=== PATIENT | male | born 1945 | race Caucasian/White ===

== ENCOUNTER → 2018-10-13 12:09 | Outpatient (CLI) | payer MEDICARE, SELFPAY ==
[2018-10-13 12:53] LABS: Basophils % 0.4 % (0.1-2.0); Eosinophils % 0.4 % (0.1-12.0); Hematocrit 41.5 % (42.0-52.0); Hemoglobin 13.5 g/dL (14.1-18.0); Lymphocytes # 1.5 K/mm3 (0.7-4.5); Lymphocytes % 23.2 % (10-50); Mean Corpuscular HGB Conc 32.6 g/dL (31.8-35.4); Mean Corpuscular Hemoglobin 29.3 pg (27.0-31.2); Mean Corpuscular Volume 89.7 fl (80-94); Mean Platelet Volume 8.2 fl (7.4-10.4); Monocytes # 0.7 K/mm3 (0.1-1.0); Monocytes % 11.1 % (1.7-9.3); Neutrophils # 4.3 K/mm3 (1.8-7.8); Neutrophils % 64.7 % (37.0-80.0); Platelet Count 192 K/mm3 (142-424); Red Blood Count 4.62 M/mm3 (4.60-6.20); Red Cell Distribution Width 16.6 % (11.5-17.5); White Blood Count 6.6 K/mm3 (4.8-10.8)
[2018-10-13 14:31] LABS: Anion Gap 13.1 mEq/L (5-15); Blood Urea Nitrogen 16 mg/dL (7-18); Calcium 8.6 mg/dL (8.5-10.1); Carbon Dioxide 30 mmol/L (21.0-32.0); Chloride 100 mmol/L (98-107); Creatinine,Serum 1.16 mg/dL (0.70-1.30); Estimated Glomerular Filt Rate 62 ml/min (>60); Free T4 (Free Thyroxine) 0.91 ng/dl (0.76-1.46); GFR (African American) 74 ML/MIN (>60); Glucose 102 mg/dL (74-106); Potassium 4.1 mmoL/L (3.5-5.1); Sodium 139 mmol/L (136-145)
== END ==
PROVIDERS: Visit Provider Nurse Practitioner Family
DX: I25.10 Atherosclerotic heart disease of native coronary artery without angina pectoris (principal); I73.9 Peripheral vascular disease, unspecified; R53.83 Other fatigue; Z95.0 Presence of cardiac pacemaker; I11.9 Hypertensive heart disease without heart failure; I25.9 Chronic ischemic heart disease, unspecified; K55.1 Chronic vascular disorders of intestine; R00.1 Bradycardia, unspecified; Z95.1 Presence of aortocoronary bypass graft; E78.49 Other hyperlipidemia
CPT/HCPCS: 36415; 80048; 84439; 84443; 85025

== ENCOUNTER 2020-08-31 17:10 | Observation (INO) | payer MEDICARE, SELFPAY ==
[2020-08-31] VITALS (49 sets, daily range): BP systolic 70–140; BP diastolic 35–75; PULSE 60–90; RESP 12–18; TEMP 36.3–36.9; O2SAT 90–100; BMI 25.0; BMI 25.1
--- NOTE | 2020-08-31 07:32 | IR_ITS ---
APPROVED REPORT Patient Location: Outpatient Sign Out Clerk: ROMEL Lopez RT (R) PROCEDURES Catheter placement in the left external iliac artery Left external iliac artery antegrade angiogram with unilateral runoff to the left foot Catheter placement in the right external iliac artery Right external iliac artery antegrade angiogram with unilateral runoff to the right foot Catheter placement in the distal abdominal aorta Distal abdominal aortic angiography with bilateral iliofemoral angiography Stent deployment to the left common iliac artery INDICATION Peripheral artery disease, [place] class III claudication, Known bilateral SFA disease, Left common iliac artery stenosis Informed consent was obtained prior to the procedure. COMPLICATIONS NONE Estimated Blood Loss: LESS THAN 10 ML TECHNIQUE 1% lidocaine used to anesthetize the right anterior aspect of the right wrist. The right radial artery was accessed via the central technique and an arterial cocktail using 5000U heparin, 2.5 mg verapamil, 1mg lidocaine and 800mcg nitroglycerin into the right radial sheath intra-arterially. A PV multi curve catheter was then placed into the left external iliac artery via the right radial sheath and iliofemoral angiography was performed with unilateral runoff to the foot. The catheter was then pulled back and placed into the right external iliac artery where unilateral angiography was performed. The catheter was pulled back to the distal abdominal aorta for distal abdominal aortography with bilateral iliofemoral angiography was performed. Following this therapeutic heparin was administered giving a therapeutic ACT and the 6 Belgian sheath was exchanged for a short 7 Belgian sheath. 2 cm of the 7 Belgian sheath was placed in the right radial artery. The PV multicurve was placed back into the descending aorta and a 10 mm x 27 mm balloon mounted stent was advanced over the wire into the left common iliac artery. The wire was pulled back and antegrade angiography was performed in order to verify stent placement. The stent was deployed at 10 yuliana reducing the severe stenosis to 0%. Excellent angiographic results were obtained. At the end of the procedure the apparatus was removed the sheath was removed good hemostasis was achieved using TR banding patient was transferred to the postop holding area in stable condition. ANGIOGRAPHIC RESULTS The distal abdominal aorta is moderately atheromatous with 30% stenoses. The right common iliac artery has a stent in the ostial and proximal segment which is widely patent with minimal in-stent restenosis with excellent proximal distal transitioning. The right external iliac artery is patent with mild atheromatous plaque as is the right common femoral artery. The right internal iliac artery has a calcified ostial greater than 70% stenosis. The right profunda femoris artery is patent. The right superficial femoral artery has ostial proximal 20% stenoses. Distally the vessel becomes calcified at Farhad's canal and has high-grade stenosis. Competitive flow is identified from collaterals stemming off the profundus. There is antegrade flow down the [place] SFA into the popliteal artery however there are dense calcifications with severe stenoses. Distally the right anterior tibialis artery is occluded in its distal segment. There appears to be two-vessel runoff from the severely diseased peroneal artery and a severely diseased posterior tibialis artery The left common iliac artery has a proximal concentric 80% stenosis followed by poststenotic dilatation. The left internal iliac artery has an ostial 90% stenosis while the left external iliac artery is patent.
[2020-08-31 08:52] LABS: Basophils % 0.6 % (0.1-2.0); Eosinophils % 0.5 % (0.1-12.0); Hemoglobin 14.5 g/dL (14.1-18.0); Lymphocytes # 1.7 K/mm3 (0.7-4.5); Lymphocytes % 29.5 % (10-50); Mean Corpuscular HGB Conc 32.3 g/dL (31.8-35.4); Mean Corpuscular Hemoglobin 28.1 pg (27.0-31.2); Monocytes # 0.6 K/mm3 (0.1-1.0); Monocytes % 10.3 % (1.7-9.3); Neutrophils # 3.3 K/mm3 (1.8-7.8); Neutrophils % 59.1 % (37.0-80.0); Platelet Count 158 K/mm3 (142-424); Red Blood Count 5.17 M/mm3 (4.60-6.20); Red Cell Distribution Width 18.3 % (11.5-17.5); White Blood Count 5.7 K/mm3 (4.8-10.8)
[2020-08-31 08:54] LABS: Chloride 97 mmol/L (98-107); Sodium 139 mmol/L (136-145)
[2020-08-31 08:55] LABS: Potassium 3.3 mmoL/L (3.5-5.1)
[2020-08-31 08:57] LABS: Blood Urea Nitrogen 26 mg/dl (9-20); Creatinine Clearance Estimated 46 mL/min (50-200); Estimated Glomerular Filt Rate 49 ml/min (>60); GFR (African American) 60 ML/MIN (>60)
[2020-08-31 08:58] LABS: Anion Gap 9.3 mEq/L (5-15); Calcium 9.3 mg/dl (8.4-10.2); Carbon Dioxide 36 mmol/L (22.0-30.0); Glucose 114 mg/dl (74-100)
[2020-08-31 09:12] LABS: Coronavirus 19 IgG Antibody Negative (Negative); Coronavirus 19 IgM Antibody Negative (Negative)
--- NOTE | 2020-08-31 12:45 | CT_ITS ---
PROCEDURE: CT ABDOMEN PELVIS WO CON CLINICAL INDICATION: acute abdominal pain post cath, recent left femoral puncture with stent placement in the left common iliac artery COMPARISON: XA CL BOLUS NORA AORTAGRAM BI from 08/31/2020 TECHNIQUE: Axial images obtained with sagittal and coronal reformats. All CT scans at the facility use one or more dose reduction, viz: automated exposure control, ma/kV adjustment per patient size (including targeted exams where dose is matched to indication, i.e. head), or iterative reconstruction technique. FINDINGS: There are mild atelectatic changes in the lung bases. There are coronary artery calcifications. Artifact is present from stents and pacer wires. The liver, spleen, adrenal glands, and pancreas have an unremarkable appearance. The kidneys have an unremarkable appearance. Contrast is present within the renal collecting system from recent heart catheterization. Diffuse atherosclerotic calcification involves the aorta its branches and iliac vessels. Patient has a left common iliac artery stent with no hemorrhage evident around the stent. There is colonic diverticulosis but no evidence of diverticulitis. There is in diffuse enlargement of the lower aspect of the left rectus abdominus muscle with diffuse increased density of the lower pelvis anteriorly deep to the rectus abdominus consistent with acute hemorrhage. No retroperitoneal hemorrhage is evident. Increased density is present in the left inguinal region along the femoral artery. The left psoas muscle is slightly enlarged as well inferiorly and could be related to some underlying hemorrhage. The urinary bladder is compressed toward the right from the hemorrhage. There are degenerative changes in the lumbar spine. IMPRESSION: Diffuse increased density beginning in the left inguinal region and extending into the rectus abdominus as well as the lower peritoneum anteriorly consistent with acute hemorrhage/hematoma Dictated by: Brian Akers MD 08/31/2020 13:14 Brian Akers MD in [facility] 08/31/2020 13:14
--- NOTE | 2020-08-31 12:45 | SUR.PHASEII ---
While assessing pt, small hematoma noticed to left groin, pressure applied, pt became unresponsive and not following verbal commands. Pt awakened with painful stimuli, Jerardo BRITO at bedside, verbal order for 1mg of narcan received. Verbal order for CT abd/pelvic received.
[2020-08-31 13:09] LABS: POC Glucose,Bedside 116 (70-110)
[2020-08-31 13:38] LABS: Hematocrit 33.9 % (42.0-52.0)
--- NOTE | 2020-08-31 13:45 | SUR.PHASEII ---
Dopamine titrated to 10
[2020-08-31 13:50] LABS: Hemoglobin 10.7 g/dL (14.1-18.0)
--- NOTE | 2020-08-31 14:21 | SUR.PHASEII ---
Verbal order marta, Jerardo Travis PA for dopamine at 5, pt manual pressure 99/59
--- NOTE | 2020-08-31 14:25 | SUR.PHASEII ---
Gorge agreed to admit pt, notified house and CM.
--- NOTE | 2020-08-31 14:45 | SUR.PHASEII ---
Dopamine titrated to 10
--- NOTE | 2020-08-31 15:04 | SUR.PHASEII ---
Called lab for update on blood, stated another 45 minutes before its ready, dopamine titrated to 15
[2020-08-31 15:34] LABS: CATHL Activated Clotting Time 371 SEC (74-125)
--- NOTE | 2020-08-31 15:47 | HMH.PNCARD ---
<Jerardo Romero U - Last Filed: 08/31/20 15:47> Subjective Date: 08/31/20 Time: 15:47 Principal diagnosis: PAD Interval history: 75 yo WM with polyvascular disease (CAD/CABG, mild MAMI, PAD and moderate mesenteric artery stenosis) and pacemaker was in [employer] after LE runoff with left iliac artery stenting when he developed worsening abdominal pain. Non-contrast CT of abdomen revealed stranding of the rectus abdominus muscle felt to be blood from the left iliac insertion site. Pressure held at left femoral area. Pt developed hypotension despite IVF. He was started on dopamine to keep SBP > 90 mm Hg. Hgb fell from 14 down to 10 so he was typed and crossed for 2 units with orders to transfuse when ready. Pt to be admitted for observation and blood transfusion. Further treatment as indicated. Exam Vital signs and Labs for Last 24 Hours: Temp Pulse Resp BP Pulse Ox 97.5 F L 60 14 82/59 L 100 08/31/20 08:36 08/31/20 13:15 08/31/20 13:15 08/31/20 15:05 08/31/20 13:15 Laboratory Results - last 24 hr 08/31/20 08:30: WBC 5.7, RBC 5.17, Hgb 14.5, Hct 45.0, MCV 87.0, MCH 28.1, MCHC 32.3, RDW 18.3 H, Plt Count 158, MPV 10.0, Neut % (Auto) 59.1, Lymph % (Auto) 29.5, [place] % (Auto) 10.3 H, Eos % (Auto) 0.5, Baso % (Auto) 0.6, Neut # (Auto) 3.3, Lymph # (Auto) 1.7, [place] # (Auto) 0.6, Eos # (Auto) 0.0, Baso # (Auto) 0.0 08/31/20 08:30: Sodium 139, Potassium 3.3 L, Chloride 97 L, Carbon Dioxide 36 H, Anion Gap 9.3, BUN 26 H, Creatinine 1.40 H, Estimated Creat Clear 46, Estimated GFR 49 L, Est GFR ( Amer) 60, Glucose 114 H, Calcium 9.3 08/31/20 08:30: SARS-CoV-2 IgG Ab (Rapid) Negative, SARS-CoV-2 IgM Ab (Rapid) Negative 08/31/20 11:21: Activated Clotting Time 371 H* 08/31/20 13:02: POC Glucose 116 H 08/31/20 13:25: Hgb 10.7 L D, Hct 33.9 L 08/31/20 14:00: Blood Type O Negative, Antibody Screen Negative, Crossmatch (AHG) See Detail 08/31/20 14:30: Blood Type Confirm O Negative I & O for Last 24 hours: Intake & Output 08/29/20 08/30/20 08/31/20 09/01/20 11:59 11:59 11:59 11:59 Weight 160 lb - Constitutional no acute distress - *Routine HEENT Exam Head: Present: normocephalic Eye: Present: EOMI, PERRL ENT: Present: mucous membranes moist - *Routine Neck Exam Present: supple. Absent: lymphadenopathy - *Routine Respiratory Exam Present: CTA bilaterally - *Routine Cardiovascular Exam Present: RRR - *Routine Abdominal Exam Present: soft, normoactive bowel sounds. Absent: tenderness - *Routine Extremities Exam Absent: cyanosis, clubbing, edema - *Routine Skin Exam Present: warm. Absent: rash - *Routine Neurological Exam Present: alert, oriented X3 Progress Note: A&P (1) PAD (peripheral artery disease) Status: Chronic (2) Claudication, intermittent Status: Acute (3) CAD (coronary artery disease) Status: Chronic (4) Cardiac pacemaker in situ Status: Chronic (5) Carotid artery stenosis Status: Chronic (6) HLD (hyperlipidemia) Status: Chronic (7) History of coronary artery bypass graft Status: Chronic (8) Ischemic heart disease Status: Chronic (9) Mesenteric artery stenosis Status: Chronic Assessment and Plan for All Diagnoses:: 1. Transfuse blood X 2 units. Repeat H/H afterward. 2. Dopamine gtt to keep SBP> 90 mm hg. 3. Continue ASA and plavix for Iliac artery stent and polyvascular disease. 4. Continue statin therapy. 5. Resume beta bharti once off dopamine and vitals stable. 6. Discussed with Dr. Pennington. Please call Dr. Rehman for any questions or concerns. <Nilay Pennington - Last Filed: 09/02/20 08:00> Exam Vital signs and Labs for Last 24 Hours: Temp Pulse Resp BP Pulse Ox 98.3 F 72 14 108/51 L 92 L 09/02/20 07:51 09/02/20 06:00 09/02/20 06:00 09/02/20 06:00 09/02/20 06:00 Laboratory Results - last 24 hr 09/01/20 08:35: WBC 7.9 D, RBC 4.06 L, Hgb 11.5 L D, Hct 34.6 L, MCV 85.3, MCH 28.4, MCHC 33.3, RDW 17
[2020-08-31 17:50] LABS: Microscopic, Urine URINE MICROSCOPIC (MICROSCOPIC)
[2020-08-31 17:52] LABS: Appearance,Urine CLEAR (Clear); Bilirubin,Urine Negative (Negative); Blood, Urine 1+ (Negative); Color,Urine YELLOW (Yellow); Glucose,Urine (UA) Negative (Negative); Ketones,Urine Negative (Negative); Leukocyte Esterase,Urine Negative (Negative); Nitrate,Urine Negative (Negative); Protein,Urine 2+ (Negative)
[2020-08-31 18:03] LABS: Amorphous Sediment,Urine Trace /lpf; Squamous Epithelial Cell,Urine Occasional #/hpf (0-5); WBC,Urine Occasional #/hpf (0-3)
[2020-08-31 23:42] LABS: Hematocrit 39.9 % (42.0-52.0)
[2020-08-31 23:43] LABS: Hemoglobin 12.9 g/dL (14.1-18.0)
[2020-09-01] VITALS (16 sets, daily range): BP systolic 92–117; BP diastolic 41–52; PULSE 50–76; RESP 15–18; TEMP 36.8–37.3; O2SAT 91–98; BMI 24.2
--- NOTE | 2020-09-01 00:02 | PC.NURSE ---
Hold last [address] Rehman.
--- NOTE | 2020-09-01 00:15 | PC.NURSE ---
He is A&OX4. F/c removed per pt's request. He stated that he felt like the f/c was creating pressure and he continued to feel the need to void. His urine is dark yellow, clear. He also refused MD order for ativan and phenergan. He also refused oxygen but is currently 93% on RA. He has vomited once this shift. Reported pain all over 10/10 but refused new order for morphine. He has been resting in bed. Paced on telemetry with occasional PVCs. He received 2 units of PRBCs. Last 2 units are on hold per Dr. Rehman. Right radial site and left groin site with DSGs intact. Drainage marked on both sites with no new drainage this shift. Capillary refill <3. Positive radial and pedal pulses.
[2020-09-01 09:05] LABS: Basophils % 0.2 % (0.1-2.0); Eosinophils % 0.1 % (0.1-12.0); Hematocrit 34.6 % (42.0-52.0); Lymphocytes # 0.9 K/mm3 (0.7-4.5); Lymphocytes % 11.6 % (10-50); Mean Corpuscular HGB Conc 33.3 g/dL (31.8-35.4); Mean Corpuscular Hemoglobin 28.4 pg (27.0-31.2); Mean Corpuscular Volume 85.3 fl (80-94); Mean Platelet Volume 9.4 fl (7.4-10.4); Monocytes # 0.8 K/mm3 (0.1-1.0); Monocytes % 9.7 % (1.7-9.3); Neutrophils # 6.2 K/mm3 (1.8-7.8); Neutrophils % 78.4 % (37.0-80.0); Platelet Count 130 K/mm3 (142-424); Red Blood Count 4.06 M/mm3 (4.60-6.20); Red Cell Distribution Width 17.8 % (11.5-17.5); White Blood Count 7.9 K/mm3 (4.8-10.8)
[2020-09-01 09:12] LABS: Chloride 100 mmol/L (98-107); Potassium 3.5 mmoL/L (3.5-5.1); Sodium 134 mmol/L (136-145)
[2020-09-01 09:15] LABS: Anion Gap 9.5 mEq/L (5-15); Blood Urea Nitrogen 37 mg/dl (9-20); Carbon Dioxide 28 mmol/L (22.0-30.0); Creatinine Clearance Estimated 44 mL/min (50-200); Estimated Glomerular Filt Rate 49 ml/min (>60); GFR (African American) 60 ML/MIN (>60)
[2020-09-01 09:16] LABS: Glucose 134 mg/dl (74-100)
--- NOTE | 2020-09-01 09:17 | PC.NURSE ---
Received call from Dr. Rehman. He ordered to wean Dopamine gtt to keep SBP>90 in hopes of him discharging home today. Dopamine gtt currently @ 6mcg/kg/min. Decreased gtt to 3mcg/kg/min.
[2020-09-01 09:18] LABS: Calcium 7.3 mg/dl (8.4-10.2)
[2020-09-01 09:20] LABS: Hemoglobin 11.5 g/dL (14.1-18.0)
--- NOTE | 2020-09-01 09:48 | HMH.HP ---
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 Non-contrast CT of abdomen revealed stranding of the rectus abdominus muscle felt to be blood from the left iliac insertion site. Pressure held at left femoral area. Pt developed hypotension despite IVF. He was started on dopamine to keep SBP > 90 mm Hg. Hgb fell from 14 down to 10 so he was typed and crossed for 2 units with orders to transfuse when ready. Pt to be admitted for observation and blood transfusion. Further treatment as indicated. [facility] History I have reviewed the patient's past medical history: Yes Medical History: Reports:: Cancer, Carotid Stenosis, Congestive Heart Failure, Coronary Artery Disease, Hyperlipidemia, Hypertension, Internal Pacemaker, Peripheral Vascular Disease, Renal Disease Denies:: Diabetes Mellitus Type 1, Diabetes Mellitus Type 2, MRSA, Seizures *Have you ever received a pneumonia vaccine?: No *Have you received a flu vaccine this season?: No Other Medical History: Denies: Blood Transfusion Reaction Other Surgeries: Yes: Angioplasty, CABG, Cardiac Catheterization, Coronary Stent, Pacemaker Amputation: No Fractures: No - *Social History Last grade of school completed: 11th or 12th Smoking Status: Former smoker Tobacco Type: smokeless tobacco Alcohol Intake: never Alcohol Intake Frequency:: holidays/special occasions only Substance Use Type: denies use *Occupational Status:: retired Housing: house Household Members: spouse *Travel in the last 8 weeks: None Family Hx:: Unable to obtain Review of Systems - Review of Systems Review of systems:: pertinent systems reviewed and negative unless documented below - Constitutional Denies fever(s) - ENT Denies sore throat - *Cardiovascular Reports chest pain, Reports shortness of breath - *Respiratory Denies cough - *Gastrointestinal Denies abdominal pain - *Genitourinary Denies blood in urine - *Musculoskeletal Denies joint pain - Integumentary/Breasts Denies rash - *Neurologic Denies localized weakness, Denies seizure-like activity - Psychiatric Denies anxiety Meds Home Medications Medication Instructions Recorded Confirmed Type aspirin 81 mg tablet,delayed 81 mg PO DAILY 02/15/19 08/31/20 History release Clopidogrel Bisulfate [Plavix 75mg 75 mg PO DAILY 08/31/20 08/31/20 History Tab] Potassium Chloride [K-Tab ER 10 10 meq PO DAILY 08/31/20 08/31/20 History mEq] Rosuvastatin Calcium 40 mg PO DAILY 08/31/20 08/31/20 History bisoproloL fumarate [Bisoprolol 5 mg PO BID 08/31/20 08/31/20 History Fumarate] hydroCHLOROthiazide [HCTZ 25mg 12.5 mg PO DAILY 08/31/20 08/31/20 History tab] Allergies Allergy/AdvReac Type Severity Reaction Status Date / Time ramipril [From Altace] Allergy Mild Verified 08/29/20 08:42 Exam Vital signs and Labs for Last 24 Hours: Temp Pulse Resp BP Pulse Ox 98.2 F 60 17 99/45 L 93 L 09/01/20 08:00 09/01/20 06:00 09/01/20 00:35 09/01/20 06:00 09/01/20 06:00 Laboratory Results - last 24 hr 08/31/20 11:21: Activated Clotting Time 371 H* 08/31/20 13:02: POC Glucose 116 H 08/31/20 13:25: Hgb 10.7 L D, Hct 33.9 L 08/31/20 14:00: Blood Type O Negative, Antibody Screen Negative, Crossmatch (AHG) See Detail 08/31/20 14:30: Blood Type Confirm O Negative 08/31/20 15:35: Urine Color Yellow, Urine Appearance Clear, Urine pH 7.0, Ur Specific [place] 1.010, Urine Protein 2+, Urine Glucose (UA) Negative, Urine Ketones Negative, Urine Blood 1+, Urine Nitrate Negative, Urine Bilirubin Negative, Urine Urobilinogen 1.0, Ur Leukocyte Esterase Negative, Urine RBC 5-10, Urine WBC Occasional, Ur Squamous Epith
--- NOTE | 2020-09-01 10:13 | PC.NURSE ---
Dopamine gtt turned off. BP 101/47.
--- NOTE | 2020-09-01 11:22 | HMH.PHAVTE ---
[facility] Pharmacy VTE Monitoring - Patient Demographics Admission date: 08/31/20 Report Date: 09/01/20 Time: 11:22 Allergies/Adverse Reactions: Patient Allergies ramipril [From Altace] Allergy (Mild, Verified 08/29/20 08:42) Height: 1.7 m Weight: 70.08 kg Patient Problems: Current Active Problems Claudication, intermittent (Acute) Cardiac pacemaker in situ (Chronic) Ischemic heart disease (Chronic) Mesenteric artery stenosis (Chronic) Carotid artery stenosis (Chronic) HLD (hyperlipidemia) (Chronic) PAD (peripheral artery disease) (Chronic) History of coronary artery bypass graft (Chronic) CAD (coronary artery disease) (Chronic) - VTE Risk Labs: VTE Related Lab Results Hgb 11.5 g/dL (14.1-18.0) L D 09/01/20 08:35 Hct 34.6 % (42.0-52.0) L 09/01/20 08:35 Plt Count 130 K/mm3 (142-424) L 09/01/20 08:35 BUN 37 mg/dl (9-20) H D 09/01/20 08:35 Creatinine 1.40 mg/dl (0.66-1.25) H 09/01/20 08:35 Estimated Creat Clear 44 mL/min (50-200) 09/01/20 08:35 VTE Score: 3 VTE Risk Level: Low Risk - Prophylaxis VTE Prophylaxis Ordered?: Yes Types of VTE Prophylaxis: TEDS Knee High Location of Applied Device: Bilateral Lower Extremeties
--- NOTE | 2020-09-01 11:44 | HMH.PHAINT ---
MEDICATION RECONCILIATION COMPLETED ON PATIENT USING EXTERNAL FILL HISTORY FROM PHARMACY AND LIST FROM CARDIOLOGY OFFICE. -NATHAN WILDED
--- NOTE | 2020-09-01 14:58 | PC.NURSE ---
rounded with Dr. Rehman. Pt to discharge home tomorrow.
--- NOTE | 2020-09-01 17:27 | PC.NURSE ---
pt has done well this shift. Appetite has improved. Gets OOB to use bathroom. Had 1 BM today. Reports that he has chronic constipation. Sats >93% on RA. Paced @ times on tele. NSR with occasional PVCs. Dopamine gtt has been off since around 10:15 this morning. Has been normotensive with SBP>90. Plan is to discharge home tomorrow.
--- NOTE | 2020-09-01 20:43 | PC.NURSE ---
Pt c/o abdominal discomfort. Describes it as pressure. Pt states that it hurts when he moves. Pt declined morphine and requested tylenol instead. Pt was administered 650 mg tylenol PO. VSS at this time. 117/50, P 66, R 18, 93% RA. Cath sites assessed. Bruising noted. Will continue to monitor.
[2020-09-02] VITALS (10 sets, daily range): BP systolic 89–112; BP diastolic 40–55; PULSE 55–80; RESP 14–17; TEMP 36.8–37.1; O2SAT 91–96
--- NOTE | 2020-09-02 02:38 | PC.NURSE ---
Pt resting in bed. Continues to have abdominal discomfort, but refuses to take any medication for it. When asked to point to area, pt pojnts to lower abdomen, pelvic area. Pt is not having any difficulty with voiding. Uses urinal. Pt states that he is going home today and that he would like to take off the wires, meaning telemetry and BP cuff. Pt was educated on need to monitor VS and HR. He is Paced on telemetry with frequent PVC's. VSS at this time. Call light within reach. Will continue to monitor.
--- NOTE | 2020-09-02 06:30 | PC.NURSE ---
No acute changes. Pt resting in bed. Cath sites unchanged. DSG intact. Bruising noted. Pt has tenderness to lower abdomen/pelvic area. States it is the same as after procedure and no worse. He states that MD told him he would have some discomfort there for a while. VSS. Call light within reach. Will continue to monitor.
--- NOTE | 2020-09-02 09:27 | HMH.DCSUM ---
General - General Admission date:: 08/31/20 Discharge date: 09/02/20 HPI HPI: pt with recent heart cath - pt was admitted - 75 yo WM with polyvascular disease (CAD/CABG, mild MAMI, PAD and moderate mesenteric artery stenosis) and pacemaker was in [employer] laboratory after LE runoff with left iliac artery stenting when he developed worsening abdominal pain. Non-contrast CT of abdomen revealed stranding of the rectus abdominus muscle felt to be blood from the left iliac insertion site. Pressure held at left femoral area. Pt developed hypotension despite IVF. He was started on dopamine to keep SBP > 90 mm Hg. Hgb fell from 14 down to 10 so he was typed and crossed for 2 units with orders to transfuse when ready. Pt to be admitted for observation and blood transfusion. Further treatment as indicated. Hospital Course Hospital Course: pt has did well and had transfusion and was weaned off dopamine and has maintained stable vss and has tolerated diet and activity - will d/c to follow up with pcp and dr ortiz - h/h improved and stable Objective Vital signs: Temp Pulse Resp BP Pulse Ox 98.3 F 72 14 108/51 L 92 L 09/02/20 07:51 09/02/20 06:00 09/02/20 06:00 09/02/20 06:00 09/02/20 06:00 no acute distress - *Routine HEENT Exam Head: Present: normocephalic Eye: Present: EOMI, PERRL ENT: Present: mucous membranes dry - *Routine Neck Exam Present: supple - *Routine Respiratory Exam Present: CTA bilaterally - *Routine Cardiovascular Exam Present: RRR, murmur, S4 - *Routine Abdominal Exam Present: soft - *Routine Extremities Exam Absent: calf tenderness - *Routine Skin Exam Present: intact - *Routine Neurological Exam Present: alert, oriented X3, CN II-XII intact - Routine Psychiatric Exam Present: normal affect DS: Diagnosis - Discharge Diagnosis (1) PAD (peripheral artery disease) Status: Chronic (2) Claudication, intermittent Status: Acute (3) CAD (coronary artery disease) Status: Chronic (4) Cardiac pacemaker in situ Status: Chronic (5) Carotid artery stenosis Status: Chronic (6) HLD (hyperlipidemia) Status: Chronic (7) History of coronary artery bypass graft Status: Chronic (8) Ischemic heart disease Status: Chronic (9) Mesenteric artery stenosis Status: Chronic (10) Acute blood loss anemia Status: Acute (11) Nontraumatic rectus hematoma Status: Acute (12) Renal insufficiency Status: Acute Discharge Plan - Patient Discharge Instructions ACTIVITY: Continue current activity DIET: continue same diet Patient Instructions: Intermittent Claudication (Alternative Therapy), Coronary Artery Disease, Exercise Appears Beneficial for Patients With Intermittent Claudication, DI for Surgical Site Infection, DI for Coronary Artery Disease - Follow up Plan Follow up with: Vahe Ortiz MD [Staff Physician] - 09/10/20 11:30 am Disposition: Home, Self-[facility] Medications: Home Medications Medication Instructions Recorded Confirmed Type aspirin 81 mg tablet,delayed 81 mg PO DAILY 02/15/19 08/31/20 History release Clopidogrel Bisulfate [Plavix 75mg 75 mg PO DAILY 08/31/20 08/31/20 History Tab] Potassium Chloride [K-Tab ER 10 10 meq PO DAILY 08/31/20 08/31/20 History mEq] Rosuvastatin Calcium 40 mg PO DAILY 08/31/20 08/31/20 History bisoproloL fumarate [Bisoprolol 5 mg PO BID 08/31/20 08/31/20 History Fumarate] hydroCHLOROthiazide [HCTZ 25mg 12.5 mg PO DAILY 08/31/20 08/31/20 History tab] Docusate Sodium [Colace] 100 mg PO DAILY #30 cap 09/02/20 Rx polyethylene glycoL 3350 [Miralax 17 gm PO DAILY #30 packet 09/02/20 Rx 17gm Packet] Prescriptions/Medication Reconciliation: New polyethylene glycoL 3350 [Miralax 17gm Packet] 17 gm PO DAILY #30 packet Aspirin [Aspirin 81mg chewable tab] 81 mg PO DAILY tab.chew Atorvastatin Calcium [Lipitor 40mg Tablet*] 80
--- NOTE | 2020-09-02 11:08 | HMH.PHACLD ---
Presley Loomis has received discharge medication counseling on the following medications: ASPIRIN, PLAVIX, CRESTOR WHICH PATIENT IS ALREADY TAKING AT HOME. ARB/ACEI AND BETA DAVID NOT INDICATED SINCE PATIENT HAD PERIPHERAL STENT. NEW PRESCRIPTIONS FOR MIRALAX AND DOCUSATE. PATIENT IS NOT STOPPING ANY MEDICATIONS. PATIENT VERBALIZED UNDERSTANDING AND HAD NO QUESTIONS AT THIS TIME. -TRACEE TUBBS, NATHAND
[2020-12-24 14:16] LABS: CATHL Activated Clotting Time 171 SEC (74-125)
== END 2020-09-02 11:07 | disposition home or self-care (01) | DRG 253 ==
LOC: CATHLAB 17:11 → 2ND 17:12
PROVIDERS: Internal Medicine; Physician Assistant; Admitting Provider Emergency Medicine; PCP Family Medicine; Visit Provider Emergency Medicine
PROC: 047D3DZ Dilation of Left Common Iliac Artery with Intraluminal Device, Percutaneous Approach (ICD-10-PCS; principal; 2020-08-31 09:00)
DX: I70.213 Atherosclerosis of native arteries of extremities with intermittent claudication, bilateral legs; T82.856A Stenosis of peripheral vascular stent, initial encounter; I70.92 Chronic total occlusion of artery of the extremities; E78.5 Hyperlipidemia, unspecified; I11.0 Hypertensive heart disease with heart failure; I25.118 Atherosclerotic heart disease of native coronary artery with other forms of angina pectoris; I65.23 Occlusion and stenosis of bilateral carotid arteries; Z95.0 Presence of cardiac pacemaker; Z95.1 Presence of aortocoronary bypass graft; M79.81 Nontraumatic hematoma of soft tissue; I50.9 Heart failure, unspecified; Z79.02 Long term (current) use of antithrombotics/antiplatelets; I77.1 Stricture of artery
CPT/HCPCS: 36415; 37221; 74176; 80048; 81001; 82962; 85014; 85018; 85025; 85347; 86328; 86850; 94761; 99152; 99153; C1725; C1769; C1876; C1894; G0378; J1644; J2310; J2405; P9016; Q9966

== ENCOUNTER → 2020-09-10 11:29 | Outpatient (CLI) | payer MEDICARE, SELFPAY ==
[2020-09-10 11:46] LABS: Basophils # 0.1 K/mm3 (0-0.2); Basophils % 0.6 % (0.1-2.0); Eosinophils # 0.1 K/mm3 (0.0-0.4); Eosinophils % 0.7 % (0.1-12.0); Hematocrit 40.6 % (42.0-52.0); Hemoglobin 13.3 g/dL (14.1-18.0); Lymphocytes # 1.6 K/mm3 (0.7-4.5); Lymphocytes % 17.1 % (10-50); Mean Corpuscular HGB Conc 32.7 g/dL (31.8-35.4); Mean Corpuscular Hemoglobin 28.5 pg (27.0-31.2); Mean Corpuscular Volume 87.1 fl (80-94); Mean Platelet Volume 8.4 fl (7.4-10.4); Monocytes # 0.7 K/mm3 (0.1-1.0); Monocytes % 7.1 % (1.7-9.3); Neutrophils % 74.4 % (37.0-80.0); Platelet Count 343 K/mm3 (142-424); Red Blood Count 4.67 M/mm3 (4.60-6.20); Red Cell Distribution Width 18.2 % (11.5-17.5); White Blood Count 9.4 K/mm3 (4.8-10.8)
[2020-09-10 11:53] LABS: Chloride 93 mmol/L (98-107)
[2020-09-10 11:54] LABS: Potassium 4.2 mmoL/L (3.5-5.1); Sodium 133 mmol/L (136-145)
[2020-09-10 11:57] LABS: Anion Gap 8.2 mEq/L (5-15); Blood Urea Nitrogen 21 mg/dl (9-20); Calcium 9.4 mg/dl (8.4-10.2); Carbon Dioxide 36 mmol/L (22.0-30.0); Estimated Glomerular Filt Rate 59 ml/min (>60); GFR (African American) 71 ML/MIN (>60); Glucose 110 mg/dl (74-100)
== END ==
PROVIDERS: Visit Provider Internal Medicine
DX: R06.09 Other forms of dyspnea (principal); I25.118 Atherosclerotic heart disease of native coronary artery with other forms of angina pectoris; I11.9 Hypertensive heart disease without heart failure
CPT/HCPCS: 36415; 80048; 85025

== ENCOUNTER → 2020-12-12 13:17 | Outpatient (CLI) | payer MEDICARE, SELFPAY | PROVIDERS: PCP Family Medicine; Visit Provider Physician Assistant | DX: I25.10 Atherosclerotic heart disease of native coronary artery without angina pectoris (principal); I47.1 Supraventricular tachycardia; R06.00 Dyspnea, unspecified; Z95.1 Presence of aortocoronary bypass graft | CPT/HCPCS: 93306 ==

== ENCOUNTER 2020-12-24 19:55 | Emergency (ER) | payer MEDICARE, SELFPAY ==
[2020-12-24 19:56] VITALS: BP 184/73; PULSE 60; RESP 17; TEMP 36.6; O2SAT 99; BMI 25.0
--- NOTE | 2020-12-24 20:16 | XR_ITS ---
PROCEDURE: XR CHEST PORTABLE CLINICAL HISTORY: chest pain COMPARISON: CR [id number] XR chest portable from 06/18/2018 FINDINGS: Prior CABG. Bipolar pacemaker is present from left subclavian approach. No evidence of CHF. The lungs are clear without infiltrates, suspicious nodules, or pleural effusions. No acute bony abnormalities. IMPRESSION: No change with no acute finding Dictated by: Brian Akers MD 12/24/2020 20:42 Brian Akers MD in [place] 12/24/2020 20:42
[2020-12-24 20:24] LABS: Basophils # 0.1 K/mm3 (0-0.2); Basophils % 0.6 % (0.1-2.0); Eosinophils % 0.3 % (0.1-12.0); Hematocrit 45.7 % (42.0-52.0); Hemoglobin 14.7 g/dL (14.1-18.0); Lymphocytes # 2.5 K/mm3 (0.7-4.5); Lymphocytes % 26.6 % (10-50); Mean Corpuscular HGB Conc 32.2 g/dL (31.8-35.4); Mean Corpuscular Hemoglobin 28.9 pg (27.0-31.2); Mean Corpuscular Volume 89.8 fl (80-94); Mean Platelet Volume 8.5 fl (7.4-10.4); Monocytes # 0.9 K/mm3 (0.1-1.0); Monocytes % 9.2 % (1.7-9.3); Neutrophils % 63.4 % (37.0-80.0); Platelet Count 181 K/mm3 (142-424); Red Blood Count 5.09 M/mm3 (4.60-6.20); Red Cell Distribution Width 18.5 % (11.5-17.5); White Blood Count 9.5 K/mm3 (4.8-10.8)
[2020-12-24 20:26] LABS: Chloride 100 mmol/L (98-107); Potassium 3.6 mmoL/L (3.5-5.1); Sodium 139 mmol/L (136-145)
[2020-12-24 20:29] LABS: Alanine Aminotransferase 25 U/L (12-78); Albumin Level 4.3 g/dl (3.5-5.0); Alkaline Phosphatase 72 U/L (38-126); Anion Gap 6.6 mEq/L (5-15); Aspartate Amino Transferase 33 U/L (17-59); Bilirubin,Direct 0.2 mg/dl (0.0-0.4); Bilirubin,Indirect 0.5 mg/dL (0.0-0.9); Bilirubin,Total 0.7 mg/dl (0.2-1.3); Bilirubin,Unconjugated 0.6 mg/dL (0.0-1.1); Blood Urea Nitrogen 22 mg/dl (9-20); Calcium 9.2 mg/dl (8.4-10.2); Carbon Dioxide 36 mmol/L (22.0-30.0); Creatinine Clearance Estimated 46 mL/min (50-200); Estimated Glomerular Filt Rate 49 ml/min (>60); GFR (African American) 60 ML/MIN (>60); Glucose 171 mg/dl (74-100); Total Protein,Serum 7.3 g/dl (6.3-8.2)
[2020-12-24 20:44] LABS: Troponin I < 0.01 ng/ml (0.00-0.034)
--- NOTE | 2020-12-24 20:47 | [facility].EDCP ---
ED Disposition Clinical Impression: Unstable angina pectoris, Cardiac pacemaker in situ, PAD (peripheral artery disease) Disposition: Admitted as Observation Condition on Discharge: Good Referrals: PCP,No [Primary Care Provider] - - Critical Care Critical Care Time: No Attestation: On 12/24/20, the high probability of a clinically significant, sudden or life threatening deterioration of the following system(s) required my full and direct attention, intervention and personal management. The time I documented below is in addition to time spent performing reported procedures but includes the following listed in this critical care notation. Medical Decision Making - Medical Records Medical records reviewed: Yes: I reviewed the patient's medical records. - Elio Inquiry Pt receiving controlled substance: No Vital Signs: 12/24/20 19:56 Temperature 98 F Temperature Source Oral Pulse Rate [Right Brachial] 60 Respiratory Rate 17 Blood Pressure [Right Arm] 184/73 H Blood Pressure Mean [Right Arm] 110 Blood Pressure Source [Right Arm] Automatic Cuff Blood Pressure Position [Right Arm] Sitting 02 Sat by Pulse Oximetry 99 Oxygen Delivery Method Room Air - Lab Data Lab results reviewed: Yes: I reviewed the patient's lab results. Lab Results 12/24/20 20:00: WBC 9.5, RBC 5.09, Hgb 14.7, Hct 45.7, MCV 89.8, MCH 28.9, MCHC 32.2, RDW 18.5 H, Plt Count 181, MPV 8.5, Neut % (Auto) 63.4, Lymph % (Auto) 26.6, [place] % (Auto) 9.2, Eos % (Auto) 0.3, Baso % (Auto) 0.6, Neut # (Auto) 6.0, Lymph # (Auto) 2.5, [place] # (Auto) 0.9, Eos # (Auto) 0.0, Baso # (Auto) 0.1 12/24/20 20:00: Sodium 139, Potassium 3.6, Chloride 100, Carbon Dioxide 36 H, Anion Gap 6.6, BUN 22 H, Creatinine 1.40 H, Estimated Creat Clear 46, Estimated GFR 49 L, Est GFR ( Amer) 60, Glucose 171 H, Calcium 9.2, Total Bilirubin 0.7, Direct Bilirubin 0.2, Conjugated Bilirubin 0.0, Indirect Bilirubin 0.5, Unconjugated Bilirubin 0.6, AST 33, ALT 25, Alkaline Phosphatase 72, Troponin I < 0.01, Total Protein 7.3, Albumin 4.3 Result diagrams: 12/24/20 20:00 12/24/20 20:00 Orders (Tests/Meds): ORDERS Category Date Time Status Covid-19 Nasal PCR ([facility]) Stat Lab 12/24/20 20:05 Received Troponin I Q3H Lab 12/24/20 23:30 Ordered Troponin I Q3H Lab 12/25/20 02:30 Ordered - Radiology Data #1 Image(s): Chest Image Reviewed: Yes I reviewed the patient's radiology image Preliminary Findings: Normal/NAD - ECG Data Tracing #1 Arrhythmias present: other (pacemaker) - Physician Consults Physician Consulted: isidra Reason -: Admission Medical Decision Narrative: has chest pain with hx of ht dis - has pacemaker will require admit and eval Chest Pain HPI - General Chief Complaint: Chest Pain Stated Complaint: chest pain Time Seen by Provider: 12/24/20 20:20 Mode of Arrival: Family Vehicle Source of Information: Patient, Spouse, Medical Record Limitations: No Limitations Description of Symptoms (Recalled from ER Triage Doc. by RN): cp since 1400, sees dr ortiz, had a stent placed last week; history of open-heart surgery - History of Present Illness HPI narrative: pt with episodes of chest pain x2 today and also over the last few days - hx of ht dis and pvd - used ntg with relief but pain returned MD complaint: chest pain indicative of cardiac Onset (ago): hour(s) Duration: intermittent Activity at onset: during rest Pain location: left chest Severity: similar to previous episodes Quality: sharp Relieving factors: nitroglycerin Associated symptoms: nausea Risk Factors for CAD: Hypertension, Family Hx of CAD Treatments prior to or on arrival for Cardiac Chest Pain: aspirin, nitroglycerin - ANKIT Score for Non-Stemi Age of Patient: 70-79 years old Heart Rate: 50-69 bpm Systolic Blood Pressure: 160-199 mmHg Serum Creatinine: 1.20-1.59 mg/dl CHF [place] Class: I-No CHF Other Risk Factors: None Non-Stemi Risk Score: 98 - Related
--- NOTE | 2020-12-24 21:41 | PC.NURSE ---
spoke with dr miner for admit.
[2020-12-25 00:09] LABS: Troponin I < 0.01 ng/ml (0.00-0.034)
--- NOTE | 2020-12-25 00:41 | PC.NURSE ---
Lab notified this rn that pt was COVID +. digital account supervisor notified of need for bed in COVID ICU
[2020-12-25 01:25] VITALS: BP 125/75; PULSE 79; RESP 18; TEMP 36.7; O2SAT 98
--- NOTE | 2020-12-25 01:28 | PC.NURSE ---
pt left against medical advice.
[2020-12-25 05:59] LABS: Coronavirus 19 IgG Antibody Positive (Negative); Coronavirus 19 IgM Antibody Negative (Negative)
== END 2020-12-25 01:29 | disposition admitted as inpatient to this hospital (09) ==
PROVIDERS: Emergency Provider Emergency Medicine
DX: U07.1 COVID-19 (principal); I20.0 Unstable angina; I73.9 Peripheral vascular disease, unspecified; I50.9 Heart failure, unspecified; I25.10 Atherosclerotic heart disease of native coronary artery without angina pectoris; E78.5 Hyperlipidemia, unspecified; I10 Essential (primary) hypertension; Z87.891 Personal history of nicotine dependence; Z95.0 Presence of cardiac pacemaker; Z79.899 Other long term (current) drug therapy
CPT/HCPCS: 71045; 80048; 80076; 84484; 85025; 86328; 99283; U0003

== ENCOUNTER 2020-12-26 07:57 | Outpatient (CLI) | payer MEDICARE, SELFPAY ==
[2020-12-26] VITALS (9 sets, daily range): BP systolic 123–137; BP diastolic 60–70; PULSE 60–61; RESP 16; TEMP 36.4–36.6; O2SAT 94–97
== END 2020-12-26 10:50 | disposition home or self-care (01) ==
LOC: INF 07:58
PROVIDERS: PCP Family Medicine; Visit Provider Internal Medicine
DX: U07.1 COVID-19 (principal)
CPT/HCPCS: 96365

== ENCOUNTER → 2021-02-20 11:43 | Outpatient (CLI) | payer MEDICARE, SELFPAY ==
--- NOTE | 2021-02-20 11:43 | NM_ITS ---
APPROVED REPORT Exam: Nuclear Stress Test Indication: CAD, CABG, HTN, HYPERLIPIDEMIA, FM HX., ANGINA, C.P., SOB, PACEMAKER Patient Location: Outpatient Stress Tech: Neena Graham [place] Tech:Annette Kaur, ARRT, RT (R)(N) Ht: 5 ft 7 in Wt: 160 lbs HR: 60 bpm BP: 137/62 mmHg BSA: 1.84 m2 BMI: 25.0 History: CAD, CABG, HTN, HYPERLIPIDEMIA, FM HX., ANGINA, C.P., SOB, PACEMAKER Procedure: Patient received a 0.4 mg of intravenous Lexiscan, resting heart rate 60 bpm, resting blood pressure 137/62 mmHg, with Lexiscan maximum heart rate achived was 60 bpm which is Less than 85 % of the maximum predicted heart rate and blood pressure was 155/67 mmHg. With Lexiscan, patient denied any complaint of chest pain. Electrocardiogram Resting electrocardiogram shows sinus rhythm nonspecific ST-T changes, with Lexiscan there is less than 1.[address] segment depression noted from the baseline EKG. The EKG portion of the Lexiscan is nondiagnostic. Cardiac Stress and Resting SPECT Images: Cardiac Stress and Resting SPECT images were obtained using technetium 99m Myoview 32.8 mCi stress and 10.33 mCi at rest. Gated SPECT for analysis of segmental wall motion and calculation of the ejection fraction also done, prone images were also obtained. Cardiac stress and resting SPECT images show moderate sized area of fixed defect involving the inferior and posterior basal wall consistent with area of nontransmural myocardial scarring, no significant noah-infarct ischemia seen, computer derived ejection fraction is 46% with moderate inferior wall hypokinesis. Right ventricle is normal size and contractility. Conclusion: 1. The EKG portion of the Lexiscan is nondiagnostic. 2. Scintigraphic evidence of nontransmural myocardial scarring involving the inferior and posterior basal wall without significant noah-infarct ischemia. Computer derived ejection fraction is 46% with segmental wall motion abnormality described above, right ventricle is normal size and contractility. 3. Abnormal Lexiscan Myoview study. Electronically signed by : Sean Mcmanus, 02/21/2021 15:34:06
--- NOTE | 2021-02-20 13:24 | CA_ITS ---
APPROVED REPORT Exam: Pharmacologic Technologist: rene beckham, Ht: 5 ft 7 in Wt: 157 lbs BSA: 1.82 m2 HR: 98685 bpm BP: 62/ mmHg Indications: CAD,CP Medical History Medications: Asa,,,,, HCTZ,,,,, CloPIdogrel,,,,, BisOPROLOL,,,,, Nitro,,,,, ColaCE,,,,, PolyethYLENE,,,,, PotTASSIUM,,,,, RoSUVASatin,,,,, Allergies: ramipril Cardiac Risk Factors: HTN, Hyperlipidemia Stress Test Details Test: LEXISCAN HR Resting HR: 60 bpm Max Heart Rate (APMHR): 143.971948 bpm Max HR Achieved: 88 bpm Target HR (85% APMHR): 121.307653 bpm % of APMHR: 61.54 Recovery HR: 60 bpm BP Resting BP: 137/62 mmHg Max BP: 155/67 mmHg Recovery BP: 132.0/61.0 mmHg ECG Resting ECG: A-fib with ventricular paced rhythm, PVC's vs aberrantl beats Clinical Exercise duration: 04:05 min Highest Stage Achieved: Exercise capacity: 1.0 METs Stress ECG Conclusion No chest pain. Complaints of SOA, malaise, and mild stomach discomfort. PVC's vs aberrantly conducted beats. No significant ST changes. Non-diadnostic Lexiscan stress. Images reported separately. Test Summary REST 06:04 . . 60 . 137/ 62 . . Stage 1 01:00 . . 82 . . . . Stage 2 01:00 . . 75 . . . . Stage 3 01:00 . . 60 . 138/ 53 . . Stage 4 01:00 . . 60 . 155/ 67 . . Stage 4 01:05 . . 60 . 155/ 67 . Stop exercise at 04:05 RECOVERY 01:00 . . 60 . 132/ 61 . . RECOVERY 02:00 . . 60 . 132/ 61 . . RECOVERY 03:00 . . 60 . 132/ 61 . . RECOVERY 03:18 . . 60 . 151/ 65 . . Electronically signed by : Sean Mcmanus, 02/21/2021 14:08:37
== END ==
PROVIDERS: PCP Family Medicine; Visit Provider Nurse Practitioner Family
DX: E78.5 Hyperlipidemia, unspecified (principal); I11.9 Hypertensive heart disease without heart failure; I65.29 Occlusion and stenosis of unspecified carotid artery; I73.9 Peripheral vascular disease, unspecified; K55.1 Chronic vascular disorders of intestine; Z95.0 Presence of cardiac pacemaker; Z95.1 Presence of aortocoronary bypass graft; I20.8 Other forms of angina pectoris
CPT/HCPCS: 78452; 93017; A9502; J2785

== ENCOUNTER → 2021-02-26 12:14 | Outpatient (CLI) | payer MEDICARE, SELFPAY ==
--- NOTE | 2021-02-26 12:30 | XR_ITS ---
PROCEDURE: XR CHEST 2V CLINICAL HISTORY: dyspnea COMPARISON: CR [id number] XR chest portable from 06/18/[address] ABDOMEN PELVIS WO CON from 08/31/2020 CR XR CHEST PORTABLE from 12/24/2020 FINDINGS: Bipolar pacemaker is present from left subclavian approach. There has been a prior CABG. Heart size is normal. No evidence of CHF. No lobar consolidation or collapse is evident. There is a faint opacity in the right midlung laterally overlying the 6th rib anteriorly. Vascular crowding is present in the right lung base. No acute bony abnormalities. IMPRESSION: Postsurgical changes. Faint opacity in the right midlung laterally nonspecific. Stability may be confirmed with follow-up. Vascular crowding in the right lung base medially suggesting some underlying atelectatic change Dictated by: Brian Akers MD 02/26/2021 13:27 Brian Akers MD in [place] 02/26/2021 13:27
[2021-02-26 13:11] LABS: Basophils % 0.6 % (0.1-2.0); Eosinophils % 0.1 % (0.1-12.0); Hematocrit 42.8 % (42.0-52.0); Hemoglobin 13.9 g/dL (14.1-18.0); Lymphocytes # 1.9 K/mm3 (0.7-4.5); Lymphocytes % 25.5 % (10-50); Mean Corpuscular HGB Conc 32.4 g/dL (31.8-35.4); Mean Corpuscular Hemoglobin 28.4 pg (27.0-31.2); Mean Corpuscular Volume 87.5 fl (80-94); Mean Platelet Volume 9.1 fl (7.4-10.4); Monocytes # 0.8 K/mm3 (0.1-1.0); Monocytes % 10.4 % (1.7-9.3); Neutrophils # 4.7 K/mm3 (1.8-7.8); Neutrophils % 63.4 % (37.0-80.0); Platelet Count 171 K/mm3 (142-424); Red Blood Count 4.89 M/mm3 (4.60-6.20); Red Cell Distribution Width 18.8 % (11.5-17.5); White Blood Count 7.5 K/mm3 (4.8-10.8)
[2021-02-26 13:55] LABS: Alanine Aminotransferase 25 U/L (12-78); Albumin Level 4.1 g/dl (3.5-5.0); Alkaline Phosphatase 51 U/L (38-126); Anion Gap 8.9 mEq/L (5-15); Aspartate Amino Transferase 31 U/L (17-59); Bilirubin,Direct 0.3 mg/dl (0.0-0.4); Bilirubin,Indirect 0.7 mg/dL (0.0-0.9); Bilirubin,Unconjugated 0.7 mg/dL (0.0-1.1); Blood Urea Nitrogen 24 mg/dl (9-20); Calcium 8.9 mg/dl (8.4-10.2); Carbon Dioxide 36 mmol/L (22.0-30.0); Chloride 101 mmol/L (98-107); Chol/HDL Ratio 2.8 (1-3.5); Cholesterol 113 mg/dl (140-200); Estimated Glomerular Filt Rate 42 ml/min (>60); GFR (African American) 51 ML/MIN (>60); Glucose 88 mg/dl (74-100); HDL Cholesterol 41 mg/dl (40-60); Potassium 3.9 mmoL/L (3.5-5.1); Sodium 142 mmol/L (136-145); Total Protein,Serum 6.4 g/dl (6.3-8.2); Triglycerides 113 mg/dl (30-150); VLDL Cholesterol 23 mg/dL (0-40)
[2021-02-26 14:06] LABS: Direct LDL Cholesterol 52.47 mg/dL (100-129)
[2021-02-26 14:31] LABS: Free T4 (Free Thyroxine) 1.12 ng/dl (0.78-2.19)
[2021-02-26 14:42] LABS: Thyroid Stimulating Hormone 1.42 uIU/mL (0.465-4.68)
[2021-02-26 14:44] LABS: Vitamin B12 288 pg/mL (239-931)
== END ==
PROVIDERS: PCP Family Medicine; Visit Provider Internal Medicine
DX: E78.2 Mixed hyperlipidemia (principal); I11.9 Hypertensive heart disease without heart failure; I25.118 Atherosclerotic heart disease of native coronary artery with other forms of angina pectoris; I65.23 Occlusion and stenosis of bilateral carotid arteries; K55.1 Chronic vascular disorders of intestine; R06.09 Other forms of dyspnea; R94.39 Abnormal result of other cardiovascular function study; Z95.0 Presence of cardiac pacemaker; Z95.1 Presence of aortocoronary bypass graft; R53.83 Other fatigue
CPT/HCPCS: 36415; 71046; 80048; 80061; 80076; 82607; 84439; 84443; 85025

== ENCOUNTER → 2021-12-25 11:45 | Outpatient (CLI) | payer MEDICARE, SELFPAY ==
[2021-12-25 13:18] LABS: Basophils # 0.1 K/mm3 (0-0.2); Basophils % 1.1 % (0.1-2.0); Eosinophils % 0.3 % (0.1-12.0); Hematocrit 47.3 % (42.0-52.0); Hemoglobin 15.5 g/dL (14.1-18.0); Lymphocytes # 1.5 K/mm3 (0.7-4.5); Lymphocytes % 22.2 % (10-50); Mean Corpuscular HGB Conc 32.7 g/dL (31.8-35.4); Mean Corpuscular Volume 91.8 fl (80-94); Mean Platelet Volume 9.2 fl (7.4-10.4); Monocytes # 0.7 K/mm3 (0.1-1.0); Monocytes % 9.9 % (1.7-9.3); Neutrophils # 4.4 K/mm3 (1.8-7.8); Neutrophils % 66.4 % (37.0-80.0); Platelet Count 180 K/mm3 (142-424); Red Blood Count 5.16 M/mm3 (4.60-6.20); Red Cell Distribution Width 20.1 % (11.5-17.5); White Blood Count 6.6 K/mm3 (4.8-10.8)
[2021-12-25 13:55] LABS: Chloride 97 mmol/L (98-107); Potassium 3.8 mmoL/L (3.5-5.1); Sodium 138 mmol/L (136-145)
[2021-12-25 13:57] LABS: Bilirubin,Unconjugated 0.5 mg/dL (0.0-1.1); Blood Urea Nitrogen 22 mg/dl (9-20); Estimated Glomerular Filt Rate 54 ml/min (>60); GFR (African American) 65 ML/MIN (>60)
[2021-12-25 13:58] LABS: Alanine Aminotransferase 29 U/L (12-78); Albumin Level 4.4 g/dl (3.5-5.0); Alkaline Phosphatase 49 U/L (38-126); Anion Gap 9.8 mEq/L (5-15); Aspartate Amino Transferase 39 U/L (17-59); Bilirubin,Direct 0.3 mg/dl (0.0-0.4); Bilirubin,Indirect 0.6 mg/dL (0.0-0.9); Bilirubin,Total 0.9 mg/dl (0.2-1.3); Calcium 8.6 mg/dl (8.4-10.2); Carbon Dioxide 35 mmol/L (22.0-30.0); Chol/HDL Ratio 2.9 (1-3.5); Cholesterol 128 mg/dl (140-200); Glucose 124 mg/dl (74-100); HDL Cholesterol 44 mg/dl (40-60); Total Protein,Serum 6.8 g/dl (6.3-8.2); Triglycerides 161 mg/dl (30-150); VLDL Cholesterol 32 mg/dL (0-40)
[2021-12-25 14:23] LABS: Direct LDL Cholesterol 62.09 mg/dL (100-129)
[2021-12-25 14:24] LABS: Free T4 (Free Thyroxine) 1.04 ng/dl (0.78-2.19)
[2021-12-25 14:38] LABS: Thyroid Stimulating Hormone 1.89 uIU/mL (0.465-4.68)
== END ==
PROVIDERS: Visit Provider Physician Assistant
DX: E78.2 Mixed hyperlipidemia (principal); I11.9 Hypertensive heart disease without heart failure; I25.118 Atherosclerotic heart disease of native coronary artery with other forms of angina pectoris; K55.1 Chronic vascular disorders of intestine; R06.09 Other forms of dyspnea; Z95.0 Presence of cardiac pacemaker; Z95.1 Presence of aortocoronary bypass graft; R10.30 Lower abdominal pain, unspecified; I65.23 Occlusion and stenosis of bilateral carotid arteries
CPT/HCPCS: 36415; 80048; 80061; 80076; 84439; 84443; 85025

== ENCOUNTER → 2023-02-05 10:43 | Outpatient (CLI) | payer MEDICARE, SELFPAY ==
[2023-02-05 11:06] LABS: Basophils % 0.5 % (0.1-2.0); Eosinophils % 0.5 % (0.1-12.0); Hematocrit 40.1 % (42.0-52.0); Hemoglobin 12.7 g/dL (14.1-18.0); Lymphocytes # 1.9 K/mm3 (0.7-4.5); Lymphocytes % 25.2 % (10-50); Mean Corpuscular HGB Conc 31.7 g/dL (31.8-35.4); Mean Corpuscular Volume 85.3 fl (80-94); Mean Platelet Volume 9.5 fl (7.4-10.4); Monocytes # 0.9 K/mm3 (0.1-1.0); Monocytes % 11.3 % (1.7-9.3); Neutrophils # 4.8 K/mm3 (1.8-7.8); Neutrophils % 62.5 % (37.0-80.0); Platelet Count 193 K/mm3 (142-424); Red Cell Distribution Width 20.3 % (11.5-17.5); White Blood Count 7.7 K/mm3 (4.8-10.8)
[2023-02-05 11:13] LABS: Anion Gap 10.9 mEq/L (5-15); Blood Urea Nitrogen 13 mg/dl (9-20); Calcium 8.5 mg/dl (8.4-10.2); Carbon Dioxide 35 mmol/L (22.0-30.0); Chloride 95 mmol/L (98-107); Estimated Glomerular Filt Rate 58 ml/min (>60); GFR (African American) 71 ML/MIN (>60); Glucose 92 mg/dl (74-100); Sodium 138 mmol/L (136-145)
[2023-02-05 11:14] LABS: Alanine Aminotransferase 26 U/L (12-78); Alkaline Phosphatase 67 U/L (38-126); Aspartate Amino Transferase 44 U/L (17-59); Bilirubin,Indirect 0.9 mg/dL (0.0-0.9); Bilirubin,Total 0.9 mg/dl (0.2-1.3); Bilirubin,Unconjugated 0.9 mg/dL (0.0-1.1); Total Protein,Serum 6.6 g/dl (6.3-8.2)
[2023-02-05 11:23] LABS: Potassium 2.9 mmoL/L (3.5-5.1)
[2023-02-05 11:25] LABS: Troponin I 0.04 ng/ml (0.00-0.034)
[2023-02-05 11:44] LABS: Free T4 (Free Thyroxine) 1.43 ng/dl (0.78-2.19); Thyroid Stimulating Hormone 1.33 uIU/mL (0.465-4.68)
== END ==
PROVIDERS: PCP Family Medicine; Visit Provider Nurse Practitioner Family
DX: I11.9 Hypertensive heart disease without heart failure (principal); I25.118 Atherosclerotic heart disease of native coronary artery with other forms of angina pectoris; I65.23 Occlusion and stenosis of bilateral carotid arteries; I73.9 Peripheral vascular disease, unspecified; K55.1 Chronic vascular disorders of intestine; R06.09 Other forms of dyspnea; R07.89 Other chest pain; Z95.0 Presence of cardiac pacemaker; Z95.1 Presence of aortocoronary bypass graft; E11.9 Type 2 diabetes mellitus without complications; E78.2 Mixed hyperlipidemia; I63.9 Cerebral infarction, unspecified
CPT/HCPCS: 36415; 80048; 80076; 84439; 84443; 84484; 85025

== ENCOUNTER → 2023-06-24 11:21 | Outpatient (CLI) | payer MEDICARE, SELFPAY ==
[2023-06-24 12:00] LABS: Basophils % 0.5 % (0.1-2.0); Eosinophils # 0.1 K/mm3 (0.0-0.4); Eosinophils % 0.6 % (0.1-12.0); Hematocrit 41.6 % (42.0-52.0); Hemoglobin 12.6 g/dL (14.1-18.0); Lymphocytes # 1.5 K/mm3 (0.7-4.5); Lymphocytes % 20.8 % (10-50); Mean Corpuscular HGB Conc 30.3 g/dL (31.8-35.4); Mean Corpuscular Hemoglobin 23.8 pg (27.0-31.2); Mean Corpuscular Volume 78.5 fl (80-94); Mean Platelet Volume 9.8 fl (7.4-10.4); Monocytes # 0.7 K/mm3 (0.1-1.0); Monocytes % 8.9 % (1.7-9.3); Neutrophils # 5.2 K/mm3 (1.8-7.8); Neutrophils % 69.2 % (37.0-80.0); Platelet Count 226 K/mm3 (142-424); Red Cell Distribution Width 20.1 % (11.5-17.5); White Blood Count 7.4 K/mm3 (4.8-10.8)
[2023-06-24 13:47] LABS: Alanine Aminotransferase 26 U/L (12-78); Albumin Level 4.4 g/dl (3.5-5.0); Alkaline Phosphatase 68 U/L (38-126); Anion Gap 13.3 mEq/L (5-15); Aspartate Amino Transferase 35 U/L (17-59); Bilirubin,Direct 0.1 mg/dl (0.0-0.4); Bilirubin,Indirect 0.6 mg/dL (0.0-0.9); Bilirubin,Total 0.7 mg/dl (0.2-1.3); Bilirubin,Unconjugated 0.6 mg/dL (0.0-1.1); Blood Urea Nitrogen 20 mg/dl (9-20); Calcium 9.6 mg/dl (8.4-10.2); Carbon Dioxide 34 mmol/L (22.0-30.0); Chloride 97 mmol/L (98-107); Chol/HDL Ratio 3.3 (1-3.5); Cholesterol 130 mg/dl (140-200); Estimated Glomerular Filt Rate 45 ml/min (>60); GFR (African American) 55 ML/MIN (>60); Glucose 101 mg/dl (74-100); HDL Cholesterol 40 mg/dl (40-60); Magnesium 1.8 mg/dl (1.6-2.3); Potassium 4.3 mmoL/L (3.5-5.1); Sodium 140 mmol/L (136-145); Total Protein,Serum 7.1 g/dl (6.3-8.2); Triglycerides 172 mg/dl (30-150); VLDL Cholesterol 34 mg/dL (0-40)
[2023-06-24 13:58] LABS: Direct LDL Cholesterol 61.36 mg/dL (100-129)
[2023-06-24 14:05] LABS: Free T4 (Free Thyroxine) 1.19 ng/dl (0.78-2.19)
[2023-06-24 14:20] LABS: Thyroid Stimulating Hormone 1.65 uIU/mL (0.465-4.68)
[2023-06-24 14:56] LABS: Vitamin B12 499 pg/mL (239-931)
[2023-06-24 14:58] LABS: Folate 9.74 ng/mL
== END ==
PROVIDERS: PCP Family Medicine; Visit Provider Internal Medicine
DX: R06.09 Other forms of dyspnea; I20.8 Other forms of angina pectoris; I11.9 Hypertensive heart disease without heart failure; E78.5 Hyperlipidemia, unspecified; I73.9 Peripheral vascular disease, unspecified; I65.29 Occlusion and stenosis of unspecified carotid artery; K55.1 Chronic vascular disorders of intestine; Z95.0 Presence of cardiac pacemaker; Z95.1 Presence of aortocoronary bypass graft
CPT/HCPCS: 36415; 80048; 80061; 80076; 82607; 82746; 83735; 84439; 84443; 85025

== ENCOUNTER → 2023-07-23 13:27 | Outpatient (CLI) | payer MEDICARE, SELFPAY ==
[2023-07-23 14:14] LABS: Basophils # 0.1 K/mm3 (0-0.2); Basophils % 0.8 % (0.1-2.0); Eosinophils % 0.4 % (0.1-12.0); Hematocrit 38.2 % (42.0-52.0); Hemoglobin 12.8 g/dL (14.1-18.0); Lymphocytes % 24.9 % (10-50); Mean Corpuscular HGB Conc 33.4 g/dL (31.8-35.4); Mean Corpuscular Hemoglobin 25.8 pg (27.0-31.2); Mean Corpuscular Volume 77.2 fl (80-94); Mean Platelet Volume 9.6 fl (7.4-10.4); Monocytes # 0.9 K/mm3 (0.1-1.0); Platelet Count 214 K/mm3 (142-424); Red Blood Count 4.95 M/mm3 (4.60-6.20); Red Cell Distribution Width 20.4 % (11.5-17.5); White Blood Count 7.9 K/mm3 (4.8-10.8)
[2023-07-23 15:48] LABS: Anion Gap 13.7 mEq/L (5-15); Blood Urea Nitrogen 27 mg/dl (9-20); Calcium 9.5 mg/dl (8.4-10.2); Carbon Dioxide 35 mmol/L (22.0-30.0); Chloride 93 mmol/L (98-107); Estimated Glomerular Filt Rate 49 ml/min (>60); GFR (African American) 59 ML/MIN (>60); Glucose 94 mg/dl (74-100); Potassium 3.7 mmoL/L (3.5-5.1); Sodium 138 mmol/L (136-145)
== END ==
PROVIDERS: PCP Family Medicine; Visit Provider Internal Medicine
DX: E78.5 Hyperlipidemia, unspecified (principal); I11.9 Hypertensive heart disease without heart failure; I25.10 Atherosclerotic heart disease of native coronary artery without angina pectoris; I65.29 Occlusion and stenosis of unspecified carotid artery; I73.9 Peripheral vascular disease, unspecified; K55.1 Chronic vascular disorders of intestine; R06.00 Dyspnea, unspecified; R42 Dizziness and giddiness; Z95.0 Presence of cardiac pacemaker; Z95.1 Presence of aortocoronary bypass graft; Z86.73 Personal history of transient ischemic attack (TIA), and cerebral infarction without residual deficits; Z87.891 Personal history of nicotine dependence
CPT/HCPCS: 36415; 80048; 85025

== ENCOUNTER 2023-08-11 14:25 | Emergency (ER) | payer MEDICARE, SELFPAY ==
--- NOTE | 2023-08-11 14:23 | ECG_ITS ---
APPROVED REPORT Exam: Resting ECG HR:60 bpm ECG Measurements Heart Rate 60 AXES WY 210 P 265 QRSd 97 QRS 79 QT 395 T 73 QTc 395 Conclusion ELECTRONIC ATRIAL PACEMAKER ABNORMAL RHYTHM ECG UNCONFIRMED REPORT Electronically signed by : Jarod Matthew MD 08/13/2023 21:41:45
[2023-08-11 14:26] VITALS: BP 153/69; PULSE 61; RESP 21; TEMP 36.5; O2SAT 97; BMI 22.9
[2023-08-11 14:31] VITALS: BP 136/64; PULSE 61; RESP 13; O2SAT 97
--- NOTE | 2023-08-11 14:33 | XR_ITS ---
FINAL REPORT TECHNIQUE: Chest PA & Lateral CLINICAL HISTORY: chest pain COMPARISON: February 2021 FINDINGS: 2 views of the chest were performed. There has been prior sternotomy. There is a left subclavian pacemaker. The heart size is normal. The mediastinum is within normal limits. There is no acute cardiopulmonary process. There are no pleural effusions. There is no pneumothorax. The bony thorax appears intact. IMPRESSION: No acute cardiopulmonary process. Reviewed, Interpreted and Dictated by Shant Andino III, MD Transcribed by Odell Angeles Authenticated and [facility]
--- NOTE | 2023-08-11 14:34 | HMH.EDGENADL ---
Discharge Plan Disposition Patient Disposition: Home, Self-Care Prescriptions Prescriptions: No Action aspirin [Aspir-81] 81 mg tablet,delayed release (DR/EC) 81 mg PO DAILY polyethylene glycol 3350 17 gram powder in packet 17 g PO DAILY PRN potassium chloride 20 mEq tablet extended release 20 meq PO DAILY Qty: 34 2RF ranolazine 500 mg tablet extended release 12 hr 500 mg PO BID Qty: 60 3RF bisoprolol fumarate 10 mg tablet 10 mg PO BID Qty: 180 3RF tamsulosin 0.4 mg capsule 0.4 mg PO DAILY pantoprazole 40 mg tablet,delayed release (DR/EC) See Rx Instructions .ROUTE .COMPLEX Qty: 90 3RF Dose Instruction: TAKE 1 TABLET DAILY Rx Instructions: TAKE 1 TABLET DAILY nitroglycerin 0.4 mg tablet, sublingual 0.4 mg SUBLINGUAL Q5M PRN (Reason: chest pain) Qty: 30 1RF Rx Instructions: do not exceed 3 doses per episode rosuvastatin 40 mg tablet See Rx Instructions .ROUTE .COMPLEX Qty: 90 3RF Dose Instruction: TAKE 1 TABLET DAILY Rx Instructions: TAKE 1 TABLET DAILY clopidogrel 75 mg tablet See Rx Instructions .ROUTE .COMPLEX Qty: 90 2RF Dose Instruction: TAKE 1 TABLET DAILY Rx Instructions: TAKE 1 TABLET DAILY furosemide [Lasix] 40 mg tablet 40 mg PO Q OTHER DAY PRN (Reason: swelling) Qty: 10 2RF docusate sodium 100 MG capsule 100 mg PO DAILY Qty: 30 0RF Referrals Follow up/Referrals: Provider,Referral, MD [Referring] - See instructions Activity Restrictions/Add. Instructions Additional Instructions/Restrictions: No evidence of an acute cardiopulmonary emergency. Please follow-up with Dr. Rehman as soon as possible call tomorrow to make an appointment return with any worsening symptoms. Clinical Impressions Clinical Impression: Chest pain, Anemia Discharge ED Provider: Lsia Cohen General Adult HPI <Lisa Cohen DO - Last Filed: 08/11/23 15:13> General Chief complaint: Chest Pain Stated complaint: chest pain Time Seen by Provider: 08/11/23 14:30 History of Present Illness HPI narrative: This patient is a 78-year-old male with a history of CAD status post stenting and CABG, hypertension, hyperlipidemia, hypertensive heart disease, PAD, unstable angina, renal insufficiency, and cardiac pacemaker presented to the emergency department for evaluation with concern for substernal chest pain. It started yesterday at 08/10/2023 around 3:00 in the morning. He notes that it is nonradiating. He describes it as a pressure and notes that he also feels short of breath. He states that he took aspirin and nitroglycerin with some improvement. It was initially constant, but is now intermittent. Nothing seems to bring it on or make it worse. It is not associated with respirations. He denies any recent fevers, chills, cough, congestion, abdominal pain, nausea, vomiting, change in bowel movements, or other concerns. Of note, he notes that he does not take his medications every day as prescribed. He states that he feels lightheaded and unwell whenever he takes his medications, but he feels better when he does not. Given this, he has intermittent medication noncompliance. On medical record review, his most recent cardiac catheterization was in January, at which point he had a stent to his RCA. He was most recently evaluated 07/23/2023 for dizziness. At that time, Norvasc and hydrochlorothiazide were stopped. Related Data Home Medications Medication Instructions Recorded Confirmed aspirin 81 mg tablet,delayed 81 mg PO DAILY [facility] 02/15/19 07/23/23 release (Aspir-) polyethylene glycol 3350 17 gram 17 g PO DAILY PRN 02/11/21 07/23/23 oral powder packet tamsulosin 0.4 mg capsule 0.4 mg PO DAILY 07/23/23 07/23/23 Previous Rx's Medication Instructions Recorded docusate sodium 100 mg capsule 100 mg PO DAILY #30 caps 09/02/20 pantoprazole 40 mg tablet,delayed See Rx Instructions .Route 01/26/23 release .C
[2023-08-11 14:48] LABS: Basophils % 0.6 % (0.1-2.0); Eosinophils % 0.5 % (0.1-12.0); Hematocrit 32.5 % (42.0-52.0); Hemoglobin 10.9 g/dL (14.1-18.0); Lymphocytes # 1.3 K/mm3 (0.7-4.5); Lymphocytes % 21.1 % (10-50); Mean Corpuscular HGB Conc 33.6 g/dL (31.8-35.4); Mean Corpuscular Hemoglobin 25.7 pg (27.0-31.2); Mean Corpuscular Volume 76.5 fl (80-94); Mean Platelet Volume 9.7 fl (7.4-10.4); Monocytes # 0.6 K/mm3 (0.1-1.0); Monocytes % 9.5 % (1.7-9.3); Neutrophils # 4.4 K/mm3 (1.8-7.8); Neutrophils % 68.3 % (37.0-80.0); Platelet Count 199 K/mm3 (142-424); Red Blood Count 4.24 M/mm3 (4.60-6.20); Red Cell Distribution Width 20.9 % (11.5-17.5); White Blood Count 6.4 K/mm3 (4.8-10.8)
[2023-08-11 14:55] LABS: Alanine Aminotransferase 27 U/L (12-78); Albumin/Globulin Ratio 1.5 (1.1-1.8); Alkaline Phosphatase 47 U/L (38-126); Anion Gap 10.7 mEq/L (5-15); Aspartate Amino Transferase 43 U/L (17-59); Bilirubin,Total 0.5 mg/dl (0.2-1.3); Blood Urea Nitrogen 17 mg/dl (9-20); Calcium 8.9 mg/dl (8.4-10.2); Carbon Dioxide 31 mmol/L (22.0-30.0); Chloride 101 mmol/L (98-107); Estimated Glomerular Filt Rate 53 ml/min (>60); GFR (African American) 64 ML/MIN (>60); Globulin 2.7 g/dL (1.3-3.2); Glucose 137 mg/dl (74-100); Potassium 3.7 mmoL/L (3.5-5.1); Sodium 139 mmol/L (136-145); Total Protein,Serum 6.7 g/dl (6.3-8.2)
[2023-08-11 15:00] VITALS: BP 153/69; PULSE 60; RESP 15; O2SAT 96
[2023-08-11 15:07] LABS: NT Pro Brain Natriuretic Pep. 764 pg/mL (0-450); Troponin I 0.02 ng/ml (0.00-0.034)
--- NOTE | 2023-08-11 15:10 | PC.NURSE ---
pt return from xray
--- NOTE | 2023-08-11 16:05 | PC.NURSE ---
pt sleeping in bed no needs at bs
[2023-08-11 16:07] LABS: Lipase 69 U/L (23-300)
[2023-08-11 17:30] VITALS: BP 130/65; PULSE 60; RESP 16; O2SAT 97
[2023-08-11 18:01] VITALS: BP 164/74; PULSE 60; RESP 16; O2SAT 96
[2023-08-11 18:02] LABS: Troponin I < 0.01 ng/ml (0.00-0.034)
[2023-08-11 18:26] VITALS: BP 164/74; PULSE 60; RESP 18; TEMP 36.7; O2SAT 97
== END 2023-08-11 18:27 | disposition home or self-care (01) ==
PROVIDERS: Emergency Provider Emergency Medicine; PCP Family Medicine
DX: R07.2 Precordial pain (principal); D64.9 Anemia, unspecified; I25.10 Atherosclerotic heart disease of native coronary artery without angina pectoris; I11.9 Hypertensive heart disease without heart failure; E78.5 Hyperlipidemia, unspecified; I73.9 Peripheral vascular disease, unspecified; Z95.0 Presence of cardiac pacemaker; Z95.5 Presence of coronary angioplasty implant and graft; Z87.891 Personal history of nicotine dependence
CPT/HCPCS: 71046; 80053; 83690; 83880; 84484; 85025; 93005; 99285

== ENCOUNTER 2023-08-17 12:55 | Observation (INO) | payer MEDICARE, SELFPAY ==
[2023-08-17] VITALS (61 sets, daily range): BP systolic 97–162; BP diastolic 48–79; PULSE 45–66; RESP 11–20; O2SAT 92–99; BMI 25.5; BMI 24.7
--- NOTE | 2023-08-17 | IR_ITS ---
APPROVED REPORT Patient Location: Outpatient Celluloid Trimmer: ROMEL Hills RT (R) PROCEDURES Selective coronary angiogram Left heart catheterization Left internal mammary angiography Selective engagement of the saphenous vein graft to circumflex artery Intravascular lithotripsy of the saphenous vein graft supplying the circumflex artery Drug-eluting stent deployment to the ostial proximal saphenous vein graft by the circumflex artery Intravascular lithotripsy of the ostial proximal dominant right coronary artery Drug-eluting stent deployment to the ostial proximal dominant right coronary Intravascular lithotripsy to the ostial proximal left main artery Drug-eluting stent deployment to the ostial proximal left main artery Intravascular lithotripsy to the ostial proximal LAD Drug-eluting stent deployment to the proximal and mid LAD INDICATION Coronary artery disease, History of coronary bypass surgery, Unstable angina, Extensive and diffuse calcific coronary disease Informed consent was obtained prior to the procedure. COMPLICATIONS none Estimated Blood Loss: Less than 10 ml TECHNIQUE One percent lidocaine used to anesthetize the right groin. The right femoral artery was accessed via the Seldinger technique and a 5 [place] sheath was placed in the right femoral artery. A JL 4, JR4 catheter were used to perform selective coronary angiography. The JR4 catheter was used to perform left internal mammary angiography selective engagement of the saphenous vein graft to the circumflex artery. At the end the diagnostic angiogram therapeutic heparin was administered giving a therapeutic ACT and the 5 [place] sheath was exchanged for a 6 [place] sheath. A JR4 guide catheter was placed in the saphenous vein graft to the circumflex artery and a Choice PT extra-support wire was placed distally. A 4 mm x 12 mm lithotripsy shockwave balloon was delivered for 40 pulsations in the ostial proximal segment reducing the stenosis. A 4 mm x 26 mm [place] frontier stent was deployed at 20 [place] the balloon was pulled back and then deployed at 24 [place] in the ascending aorta into the proximal portion of the saphenous vein graft. Following this a 4.5 x 8 mm noncompliant balloon was deployed at 24 [place] reducing the ostial stenosis to less than 10%. Excellent angiograph results were obtained. Following this the apparatus was removed and the same catheter was used to intubate the right coronary artery followed by the Choice PT extra-support wire being placed down the right coronary artery. A 4 mm x 12 mm shockwave lithotripsy balloon was deployed at 4 [place] in the ostial segment and 10 pulsations were delivered. I could not advance this shockwave balloon therefore a fresh 4 mm x 12 mm shockwave balloon was then advanced to the proximal segment and 80 pulsations were delivered at 4 [place] in the proximal and ostial segment. Following this a 4 mm x 26 mm [place] frontier stent was placed in the ostial proximal segment and deployed at 24 [place]uliana. A 4.5 x 12 mm noncompliant balloon was then deployed at 24 [place] in the proximal and ostial segment of the right coronary artery further reducing the stenosis to 10%. Excellent angiographic results were obtained with wide patency of the right coronary artery. VICKI-3 flow was present before and after the procedure. Following this a JL 4 guide catheter was placed in the ostial left main artery and a Choice PT extra-support wire was placed into the mid LAD. The WATTS graft was open to the LAD however it did not provide backfilling to multiple septal perforators and diagonal arteries. The only flow going to these diagonal and septal perforators was antegrade flow down the left main artery. A 3.5 x 12 mm shockwave balloon was deployed at 120 pulsations in the left main artery and then
[2023-08-17 10:58] LABS: Basophils % 0.4 % (0.1-2.0); Eosinophils # 0.1 K/mm3 (0.0-0.4); Eosinophils % 0.9 % (0.1-12.0); Hematocrit 33.4 % (42.0-52.0); Hemoglobin 10.9 g/dL (14.1-18.0); Lymphocytes # 1.8 K/mm3 (0.7-4.5); Lymphocytes % 28.8 % (10-50); Mean Corpuscular HGB Conc 32.5 g/dL (31.8-35.4); Mean Corpuscular Hemoglobin 25.5 pg (27.0-31.2); Mean Corpuscular Volume 78.4 fl (80-94); Mean Platelet Volume 10.5 fl (7.4-10.4); Monocytes # 0.7 K/mm3 (0.1-1.0); Monocytes % 11.3 % (1.7-9.3); Neutrophils # 3.6 K/mm3 (1.8-7.8); Neutrophils % 58.7 % (37.0-80.0); Platelet Count 191 K/mm3 (142-424); Red Blood Count 4.26 M/mm3 (4.60-6.20); White Blood Count 6.1 K/mm3 (4.8-10.8)
[2023-08-17 11:02] LABS: Chloride 100 mmol/L (98-107); Potassium 3.3 mmoL/L (3.5-5.1); Sodium 140 mmol/L (136-145)
[2023-08-17 11:05] LABS: Anion Gap 11.3 mEq/L (5-15); Blood Urea Nitrogen 17 mg/dl (9-20); Calcium 8.3 mg/dl (8.4-10.2); Carbon Dioxide 32 mmol/L (22.0-30.0); Creatinine Clearance Estimated 52 mL/min (50-200); Estimated Glomerular Filt Rate 58 ml/min (>60); GFR (African American) 71 ML/MIN (>60); Glucose 99 mg/dl (74-100)
--- NOTE | 2023-08-17 13:03 | HMH.PHAINT1 ---
Pharmacy Intervention Comments: MEDICATION RECONCILIATION COMPLETED ON PATIENT USING EXTERNAL FILL HISTORY FROM PHARMACY AND LIST FROM CARDIOLOGY OFFICE. -TRACEE TUBBS, NATHAND
[2023-08-17 13:51] LABS: CATHL Activated Clotting Time 376 SEC (74-125)
[2023-08-17 13:52] LABS: CATHL Activated Clotting Time 302 SEC (74-125)
--- NOTE | 2023-08-17 13:55 | ECG_ITS ---
APPROVED REPORT Exam: Resting ECG HR:60 bpm ECG Measurements Heart Rate 60 AXES GA 253 P 228 QRSd 98 QRS 29 QT 477 T 45 QTc 477 Conclusion ELECTRONIC ATRIAL PACEMAKER ELECTRONIC VENTRICULAR PACEMAKER -- CONTOUR ANALYSIS BASED ON INTRINSIC RHYTHM ABNORMAL ECG UNCONFIRMED REPORT Electronically signed by : Jarod Matthew MD 08/17/2023 17:47:15
--- NOTE | 2023-08-17 14:13 | EXP.HP ---
History of Present Illness *Admission Date: 08/17/23 *Reason for visit:: chest pain, CAD, CKD *History of present illness: Mr. Mcneil is a 78-year-old male with extensive past cardiac history, history of CABG x5, CAD, hyperlipidemia, hypertension, BPH. Brought electively to the [facility] today for diagnostic procedure. Found to have critical coronary artery disease with severe ostial calcific disease. Had successful intravascular lithotripsy of saphenous vein graft with drug-eluting stent placed to the graft. Also had lithotripsy performed to the ostial proximal dominant right coronary with successful RYANN and subsequent stents placed to the ostial proximal left main, ostial proximal LAD with 2 contiguous stents. Patient has chronic kidney disease and cardiology would like to observe overnight to make sure kidney function remained stable. Given the significance of procedure as well high risk for complications. Patient is on room air and comfortable at time of arriving to the floor. Patient has no complaints at this time. is at bedside and helps give history. Cath report findings as follows: IMPRESSION Critical coronary disease as described above most notably with severe ostial calcific disease Successful intravascular lithotripsy of the saphenous vein graft to the circumflex artery severe disease reduced to 10% with intravascular lithotripsy followed by drug-eluting stenting to the saphenous vein graft Successful intravascular lithotripsy to the ostial proximal dominant right coronary artery followed by successful drug-eluting stenting reducing the severe disease to less than 10% Successful intravascular therapy to the ostial proximal left main artery followed by successful drug-eluting stenting reducing the stenosis to less than 10% Successful intravascular lithotripsy to the ostial proximal LAD followed by drug-eluting stent deployment to the proximal mid LAD reducing the severe stenosis to less than 10% with 2 contiguous drug-eluting stent Normal left ventricular end-diastolic pressure [facility] Disclaimer: The information contained in this section may have been updated after the patient was seen, as this information can be updated by other users. Medical History Abdominal pain Acute blood loss anemia Anemia Bruising CAD (coronary artery disease) Cardiac pacemaker in situ Carotid artery stenosis Dyspnea HHD (hypertensive heart disease) HLD (hyperlipidemia) Mesenteric artery stenosis Nontraumatic rectus hematoma PAD (peripheral artery disease) Renal insufficiency Surgical History History of coronary artery bypass graft Family History Family history of myocardial infarction Social History Smoking Status: Former smoker tobacco type: smokeless tobacco alcohol intake: never substance use type: denies use current occupational status: retired Travel in the last 8 weeks: Inside the [place] household members: spouse housing: house caffeine: Yes Review of Systems Review of Systems Review of systems (narrative): 14 point review of systems performed, pertinent positives and negatives as per [facility] Meds Home Medications and Allergies Home Medications Medication Instructions Recorded Confirmed Type tamsulosin 0.4 mg capsule 0.4 mg PO DAILY prostate 07/23/23 08/17/23 History aspirin 81 mg tablet,delayed 81 mg PO DAILY [facility] 08/17/23 08/17/23 History release bisoprolol fumarate 10 mg tablet 10 mg PO BID High Blood Pressure 08/17/23 08/17/23 History clopidogrel 75 mg tablet 75 mg PO DAILY Platelet Inhibitor 08/17/23 08/17/23 History furosemide 40 mg tablet (Lasix) 40 mg PO Q48H Fluid 08/17/23 08/17/23 History nitroglycerin 0.4 mg sublingual 0.4 mg sublingual Q5MINP PRN chest 08/17/23 08/17/23 History
--- NOTE | 2023-08-17 18:37 | PC.NURSE ---
arrived to floor from laboratory coordinator at 15:45
[2023-08-18] VITALS: PULSE 60
[2023-08-18 03:55] VITALS: BP 106/50; PULSE 57; RESP 17; TEMP 36.6; O2SAT 96; BMI 25.8
[2023-08-18 04:00] VITALS: PULSE 60
[2023-08-18 06:08] LABS: Basophils % 0.4 % (0.1-2.0); Eosinophils # 0.1 K/mm3 (0.0-0.4); Eosinophils % 0.7 % (0.1-12.0); Hematocrit 30.3 % (42.0-52.0); Lymphocytes # 1.3 K/mm3 (0.7-4.5); Lymphocytes % 17.7 % (10-50); Mean Corpuscular Hemoglobin 25.1 pg (27.0-31.2); Mean Corpuscular Volume 78.4 fl (80-94); Mean Platelet Volume 9.2 fl (7.4-10.4); Monocytes # 0.7 K/mm3 (0.1-1.0); Monocytes % 9.8 % (1.7-9.3); Neutrophils # 5.3 K/mm3 (1.8-7.8); Neutrophils % 71.5 % (37.0-80.0); Platelet Count 177 K/mm3 (142-424); Red Blood Count 3.87 M/mm3 (4.60-6.20); Red Cell Distribution Width 21.3 % (11.5-17.5); White Blood Count 7.4 K/mm3 (4.8-10.8)
[2023-08-18 06:14] LABS: Alanine Aminotransferase 22 U/L (12-78); Albumin Level 3.5 g/dl (3.5-5.0); Albumin/Globulin Ratio 1.5 (1.1-1.8); Alkaline Phosphatase 52 U/L (38-126); Anion Gap 10.5 mEq/L (5-15); Aspartate Amino Transferase 62 U/L (17-59); Bilirubin,Total 0.3 mg/dl (0.2-1.3); Blood Urea Nitrogen 14 mg/dl (9-20); Calcium 8.1 mg/dl (8.4-10.2); Carbon Dioxide 27 mmol/L (22.0-30.0); Chloride 102 mmol/L (98-107); Chol/HDL Ratio 3.3 (1-3.5); Cholesterol 116 mg/dl (140-200); Creatinine Clearance Estimated 53 mL/min (50-200); Estimated Glomerular Filt Rate 58 ml/min (>60); GFR (African American) 71 ML/MIN (>60); Globulin 2.4 g/dL (1.3-3.2); Glucose 130 mg/dl (74-100); HDL Cholesterol 35 mg/dl (40-60); Magnesium 1.8 mg/dl (1.6-2.3); Potassium 3.5 mmoL/L (3.5-5.1); Sodium 136 mmol/L (136-145); Total Protein,Serum 5.9 g/dl (6.3-8.2); Triglycerides 156 mg/dl (30-150); VLDL Cholesterol 31 mg/dL (0-40)
[2023-08-18 06:22] LABS: Hemoglobin 9.7 g/dL (14.1-18.0)
[2023-08-18 06:25] LABS: Direct LDL Cholesterol 60.49 mg/dL (100-129)
[2023-08-18 07:31] VITALS: BP 131/61; PULSE 57; RESP 18; TEMP 36.6; O2SAT 97
--- NOTE | 2023-08-18 07:55 | EXP.DC.SUM ---
General Admission date:: 08/17/23 Discharge date: 08/18/23 HPI HPI HPI: Mr. Loomis is a 78-year-old male with extensive past cardiac history, history of CABG x5, CAD, hyperlipidemia, hypertension, BPH. Brought electively to the [facility] today for diagnostic procedure. Found to have critical coronary artery disease with severe ostial calcific disease. Had successful intravascular lithotripsy of saphenous vein graft with drug-eluting stent placed to the graft. Also had lithotripsy performed to the ostial proximal dominant right coronary with successful RYANN and subsequent stents placed to the ostial proximal left main, ostial proximal LAD with 2 contiguous stents. Patient has chronic kidney disease and cardiology would like to observe overnight to make sure kidney function remained stable. Given the significance of procedure as well high risk for complications. Patient is on room air and comfortable at time of arriving to the floor. Patient has no complaints at this time. is at bedside and helps give history. Cath report findings as follows: IMPRESSION Critical coronary disease as described above most notably with severe ostial calcific disease Successful intravascular lithotripsy of the saphenous vein graft to the circumflex artery severe disease reduced to 10% with intravascular lithotripsy followed by drug-eluting stenting to the saphenous vein graft Successful intravascular lithotripsy to the ostial proximal dominant right coronary artery followed by successful drug-eluting stenting reducing the severe disease to less than 10% Successful intravascular therapy to the ostial proximal left main artery followed by successful drug-eluting stenting reducing the stenosis to less than 10% Successful intravascular lithotripsy to the ostial proximal LAD followed by drug-eluting stent deployment to the proximal mid LAD reducing the severe stenosis to less than 10% with 2 contiguous drug-eluting stent Normal left ventricular end-diastolic pressure Hospital Course Hospital Course Hospital Course: 78-year-old male with complex past cardiac history and CKD 3. Admitted after stenting. Discussed case with cardiology, requested admission for observation overnight and serial monitoring of kidney function in light of contrast load and extensive cardiac procedure today. Medicine agreed to admit for further observation and serial labs. Stable overnight with no acute events. Stable to discharge home. Problems addressed as follows: CAD History of CABG x5 Status post stenting x5 Hyperlipidemia Hypertension -Cardiology consulted, appreciate their recommendations. Taken to [facility] electively on 08/17 with finding of significant multivessel disease with 5 stents placed. See full cath report for details. Continue dual antiplatelet therapy with 81 mg aspirin nightly, 75 mg Plavix in the morning. Continue bisoprolol at grams twice, hold Lasix 40 mg every 48 hours. Continue ranolazine 500 mg twice daily. Continue home Crestor nightly. CKD: Creatinine 1.2, appears at baseline. Stable on morning labs with no changes. BPH: Continue home tamsulosin 0.4 nightly follow-up with cardiology as an outpatient. Exam Data for Last 24 hours Vital signs and Labs for Last 24 Hours: Temp Pulse Resp BP Pulse Ox O2 Del Method O2 Flow Rate 97.9 F 57 L 18 131/61 97 Room Air 96 08/18/23 07:31 08/18/23 07:31 08/18/23 07:31 08/18/23 07:31 08/18/23 07:31 08/18/23 07:31 08/17/23 13:15 Laboratory Results - last 24 hr 08/17/23 10:50: WBC 6.1, RBC 4.26 L, Hgb 10.9 L, Hct 33.4 L, MCV 78.4 L, MCH 25.5 L, MCHC 32.5, RDW 20.0 H, Plt Count 191, MPV 10.5 H, Neut % (Auto) 58.7, Lymph % (Auto) 28.8, [place] % (Auto) 11.3 H, Eos % (Auto) 0.9, Baso % (Auto) 0.4, Neut # (Auto) 3.6, Lymph # (Auto) 1.8, [place] # (Auto) 0.7, Eos # (Auto) 0.1, Baso # (Auto) 0.0, Sodium 140, Potassium 3.3 L, Chloride 100, Carbon Dioxide 32 H, Anion Gap 11.3, BUN 17, Creatinine 1.20, Estimated Creat C
--- NOTE | 2023-08-18 10:19 | EXP.CARD.PN ---
Subjective Subjective Date: 08/18/23 Time: 08:30 Principal diagnosis: CAD s/p stenting Interval history: This is a 78-year-old white gentleman who was admitted to the hospital following outpatient cardiac catheterization yesterday. The patient was found to have critical coronary artery disease and had lithotripsy with stenting to the saphenous vein graft to the circumflex artery, to the left main artery, to the right coronary artery and to the LAD. The patient tolerated the procedure well. He will be on aspirin and Plavix for dual antiplatelet therapy. The patient had 1 episode of a twinge in the left side of his chest earlier this morning. He states that it lasted a second and resolved. This is expected with the amount of lithotripsy, dilation and stenting that the patient had yesterday. This is stable angina. He denies any shortness of breath or edema. He denies any fever, chills, nausea, vomiting, diarrhea, PND or orthopnea. The patient denies any pain at the insertion site. Left heart cath shows: Critical coronary disease as described above most notably with severe ostial calcific disease Successful intravascular lithotripsy of the saphenous vein graft to the circumflex artery severe disease reduced to 10% with intravascular lithotripsy followed by drug-eluting stenting to the saphenous vein graft Successful intravascular lithotripsy to the ostial proximal dominant right coronary artery followed by successful drug-eluting stenting reducing the severe disease to less than 10% Successful intravascular therapy to the ostial proximal left main artery followed by successful drug-eluting stenting reducing the stenosis to less than 10% Successful intravascular lithotripsy to the ostial proximal LAD followed by drug-eluting stent deployment to the proximal mid LAD reducing the severe stenosis to less than 10% with 2 contiguous drug-eluting stent Normal left ventricular end-diastolic pressure PLAN 1. Patient had a complex procedure with multiple vessels undergoing intravascular lithotripsy followed by copious contrast. He should be admitted overnight due to the high risk nature of the coronary disease 2. Dual antiplatelet therapy 3. Risk factor modification 4. Cardiac rehabilitation 5. Avoidance of tobacco products Exam Data for Last 24 hours Vital signs and Labs for Last 24 Hours: Temp Pulse Resp BP Pulse Ox O2 Del Method O2 Flow Rate 97.9 F 57 L 18 131/61 97 Room Air 96 08/18/23 07:31 08/18/23 07:31 08/18/23 07:31 08/18/23 07:31 08/18/23 07:31 08/18/23 09:00 08/17/23 13:15 Laboratory Results - last 24 hr 08/17/23 10:50: WBC 6.1, RBC 4.26 L, Hgb 10.9 L, Hct 33.4 L, MCV 78.4 L, MCH 25.5 L, MCHC 32.5, RDW 20.0 H, Plt Count 191, MPV 10.5 H, Neut % (Auto) 58.7, Lymph % (Auto) 28.8, [place] % (Auto) 11.3 H, Eos % (Auto) 0.9, Baso % (Auto) 0.4, Neut # (Auto) 3.6, Lymph # (Auto) 1.8, [place] # (Auto) 0.7, Eos # (Auto) 0.1, Baso # (Auto) 0.0, Sodium 140, Potassium 3.3 L, Chloride 100, Carbon Dioxide 32 H, Anion Gap 11.3, BUN 17, Creatinine 1.20, Estimated Creat Clear 52, Estimated GFR 58 L, Est GFR ( Amer) 71, Glucose 99, Calcium 8.3 L 08/17/23 13:24: Activated Clotting Time 302 H* 08/17/23 13:43: Activated Clotting Time 376 H* D 08/18/23 05:41: WBC 7.4, RBC 3.87 L, Hgb 9.7 L D, Hct 30.3 L, MCV 78.4 L, MCH 25.1 L, MCHC 32.0, RDW 21.3 H, Plt Count 177, MPV 9.2, Neut % (Auto) 71.5, Lymph % (Auto) 17.7, [place] % (Auto) 9.8 H, Eos % (Auto) 0.7, Baso % (Auto) 0.4, Neut # (Auto) 5.3, Lymph # (Auto) 1.3, [place] # (Auto) 0.7, Eos # (Auto) 0.1, Baso # (Auto) 0.0, Sodium 136, Potassium 3.5, Chloride 102, Carbon Dioxide 27, Anion Gap 10.5, BUN 14, Creatinine 1.20, Estimated Creat Clear 53, Estimated GFR 58 L, Est GFR ( Amer) 71, Glucose 130 H D, Calcium 8.1 L, Magnesium 1.8, Total Bilirubin 0.3, AST 62 H, ALT 22, Alkaline Phosphatase 52, Total Protein 5.9 L, Albumin 3.5, Globulin 2.4, Albumin/Globulin Ratio 1.5, Triglycerides 156
--- NOTE | 2023-08-20 13:50 | CARE MANAGER ---
Called and spoke with patient's spouse regarding recent discharge. Patient was resting at time of call, and per he is doing ok. No concerns at time of call. She was aware of scheduled f/u appts.
== END 2023-08-18 10:28 | disposition home or self-care (01) ==
LOC: 2ND 12:56
PROVIDERS: Internal Medicine; Admitting Provider Internal Medicine Adolescent Medicine; PCP Family Medicine; Visit Provider Internal Medicine Adolescent Medicine
DX: I25.118 Atherosclerotic heart disease of native coronary artery with other forms of angina pectoris (principal); Z95.5 Presence of coronary angioplasty implant and graft; N18.30 Chronic kidney disease, stage 3 unspecified; Z95.1 Presence of aortocoronary bypass graft; I12.9 Hypertensive chronic kidney disease with stage 1 through stage 4 chronic kidney disease, or unspecified chronic kidney disease; I73.9 Peripheral vascular disease, unspecified; E78.2 Mixed hyperlipidemia; I65.23 Occlusion and stenosis of bilateral carotid arteries; Z95.0 Presence of cardiac pacemaker
CPT/HCPCS: 0715T; 36415; 80048; 80053; 80061; 83735; 85025; 85347; 92928; 92929; 93005; 99152; 99153; C1725; C1761; C1769; C1876; C1894; C9600; C9601; G0378; J1644; J2720; Q9967

== ENCOUNTER → 2023-08-25 09:59 | Outpatient (CLI) | payer MEDICARE, SELFPAY ==
[2023-08-25 10:23] LABS: Basophils % 0.5 % (0.1-2.0); Eosinophils # 0.1 K/mm3 (0.0-0.4); Eosinophils % 0.9 % (0.1-12.0); Hematocrit 31.1 % (42.0-52.0); Hemoglobin 10.1 g/dL (14.1-18.0); Lymphocytes # 1.3 K/mm3 (0.7-4.5); Lymphocytes % 18.1 % (10-50); Mean Corpuscular HGB Conc 32.4 g/dL (31.8-35.4); Mean Corpuscular Hemoglobin 25.3 pg (27.0-31.2); Mean Corpuscular Volume 77.9 fl (80-94); Monocytes # 0.6 K/mm3 (0.1-1.0); Monocytes % 9.2 % (1.7-9.3); Neutrophils % 71.2 % (37.0-80.0); Platelet Count 209 K/mm3 (142-424); Red Blood Count 3.99 M/mm3 (4.60-6.20); Red Cell Distribution Width 21.1 % (11.5-17.5)
[2023-08-25 10:44] LABS: Alanine Aminotransferase 22 U/L (12-78); Albumin Level 3.7 g/dl (3.5-5.0); Albumin/Globulin Ratio 1.5 (1.1-1.8); Alkaline Phosphatase 73 U/L (38-126); Anion Gap 10.2 mEq/L (5-15); Aspartate Amino Transferase 28 U/L (17-59); Bilirubin,Total 0.9 mg/dl (0.2-1.3); Blood Urea Nitrogen 13 mg/dl (9-20); Calcium 8.4 mg/dl (8.4-10.2); Carbon Dioxide 32 mmol/L (22.0-30.0); Chloride 99 mmol/L (98-107); Estimated Glomerular Filt Rate 65 ml/min (>60); GFR (African American) 78 ML/MIN (>60); Globulin 2.4 g/dL (1.3-3.2); Glucose 132 mg/dl (74-100); Potassium 3.2 mmoL/L (3.5-5.1); Sodium 138 mmol/L (136-145); Total Protein,Serum 6.1 g/dl (6.3-8.2)
== END ==
PROVIDERS: Student in an Organized Health Care Education/Training Program; PCP Family Medicine; Visit Provider Internal Medicine Adolescent Medicine
DX: R06.00 Dyspnea, unspecified (principal); I25.10 Atherosclerotic heart disease of native coronary artery without angina pectoris
CPT/HCPCS: 36415; 80053; 85025

== ENCOUNTER 2023-11-15 11:02 | Inpatient (IN) | payer MEDICARE, SELFPAY ==
[2023-11-15] VITALS (8 sets, daily range): BP systolic 145–194; BP diastolic 52–89; PULSE 56–64; RESP 15–18; TEMP 36.4–36.6; O2SAT 97–98; BMI 24.3; BMI 24.4
--- NOTE | 2023-11-15 11:15 | XR_ITS ---
PROCEDURE INFORMATION: Exam: XR Chest Exam date and time: 11/15/2023 11:17 AM Age: 78 years old Clinical indication: Shortness of breath; Prior surgery; Surgery date: 6+ months; Surgery type: Open heart surgery. Pacemaker; Additional info: Chest pain, SOA. Former smoker of 30 yrs TECHNIQUE: Imaging protocol: Radiologic exam of the chest. Views: 2 views. Total images: 2 COMPARISON: CR XR CHEST 2V 08/11/2023 2:58 PM FINDINGS: Tubes, catheters and devices: A pacemaker device is present, its leads in appropriate position. Lungs: Bilateral hyperinflation is present. Atelectatic and/or early infiltrative changes noted within the right lower lobe. Pleural spaces: Left pleural effusion. Heart/Mediastinum: The heart is not enlarged. Vasculature: Moderate atherosclerotic disease. Bones/joints: There is evidence of prior median sternotomy. The thoracic spine demonstrates mild degenerative changes at multiple levels. IMPRESSION: 1. Bilateral hyperinflation is present. 2. Atelectatic and/or early infiltrative changes noted within the right lower lobe. 3. Left pleural effusion.
[2023-11-15 11:22] LABS: Chloride 108 mmol/L (98-107); Sodium 140 mmol/L (136-145)
[2023-11-15 11:23] LABS: Potassium 3.8 mmoL/L (3.5-5.1)
[2023-11-15 11:25] LABS: Alanine Aminotransferase 32 U/L (12-78); Albumin/Globulin Ratio 1.5 (1.1-1.8); Alkaline Phosphatase 66 U/L (38-126); Anion Gap 7.8 mEq/L (5-15); Aspartate Amino Transferase 40 U/L (17-59); Bilirubin,Total 0.7 mg/dl (0.2-1.3); Blood Urea Nitrogen 20 mg/dl (9-20); Calcium 8.4 mg/dl (8.4-10.2); Carbon Dioxide 28 mmol/L (22.0-30.0); Creatinine Clearance Estimated 61 mL/min (50-200); Estimated Glomerular Filt Rate 72 ml/min (>60); GFR (African American) 87 ML/MIN (>60); Globulin 2.7 g/dL (1.3-3.2); Glucose 132 mg/dl (74-100); Lipase 77 U/L (23-300); Total Protein,Serum 6.7 g/dl (6.3-8.2)
--- NOTE | 2023-11-15 11:25 | PC.NURSE ---
swab sent to lab
[2023-11-15 11:26] LABS: Coronavirus 19, PCR Not Detected (NotDetected); Influenza A, PCR Not Detected (NotDetected); Influenza B, PCR Not Detected (NotDetected)
[2023-11-15 11:35] LABS: NT Pro Brain Natriuretic Pep. 3450 pg/mL (0-450)
[2023-11-15 11:37] LABS: Troponin I 0.17 ng/ml (0.00-0.034)
--- NOTE | 2023-11-15 11:43 | ED_ITS ---
Discharge Plan Disposition Patient Disposition: Admitted Condition: Good Clinical Impressions Clinical Impression: Acute exacerbation of CHF (congestive heart failure), Bilateral pleural effusion, Non-ST elevation VT (NSTEMI), Hypertension Discharge ED Provider: Lisa Cohen [facility] General Chief Complaint: Chest Pain Stated Complaint: Chest pain Time Seen by Provider: 11/15/23 11:05 Mode of Arrival: Ambulatory Source of Information: Patient Limitations: No Limitations Description of Symptoms (Recalled from ER Triage Doc. by RN): chest pain, Shortness of breath History of Present Illness HPI narrative: This patient is a 78-year-old male with a history of CAD status post CABG, CKD, cardiac pacemaker placement, carotid stenosis, mesenteric stenosis, renal insufficiency, and claudication presenting to the emergency department for evaluation with concern for shortness of breath. Patient reports that for the last several days, he has felt short of breath, especially with exertion and lying flat. He also notes that he had mild swelling to both of his ankles. He states that it feels like he has pressure down at the base of his sternum/upper abdomen and it is hard to get a good breath in. He denies any significant abdominal pain, nausea, vomiting, changes in bowel movements, or other concerns. He also denies any fevers, sore throat, congestion, or other issues. Related Data Home Medications Medication Instructions Recorded Confirmed tamsulosin 0.4 mg capsule 0.4 mg PO DAILY prostate 07/23/23 11/02/23 aspirin 81 mg tablet,delayed 81 mg PO DAILY Heart Health 08/17/23 11/02/23 release bisoprolol fumarate 10 mg tablet 10 mg PO BID High Blood Pressure 08/17/23 clopidogrel 75 mg tablet 75 mg PO DAILY Platelet Inhibitor 08/17/23 11/02/23 furosemide 40 mg tablet (Lasix) 40 mg PO Q48H Fluid 08/17/23 11/02/23 nitroglycerin 0.4 mg sublingual 0.4 mg sublingual Q5MINP PRN chest 08/17/23 11/02/23 tablet pain potassium chloride 10 mEq 10 meq PO DAILY Supplement 08/17/23 11/02/23 tablet,extended release(part/cryst) (Klor-Con M) rosuvastatin 40 mg tablet 40 mg PO DAILY Cholesterol 08/17/23 11/02/23 linaclotide 145 mcg capsule 145 mcg PO DAILY 09/28/23 11/02/23 (Linzess) omeprazole 40 mg capsule,delayed 40 mg PO DAILY 09/28/23 11/02/23 release Allergies Allergy/AdvReac Type Severity Reaction Status Date / Time ramipril [From Altace] Allergy Mild Unknown Verified 11/02/23 11:16 allergy reaction isosorbide [From Imdur] AdvReac Severe Verified 11/02/23 11:16 [facility] Disclaimer: The information contained in this section may have been updated after the patient was seen, as this information can be updated by other users. Medical History Abdominal pain Acute blood loss anemia Anemia Bruising CAD (coronary artery disease) Cardiac pacemaker in situ Carotid artery stenosis Dyspnea HHD (hypertensive heart disease) HLD (hyperlipidemia) Mesenteric artery stenosis Nontraumatic rectus hematoma PAD (peripheral artery disease) Renal insufficiency Surgical History History of coronary artery bypass graft Family History Other Family history of myocardial infarction Social History Smoking Status: Never smoker alcohol intake: never substance use type: denies use current occupational status: retired Travel in the last 8 weeks: Inside the [place] household members: spouse housing: house caffeine: Yes ROS Obtained: Yes All systems reviewed & no additional complaints except as documented Physical Exam General General appearance: alert and in no apparent distress Head Head exam: atraumatic and normocephalic Eye Eye exam: Present normal appearance, PERRL and EOMI ENT ENT exam: Present normal exam, normal oropharynx, mucous membranes moist and normal external ear exam Neck Neck exam: Present normal inspection, full ROM and trachea midline; Absent tenderness Chest Chest inspection: Present normal inspection and symmetric chest wall rise; Abse nt tenderness Respiratory Respiratory exam: Present normal lung sounds bilaterally; Absent respiratory distress, wheezes, stridor or accessory muscle use Cardiovascular Cardiovascular exam: Present regular rate and normal rhythm Abdominal Exam Abdominal exam: Present soft; Absent distention, tenderness or guarding Extremities Exam Extremities exam: Present normal inspection, full ROM, normal capillary refill and edema (mild BLE edema); Absent tenderness Back Exam Back exam: Present normal inspection and full ROM; Absent tenderness Neurological Exam Neurological exam: Present alert, oriented X3, CN II-XII intact and normal gait; Absent motor sensory deficit Psychiatric Psychiatric exam: Present normal affect and normal mood Skin Skin exam: Present warm and dry HEART Score HEART Score HEART Score assessment performed?: Yes History (anamnesis): Moderately suspicious ECG: Non-specific disturbance Age: >65 years Risk factors: Atherosclerosis history Troponin: > 3x normal limit HEART Score: 8 Critical Care Critical Care Time Critical Care Time: No Medical Decision Making Medical Records Medical records reviewed: Yes I reviewed the patient's medical records. Elio Inquiry Pt receiving controlled substance: No Vital Signs Vital Signs: 11/15/23 11:03 11/15/23 11:30 11/15/23 12:01 Temperature 97.5 F L Temperature Source Oral Pulse Rate 61 60 Pulse Rate [Right Radial] 60 Respiratory Rate 18 18 15 Blood Pressure 152/64 H 194/70 H Blood Pressure [Right Arm] 145/52 H Blood Pressure Mean [Right Arm] 83 02 Sat by Pulse Oximetry 98 97 97 Oxygen Delivery Method Room Air Room Air Room Air 11/15/23 12:30 Temperature Temperature Source Pulse Rate 60 Pulse Rate [Right Radial] Respiratory Rate 16 Blood Pressure 184/78 H Blood Pressure [Right Arm] Blood Pressure Mean [Right Arm] 02 Sat by Pulse Oximetry 98 Oxygen Delivery Method Room Air Lab Data Labs: Lab Results 11/15/23 11:07: Sodium 140, Potassium 3.8, Chloride 108 H, Carbon Dioxide 28, Anion Gap 7.8, BUN 20, Creatinine 1.00, Estimated Creat Clear 61, Estimated GFR 72, Est GFR ( Amer) 87, Glucose 132 H, Calcium 8.4, Total Bilirubin 0.7, AST 40, ALT 32, Alkaline Phosphatase 66, Troponin I 0.17 H, NT-Pro-B Natriuret Pep 3450 H, Total Protein 6.7, Albumin 4.0, Globulin 2.7, Albumin/Globulin Ratio 1.5, Lipase 77 11/15/23 11:22: SARS-CoV-2 (PCR) Not detected, Influenza A Untype (PCR) Not detected, Influenza Type B (PCR) Not detected 11/15/23 11:07 Response Orders (Tests/Meds): ED MEDICATIONS Generic Name Dose Route Start Last Admin Trade Name Freq PRN Reason Stop Dose Admin Sodium Chloride 10 ml 11/15/23 12:25 11/15/23 12:26 Sodium Chloride 0.9% 10ml Syr (Rad Only) IV 12/15/23 12:24 10 ml NEEDED PRN Administration Maintain IV Site Discontinued Medications Generic Name Dose Route Start Last Admin Trade Name Yuniel PRN Reason Stop Dose Admin Aspirin 324 mg 11/15/23 12:01 11/15/23 12:30 Aspirin 81mg Chewable Tablet PO 11/15/23 12:02 324 mg ONCE ONE Administration Furosemide 40 mg 11/15/23 12:59 11/15/23 13:08 Furosemide 40mg/4ml Vial IV 11/15/23 13:00 40 mg ONCE ONE Administration Iopamidol 100 ml 11/15/23 12:25 11/15/23 12:26 Iopamidol-370 (76%);100ml Bottle IV 11/15/23 12:26 100 ml ONCE ONE Administration Sodium Chloride 50 ml 11/15/23 12:25 11/15/23 12:26 0.9 % Sodium Chloride 50 Ml Vial IV 11/15/23 12:26 50 ml ONCE ONE Administration ORDERS Category Date Time Status CT abdomen pelvis w con Stat Cat Scan 11/15/23 12:[address] angio chest PE protocol Stat Cat Scan 11/15/23 12:02 Completed XR chest 2V Stat Exams 11/15/23 11:15 Completed Brain Natriuretic Peptide Stat Lab 11/15/23 11:07 Completed Complete Blood Count Auto Diff Stat Lab 11/15/23 11:07 Received Comprehensive Metabolic Panel Stat Lab 11/15/23 11:07 Completed Lipase Stat Lab 11/15/23 11:07 Completed Rapid PCR Covid and Flu A/B Stat Lab 11/15/23 11:22 Completed Troponin I Q3H Lab 11/15/23 14:30 Ordered Troponin I Q3H Lab 11/15/23 17:30 Ordered Troponin I Stat Lab 11/15/23 11:07 Completed ECG Data Tracing #1: Attestation: I reviewed this ECG and interpreted as documented below: ECG Narrative: Atrially paced rhythm at 60 bpm. Appropriately paced. No acute ST changes concerning for ischemia. ECG initial impression date: 11/15/23 ECG initial impression time: 11:02 Tracing #2: Attestation: I reviewed this ECG and interpreted as documented below: ECG Narrative: Atrial paced rhythm at [address] changes concerning for ischemia. No significant changes noted from prior EKG. ECG initial impression date: 11/15/23 ECG initial impression time: 13:05 MDM Narrative Medical Decision Narrative: In summary, this patient is a 78-year-old male presenting to the Emergency Department for evaluation of shortness of breath and chest tightness for several days. Differential diagnoses considered include but are not limited to ACS, dysrhythmia, GERD, CHF exacerbation, pneumonia, viral syndrome. Ruling out the most morbid conditions drove assessment. It should be noted patient's history includes CAD, hypertension, and hypert ensive heart disease which may or may not be at goal therapy. This complicates all aspects of care by increasing patient's risk for morbidity. I reviewed patient's past medical records and noted his cardiology evaluations. On exam, the patient is well-appearing. He has mild hypertension on initial assessment with systolics in the 140s. Vitals are otherwise reassuring on cardiac telemetry. EKG does not demonstrate any acute ischemic change. Workup included CBC, CMP, troponin, BNP, chest x-ray, and EKG as well as viral swab. Patient was given oral aspirin. I independently interpreted x-ray prior to the radiologist read and noted for pleural effusions. Please see their read for final interpretation. Given this, CT of the chest, abdomen, and pelvis were ordered with contrast. Labs were obtained that demonstrated elevated BNP greater than 3400. This is significantly elevated from patient's prior BNP in our system. Troponin is also elevated at 0.17. Repeat EKG continues to not s how any acute ischemic changes. No other obvious acute concerns.. I do feel that he likely has an NSTEMI in the setting of CHF exacerbation. He was given 40 mg of IV Lasix. I called and had an interactive discussion with Dr. Rehman, the patient's house principal. He advised admission for him to be seen in the morning and serial troponins. He also advises diuresis. I called and had an interactive discussion with the hospitalist who admitted the patient for further evaluation and management. Patient was admitted in stable condition.
--- NOTE | 2023-11-15 12:01 | PC.NURSE ---
Rounded on pt. Provided with warm blanket. No other needs voiced and call light within reach.
--- NOTE | 2023-11-15 12:02 | CT_ITS ---
PROCEDURE INFORMATION: Exam: CT Abdomen And Pelvis With Contrast Exam date and time: 11/15/2023 12:15 PM Age: 78 years old Clinical indication: Abdominal pain; Additional info: Abdominal pain, distension, SOA TECHNIQUE: Imaging protocol: Computed tomography of the abdomen and pelvis with contrast. Total images: 309 Radiation optimization: All CT scans at this facility use at least one of these dose optimization techniques: automated exposure control; mA and/or kV adjustment per patient size (includes targeted exams where dose is matched to clinical indication); or iterative reconstruction. Contrast material: ISOVUE; Contrast volume: 100 ml; Contrast route: IV; COMPARISON: CT ABDOMEN PELVIS WO CON 08/31/2020 12:49 PM FINDINGS: Lungs: Lung findings reported separately. Liver: Area of increased density noted within the right lobe of the liver measuring up to 1.3 cm. This may represent a hemangioma, however other etiologies not excluded. Gallbladder and bile ducts: Normal. No calcified stones. No ductal dilation. Pancreas: Normal. No ductal dilation. Spleen: Normal. No splenomegaly. Adrenal glands: Normal. No mass. Kidneys and ureters: No renal calcifications or obstructive uropathy. Stomach and bowel: Moderate diverticulosis is present in the distal colon. Pericolonic fat stranding is noted along the rectosigmoid colon may be consistent with colitis/diverticulitis. Large amount of stool is present throughout the colon. Appendix: No evidence of appendicitis. Intraperitoneal space: Normal. No significant fluid collection. Vasculature: Iliac artery stents are in place. Moderate atherosclerotic disease. Lymph nodes: No mesenteric or retroperitoneal lymphadenopathy. Urinary bladder: There is mild bladder wall thickening consistent with incomplete distension, chronic outflow obstruction, or cystitis. Reproductive: Unremarkable as visualized. Bones/joints: The lumbar spine demonstrates mild degenerative changes at multiple levels. Soft tissues: Soft tissues are normal. IMPRESSION: 1. Pericolonic fat stranding is noted along the rectosigmoid colon may be consistent with colitis/diverticulitis. 2. Area of increased density noted within the right lobe of the liver measuring up to 1.3 cm. This may represent a hemangioma, however other etiologies not excluded. 3. No renal calcifications or obstructive uropathy. 4. No mesenteric or retroperitoneal lymphadenopathy. 5. Moderate diverticulosis is present in the distal colon. 6. There is mild bladder wall thickening consistent with incomplete distension, chronic outflow obstruction, or cystitis. 7. Moderate atherosclerotic disease. 8. Large amount of stool is present throughout the colon.
--- NOTE | 2023-11-15 12:02 | CT_ITS ---
PROCEDURE INFORMATION: Exam: CTA Chest With Contrast Exam date and time: 11/15/2023 12:15 PM Age: 78 years old Clinical indication: Shortness of breath; Additional info: Chest pain/soa, new effusion TECHNIQUE: Imaging protocol: Computed tomographic angiography of the chest with contrast. Exam focused on the arteries. 3D rendering (Not supervised by radiologist): MIP and/or 3D reconstructed images were created by the technologist. Total images: 471 Radiation optimization: All CT scans at this facility use at least one of these dose optimization techniques: automated exposure control; mA and/or kV adjustment per patient size (includes targeted exams where dose is matched to clinical indication); or iterative reconstruction. Contrast material: ISOVUE; Contrast volume: 100 ml; Contrast route: INTRAVENOUS (IV); COMPARISON: CR XR CHEST 2V 11/15/2023 11:17 AM FINDINGS: Tubes, catheters and devices: A pacemaker device is present, its leads in appropriate position. Pulmonary arteries: No evidence of pulmonary embolism. Aorta: No evidence of aortic dissection. Lungs: Atelectatic and/or early infiltrative changes noted within the right lower lobe. Pleural spaces: Bilateral pleural effusions. Heart: No cardiomegaly. No pericardial effusion. Coronary arteries: There is moderate atherosclerotic calcification of the coronary arteries. Lymph nodes: No mediastinal or axillary lymphadenopathy. Bones/joints: There is evidence of prior median sternotomy. The thoracic spine demonstrates mild degenerative changes at multiple levels. Soft tissues: Unremarkable. IMPRESSION: 1. No evidence of pulmonary embolism. 2. No evidence of aortic dissection. 3. Bilateral pleural effusions. 4. No mediastinal or axillary lymphadenopathy. 5. Atelectatic and/or early infiltrative changes noted within the right lower lobe.
--- NOTE | 2023-11-15 12:03 | PC.NURSE ---
Dr. Cohen at [facility] to update pt/visitor of results and POC
--- NOTE | 2023-11-15 12:17 | PC.NURSE ---
Pt gone to CT via wheelchair
[2023-11-15] MEDS: IOPAMIDOL-370 (76%);100ML BOTTLE 100 ML IV (12:26)
[2023-11-15] MEDS: 0.9 % SODIUM CHLORIDE 50 ML VIAL IV (12:26)
[2023-11-15] MEDS: SODIUM CHLORIDE 0.9% 10ML SYR (RAD ONLY) 10 ML IV (12:26)
[2023-11-15] MEDS: ASPIRIN 81MG CHEWABLE TABLET 324 MG PO (12:30)
--- NOTE | 2023-11-15 12:31 | PC.NURSE ---
Pt back from CT
--- NOTE | 2023-11-15 12:35 | PC.NURSE ---
Pt provided with julianna
--- NOTE | 2023-11-15 13:03 | ECG_ITS ---
APPROVED REPORT Exam: Resting ECG HR:63 bpm ECG Measurements Heart Rate 63 AXES CO 239 P 222 QRSd 97 QRS 87 QT 439 T 93 QTc 446 Conclusion ELECTRONIC ATRIAL PACEMAKER ABNORMAL RHYTHM ECG UNCONFIRMED REPORT Electronically signed by : Jarod Matthew MD 11/16/2023 17:17:55
[2023-11-15] MEDS: FUROSEMIDE 40MG/4ML VIAL 40 MG IV (13:08)
[2023-11-15 13:42] LABS: Basophils # 0.1 K/mm3 (0-0.2); Eosinophils # 0.1 K/mm3 (0.0-0.4); Eosinophils % 0.9 % (0.1-12.0); Hematocrit 27.7 % (42.0-52.0); Hemoglobin 8.5 g/dL (14.1-18.0); Lymphocytes # 1.6 K/mm3 (0.7-4.5); Lymphocytes % 26.9 % (10-50); Mean Corpuscular HGB Conc 30.6 g/dL (31.8-35.4); Mean Corpuscular Hemoglobin 21.3 pg (27.0-31.2); Mean Corpuscular Volume 69.8 fl (80-94); Mean Platelet Volume 9.8 fl (7.4-10.4); Monocytes # 0.5 K/mm3 (0.1-1.0); Monocytes % 9.4 % (1.7-9.3); Neutrophils # 3.6 K/mm3 (1.8-7.8); Neutrophils % 61.8 % (37.0-80.0); Platelet Count 190 K/mm3 (142-424); Red Blood Count 3.97 M/mm3 (4.60-6.20); Red Cell Distribution Width 21.1 % (11.5-17.5); White Blood Count 5.8 K/mm3 (4.8-10.8)
--- NOTE | 2023-11-15 13:48 | HMH.PHAINT1 ---
Pharmacy Intervention Comments: MEDICATION RECONCILIATION COMPLETED ON PATIENT USING EXTERNAL FILL HISTORY FROM PHARMACY AND LIST FROM CARDIOLOGY OFFICE. -TRACEE TUBBS, NATHAND
--- NOTE | 2023-11-15 14:27 | PC.NURSE ---
arrived by w/c from ED
[2023-11-15 14:34] LABS: Troponin I 0.16 ng/ml (0.00-0.034)
[2023-11-15] MEDS: HEPARIN SODIUM 5,000 UNIT/ML VIAL 5000 UNIT SQ ×2 (15:33→22:26)
[2023-11-15 17:43] LABS: Troponin I 0.15 ng/ml (0.00-0.034)
--- NOTE | 2023-11-15 18:13 | P.HP_ITS ---
History of Present Illness *Admission Date: 11/15/23 *Reason for visit:: SOB *History of present illness: Patient is a 78-year-old male who presents to the hospital due to shortness of breath according to the patient he has been having shortness of breath for past 1 week, it has been getting worse, he also has noticed lower extremity edema. He mentions he has been compliant with his medications. He has past medical history of CAD PAD, CABG, hypertension hyperlipidemia. Patient mentions he had chest pain yesterday, otherwise denied diarrhea constipation dysuria fever chills, cough. [facility] Disclaimer: The information contained in this section may have been updated after the patient was seen, as this information can be updated by other users. Medical History Abdominal pain Acute blood loss anemia Anemia Bruising CAD (coronary artery disease) Cardiac pacemaker in situ Carotid artery stenosis Dyspnea HHD (hypertensive heart disease) HLD (hyperlipidemia) Mesenteric artery stenosis Nontraumatic rectus hematoma PAD (peripheral artery disease) Renal insufficiency Surgical History History of coronary artery bypass graft Family History Other Family history of myocardial infarction Social History (Updated 11/15/23 @ 14:56 by Alysia Huang RN) Smoking Status: Never smoker alcohol intake: never substance use type: denies use current occupational status: retired Travel in the last 8 weeks: Inside the [place] household members: spouse housing: house caffeine: Yes Review of Systems Review of Systems Review of systems (narrative): as per HPI Meds Home Medications and Allergies Home Medications Medication Instructions Recorded Confirmed Type tamsulosin 0.4 mg capsule 0.4 mg PO DAILY prostate 07/23/23 11/15/23 History aspirin 81 mg tablet,delayed 81 mg PO DAILY Heart Health 08/17/23 11/15/23 History release bisoprolol fumarate 10 mg tablet 10 mg PO BID High Blood Pressure 08/17/23 11/15/23 History clopidogrel 75 mg tablet 75 mg PO DAILY Platelet Inhibitor 08/17/23 11/15/23 History furosemide 40 mg tablet (Lasix) 40 mg PO Q48H Fluid 08/17/23 11/15/23 History nitroglycerin 0.4 mg sublingual 0.4 mg sublingual Q5MINP PRN chest 08/17/23 11/15/23 History tablet pain potassium chloride 10 mEq 10 meq PO DAILY Supplement 08/17/23 11/15/23 History tablet,extended release(part/cryst) (Klor-Con M) rosuvastatin 40 mg tablet 40 mg PO DAILY Cholesterol 08/17/23 11/15/23 History linaclotide 145 mcg capsule 145 mcg PO DAILY Constipation 09/28/23 11/15/23 History (Linzess) omeprazole 40 mg capsule,delayed 40 mg PO DAILY Acid Reflux 09/28/23 11/15/23 History release New Prescriptions to Start Prescriptions: Allergies Allergy/AdvReac Type Severity Reaction Status Date / Time ramipril [From Altace] Allergy Mild Unknown Verified 11/15/23 14:41 allergy reaction isosorbide [From Imdur] AdvReac Severe Verified 11/15/23 14:41 Exam Data for Last 24 hours Vital signs and Labs for Last 24 Hours: Temp Pulse Resp BP Pulse Ox O2 Del Method 97.5 F L 60 18 168/69 H 97 Room Air 11/15/23 14:44 11/15/23 16:00 11/15/23 14:44 11/15/23 14:44 11/15/23 14:29 11/15/23 17:59 Laboratory Results - last 24 hr 11/15/23 11:07: WBC 5.8, RBC 3.97 L, Hgb 8.5 L, Hct 27.7 L, MCV 69.8 L, MCH 21.3 L, MCHC 30.6 L, RDW 21.1 H, Plt Count 190, MPV 9.8, Neut % (Auto) 61.8, Lymph % (Auto) 26.9, [place] % (Auto) 9.4 H, Eos % (Auto) 0.9, Baso % (Auto) 1.0, Neut # (Auto) 3.6, Lymph # (Auto) 1.6, [place] # (Auto) 0.5, Eos # (Auto) 0.1, Baso # (Auto) 0.1, Sodium 140, Potassium 3.8, Chloride 108 H, Carbon Dioxide 28, Anion Gap 7.8, BUN 20, Creatinine 1.00, Estimated Creat Clear 61, Estimated GFR 72, Est GFR ( Amer) 87, Glucose 132 H, Calcium 8.4, Total Bilirubin 0.7, AST 40, ALT 32, Alkaline Phosphatase 66, Troponin I 0.17 H, NT-Pro-B Natriuret Pep 3450 H, Total Protein 6.7, Albumin 4.0, Globulin 2.7, Albumin/Globulin Ratio 1.5, Lipase 77 11/15/23 11:22: SARS-CoV-2 (PCR) Not detected, Influenza A Untype (PCR) Not detected, Influenza Type B (PCR) Not detected 11/15/23 14:04: Troponin I 0.16 H 11/15/23 17:05: Troponin I 0.15 H I & O for Last 24 hours: Intake & Output 11/12/23 11/13/23 11/14/23 11/15/23 23:59 23:59 23:59 23:59 Intake Total 240 / 240 Balance 240 / 240 Weight 70.789 kg Constitutional Constitutional: no acute distress *Routine HEENT Exam Head: Present normocephalic Eye: Present EOMI and PERRL ENT: Present mucous membranes moist *Routine Neck Exam Neck: Present supple; Absent lymphadenopathy *Routine Respiratory Exam Respiratory: Present crackles *Routine Cardiovascular Exam Cardiovascular: Present RRR *Routine Abdominal Exam Abdominal: Present soft and normoactive bowel sounds; Absent tenderness *Routine Rectal Exam Rectal:: deferred *Routine Genitalia Exam Genitalia:: deferred *Routine Extremities Exam Extremities: Absent cyanosis, clubbing or edema *Routine Skin Exam Skin: Present warm; Absent rash *Routine Neurological Exam Neurological: Present alert and oriented X3 Assessment and Plan *Assessment and plan (1) Acute exacerbation of CHF (congestive heart failure): Status: Acute Category: Medical Code(s): I50.9 - Heart failure, unspecified (2) Bilateral pleural effusion: Status: Acute Category: Medical Code(s): J90 - Pleural effusion, not elsewhere classified (3) Non-ST elevation [place] (NSTEMI): Status: Acute Category: Medical Code(s): I21.4 - Non-ST elevation (NSTEMI) myocardial infarction (4) Hypertension: Status: Acute Category: Medical Code(s): I10 - Essential (primary) hypertension (5) CKD (chronic kidney disease) stage 3, GFR 30-59 ml/min: Status: Acute Category: Medical Code(s): N18.30 - Chronic kidney disease, stage 3 unspecified (6) CAD (coronary artery disease): Status: Chronic Qualifiers: Coronary Disease-Associated Artery/Lesion type: [place] artery [place] vs. transplanted heart: [place] heart Associated angina: with other forms of angina Qualified Code(s): I25.118 - Atherosclerotic heart disease of [place] coronary artery with other forms of angina pectoris Category: Medical Code(s): I25.10 - Atherosclerotic heart disease of [place] coronary artery without angina pectoris (7) PAD (peripheral artery disease): Status: Chronic Category: Medical Code(s): I73.9 - Peripheral vascular disease, unspecified (8) HHD (hypertensive heart disease): Status: Chronic Qualifiers: Heart failure presence: without heart failure Qualified Code(s): I11.9 - Hypertensive heart disease without heart failure Category: Medical Code(s): I11.9 - Hypertensive heart disease without heart failure (9) HLD (hyperlipidemia): Status: Chronic Qualifiers: Hyperlipidemia type: mixed hyperlipidemia Qualified Code(s): E78.2 - Mixed hyperlipidemia Category: Medical Code(s): E78.5 - Hyperlipidemia, unspecified Plan Patient is a 78-year-old male who presents to the hospital due to shortness of breath according to the patient he has been having shortness of breath for past 1 week, it has been getting worse, he also has noticed lower extremity edema. He mentions he has been compliant with his medications. He has past medical history of CAD PAD, CABG, hypertension hyperlipidemia. Patient mentions he had chest pain yesterday, otherwise denied diarrhea constipation dysuria fever chills, cough. Assessment Exertional shortness of breath likely secondary to acute on chronic CHF Microcytic anemia, likely iron deficiency anemia, rule out anemia blood loss Elevated troponin likely NSTEMI CAD CAD CABG Hypertension Hyperlipidemia Constipation Colitis Plan Start 40 IV twice daily Lasix CTA chest performed did not show bilateral pleural effusions Monitor on cardiac long term care phlebotomist troponin Consult cardiology Monitor and replace electrolytes Pericolonic fat stranding on CT abdomen suggestive of colitis, order Flagyl, ciprofloxacin DVT prophylaxis-heparin
[2023-11-15] MEDS: ATORVASTATIN 40MG TABLET 80 MG PO (21:00)
[2023-11-15] MEDS: PANTOPRAZOLE 40MG TABLET 40 MG PO (21:00)
[2023-11-15] MEDS: BISOPROLOL FUMARATE 10 MG 10 EACH PO (21:01)
[2023-11-15] MEDS: MELATONIN 5MG TABLET 5 MG PO (23:15)
[2023-11-16] VITALS (16 sets, daily range): BP systolic 132–186; BP diastolic 64–82; PULSE 55–65; RESP 16–18; TEMP 36.2–37; O2SAT 95–98; BMI 24.3
--- NOTE | 2023-11-16 05:44 | PC.NURSE ---
Pt has rested through the night with no complaints. Pt has been clipped and NPO since midnight. Crackles in bilateral lower lobes. Pt has had no complaints of shortness of breath. Paced on tele.
[2023-11-16] MEDS: HEPARIN SODIUM 5,000 UNIT/ML VIAL 5000 UNIT SQ (06:37)
[2023-11-16 06:53] LABS: Chloride 104 mmol/L (98-107); Potassium 3.4 mmoL/L (3.5-5.1); Sodium 137 mmol/L (136-145)
[2023-11-16 06:54] LABS: Basophils % 0.7 % (0.1-2.0); Eosinophils % 0.8 % (0.1-12.0); Hematocrit 25.2 % (42.0-52.0); Hemoglobin 7.8 g/dL (14.1-18.0); Lymphocytes # 1.5 K/mm3 (0.7-4.5); Mean Corpuscular HGB Conc 30.7 g/dL (31.8-35.4); Mean Corpuscular Hemoglobin 21.3 pg (27.0-31.2); Mean Corpuscular Volume 69.3 fl (80-94); Mean Platelet Volume 9.6 fl (7.4-10.4); Monocytes # 0.4 K/mm3 (0.1-1.0); Monocytes % 8.8 % (1.7-9.3); Neutrophils # 2.8 K/mm3 (1.8-7.8); Neutrophils % 58.8 % (37.0-80.0); Platelet Count 166 K/mm3 (142-424); Red Blood Count 3.64 M/mm3 (4.60-6.20); Red Cell Distribution Width 21.2 % (11.5-17.5); White Blood Count 4.8 K/mm3 (4.8-10.8)
[2023-11-16 06:56] LABS: Blood Urea Nitrogen 17 mg/dl (9-20); Creatinine Clearance Estimated 54 mL/min (50-200); Estimated Glomerular Filt Rate 65 ml/min (>60); GFR (African American) 78 ML/MIN (>60)
[2023-11-16 06:57] LABS: Anion Gap 7.4 mEq/L (5-15); Calcium 8.2 mg/dl (8.4-10.2); Carbon Dioxide 29 mmol/L (22.0-30.0); Glucose 87 mg/dl (74-100)
[2023-11-16] MEDS: ASPIRIN EC 81MG TABLET 81 MG PO (08:26)
[2023-11-16] MEDS: DOCUSATE SODIUM 100 MG CAPSULE PO (08:27)
[2023-11-16] MEDS: CLOPIDOGREL 75MG TAB 75 MG PO (08:27)
[2023-11-16] MEDS: BISOPROLOL 5MG TABLET 10 MG PO ×2 (08:27→20:24)
[2023-11-16 10:29] LABS: Iron 18 ug/dL (49-181)
[2023-11-16 10:38] LABS: Total Iron Binding Capacity 322 ug/dL (261-462)
--- NOTE | 2023-11-16 13:04 | EXP.SURG.CON ---
History of Present Illness *Admission Date: 11/15/23 *Reason for visit:: Anemia *History of present illness: Patient is a 78-year-old male from [place], [place] with a history of coronary artery disease status post CABG, chronic kidney disease, cardiac pacemaker, carotid artery stenosis, mesenteric stenosis, renal insufficiency, chronic arterial occlusive disease. He had coronary stenting done in August. He presented to the emergency department yesterday with complaints of several day history of shortness of air with lower extremity swelling and symptoms of substernal pressure with subjective shortness of air. Patient denies abdominal pain nausea or vomiting. Denies change in bowel habits. Patient is on Plavix. Thorough evaluation was performed in the emergency department. He was noted to have elevated BNP greater than 3400. He had elevated troponin. It was felt the patient likely had non-STEMI in the setting of CHF exacerbation. Hemoglobin on presentation was 8.5. This morning on 11/16/2023 hemoglobin 7.8. BUN and creatinine is 20 and 1.0. Recent baseline hemoglobin appears to be approximately 10. Patient has never had EGD or colonoscopy. He had seen a data analyst report writer previously in [place] and there was consideration for screening colonoscopy 2 years ago but he was unable to undergo bowel preparation and was not cleaned out. Patient does state that he has a history of chronic constipation. There was also consideration of possible upper endoscopy and colonoscopy to be performed however this was deferred as he had recent stenting. He apparently does have a history of H. pylori positivity. He has had some dysphagia. Cardiology service has ordered a unit of blood to be transfused. Surgical consultation was obtained this afternoon for anemia . Patient has tolerated a cardiac diet and had just eaten lunch without issue. [facility] Disclaimer: The information contained in this section may have been updated after the patient was seen, as this information can be updated by other users. Medical History Abdominal pain Acute blood loss anemia Anemia Bruising CAD (coronary artery disease) Cardiac pacemaker in situ Carotid artery stenosis Dyspnea HHD (hypertensive heart disease) HLD (hyperlipidemia) Mesenteric artery stenosis Nontraumatic rectus hematoma PAD (peripheral artery disease) Renal insufficiency Surgical History History of coronary artery bypass graft Family History Other Family history of myocardial infarction Social History (Updated 11/15/23 @ 14:56 by Alysia Huang RN) Smoking Status: Never smoker alcohol intake: never substance use type: denies use current occupational status: retired Travel in the last 8 weeks: [place] the [place] household members: spouse housing: house caffeine: Yes Review of Systems Review of Systems Review of systems:: pertinent systems reviewed and negative unless documented below Meds Home Medications and Allergies Home Medications Medication Instructions Recorded Confirmed Type tamsulosin 0.4 mg capsule 0.4 mg PO DAILY prostate 07/23/23 11/15/23 History aspirin 81 mg tablet,delayed 81 mg PO DAILY Heart Health 08/17/23 11/15/23 History release bisoprolol fumarate 10 mg tablet 10 mg PO BID High Blood Pressure 08/17/23 11/15/23 History clopidogrel 75 mg tablet 75 mg PO DAILY Platelet Inhibitor 08/17/23 11/15/23 History furosemide 40 mg tablet (Lasix) 40 mg PO Q48H Fluid 08/17/23 11/15/23 History nitroglycerin 0.4 mg sublingual 0.4 mg sublingual Q5MINP PRN chest 08/17/23 11/15/23 History tablet pain potassium chloride 10 mEq 10 meq PO DAILY Supplement 08/17/23 11/15/23 History tablet,extended release(part/cryst) (Klor-Con M) rosuvastatin 40 mg tablet 40 mg PO DAILY Cholesterol 08/17/23 11/15/23 History linaclotide 145 mcg capsule 145 mcg PO DAILY Constipation 09/28/23 11/15/23 History (Linzess) omeprazole 40 mg capsule,delayed 40 mg PO DAILY Acid Reflux 09/28/23 11/15/23 History release New Prescriptions to Start Prescriptions: Allergies Allergy/AdvReac Type Severity Reaction Status Date / Time ramipril [From Altace] Allergy Mild Unknown Verified 11/15/23 14:41 allergy reaction isosorbide [From Imdur] AdvReac Severe Verified 11/15/23 14:41 Exam (Inpt) Vital signs and Labs for Last 24 Hours: Temp Pulse Resp BP Pulse Ox O2 Del Method 97.7 F 60 18 179/75 H 97 Room Air 11/16/23 12:00 11/16/23 12:00 11/16/23 12:00 11/16/23 12:00 11/16/23 12:00 11/16/23 12:00 Laboratory Results - last 24 hr 11/15/23 11:07: WBC 5.8, RBC 3.97 L, Hgb 8.5 L, Hct 27.7 L, MCV 69.8 L, MCH 21.3 L, MCHC 30.6 L, RDW 21.1 H, Plt Count 190, MPV 9.8, Neut % (Auto) 61.8, Lymph % (Auto) 26.9, [place] % (Auto) 9.4 H, Eos % (Auto) 0.9, Baso % (Auto) 1.0, Neut # (Auto) 3.6, Lymph # (Auto) 1.6, [place] # (Auto) 0.5, Eos # (Auto) 0.1, Baso # (Auto) 0.1 11/15/23 14:04: Troponin I 0.16 H 11/15/23 17:05: Troponin I 0.15 H 11/16/23 06:23: WBC 4.8, RBC 3.64 L, Hgb 7.8 L, Hct 25.2 L, MCV 69.3 L, MCH 21.3 L, MCHC 30.7 L, RDW 21.2 H, Plt Count 166, MPV 9.6, Neut % (Auto) 58.8, Lymph % (Auto) 31.0, [place] % (Auto) 8.8, Eos % (Auto) 0.8, Baso % (Auto) 0.7, Neut # (Auto) 2.8, Lymph # (Auto) 1.5, [place] # (Auto) 0.4, Eos # (Auto) 0.0, Baso # (Auto) 0.0, Sodium 137, Potassium 3.4 L, Chloride 104, Carbon Dioxide 29, Anion Gap 7.4, BUN 17, Creatinine 1.10, Estimated Creat Clear 54, Estimated GFR 65, Est GFR ( Amer) 78, Glucose 87 D, Calcium 8.2 L, Iron 18 L, TIBC 322, Iron Saturation 5.58909 L, Ferritin 7.70 L I & O for Labs for Last 24 Hours: Intake & Output 11/14/23 11/15/23 11/16/23 11/17/23 11:59 11:59 11:59 11:59 Intake Total 240 / 240 Output Total 0 / 0 Balance 240 / 240 Weight 160 lb 155 lb 3.2 oz Constitutional: no acute distress Head: Present normocephalic Respiratory: Present accessory muscle use Cardiac: Present Reg Rate and Rhythm GI: Present soft Results Labs 11/16/23 06:23 11/16/23 06:23 Labs: Laboratory Results - last 24 hr 11/15/23 11:07: WBC 5.8, RBC 3.97 L, Hgb 8.5 L, Hct 27.7 L, MCV 69.8 L, MCH 21.3 L, MCHC 30.6 L, RDW 21.1 H, Plt Count 190, MPV 9.8, Neut % (Auto) 61.8, Lymph % (Auto) 26.9, [place] % (Auto) 9.4 H, Eos % (Auto) 0.9, Baso % (Auto) 1.0, Neut # (Auto) 3.6, Lymph # (Auto) 1.6, [place] # (Auto) 0.5, Eos # (Auto) 0.1, Baso # (Auto) 0.1 11/15/23 14:04: Troponin I 0.16 H 11/15/23 17:05: Troponin I 0.15 H 11/16/23 06:23: WBC 4.8, RBC 3.64 L, Hgb 7.8 L, Hct 25.2 L, MCV 69.3 L, MCH 21.3 L, MCHC 30.7 L, RDW 21.2 H, Plt Count 166, MPV 9.6, Neut % (Auto) 58.8, Lymph % (Auto) 31.0, [place] % (Auto) 8.8, Eos % (Auto) 0.8, Baso % (Auto) 0.7, Neut # (Auto) 2.8, Lymph # (Auto) 1.5, [place] # (Auto) 0.4, Eos # (Auto) 0.0, Baso # (Auto) 0.0, Sodium 137, Potassium 3.4 L, Chloride 104, Carbon Dioxide 29, Anion Gap 7.4, BUN 17, Creatinine 1.10, Estimated Creat Clear 54, Estimated GFR 65, Est GFR ( Amer) 78, Glucose 87 D, Calcium 8.2 L, Iron 18 L, TIBC 322, Iron Saturation 5.50011 L, Ferritin 7.70 L Assessment and Plan *Assessment and plan (1) Anemia: Status: Acute Category: Medical Code(s): D64.9 - Anemia, unspecified Plan Patient does have evidence of iron deficiency anemia. Etiology uncertain. This could be secondary to blood loss anemia such as gastrointestinal system but this is unclear. It may be reasonable to proceed with endoscopic investigation. Patient had eaten lunch. Consideration may be given for upper endoscopy in the near future.
[2023-11-16] MEDS: IRON SUCROSE COMPLEX 200 MG in 0.9 % SODIUM CHLORIDE 100 ML 220 MG IV (13:56)
--- NOTE | 2023-11-16 15:29 | EXP.CARD.CON ---
History of Present Illness History of Present Illness Consult date: 11/16/23 Requesting physician: Vielka Feliciano Chief complaint: SOA History of present illness: This is a 78-year-old white gentleman who presented to the emergency department complaints of shortness of breath. He has past known medical history of coronary artery disease status post coronary artery bypass grafting and multivessel stenting, hypertension, hyperlipidemia and PAD. The patient has been having shortness of breath for approximately the last week. He also has had some slight edema in his lower extremities at times. He also had sudden onset of chest pain on Thursday and Thursday. This was in the substernal aspect of his chest. This is a pressure sensation. He states that he was at rest when both episodes started. They lasted several minutes and then resolved on their own. His shortness of breath continued to worsen so he decided to come into the emergency department. The patient was found to have an elevated troponin consistent with a non-STEMI. He also has a significant decrease in his hemoglobin. The patient has been anemic and was seen by Dr. Smith in [place]. However due to his recent stenting at that time they decided to postpone his EGD and colonoscopy. He now has a worsening in his anemia with a hemoglobin of 7.8. He denies any fever, chills, nausea, vomiting, diarrhea, PND or orthopnea. [facility] Disclaimer: The information contained in this section may have been updated after the patient was seen, as this information can be updated by other users. Medical History Abdominal pain Acute blood loss anemia Anemia Bruising CAD (coronary artery disease) Cardiac pacemaker in situ Carotid artery stenosis Dyspnea HHD (hypertensive heart disease) HLD (hyperlipidemia) Mesenteric artery stenosis Nontraumatic rectus hematoma PAD (peripheral artery disease) Renal insufficiency Surgical History History of coronary artery bypass graft Family History Other Family history of myocardial infarction Social History (Updated 11/15/23 @ 14:56 by Alysia Huang RN) Smoking Status: Never smoker alcohol intake: never substance use type: denies use current occupational status: retired Travel in the last 8 weeks: Inside the [place] household members: spouse housing: house caffeine: Yes Review of Systems Review of Systems Review of systems:: pertinent systems reviewed and negative unless documented below Constitutional Constitutional: Reports system reviewed and no additional complaints, except as documented, Reports fatigue and Reports lethargy Eyes Eyes: Reports system reviewed and no additional complaints, except as documented ENT Ears, Nose, Mouth, and Throat: Reports system reviewed and no additional complaints, except as documented *Cardiovascular Cardiovascular: Reports system reviewed and no additional complaints, except as documented, Reports chest pain, Reports chest pain at rest, Reports chest pain with activity, Reports dyspnea and Reports dyspnea on exertion *Respiratory Respiratory: Reports system reviewed and no additional complaints, except as documented, Reports dyspnea and Reports dyspnea on exertion *Gastrointestinal Gastrointestinal: Reports system reviewed and no additional complaints, except as documented *Genitourinary Genitourinary: Reports system reviewed and no additional complaints, except as documented *Musculoskeletal Musculoskeletal: Reports system reviewed and no additional complaints, except as documented Integumentary/Breasts Skin/Breast: Reports system reviewed and no additional complaints, except as documented *Neurologic Neurologic: Reports system reviewed and no additional complaints, except as documented Psychiatric Psychiatric: Reports system reviewed and no additional complaints, except as documented Endocrine Endocrine: Reports system reviewed and no additional complaints, except as documented and Reports fatigue Hematologic/Lymphatic Hematologic/Lymphatic: Reports system reviewed and no additional complaints, except as documented Allergic/Immunologic Allergic/Immunologic: Reports system reviewed and no additional complaints, except as documented Exam Data for Last 24 hours Vital signs and Labs for Last 24 Hours: Temp Pulse Resp BP Pulse Ox O2 Del Method 97.9 F 58 L 16 180/74 H 98 Room Air 11/16/23 15:00 11/16/23 15:00 11/16/23 15:00 11/16/23 15:00 11/16/23 15:00 11/16/23 13:00 Laboratory Results - last 24 hr 11/15/23 17:05: Troponin I 0.15 H 11/16/23 06:23: WBC 4.8, RBC 3.64 L, Hgb 7.8 L, Hct 25.2 L, MCV 69.3 L, MCH 21.3 L, MCHC 30.7 L, RDW 21.2 H, Plt Count 166, MPV 9.6, Neut % (Auto) 58.8, Lymph % (Auto) 31.0, [place] % (Auto) 8.8, Eos % (Auto) 0.8, Baso % (Auto) 0.7, Neut # (Auto) 2.8, Lymph # (Auto) 1.5, [place] # (Auto) 0.4, Eos # (Auto) 0.0, Baso # (Auto) 0.0, Sodium 137, Potassium 3.4 L, Chloride 104, Carbon Dioxide 29, Anion Gap 7.4, BUN 17, Creatinine 1.10, Estimated Creat Clear 54, Estimated GFR 65, Est GFR ( Amer) 78, Glucose 87 D, Calcium 8.2 L, Iron 18 L, TIBC 322, Iron Saturation 5.69196 L, Ferritin 7.70 L 11/16/23 13:11: Blood Type O Negative, Antibody Screen Negative, Crossmatch ([facility]) See Detail I & O for Last 24 hours: Intake & Output 11/13/23 11/14/23 11/15/23 11/16/23 23:59 23:59 23:59 23:59 Intake Total 240 / 240 340 / 340 Output Total 0 / 0 0 / 0 Balance 240 / 240 340 / 340 Weight 156 lb 1 oz 155 lb 3.2 oz Constitutional Constitutional: no acute distress and average body habitus *Routine HEENT Exam Head: Present normocephalic and atraumatic ENT: Present mucous membranes moist *Routine Neck Exam Neck: Present supple, full ROM and normal carotid upstroke; Absent JVD, carotid bruit or lymphadenopathy *Routine Respiratory Exam Respiratory: Present CTA bilaterally, normal respiratory effort, able to speak in complete sentences and symmetric chest movement *Routine Cardiovascular Exam Cardiovascular: Present RRR, Normal S1 and Normal S2; Absent murmur or gallop *Routine Abdominal Exam Abdominal: Present soft and normoactive bowel sounds; Absent tenderness, distended or organomegaly *Routine Extremities Exam Extremities: Present full ROM, pulses intact and normal capillary refill; Absent cyanosis, clubbing or edema *Routine Skin Exam Skin: Present intact and warm; Absent erythema *Routine Neurological Exam Neurological: Present alert, oriented X3 and CN II-XII intact; Absent sensory deficit or motor deficit Routine Psychiatric Exam Psychiatric: Present normal affect Meds Home Medications and Allergies Home Medications Medication Instructions Recorded Confirmed Type tamsulosin 0.4 mg capsule 0.4 mg PO DAILY prostate 07/23/23 11/15/23 History aspirin 81 mg tablet,delayed 81 mg PO DAILY Heart Health 08/17/23 11/15/23 History release bisoprolol fumarate 10 mg tablet 10 mg PO BID High Blood Pressure 08/17/23 11/15/23 History clopidogrel 75 mg tablet 75 mg PO DAILY Platelet Inhibitor 08/17/23 11/15/23 History furosemide 40 mg tablet (Lasix) 40 mg PO Q48H Fluid 08/17/23 11/15/23 History nitroglycerin 0.4 mg sublingual 0.4 mg sublingual Q5MINP PRN chest 08/17/23 11/15/23 History tablet pain potassium chloride 10 mEq 10 meq PO DAILY Supplement 08/17/23 11/15/23 History tablet,extended release(part/cryst) (Klor-Con M) rosuvastatin 40 mg tablet 40 mg PO DAILY Cholesterol 08/17/23 11/15/23 History linaclotide 145 mcg capsule 145 mcg PO DAILY Constipation 09/28/23 11/15/23 History (Linzess) omeprazole 40 mg capsule,delayed 40 mg PO DAILY Acid Reflux 09/28/23 11/15/23 History release New Prescriptions to Start Prescriptions: Allergies Allergy/AdvReac Type Severity Reaction Status Date / Time ramipril [From Altace] Allergy Mild Unknown Verified 11/15/23 14:41 allergy reaction isosorbide [From Imdur] AdvReac Severe Verified 11/15/23 14:41 Assessment and Plan *Assessment and plan (1) Non-ST elevation ID (NSTEMI): Status: Acute Category: Medical Code(s): I21.4 - Non-ST elevation (NSTEMI) myocardial infarction (2) Bilateral pleural effusion: Status: Acute Category: Medical Code(s): J90 - Pleural effusion, not elsewhere classified (3) Hypertension: Status: Acute Qualifiers: Hypertension type: primary hypertension Qualified Code(s): I10 - Essential (primary) hypertension Category: Medical Code(s): I10 - Essential (primary) hypertension (4) Anemia: Status: Acute Qualifiers: Anemia type: iron deficiency Iron deficiency anemia type: unspecified iron deficiency Qualified Code(s): D50.9 - Iron deficiency anemia, unspecified Category: Medical Code(s): D64.9 - Anemia, unspecified (5) Stented coronary artery: Status: Acute Category: Surgical Code(s): Z95.5 - Presence of coronary angioplasty implant and graft (6) CAD (coronary artery disease): Status: Chronic Qualifiers: Coronary Disease-Associated Artery/Lesion type: [place] artery [place] vs. transplanted heart: [place] heart Associated angina: with other forms of angina Qualified Code(s): I25.118 - Atherosclerotic heart disease of [place] coronary artery with other forms of angina pectoris Category: Medical Code(s): I25.10 - Atherosclerotic heart disease of [place] coronary artery without angina pectoris (7) History of coronary artery bypass graft: Status: Chronic Category: Surgical Code(s): Z95.1 - Presence of aortocoronary bypass graft (8) PAD (peripheral artery disease): Status: Chronic Category: Medical Code(s): I73.9 - Peripheral vascular disease, unspecified (9) HHD (hypertensive heart disease): Status: Chronic Qualifiers: Heart failure presence: without heart failure Qualified Code(s): I11.9 - Hypertensive heart disease without heart failure Category: Medical Code(s): I11.9 - Hypertensive heart disease without heart failure (10) HLD (hyperlipidemia): Status: Chronic Qualifiers: Hyperlipidemia type: mixed hyperlipidemia Qualified Code(s): E78.2 - Mixed hyperlipidemia Category: Medical Code(s): E78.5 - Hyperlipidemia, unspecified (11) Carotid artery stenosis: Status: Chronic Qualifiers: Laterality: bilateral Qualified Code(s): I65.23 - Occlusion and stenosis of bilateral carotid arteries Category: Medical Code(s): I65.29 - Occlusion and stenosis of unspecified carotid artery (12) Mesenteric artery stenosis: Status: Chronic Category: Medical Code(s): K55.1 - Chronic vascular disorders of intestine (13) Cardiac pacemaker in situ: Status: Chronic Category: Medical Code(s): Z95.0 - Presence of cardiac pacemaker Plan Plan: 1. The patient was mated to the hospital with an elevated troponin consistent with a non-STEMI. The patient will need to undergo a left cardiac catheterization during this hospitalization however given his significant anemia today his left cardiac catheterization will be postponed. 2. Will consult general surgery secondary to his iron deficiency anemia. We would like for them to consider EGD/colonoscopy during this hospitalization. 3. The patient will be given IV iron today due to his iron deficiency anemia. 4. We will give him 1 unit of packed red blood cells as well. In this patient with known coronary artery disease we would like to keep his hemoglobin greater than 9. 5. Continue aspirin and Plavix for dual antiplatelet therapy due to his coronary artery disease. 6. Coronary artery disease is present and as mentioned above he will need left cardiac catheterization during this admission secondary to the non-STEMI. 7. His blood pressure is acceptable but on the higher side. Will continue to follow his blood pressure and make changes to his blood pressure medications as needed. 8. His LDL goal is less than 55. His LDL is 60. He is on a statin. 9. The patient does have PAD which is likely stable. 10. Further recommendations were made pending the patient's response to treatment. Thank you for the opportunity to help participate in the care of this patient. All recommendations and orders are per Dr. Bush.
--- NOTE | 2023-11-16 16:07 | P.PN_ITS ---
Subjective *Date: 11/16/23 *Time: 16:16 Interval history: patient was seen and evaluated at the bedside. No reported acute events overnight, denies chest pain, shortness of breath, nausea, vomiting, abdominal pain. Exam Data for Last 24 hours Vital signs and Labs for Last 24 Hours: Temp Pulse Resp BP Pulse Ox O2 Del Method 97.5 F L 60 16 185/81 H 97 Room Air 11/16/23 15:30 11/16/23 15:30 11/16/23 15:30 11/16/23 15:30 11/16/23 15:30 11/16/23 13:00 Laboratory Results - last 24 hr 11/15/23 17:05: Troponin I 0.15 H 11/16/23 06:23: WBC 4.8, RBC 3.64 L, Hgb 7.8 L, Hct 25.2 L, MCV 69.3 L, MCH 21.3 L, MCHC 30.7 L, RDW 21.2 H, Plt Count 166, MPV 9.6, Neut % (Auto) 58.8, Lymph % (Auto) 31.0, [place] % (Auto) 8.8, Eos % (Auto) 0.8, Baso % (Auto) 0.7, Neut # (Auto) 2.8, Lymph # (Auto) 1.5, [place] # (Auto) 0.4, Eos # (Auto) 0.0, Baso # (Auto) 0.0, Sodium 137, Potassium 3.4 L, Chloride 104, Carbon Dioxide 29, Anion Gap 7.4, BUN 17, Creatinine 1.10, Estimated Creat Clear 54, Estimated GFR 65, Est GFR ( Amer) 78, Glucose 87 D, Calcium 8.2 L, Iron 18 L, TIBC 322, Iron Saturation 5.22469 L, Ferritin 7.70 L 11/16/23 13:11: Blood Type O Negative, Antibody Screen Negative, Crossmatch ([facility]) See Detail I & O for Last 24 hours: Intake & Output 11/13/23 11/14/23 11/15/23 11/16/23 23:59 23:59 23:59 23:59 Intake Total 240 / 240 340 / 340 Output Total 0 / 0 0 / 0 Balance 240 / 240 340 / 340 Weight 70.789 kg 70.398 kg Constitutional Constitutional: no acute distress *Routine HEENT Exam Head: Present normocephalic Eye: Present EOMI and PERRL ENT: Present mucous membranes moist *Routine Neck Exam Neck: Present supple; Absent lymphadenopathy *Routine Respiratory Exam Respiratory: Present CTA bilaterally *Routine Cardiovascular Exam Cardiovascular: Present RRR *Routine Abdominal Exam Abdominal: Present soft and normoactive bowel sounds; Absent tenderness *Routine Extremities Exam Extremities: Absent cyanosis, clubbing or edema *Routine Skin Exam Skin: Present warm; Absent rash *Routine Neurological Exam Neurological: Present alert and oriented X3 Assessment and Plan *Assessment and plan (1) Acute exacerbation of CHF (congestive heart failure): Status: Acute Category: Medical Code(s): I50.9 - Heart failure, unspecified (2) Bilateral pleural effusion: Status: Acute Category: Medical Code(s): J90 - Pleural effusion, not elsewhere classified (3) Non-ST elevation [place] (NSTEMI): Status: Acute Category: Medical Code(s): I21.4 - Non-ST elevation (NSTEMI) myocardial infarction (4) Hypertension: Status: Acute Qualifiers: Hypertension type: primary hypertension Qualified Code(s): I10 - Essential (primary) hypertension Category: Medical Code(s): I10 - Essential (primary) hypertension (5) CKD (chronic kidney disease) stage 3, GFR 30-59 ml/min: Status: Acute Category: Medical Code(s): N18.30 - Chronic kidney disease, stage 3 unspecified (6) CAD (coronary artery disease): Status: Chronic Qualifiers: Associated angina: with other forms of angina Coronary Disease- Associated Artery/Lesion type: [place] artery [place] vs. transplanted heart: [place] heart Qualified Code(s): I25.118 - Atherosclerotic heart disease of [place] coronary artery with other forms of angina pectoris Category: Medical Code(s): I25.10 - Atherosclerotic heart disease of [place] coronary artery without angina pectoris (7) PAD (peripheral artery disease): Status: Chronic Category: Medical Code(s): I73.9 - Peripheral vascular disease, unspecified (8) HHD (hypertensive heart disease): Status: Chronic Qualifiers: Heart failure presence: without heart failure Qualified Code(s): I11.9 - Hypertensive heart disease without heart failure Category: Medical Code(s): I11.9 - Hypertensive heart disease without heart failure (9) HLD (hyperlipidemia): Status: Chronic Qualifiers: Hyperlipidemia type: mixed hyperlipidemia Qualified Code(s): E78.2 - Mixed hyperlipidemia Category: Medical Code(s): E78.5 - Hyperlipidemia, unspecified Plan Patient is a 78-year-old male who presents to the hospital due to shortness of breath according to the patient he has been having shortness of breath for past 1 week, it has been getting worse, he also has noticed lower extremity edema. He mentions he has been compliant with his medications. He has past medical history of CAD PAD, CABG, hypertension hyperlipidemia. Patient mentions he had chest pain yesterday, otherwise denied diarrhea constipation dysuria fever chills, cough. Assessment Exertional shortness of breath likely secondary to acute on chronic CHF Microcytic anemia, likely iron deficiency anemia, rule out acute anemia of blood loss Elevated troponin likely NSTEMI CAD CAD CABG Hypertension Hyperlipidemia Constipation Colitis Plan On IV BID lasix, defer to cardiology for switching to PO lasix CTA chest performed did not show bilateral pleural effusions Monitor on cardiac telemetry, continue ASA, statin and plavix Iron sat low, MCV low, ordered IV iron, PRBC ordered for Hb >9 in setting of CAD consulted general surgery, plan for EGD likely tomorrow, NPO after MN Monitor troponin Consult cardiology - plan for cardiac cath this admission Monitor and replace electrolytes Pericolonic fat stranding on CT abdomen suggestive of colitis, order Flagyl, ciprofloxacin DVT prophylaxis-heparin - on hold due to concern of GI bleed
[2023-11-16] MEDS: FUROSEMIDE 40MG/4ML VIAL 40 MG IV (16:22)
--- NOTE | 2023-11-16 18:01 | PC.NURSE ---
aox4, tolerating room air. received 1 unit prbc this shift and tolerated well. pt became hypertensive toward end of transfusion. dr dwyer ordered 40mg lasix iv once and prn hydralazine. bp improved to 140's systolic after lasix dose. no bm yet this shift but patient is aware of need for sample.
[2023-11-16 18:31] LABS: Hemoglobin 9.8 g/dL (14.1-18.0)
[2023-11-16] MEDS: PANTOPRAZOLE 40MG TABLET 40 MG PO (20:24)
[2023-11-16] MEDS: MELATONIN 5MG TABLET 5 MG PO (20:24)
[2023-11-16] MEDS: ATORVASTATIN 40MG TABLET 80 MG PO (20:24)
[2023-11-16] MEDS: TAMSULOSIN 0.4MG CAPSULE 0.400000000000000022 MG PO (20:24)
[2023-11-16 21:47] LABS: Occult Blood,Stool Negative (Negative)
[2023-11-17] VITALS (31 sets, daily range): BP systolic 97–183; BP diastolic 52–95; PULSE 48–66; RESP 15–20; TEMP 35.9–37.1; O2SAT 92–100; BMI 23.9; BMI 23.8
--- NOTE | 2023-11-17 05:13 | PC.NURSE ---
Pt has had no complaints this shift and has rested well through the night. Pt uses urinal. Stool occult collected this shift and sent to lab.
[2023-11-17 07:09] LABS: Basophils % 0.8 % (0.1-2.0); Eosinophils % 0.8 % (0.1-12.0); Hematocrit 29.6 % (42.0-52.0); Hemoglobin 9.3 g/dL (14.1-18.0); Lymphocytes # 1.1 K/mm3 (0.7-4.5); Lymphocytes % 23.1 % (10-50); Mean Corpuscular HGB Conc 31.4 g/dL (31.8-35.4); Mean Corpuscular Hemoglobin 22.3 pg (27.0-31.2); Mean Platelet Volume 10.7 fl (7.4-10.4); Monocytes # 0.5 K/mm3 (0.1-1.0); Monocytes % 9.9 % (1.7-9.3); Neutrophils # 3.2 K/mm3 (1.8-7.8); Neutrophils % 65.4 % (37.0-80.0); Platelet Count 184 K/mm3 (142-424); Red Blood Count 4.17 M/mm3 (4.60-6.20); Red Cell Distribution Width 21.9 % (11.5-17.5); White Blood Count 4.9 K/mm3 (4.8-10.8)
[2023-11-17 07:15] LABS: Chloride 101 mmol/L (98-107); Potassium 3.3 mmoL/L (3.5-5.1); Sodium 136 mmol/L (136-145)
[2023-11-17 07:18] LABS: Anion Gap 6.3 mEq/L (5-15); Blood Urea Nitrogen 16 mg/dl (9-20); Calcium 8.5 mg/dl (8.4-10.2); Carbon Dioxide 32 mmol/L (22.0-30.0); Creatinine Clearance Estimated 53 mL/min (50-200); Estimated Glomerular Filt Rate 65 ml/min (>60); GFR (African American) 78 ML/MIN (>60); Glucose 86 mg/dl (74-100)
--- NOTE | 2023-11-17 07:55 | EXP.ACUTE.PN ---
Subjective *Date: 11/17/23 *Time: 18:25 Interval history: Independently ambulatory today. Stable on room air. Hemoglobin remained stable. No melenic stools, bright red blood per rectum. Afebrile. Feeling well today per his report. Medical Exam Vital signs and Labs for Last 24 Hours: Vital Signs Temp Pulse Pulse Resp BP BP Pulse Ox 11/17/23 06:39 11/17/23 04:00 66 11/17/23 05:00 11/17/23 04:00 98.2 F 60 16 153/79 H 92 L 11/17/23 00:00 48 L 11/17/23 02:37 11/17/23 00:00 98.4 F 60 20 154/80 H 96 11/17/23 00:34 11/16/23 20:00 60 11/16/23 22:40 11/16/23 21:00 11/16/23 20:00 11/16/23 20:00 97.7 F 62 18 132/64 97 11/16/23 18:21 11/16/23 17:00 11/16/23 16:00 60 11/16/23 16:50 98.4 F 65 18 143/76 H 97 11/16/23 16:45 98 F 63 18 168/73 H 98 11/16/23 15:45 97.9 F 62 18 186/76 H 97 11/16/23 15:00 11/16/23 15:30 97.5 F L 60 16 185/81 H 97 11/16/23 15:15 97.5 F L 60 16 185/78 H 97 11/16/23 15:00 97.9 F 58 L 16 180/74 H 98 11/16/23 14:55 98.4 F 60 16 168/73 H 96 11/16/23 14:50 97.1 F L 55 L 16 170/76 H 96 11/16/23 14:40 97.8 F 58 L 18 163/72 H 98 11/16/23 12:00 60 11/16/23 08:00 60 11/16/23 13:00 11/16/23 11:00 11/16/23 12:00 97.7 F 60 18 179/75 H 97 11/16/23 09:00 11/16/23 08:00 O2 Del Method 11/17/23 06:39 Room Air 11/17/23 04:00 11/17/23 05:00 Room Air 11/17/23 04:00 Room Air 11/17/23 00:00 11/17/23 02:37 Room Air 11/17/23 00:00 Room Air 11/17/23 00:34 Room Air 11/16/23 20:00 11/16/23 22:40 Room Air 11/16/23 21:00 Room Air 11/16/23 20:00 Room Air 11/16/23 20:00 Room Air 11/16/23 18:21 Room Air 11/16/23 17:00 Room Air 11/16/23 16:00 11/16/23 16:50 11/16/23 16:45 11/16/23 15:45 11/16/23 15:00 Room Air 11/16/23 15:30 11/16/23 15:15 11/16/23 15:00 11/16/23 14:55 11/16/23 14:50 11/16/23 14:40 11/16/23 12:00 11/16/23 08:00 11/16/23 13:00 Room Air 11/16/23 11:00 Room Air 11/16/23 12:00 Room Air 11/16/23 09:00 Room Air 11/16/23 08:00 Room Air Intake and Output 11/16/23 11/16/23 11/17/23 15:59 23:59 07:59 Intake Total 340 / 730 390 / 730 Output Total 800 / 800 0 / 0 Balance 340 / -70 -410 / -70 0 / 0 Intake: Intake, Oral Amount 340 / 730 390 / 730 Intake (Blood Product) Amt 0 / 0 0 / 0 Red Blood Cells Unit 0 / 0 0 / 0 [id number] Output: Output, Urine Amount 800 / 800 0 / 0 Other: Number of Unmeasured Voids 1 Weight 69.173 kg Patient Weight 11/17/23 23:59 Weight 69.173 kg Laboratory Results - last 24 hr 11/16/23 06:23: Iron 18 L, TIBC 322, Iron Saturation 5.10456 L, Ferritin 7.70 L 11/16/23 13:11: Blood Type O Negative, Antibody Screen Negative, Crossmatch (AHG) See Detail 11/16/23 18:07: Hgb 9.8 L D, Hct 30.0 L 11/16/23 21:26: Stool Occult Blood Negative 11/17/23 06:42: WBC 4.9, RBC 4.17 L, Hgb 9.3 L, Hct 29.6 L, MCV 71.0 L, MCH 22.3 L, MCHC 31.4 L, RDW 21.9 H, Plt Count 184, MPV 10.7 H, Neut % (Auto) 65.4, Lymph % (Auto) 23.1, [place] % (Auto) 9.9 H, Eos % (Auto) 0.8, Baso % (Auto) 0.8, Neut # (Auto) 3.2, Lymph # (Auto) 1.1, [place] # (Auto) 0.5, Eos # (Auto) 0.0, Baso # (Auto) 0.0, Sodium 136, Potassium 3.3 L, Chloride 101, Carbon Dioxide 32 H, Anion Gap 6.3, BUN 16, Creatinine 1.10, Estimated Creat Clear 53, Estimated GFR 65, Est GFR ( Amer) 78, Glucose 86, Calcium 8.5 I & O for Labs for Last 24 Hours: Intake & Output 11/14/23 11/15/23 11/16/23 11/17/23 23:59 23:59 23:59 23:59 Intake Total 240 / 240 730 / 730 Output Total 0 / 0 800 / 800 0 / 0 Balance 240 / 240 -70 / -70 0 / 0 Weight 70.789 kg 70.398 kg 69.173 kg Constitutional: Present no acute distress, thin and cooperative Head: Present atraumatic and normocephalic ENT: Present normal exam Neck: Present normal inspection Respiratory: Absent rhonchi, wheezes or crackles Cardiac: Present Reg Rate and Rhythm GI: Present soft; Absent distention or tenderness Extremities: Present normal inspection and full ROM Skin: Present intact Neuro: Present alert, awake, oriented x 3 and moves all extremities Assessment and Plan *Assessment and plan (1) Acute exacerbation of CHF (congestive heart failure): Status: Acute Category: Medical Code(s): I50.9 - Heart failure, unspecified (2) Iron deficiency anemia: Status: Acute Category: Medical Code(s): D50.9 - Iron deficiency anemia, unspecified (3) Bilateral pleural effusion: Status: Acute Category: Medical Code(s): J90 - Pleural effusion, not elsewhere classified (4) Non-ST elevation [place] (NSTEMI): Status: Acute Category: Medical Code(s): I21.4 - Non-ST elevation (NSTEMI) myocardial infarction (5) Hypertension: Status: Acute Qualifiers: Hypertension type: primary hypertension Qualified Code(s): I10 - Essential (primary) hypertension Category: Medical Code(s): I10 - Essential (primary) hypertension (6) CKD (chronic kidney disease) stage 3, GFR 30-59 ml/min: Status: Acute Category: Medical Code(s): N18.30 - Chronic kidney disease, stage 3 unspecified (7) CAD (coronary artery disease): Status: Chronic Qualifiers: Coronary Disease-Associated Artery/Lesion type: [place] artery [place] vs. transplanted heart: [place] heart Associated angina: with other forms of angina Qualified Code(s): I25.118 - Atherosclerotic heart disease of [place] coronary artery with other forms of angina pectoris Category: Medical Code(s): I25.10 - Atherosclerotic heart disease of [place] coronary artery without angina pectoris (8) PAD (peripheral artery disease): Status: Chronic Category: Medical Code(s): I73.9 - Peripheral vascular disease, unspecified (9) HHD (hypertensive heart disease): Status: Chronic Qualifiers: Heart failure presence: without heart failure Qualified Code(s): I11.9 - Hypertensive heart disease without heart failure Category: Medical Code(s): I11.9 - Hypertensive heart disease without heart failure (10) HLD (hyperlipidemia): Status: Chronic Qualifiers: Hyperlipidemia type: mixed hyperlipidemia Qualified Code(s): E78.2 - Mixed hyperlipidemia Category: Medical Code(s): E78.5 - Hyperlipidemia, unspecified Plan Patient is a 78-year-old male who presents to the hospital due to shortness of breath according to the patient he has been having shortness of breath for past 1 week, it has been getting worse, he also has noticed lower extremity edema. He mentions he has been compliant with his medications. He has past medical history of CAD PAD, CABG, hypertension hyperlipidemia. Patient mentions he had chest pain day before admission, otherwise denied diarrhea, melenic stools, fever or chills. Necessitated transfusion, responded well. Hemoglobin remained stable this morning. Cardiology and surgery assisting with care, going for heart cath after EGD if no signs of bleeding. Continues to require inpatient management. Problems addressed as follows: Exertional shortness of breath likely secondary to acute on chronic CHF Elevated troponin, likely type II NSTEMI CAD, history of CABG Hypertension/hyperlipidemia -Cardiology consulted, discussed case today. Planning on heart cath if EGD is clear. Hemoglobin responded appropriately to transfusion. 9.3 today. No chest pain today. - Continue Plavix 75 mg daily, bisoprolol 10 mg twice daily, Lipitor 80 mg nightly, amlodipine 5 mg daily. - Continue diuresis with Lasix 40 mg IV twice daily. - Replacing potassium with diuresis, 20 mEq p.o. twice daily. Microcytic anemia, secondary to iron deficiency -Surgery consulted, discussed case today, taken for EGD with no overt signs of bleeding. - Responded well to transfusion yesterday with 1 unit of blood. Hemoglobin 9.3 today, remained stable. -Iron studies show deficiency. Status post 1 dose of Venofer yesterday. Will consider second dose tomorrow to replace severe deficiency prior to discharge home -Transfusion threshold hemoglobin less than 9 given significant coronary artery disease -Will need colonoscopy as outpatient to evaluate for other source of blood loss -Repeat CBC, CMP, magnesium ordered for the morning. BPH: Tamsulosin 0.4 mg nightly Holding anticoagulation in the setting of anemia Cardiac diet Full code
--- NOTE | 2023-11-17 08:05 | EXP.SURG.PN ---
Subjective Narrative: Patient is without complaints this morning. He was seen by cardiology. Transfusion ordered. He received 1 unit of packed red blood cells for hemoglobin of 7.8. He had posttransfusion hemoglobin of 9.8 with hemoglobin 9.3 this morning. Patient has never had any clinical bleeding such as hematochezia, hematemesis, or melena. Stool for occult blood is negative. Exam Data for Last 24 hours Vital signs and Labs for Last 24 Hours: Temp Pulse Resp BP Pulse Ox O2 Del Method 98.2 F 60 16 153/79 H 92 L Room Air 11/17/23 04:00 11/17/23 04:00 11/17/23 04:00 11/17/23 04:00 11/17/23 04:00 11/17/23 06:39 Laboratory Results - last 24 hr 11/16/23 06:23: Iron 18 L, TIBC 322, Iron Saturation 5.41346 L, Ferritin 7.70 L 11/16/23 13:11: Blood Type O Negative, Antibody Screen Negative, Crossmatch (AHG) See Detail 11/16/23 18:07: Hgb 9.8 L D, Hct 30.0 L 11/16/23 21:26: Stool Occult Blood Negative 11/17/23 06:42: WBC 4.9, RBC 4.17 L, Hgb 9.3 L, Hct 29.6 L, MCV 71.0 L, MCH 22.3 L, MCHC 31.4 L, RDW 21.9 H, Plt Count 184, MPV 10.7 H, Neut % (Auto) 65.4, Lymph % (Auto) 23.1, [place] % (Auto) 9.9 H, Eos % (Auto) 0.8, Baso % (Auto) 0.8, Neut # (Auto) 3.2, Lymph # (Auto) 1.1, [place] # (Auto) 0.5, Eos # (Auto) 0.0, Baso # (Auto) 0.0, Sodium 136, Potassium 3.3 L, Chloride 101, Carbon Dioxide 32 H, Anion Gap 6.3, BUN 16, Creatinine 1.10, Estimated Creat Clear 53, Estimated GFR 65, Est GFR ( Amer) 78, Glucose 86, Calcium 8.5 I & O for Last 24 hours: Intake & Output 02/0311/15/23 11/16/23 11/17/23 11:59 11:59 11:59 11:59 Intake Total 240 / 240 730 / 730 Output Total 0 / 0 800 / 800 Balance 240 / 240 -70 / -70 Weight 160 lb 155 lb 3.2 oz 152 lb 8 oz Progress Note: A&P Assessment and plan (1) Acute exacerbation of CHF (congestive heart failure): Status: Acute (2) Bilateral pleural effusion: Status: Acute (3) Non-ST elevation [place] (NSTEMI): Status: Acute (4) Hypertension: Status: Acute (5) CKD (chronic kidney disease) stage 3, GFR 30-59 ml/min: Status: Acute (6) CAD (coronary artery disease): Status: Chronic (7) PAD (peripheral artery disease): Status: Chronic (8) HHD (hypertensive heart disease): Status: Chronic (9) HLD (hyperlipidemia): Status: Chronic Assessment and Plan Assessment and Plan for All Diagnoses:: Patient's shown no sign of any active GI bleeding. Etiology of iron deficiency anemia may be other than etiology than GI blood loss. Cardiology has requested consideration of EGD and colonoscopy during this hospitalization. Arrangements will be made to proceed with upper endoscopy initially to evaluate potential etiology for anemia.
[2023-11-17] MEDS: BISOPROLOL 5MG TABLET 10 MG PO ×2 (09:09→20:09)
[2023-11-17] MEDS: DOCUSATE SODIUM 100 MG CAPSULE PO (09:11)
--- NOTE | 2023-11-17 10:18 | EXP.ANES.CKL ---
[facility] Disclaimer: The information contained in this section may have been updated after the patient was seen, as this information can be updated by other users. Medical History Abdominal pain Acute blood loss anemia Anemia Bruising CAD (coronary artery disease) Cardiac pacemaker in situ Carotid artery stenosis Dyspnea HHD (hypertensive heart disease) HLD (hyperlipidemia) Mesenteric artery stenosis Nontraumatic rectus hematoma PAD (peripheral artery disease) Renal insufficiency Surgical History History of coronary artery bypass graft Family History Other Family history of myocardial infarction Social History Smoking Status: Never smoker alcohol intake: never substance use type: denies use current occupational status: retired Travel in the last 8 weeks: Inside the [place] household members: spouse housing: house caffeine: Yes [facility] Anesthesia Checklist Patient Identification Patient Identification: Arm Band and Verbal (Name & ) Structural Data Admitted From: Inpatient Planned Operative Procedure/s: EGD Consent for Planned Operative Procedure(s) Verified: Yes NPO Status Verified Time NPO: 00:00 Additional verifications Anesthesia Reactions: No Hx Blood Transfusions: No Blood Transfusion Reaction: No Airway Assessment Mallampati Score:: Class II C-Spine Mobility Assessed: Yes TMJ Mobility Assessed: Yes Dentition: Good Dentition Neurological Assessment Level of Consciousness: Awake Hx Seizures: No Numbness or tingling in extremities: No Anesthesia Plan Anesthesia Risk discussed: Yes Anesthesia Plan: Verified ASA Class: III (E) Anesthesia Type: MAC
--- NOTE | 2023-11-17 10:46 | HMH.SCOPE ---
Procedure: Date: 11/17/23 Patient Date of :: 1945 Procedure Performed:: Esophagogastroduodenoscopy with biopsy Indications:: Patient is a 78-year-old male from [place], [place] with a history of coronary artery disease status post CABG, chronic kidney disease, cardiac pacemaker, carotid artery stenosis, mesenteric stenosis, renal insufficiency, chronic arterial occlusive disease. He had coronary stenting done in August. He presented to the emergency department yesterday with complaints of several day history of shortness of air with lower extremity swelling and symptoms of substernal pressure with subjective shortness of air. Patient denies abdominal pain nausea or vomiting. Denies change in bowel habits. Patient is on Plavix. Thorough evaluation was performed in the emergency department. He was noted to have elevated BNP greater than 3400. He had elevated troponin. It was felt the patient likely had non-STEMI in the setting of CHF exacerbation. Hemoglobin on presentation was 8.5. This morning on 11/16/2023 hemoglobin 7.8. BUN and creatinine is 20 and 1.0. Recent baseline hemoglobin appears to be approximately 10. Patient has never had EGD or colonoscopy. He had seen a ground operations supervisor previously in [place] and there was consideration for screening colonoscopy 2 years ago but he was unable to undergo bowel preparation and was not cleaned out. Patient does state that he has a history of chronic constipation. There was also consideration of possible upper endoscopy and colonoscopy to be performed however this was deferred as he had recent stenting. He apparently does have a history of H. pylori positivity. He has had some dysphagia. Cardiology service has ordered a unit of blood to be transfused. Surgical consultation was obtained this afternoon for anemia and for consideration of EGD and colonoscopy during this hospitalization. Patient has not had any issue with melena, hematochezia, or hematemesis. Patient was transfused a unit of packed red blood cells for hemoglobin of 7.8 with posttransfusion hemoglobin of 9.8 with hemoglobin today on 11/17/2023 of 9.3. Stool for occult blood is negative. Performing Provider:: Shant Mclaughlin MD Referring Provider:: . Sedation:: MAC sedation Procedure:: Patient history was obtained and appropriate physical examination was performed. Patient's medications and allergies were reviewed. Informed consent was obtained after explaining the benefits, alternatives, and risks of the procedure including, but not limited to, bleeding, perforation, missed lesions, and adverse reaction to anesthesia medications. Patient was transported to endoscopy procedure room. Patient was connected to monitoring devices. Throughout the procedure the patient's blood pressure, pulse, and oxygen saturations were monitored continuously. Patient identification and planned procedure were verified by the staff. Patient was positioned in lateral decubitus position. Olympus endoscope was inserted via the oropharynx. Esophagus was cannulated. There was some minor tortuosity to the esophagus consistent with mild esophageal dysmotility. Gastroesophageal junction was encountered at 42 cm from the incisors. Stomach was cannulated and insufflated. Retroflexion was performed which revealed tiny sliding hiatal hernia. There was some very minimal diffuse gastropathy. Pylorus was traversed. Duodenum appeared normal. Endoscope was withdrawn into the gastric lumen. Gastric antral mucosal biopsy was obtained due to prior history of H. pylori. Stomach was desufflated and the endoscope was withdrawn. . Findings:: Findings consistent with mild esophageal dysmotility Gastroesophageal junction at 42 cm Tiny sliding hiatal hernia Mild gastropathy Recommendations:: No etiology which would explain his anemia on upper endoscopy. Unclear if he is having GI blood loss iron deficiency anemia. However I do feel that a colonoscopy would be reasonable. However this does not necessarily need to be performed as an inpatient during this hospitalization. He would likely need up to 1 week of low residue diet and at least a 2-day bowel prep given prior attempt at colonoscopy with traditional bowel prep unsuccessfully by his ground operations supervisor in [place]. Complications:: None immediately apparent Estimated blood obtained (mL): 1 Colonoscopy Component Colonoscopy Component Was a colonoscopy performed during today's procedure?: No
--- NOTE | 2023-11-17 12:07 | PC.NURSE ---
Radha Casas and Dr. Bush at bedside. Order for norvasc received for hypertension. Okay per both providers to let patient eat light lunch now even though he is going for heart cath this afternoon
[2023-11-17] MEDS: POTASSIUM CHLORIDE 20MEQ TAB 20 MEQ PO ×2 (12:22→20:09)
[2023-11-17] MEDS: CLOPIDOGREL 75MG TAB 75 MG PO (12:22)
--- NOTE | 2023-11-17 12:24 | IR_ITS ---
APPROVED REPORT Patient Location: Inpatient Quality Control Auditor: ROMEL Forrester RT (R) PROCEDURES Left heart catheterization Left ventriculogram Selective coronary angiogram Left internal mammary angiography Selective engagement of saphenous vein graft to the first and second obtuse marginal artery INDICATION Coronary artery disease, Non-ST elevation myocardial infarction, History of coronary bypass surgery Informed consent was obtained prior to the procedure. COMPLICATIONS NONE Estimated Blood Loss: LESS THAN 10 ML TECHNIQUE One percent lidocaine used to anesthetize the right groin. The right femoral artery was accessed via the Seldinger technique and a 5 [place] sheath was placed in the right femoral artery. A JL 4, JR4 catheter were used to perform left heart catheterization, left ventriculogram selective coronary angiography as well as selective engagement of the 1 vein graft and the left internal mammary artery. At the end of the procedure the patient was transferred to the postop holding area in stable condition for sheath removal. ANGIOGRAPHIC RESULTS The left main artery Has a stent in the ostial proximal segment which extends into the proximal LAD. Both stents are widely patent. The left anterior descending artery Has a stent originating off the left main artery which extends into the midportion. The LAD is patent and then occluded at midportion. No significant diagonal arteries originate off the LAD The circumflex artery Proximally occluded The right coronary artery Is nondominant has a stent in the ostial proximal mid and distal segment. The stents are widely patent with minimal 20 to 30% in-stent restenosis The BE ventriculogram reveals Preserved at 60% The left ventricular end-diastolic pressure 15 mmHg WATTS to LAD widely patent Saphenous vein graft to the first obtuse marginal artery has stents in the ostial proximal segment which are widely patent. The limb is patent to the first obtuse marginal artery. It then skips to the second obtuse marginal artery where a 50% stenosis is identified between the first and second obtuse marginal artery IMPRESSION Adequate coronary revascularization as described above with surgery and stents Preserved ejection fraction Normal left ventricular end-diastolic pressure PLAN 1. Treat anemia 2. Medical management for coronary artery disease 3. Likely a type II myocardial infarction producing the troponinemia Electronically signed by : Vahe Rehman MD 11/17/2023 13:34:45
--- NOTE | 2023-11-17 12:50 | PC.NURSE ---
Patient to medical laboratory scientist
--- NOTE | 2023-11-17 13:00 | EXP.CARD.PN ---
Subjective Subjective Date: 11/17/23 Time: 10:00 Principal diagnosis: nonstemi, CAD, iron deficiency anemia Interval history: This is a 78-year-old gentleman who presented to the hospital with complaints of shortness of breath as well as chest pain. He was found to have a non-STEMI. His left cardiac catheterization has been postponed due to iron deficiency anemia. He is scheduled to undergo EGD this morning. He states that his shortness of breath and chest pain have both improved. He still states that he is slightly short of breath with exertion but is much better than it was when he came into the hospital. He has been diuresed with IV Lasix as well. He denies any fever, chills, nausea, vomiting, diarrhea, PND or orthopnea. Exam Data for Last 24 hours Vital signs and Labs for Last 24 Hours: Temp Pulse Resp BP Pulse Ox O2 Del Method O2 Flow Rate 98.5 F 61 16 173/77 H 100 Room Air 4 11/17/23 11:30 11/17/23 12:00 11/17/23 12:00 11/17/23 12:00 11/17/23 12:00 11/17/23 12:00 11/17/23 10:26 Laboratory Results - last 24 hr 11/16/23 13:11: Blood Type O Negative, Antibody Screen Negative, Crossmatch (AHG) See Detail 11/16/23 18:07: Hgb 9.8 L D, Hct 30.0 L 11/16/23 21:26: Stool Occult Blood Negative 11/17/23 06:42: WBC 4.9, RBC 4.17 L, Hgb 9.3 L, Hct 29.6 L, MCV 71.0 L, MCH 22.3 L, MCHC 31.4 L, RDW 21.9 H, Plt Count 184, MPV 10.7 H, Neut % (Auto) 65.4, Lymph % (Auto) 23.1, [place] % (Auto) 9.9 H, Eos % (Auto) 0.8, Baso % (Auto) 0.8, Neut # (Auto) 3.2, Lymph # (Auto) 1.1, [place] # (Auto) 0.5, Eos # (Auto) 0.0, Baso # (Auto) 0.0, Sodium 136, Potassium 3.3 L, Chloride 101, Carbon Dioxide 32 H, Anion Gap 6.3, BUN 16, Creatinine 1.10, Estimated Creat Clear 53, Estimated GFR 65, Est GFR ( Amer) 78, Glucose 86, Calcium 8.5 I & O for Last 24 hours: Intake & Output 11/14/23 11/15/23 11/16/23 11/17/23 23:59 23:59 23:59 23:59 Intake Total 240 / 240 730 / 730 0 / 0 Output Total 0 / 0 800 / 800 0 / 0 Balance 240 / 240 -70 / -70 0 / 0 Weight 156 lb 1 oz 155 lb 3.2 oz 152 lb 8 oz Constitutional Constitutional: no acute distress and average body habitus *Routine HEENT Exam Head: Present normocephalic and atraumatic ENT: Present mucous membranes moist *Routine Neck Exam Neck: Present supple, full ROM and normal carotid upstroke; Absent JVD, carotid bruit or lymphadenopathy *Routine Respiratory Exam Respiratory: Present CTA bilaterally, normal respiratory effort, able to speak in complete sentences and symmetric chest movement *Routine Cardiovascular Exam Cardiovascular: Present RRR, Normal S1 and Normal S2; Absent murmur or gallop *Routine Abdominal Exam Abdominal: Present soft and normoactive bowel sounds; Absent tenderness, distended or organomegaly *Routine Extremities Exam Extremities: Present full ROM, pulses intact and normal capillary refill; Absent cyanosis, clubbing or edema *Routine Skin Exam Skin: Present intact and warm; Absent erythema *Routine Neurological Exam Neurological: Present alert, oriented X3 and CN II-XII intact; Absent sensory deficit or motor deficit Routine Psychiatric Exam Psychiatric: Present normal affect Progress Note: A&P Assessment and plan (1) Non-ST elevation ID (NSTEMI): Status: Acute (2) CAD (coronary artery disease): Status: Chronic (3) Acute exacerbation of CHF (congestive heart failure): Status: Acute (4) Bilateral pleural effusion: Status: Acute (5) Hypertension: Status: Acute (6) CKD (chronic kidney disease) stage 3, GFR 30-59 ml/min: Status: Acute (7) PAD (peripheral artery disease): Status: Chronic (8) HHD (hypertensive heart disease): Status: Chronic (9) HLD (hyperlipidemia): Status: Chronic (10) Carotid artery stenosis: Status: Chronic (11) Cardiac pacemaker in situ: Status: Chronic (12) Iron deficiency anemia: Status: Acute Assessment and Plan Assessment and Plan for All Diagnoses:: Plan: 1. The patient was mated to the hospital with an elevated troponin consistent with a non-STEMI. The patient will need to undergo a left cardiac catheterization today following his EGD as long as there are no signs of active bleeding. 2. The patient has been educated the risk and benefits of proceeding with left cardiac catheterization. The patient verbalized understanding and is agreeable in proceeding with the procedure. 3. General surgery has been consulted due to his iron deficiency anemia. He is scheduled to undergo EGD today. He will need a colonoscopy in the near future on an outpatient basis due to the iron deficiency anemia but it is felt that this does not need to be done while he is hospitalized since his Hemoccult stool is negative. 4. The patient's hemoglobin is up to 9.3 today. He is status post 1 unit of packed red blood cells and IV iron. 5. Continue aspirin and Plavix for dual antiplatelet therapy due to his coronary artery disease. 6. Coronary artery disease is present we do plan to proceed with left cardiac catheterization today following his EGD. 7. His blood pressure is high. Add Norvasc 5 mg p.o. daily for better blood pressure control. 8. His LDL goal is less than 55. His LDL is 60. He is on a statin. 9. The patient does have PAD which is likely stable. 10. Permanent pacemaker is in place. This is followed in our outpatient clinic. 11. Further recommendations will be made pending the patient's response to treatment and the results of his EGD and left cardiac catheterization today. Thank you for the opportunity to help participate in the care of this patient. All recommendations and orders are per Dr. Bush. AMB Pre-cath Criteria Pre-cath considerations: Clinical evaluation and indication for coronary angiography includes:: know CAD, new onset angina <= 2 months and worsening angina Patient is describing chest pain symtom as:: typical angina Clinical risk factors:: nonstemi, CAD, PAD, HTN, HLD, MAMI, How many antianginals is the patient taking?: 2 Patient is taking:: beta bharti and Ranolozine Risks and benefits:: We will plan to proceed with LHC/coronary angiography with right radial access. The patient has been educated on the risks and benefits of proceeding with LHC/coronary angiography with right radial access. The patient verbalized understanding and is agreeable in proceeding with the procedure.
[2023-11-17] MEDS: 0.9 % SODIUM CHLORIDE 500 ML 25 ML IV (13:02)
[2023-11-17] MEDS: HEPARIN 1,000 UNITS/500ML NS (CATH LAB) 3000 UNIT IV (13:02)
[2023-11-17] MEDS: LIDOCAINE 1% 10ML MDV 20 ML IJ (13:03)
[2023-11-17] MEDS: diphenhydrAMINE 50MG/ML VIAL 50 MG IV (13:03)
[2023-11-17 13:07] LABS: Chloride 100 mmol/L (98-107); Sodium 136 mmol/L (136-145)
[2023-11-17 13:10] LABS: Basophils % 0.7 % (0.1-2.0); Blood Urea Nitrogen 18 mg/dl (9-20); Carbon Dioxide 33 mmol/L (22.0-30.0); Creatinine Clearance Estimated 53 mL/min (50-200); Eosinophils % 0.7 % (0.1-12.0); Estimated Glomerular Filt Rate 65 ml/min (>60); GFR (African American) 78 ML/MIN (>60); Hematocrit 31.8 % (42.0-52.0); Lymphocytes # 1.1 K/mm3 (0.7-4.5); Lymphocytes % 23.9 % (10-50); Mean Corpuscular HGB Conc 31.6 g/dL (31.8-35.4); Mean Corpuscular Hemoglobin 22.6 pg (27.0-31.2); Mean Corpuscular Volume 71.6 fl (80-94); Mean Platelet Volume 10.2 fl (7.4-10.4); Monocytes # 0.5 K/mm3 (0.1-1.0); Monocytes % 9.9 % (1.7-9.3); Neutrophils % 64.8 % (37.0-80.0); Platelet Count 179 K/mm3 (142-424); Red Blood Count 4.44 M/mm3 (4.60-6.20); Red Cell Distribution Width 21.9 % (11.5-17.5); White Blood Count 4.7 K/mm3 (4.8-10.8)
[2023-11-17 13:11] LABS: Calcium 8.7 mg/dl (8.4-10.2); Glucose 127 mg/dl (74-100)
[2023-11-17] MEDS: MIDAZOLAM HCL 1MG/1ML 5ML VIAL 1 MG IV (13:33)
[2023-11-17] MEDS: FENTANYL 100MCG/2ML VIAL 50 MCG IV (13:34)
[2023-11-17] MEDS: LABETALOL 20MG/4ML SYRINGE 20 MG IV (13:37)
[2023-11-17] MEDS: IOPAMIDOL-370 (76%);100ML BOTTLE 60 ML IV (14:21)
--- NOTE | 2023-11-17 16:18 | PC.NURSE ---
Patient alert and oriented. Norvasc for hypertension. Other vital signs stable. On room air. Denies pain. EGD completed with no evidence of bleeding. Heart cath completed with no interventions required. Right femoral site WDL. Voiding adequately. Tolerating oral intake. at bedside throughout shift.
[2023-11-17] MEDS: AMLODIPINE 5MG TABLET 5 MG PO (17:30)
[2023-11-17] MEDS: FUROSEMIDE 40MG/4ML VIAL 40 MG IV (17:31)
[2023-11-17] MEDS: MELATONIN 5MG TABLET 5 MG PO (20:09)
[2023-11-17] MEDS: PANTOPRAZOLE 40MG TABLET 40 MG PO (20:09)
[2023-11-17] MEDS: ATORVASTATIN 40MG TABLET 80 MG PO (20:09)
[2023-11-17] MEDS: TAMSULOSIN 0.4MG CAPSULE 0.400000000000000022 MG PO (20:09)
[2023-11-18] VITALS: PULSE 60
[2023-11-18 04:00] VITALS: BP 136/64; PULSE 60; RESP 16; TEMP 36.8; O2SAT 96; BMI 23.3
[2023-11-18 06:42] LABS: Basophils % 0.8 % (0.1-2.0); Eosinophils # 0.1 K/mm3 (0.0-0.4); Eosinophils % 1.2 % (0.1-12.0); Hematocrit 30.4 % (42.0-52.0); Hemoglobin 9.4 g/dL (14.1-18.0); Lymphocytes # 1.5 K/mm3 (0.7-4.5); Lymphocytes % 27.1 % (10-50); Mean Corpuscular HGB Conc 30.8 g/dL (31.8-35.4); Mean Corpuscular Hemoglobin 22.1 pg (27.0-31.2); Mean Corpuscular Volume 71.7 fl (80-94); Mean Platelet Volume 9.7 fl (7.4-10.4); Monocytes # 0.6 K/mm3 (0.1-1.0); Monocytes % 11.2 % (1.7-9.3); Neutrophils # 3.2 K/mm3 (1.8-7.8); Neutrophils % 59.6 % (37.0-80.0); Platelet Count 184 K/mm3 (142-424); Red Blood Count 4.24 M/mm3 (4.60-6.20); Red Cell Distribution Width 22.3 % (11.5-17.5); White Blood Count 5.4 K/mm3 (4.8-10.8)
[2023-11-18 06:45] LABS: Chloride 105 mmol/L (98-107); Sodium 138 mmol/L (136-145)
[2023-11-18 06:46] LABS: Potassium 3.7 mmoL/L (3.5-5.1)
[2023-11-18 06:48] LABS: Alanine Aminotransferase 23 U/L (12-78); Albumin Level 3.4 g/dl (3.5-5.0); Albumin/Globulin Ratio 1.4 (1.1-1.8); Alkaline Phosphatase 57 U/L (38-126); Anion Gap 6.7 mEq/L (5-15); Aspartate Amino Transferase 30 U/L (17-59); Blood Urea Nitrogen 14 mg/dl (9-20); Calcium 8.3 mg/dl (8.4-10.2); Carbon Dioxide 30 mmol/L (22.0-30.0); Creatinine Clearance Estimated 52 mL/min (50-200); Estimated Glomerular Filt Rate 65 ml/min (>60); GFR (African American) 78 ML/MIN (>60); Globulin 2.5 g/dL (1.3-3.2); Glucose 87 mg/dl (74-100); Total Protein,Serum 5.9 g/dl (6.3-8.2)
--- NOTE | 2023-11-18 07:21 | EXP.DC.SUM ---
General Admission date:: 11/15/23 Discharge date: 11/18/23 HPI HPI HPI: Patient is a 78-year-old male from [place], [place] with a history of coronary artery disease status post CABG, chronic kidney disease, cardiac pacemaker, carotid artery stenosis, mesenteric stenosis, renal insufficiency, chronic arterial occlusive disease. He had coronary stenting done in August. He presented to the emergency department yesterday with complaints of several day history of shortness of air with lower extremity swelling and symptoms of substernal pressure with subjective shortness of air. Patient denies abdominal pain nausea or vomiting. Denies change in bowel habits. Patient is on Plavix. Thorough evaluation was performed in the emergency department. He was noted to have elevated BNP greater than 3400. He had elevated troponin. It was felt the patient likely had non-STEMI in the setting of CHF exacerbation. Hemoglobin on presentation was 8.5. This morning on 11/16/2023 hemoglobin 7.8. BUN and creatinine is 20 and 1.0. Recent baseline hemoglobin appears to be approximately 10. Patient has never had EGD or colonoscopy. He had seen a senior it project manager previously in [place] and there was consideration for screening colonoscopy 2 years ago but he was unable to undergo bowel preparation and was not cleaned out. Patient does state that he has a history of chronic constipation. There was also consideration of possible upper endoscopy and colonoscopy to be performed however this was deferred as he had recent stenting. He apparently does have a history of H. pylori positivity. He has had some dysphagia. Cardiology service has ordered a unit of blood to be transfused. Surgical consultation was obtained this afternoon for anemia . Patient has tolerated a cardiac diet and had just eaten lunch without issue. Hospital Course Hospital Course Hospital Course: Patient is a 78-year-old male who presents to the hospital due to shortness of breath according to the patient he has been having shortness of breath for past 1 week, it has been getting worse, he also has noticed lower extremity edema. He mentions he has been compliant with his medications. He has past medical history of CAD PAD, CABG, hypertension hyperlipidemia. Patient mentions he had chest pain day before admission, otherwise denied diarrhea, melenic stools, fever or chills. Necessitated transfusion, responded well. Hemoglobin remained stable this morning. Cardiology and surgery assisting with care, taken for heart cath after EGD. No signs of bleeding on EGD. Heart cath showed no changes and coronary blood flow from chronic changes. No interventions at this time. Treat anemia. Stable for discharge home. Problems addressed as follows: Exertional shortness of breath likely secondary to acute on chronic CHF Elevated troponin, likely type II NSTEMI CAD, history of CABG Hypertension/hyperlipidemia -Cardiology consulted.assisted with care. Patient taken for left heart cath after EGD. EGD was clear and showed no active bleeding. Hemoglobin remained stable. Heart cath showed adequate coronary revascularization as described in full detail with surgery and stents. Preserved ejection fraction. Recommend treating anemia and medical management of coronary artery disease. Findings on presentation consistent with type II PA secondary to anemia. Continue Plavix 75 mg daily, bisoprolol 10 mg twice daily, Lipitor 80 mg nightly, amlodipine 5 mg daily. Continue diuresis with Lasix 40 mg IV twice daily. Replacing potassium with diuresis, 20 mEq p.o. twice daily. Microcytic anemia, secondary to iron deficiency -Surgery consulted, taken for EGD with no overt signs of bleeding. Responded well to transfusion of 1 unit of blood. Hemoglobin 9.4 on day of discharge. Iron studies show deficiency. Status post 1 dose of Venofer. Administered second dose prior to discharge home. Would benefit from outpatient treatment given severe deficiency. Will need colonoscopy as outpatient to evaluate for other source of blood loss. BPH: Tamsulosin 0.4 mg nightly Stable for discharge home. Follow-up with cardiology and surgery as an outpatient for further management. Exam Data for Last 24 hours Vital signs and Labs for Last 24 Hours: Temp Pulse Resp BP Pulse Ox O2 Del Method O2 Flow Rate 98.2 F 60 16 136/64 96 Room Air 4 11/18/23 04:00 11/18/23 04:00 11/18/23 04:00 11/18/23 04:00 11/18/23 04:00 11/18/23 06:05 11/17/23 10:26 Laboratory Results - last 24 hr 11/17/23 06:42: Sodium 136, Potassium 3.3 L, Chloride 101, Carbon Dioxide 32 H, Anion Gap 6.3, BUN 16, Creatinine 1.10, Estimated Creat Clear 53, Estimated GFR 65, Est GFR ( Amer) 78, Glucose 86, Calcium 8.5 11/17/23 12:50: WBC 4.7 L, RBC 4.44 L, Hgb 10.0 L, Hct 31.8 L, MCV 71.6 L, MCH 22.6 L, MCHC 31.6 L, RDW 21.9 H, Plt Count 179, MPV 10.2, Neut % (Auto) 64.8, Lymph % (Auto) 23.9, [place] % (Auto) 9.9 H, Eos % (Auto) 0.7, Baso % (Auto) 0.7, Neut # (Auto) 3.0, Lymph # (Auto) 1.1, [place] # (Auto) 0.5, Eos # (Auto) 0.0, Baso # (Auto) 0.0, Sodium 136, Potassium 4.0 D, Chloride 100, Carbon Dioxide 33 H, Anion Gap 7.0, BUN 18, Creatinine 1.10, Estimated Creat Clear 53, Estimated GFR 65, Est GFR ( Amer) 78, Glucose 127 H D, Calcium 8.7 11/18/23 06:06: WBC 5.4, RBC 4.24 L, Hgb 9.4 L, Hct 30.4 L, MCV 71.7 L, MCH 22.1 L, MCHC 30.8 L, RDW 22.3 H, Plt Count 184, MPV 9.7, Neut % (Auto) 59.6, Lymph % (Auto) 27.1, [place] % (Auto) 11.2 H, Eos % (Auto) 1.2, Baso % (Auto) 0.8, Neut # (Auto) 3.2, Lymph # (Auto) 1.5, [place] # (Auto) 0.6, Eos # (Auto) 0.1, Baso # (Auto) 0.0, Sodium 138, Potassium 3.7, Chloride 105, Carbon Dioxide 30, Anion Gap 6.7, BUN 14, Creatinine 1.10, Estimated Creat Clear 52, Estimated GFR 65, Est GFR ( Amer) 78, Glucose 87 D, Calcium 8.3 L, Total Bilirubin 1.0, AST 30, ALT 23 D, Alkaline Phosphatase 57, Total Protein 5.9 L, Albumin 3.4 L, Globulin 2.5, Albumin/Globulin Ratio 1.4 I & O for Last 24 hours: Intake & Output 11/15/23 11/16/23 11/17/23 11/18/23 23:59 23:59 23:59 23:59 Intake Total 240 / 240 730 / 730 840 / 840 Output Total 0 / 0 800 / 800 900 / 900 0 / 0 Balance 240 / 240 -70 / -70 -60 / -60 0 / 0 Weight 70.789 kg 70.398 kg 69 kg 67.495 kg Constitutional Constitutional: no acute distress, average body habitus and chronically ill appearing *Routine HEENT Exam Head: Present normocephalic and atraumatic ENT: Present mucous membranes moist *Routine Neck Exam Neck: Present supple, full ROM and normal carotid upstroke; Absent JVD, carotid bruit or lymphadenopathy *Routine Respiratory Exam Respiratory: Present CTA bilaterally, normal respiratory effort, able to speak in complete sentences and symmetric chest movement; Absent rhonchi, wheezes or crackles *Routine Cardiovascular Exam Cardiovascular: Present RRR, Normal S1 and Normal S2; Absent murmur or gallop *Routine Abdominal Exam Abdominal: Present soft and normoactive bowel sounds; Absent tenderness, distended or organomegaly *Routine Rectal Exam Patient deferred: visual exam *Routine Exam Patient deferred: penile exam *Routine Extremities Exam Extremities: Present full ROM, pulses intact and normal capillary refill; Absent cyanosis, clubbing or edema *Routine Skin Exam Skin: Present intact and warm; Absent erythema *Routine Neurological Exam Neurological: Present alert, oriented X3 and CN II-XII intact; Absent sensory deficit or motor deficit Routine Psychiatric Exam Psychiatric: Present normal affect Results Data Completed and Pending Labs on day of discharge: Labs from last 24 hours 11/18/23 11/17/23 11/17/23 06:06 12:50 06:42 WBC 5.4 4.7 L RBC 4.24 L 4.44 L Hgb 9.4 L 10.0 L Hct 30.4 L 31.8 L MCV 71.7 L 71.6 L MCH 22.1 L 22.6 L MCHC 30.8 L 31.6 L RDW 22.3 H 21.9 H Plt Count 184 179 MPV 9.7 10.2 Neut % (Auto) 59.6 64.8 Lymph % (Auto) 27.1 23.9 [place]ron % (Auto) 11.2 H 9.9 H Eos % (Auto) 1.2 0.7 Baso % (Auto) 0.8 0.7 Neut # (Auto) 3.2 3.0 Lymph # (Auto) 1.5 1.1 [place] # (Auto) 0.6 0.5 Eos # (Auto) 0.1 0.0 Baso # (Auto) 0.0 0.0 Sodium 138 136 136 Potassium 3.7 4.0 D 3.3 L Chloride 105 100 101 Carbon Dioxide 30 33 H 32 H Anion Gap 6.7 7.0 6.3 BUN 14 18 16 Creatinine 1.10 1.10 1.10 Estimated Creat Clear 52 53 53 Estimated GFR 65 65 65 Est GFR ( Amer) 78 78 78 Glucose 87 D 127 H D 86 Calcium 8.3 L 8.7 8.5 Total Bilirubin 1.0 AST 30 ALT 23 D Alkaline Phosphatase 57 Total Protein 5.9 L Albumin 3.4 L Globulin 2.5 Albumin/Globulin Ratio 1.4 DS: Diagnosis Discharge Diagnosis (1) Acute exacerbation of CHF (congestive heart failure): Status: Acute Code(s): I50.9 - Heart failure, unspecified (2) Iron deficiency anemia: Status: Acute Code(s): D50.9 - Iron deficiency anemia, unspecified (3) Bilateral pleural effusion: Status: Acute Code(s): J90 - Pleural effusion, not elsewhere classified (4) Non-ST elevation PA (NSTEMI): Status: Resolved Code(s): I21.4 - Non-ST elevation (NSTEMI) myocardial infarction (5) Hypertension: Status: Acute Code(s): I10 - Essential (primary) hypertension Qualifiers: Hypertension type: primary hypertension Qualified Code(s): I10 - Essential (primary) hypertension (6) CKD (chronic kidney disease) stage 3, GFR 30-59 ml/min: Status: Acute Code(s): N18.30 - Chronic kidney disease, stage 3 unspecified (7) CAD (coronary artery disease): Status: Chronic Code(s): I25.10 - Atherosclerotic heart disease of [place] coronary artery without angina pectoris Qualifiers: Associated angina: with other forms of angina Coronary Disease-Associated Artery/Lesion type: [place] artery [place] vs. transplanted heart: [place] heart Qualified Code(s): I25.118 - Atherosclerotic heart disease of [place] coronary artery with other forms of angina pectoris (8) PAD (peripheral artery disease): Status: Chronic Code(s): I73.9 - Peripheral vascular disease, unspecified (9) HHD (hypertensive heart disease): Status: Chronic Code(s): I11.9 - Hypertensive heart disease without heart failure Qualifiers: Heart failure presence: without heart failure Qualified Code(s): I11.9 - Hypertensive heart disease without heart failure (10) HLD (hyperlipidemia): Status: Chronic Code(s): E78.5 - Hyperlipidemia, unspecified Qualifiers: Hyperlipidemia type: mixed hyperlipidemia Qualified Code(s): E78.2 - Mixed hyperlipidemia Meds Home Medications and Allergies Home Medications Medication Instructions Recorded Confirmed Type tamsulosin 0.4 mg capsule 0.4 mg PO DAILY prostate 07/23/23 11/20/23 History aspirin 81 mg tablet,delayed 81 mg PO DAILY Heart Health 08/17/23 11/20/23 History release bisoprolol fumarate 10 mg tablet 10 mg PO BID High Blood Pressure 08/17/23 11/20/23 History clopidogrel 75 mg tablet 75 mg PO DAILY Platelet Inhibitor 08/17/23 11/20/23 History nitroglycerin 0.4 mg sublingual 0.4 mg sublingual Q5MINP PRN chest 08/17/23 11/20/23 History tablet pain rosuvastatin 40 mg tablet 40 mg PO DAILY Cholesterol 08/17/23 11/20/23 History linaclotide 145 mcg capsule 145 mcg PO DAILY Constipation 09/28/23 11/20/23 History (Linzess) omeprazole 40 mg capsule,delayed 40 mg PO DAILY Acid Reflux 09/28/23 11/20/23 History release amlodipine 5 mg tablet 5 mg PO DAILY 30 days #30 tabs 11/18/23 11/20/23 Rx ferrous sulfate 324 mg (65 mg 324 mg PO DAILY #30 tabs 11/18/23 11/20/23 Rx iron) tablet,delayed release furosemide 40 mg tablet (Lasix) 40 mg PO DAILY Fluid 30 days #30 11/18/23 11/20/23 Rx tabs potassium chloride 20 mEq 20 meq PO DAILY 30 days #30 tabs 11/18/23 11/20/23 Rx tablet,extended release(part/cryst) (Klor-Con M) cephalexin 500 mg capsule 500 mg PO Q8H 10 days #30 caps 11/20/23 11/20/23 Rx oxycodone-acetaminophen 10 mg-325 1 tab PO Q6H PRN pain #30 tabs 11/20/23 11/20/23 Rx mg tablet (Percocet) potassium chloride 10 mEq 20 meq PO DAILY Supplement 11/20/23 11/20/23 History tablet,extended release(part/cryst) (Klor-Con M) New Prescriptions to Start Prescriptions: amlodipine Presley Boykin ferrous sulfate Presley Boykin potassium chloride [Klor-Con M20] Presley Boykin Allergies Allergy/AdvReac Type Severity Reaction Status Date / Time ramipril [From Altace] Allergy Mild Unknown Verified 11/20/23 10:24 allergy reaction isosorbide [From Imdur] AdvReac Severe Verified 11/20/23 10:24 Discharge Plan Disposition Patient Disposition: Home, Self-Care Condition: Good Discharge Order Discharge Orders: Discharge Order (Routine); Ordered 11/18/23 Ordered By: Presley Boykin Follow up Plan Follow up with: Shant Mclaughlin MD [Staff Physician] - 11/26/23 9:45 am Vahe Rehman MD [Staff Physician] - 11/25/23 2:15 pm Mario Patel MD [Primary Care Provider] - 11/26/23 2:30 pm Prescriptions/Medication Reconciliation: New amlodipine 5 mg Tablet 5 mg PO DAILY 30 Days Qty: 30 0RF potassium chloride [Klor-Con M20] 20 mEq Tablet,Er Particles/Crystals 20 meq PO DAILY 30 Days Qty: 30 0RF ferrous sulfate 324 mg (65 mg iron) tablet,delayed release (DR/EC) 324 mg PO DAILY Qty: 30 0RF Continued tamsulosin 0.4 mg capsule 0.4 mg PO DAILY omeprazole 40 mg capsule,delayed release(DR/EC) 40 mg PO DAILY Linzess 145 mcg capsule 145 mcg PO DAILY aspirin 81 mg Tablet,Delayed Release (Dr/Ec) 81 mg PO DAILY clopidogrel 75 mg tablet 75 mg PO DAILY bisoprolol fumarate 10 mg tablet 10 mg PO BID nitroglycerin 0.4 mg tablet, sublingual 0.4 mg SUBLINGUAL Q5MINP PRN (Reason: chest pain) Rx Instructions: do not exceed 3 doses per episode rosuvastatin 40 mg tablet 40 mg PO DAILY Changed furosemide [Lasix] 40 mg tablet 40 mg PO DAILY 30 Days Qty: 30 0RF No Action cephalexin 500 mg capsule 500 mg PO Q8H 10 Days Qty: 30 0RF oxycodone-acetaminophen [Percocet] 10-325 mg tablet 1 tab PO Q6H PRN (Reason: pain) Qty: 30 0RF potassium chloride [Klor-Con M10] 10 mEq tablet,ER particles/crystals 20 meq PO DAILY Problem Reconciliation Problems Reviewed?: Yes Patient Discharge Instructions ACTIVITY: Continue current activity DIET: continue same diet Patient Instructions: DI for Heart Attack, Good Food Sources of Iron, Upper GI Endoscopy, Heart-Healthy Diet, DI for Heart Failure, DI for Cardiac Catheterization, DI for Iron Deficiency Anemia-Adult, DI for Surgical Site Infection, DI for Chest Pain Providers Primary Care Provider: Mario Patel Admit Provider: Vielka Feliciano Attending Provider: Vielka Feliciano
[2023-11-18 07:58] VITALS: BP 139/67; PULSE 60; RESP 17; TEMP 36.7; O2SAT 97
[2023-11-18 08:00] VITALS: PULSE 60
[2023-11-18] MEDS: IRON SUCROSE COMPLEX 200 MG in 0.9 % SODIUM CHLORIDE 100 ML 220 MG IV (08:52)
[2023-11-18] MEDS: DOCUSATE SODIUM 100 MG CAPSULE PO (08:52)
[2023-11-18] MEDS: POTASSIUM CHLORIDE 20MEQ TAB 20 MEQ PO (08:52)
[2023-11-18] MEDS: FUROSEMIDE 40MG/4ML VIAL 40 MG IV (08:52)
[2023-11-18] MEDS: CLOPIDOGREL 75MG TAB 75 MG PO (08:53)
[2023-11-18] MEDS: BISOPROLOL 5MG TABLET 10 MG PO (08:53)
[2023-11-18 09:25] LABS: Chol/HDL Ratio 3.5 (1-3.5); Cholesterol 90 mg/dl (140-200); HDL Cholesterol 26 mg/dl (40-60); Triglycerides 88 mg/dl (30-150); VLDL Cholesterol 18 mg/dL (0-40)
[2023-11-18 09:37] LABS: Direct LDL Cholesterol 51.05 mg/dL (100-129)
[2023-11-18] MEDS: AMLODIPINE 5MG TABLET 5 MG PO (09:46)
--- NOTE | 2023-11-18 10:33 | EXP.CARD.PN ---
Subjective Subjective Date: 11/18/23 Time: 10:00 Principal diagnosis: nonstemi, CAD, iron deficiency anemia Interval history: This is a 78-year-old gentleman who was admitted to the hospital for an elevated troponin consistent with a non-STEMI. The patient was also found to have iron deficiency anemia. He did undergo EGD which showed no active signs of bleeding. Colonoscopy will can be completed on an outpatient basis. The patient had left cardiac catheterization yesterday and was found to have patent coronary artery disease. This morning he denies any chest pain or pressure. No shortness of breath or edema. No fever, chills, nausea, vomiting, diarrhea, PND orthopnea. Exam Data for Last 24 hours Vital signs and Labs for Last 24 Hours: Temp Pulse Resp BP Pulse Ox O2 Del Method O2 Flow Rate 98.0 F 60 17 139/67 97 Room Air 4 11/18/23 07:58 11/18/23 08:00 11/18/23 07:58 11/18/23 07:58 11/18/23 07:58 11/18/23 08:57 11/17/23 10:26 Laboratory Results - last 24 hr 11/17/23 12:50: WBC 4.7 L, RBC 4.44 L, Hgb 10.0 L, Hct 31.8 L, MCV 71.6 L, MCH 22.6 L, MCHC 31.6 L, RDW 21.9 H, Plt Count 179, MPV 10.2, Neut % (Auto) 64.8, Lymph % (Auto) 23.9, Pettis % (Auto) 9.9 H, Eos % (Auto) 0.7, Baso % (Auto) 0.7, Neut # (Auto) 3.0, Lymph # (Auto) 1.1, Pettis # (Auto) 0.5, Eos # (Auto) 0.0, Baso # (Auto) 0.0, Sodium 136, Potassium 4.0 D, Chloride 100, Carbon Dioxide 33 H, Anion Gap 7.0, BUN 18, Creatinine 1.10, Estimated Creat Clear 53, Estimated GFR 65, Est GFR ( Amer) 78, Glucose 127 H D, Calcium 8.7 11/18/23 06:06: WBC 5.4, RBC 4.24 L, Hgb 9.4 L, Hct 30.4 L, MCV 71.7 L, MCH 22.1 L, MCHC 30.8 L, RDW 22.3 H, Plt Count 184, MPV 9.7, Neut % (Auto) 59.6, Lymph % (Auto) 27.1, Pettis % (Auto) 11.2 H, Eos % (Auto) 1.2, Baso % (Auto) 0.8, Neut # (Auto) 3.2, Lymph # (Auto) 1.5, Pettis # (Auto) 0.6, Eos # (Auto) 0.1, Baso # (Auto) 0.0, Sodium 138, Potassium 3.7, Chloride 105, Carbon Dioxide 30, Anion Gap 6.7, BUN 14, Creatinine 1.10, Estimated Creat Clear 52, Estimated GFR 65, Est GFR ( Amer) 78, Glucose 87 D, Calcium 8.3 L, Total Bilirubin 1.0, AST 30, ALT 23 D, Alkaline Phosphatase 57, Total Protein 5.9 L, Albumin 3.4 L, Globulin 2.5, Albumin/Globulin Ratio 1.4, Triglycerides 88, Cholesterol 90 L, LDL Cholesterol Direct 51.05 L, VLDL Cholesterol 18, HDL Cholesterol 26 L, Cholesterol/HDL Ratio 3.5 I & O for Last 24 hours: Intake & Output 11/15/23 11/16/23 11/17/23 11/18/23 23:59 23:59 23:59 23:59 Intake Total 240 / 240 730 / 730 840 / 840 600 / 600 Output Total 0 / 0 800 / 800 900 / 900 0 / 0 Balance 240 / 240 -70 / -70 -60 / -60 600 / 600 Weight 156 lb 1 oz 155 lb 3.2 oz 152 lb 1.903 oz 148 lb 12.8 oz Constitutional Constitutional: no acute distress and average body habitus *Routine HEENT Exam Head: Present normocephalic and atraumatic ENT: Present mucous membranes moist *Routine Neck Exam Neck: Present supple, full ROM and normal carotid upstroke; Absent JVD, carotid bruit or lymphadenopathy *Routine Respiratory Exam Respiratory: Present CTA bilaterally, normal respiratory effort, able to speak in complete sentences and symmetric chest movement *Routine Cardiovascular Exam Cardiovascular: Present RRR, Normal S1 and Normal S2; Absent murmur or gallop *Routine Abdominal Exam Abdominal: Present soft and normoactive bowel sounds; Absent tenderness, distended or organomegaly *Routine Extremities Exam Extremities: Present full ROM, pulses intact and normal capillary refill; Absent cyanosis, clubbing or edema *Routine Skin Exam Skin: Present intact and warm; Absent erythema *Routine Neurological Exam Neurological: Present alert, oriented X3 and CN II-XII intact; Absent sensory deficit or motor deficit Routine Psychiatric Exam Psychiatric: Present normal affect Progress Note: A&P Assessment and plan (1) Acute exacerbation of CHF (congestive heart failure): Status: Acute (2) Iron deficiency anemia: Status: Acute (3) Bilateral pleural effusion: Status: Acute (4) Non-ST elevation TN (NSTEMI): Status: Acute (5) Hypertension: Status: Acute (6) CKD (chronic kidney disease) stage 3, GFR 30-59 ml/min: Status: Acute (7) CAD (coronary artery disease): Status: Chronic (8) PAD (peripheral artery disease): Status: Chronic (9) HHD (hypertensive heart disease): Status: Chronic (10) HLD (hyperlipidemia): Status: Chronic Assessment and Plan Assessment and Plan for All Diagnoses:: Plan: 1. The patient was admitted to the hospital with an elevated troponin consistent with a non-STEMI. Patient underwent left cardiac catheterization and had patent coronary artery disease. Coronary artery disease is stable. Continue Plavix and aspirin. 2. General surgery has been consulted due to his iron deficiency anemia. EGD showed no active signs of bleeding. He will be set up for colonoscopy on an outpatient basis. If indicated, the patient can stop Plavix for 5 days prior to the colonoscopy. However if he can remain on dual antiplatelet therapy for the procedure that would be the most ideal. 3. The patient's hemoglobin is stable at 9.4. He is supposed 1 unit of packed red blood cells and IV iron. 4. His blood pressure is well-controlled with the addition of Norvasc. 5. His LDL goal is less than 55. His LDL is 51. He is on a statin. 6. The patient does have PAD which is likely stable. 7. Permanent pacemaker is in place. This is followed in our outpatient clinic. 8. Stop IV Lasix. Start Lasix 40 mg p.o. daily. 9. No further recommendations at this time from a cardiac standpoint. The patient can be discharged home today from a cardiac standpoint with follow-up in cardiology clinic in 1 to 2 weeks on an outpatient basis. The patient will need to be discharged on the following cardiac medications: Aspirin 81 mg daily, Plavix 75 mg daily, Norvasc 5 mg daily, Crestor 40 mg p.o. nightly, bisoprolol 10 mg p.o. twice daily, Lasix 40 mg p.o. daily, omeprazole 40 mg daily, potassium 20 mEq p.o. daily. Thank you for the opportunity to help participate in the care of this patient. All recommendations and orders are per Dr. Bush.
--- NOTE | 2023-11-19 15:11 | CARE MANAGER ---
Contacted patient related to hospital discharge. He states that he is doing about the same. He has all his medications and is aware of follow up appointments. Denies questions or concerns.VIRGINIE Pickering
== END 2023-11-18 12:51 | disposition home or self-care (01) | DRG 286 ==
LOC: ER 12:58 → 2ND 13:44
PROVIDERS: Internal Medicine; Internal Medicine Adolescent Medicine; Nurse Practitioner Family; Surgery; Admitting Provider Internal Medicine; Emergency Provider Emergency Medicine; PCP Family Medicine; Visit Provider Internal Medicine
PROC: 0DJ08ZZ Inspection of Upper Intestinal Tract, Via Natural or Artificial Opening Endoscopic (ICD-10-PCS; CPT 43235; principal; 2023-11-17 10:15)
PROC: 4A023N7 Measurement of Cardiac Sampling and Pressure, Left Heart, Percutaneous Approach (ICD-10-PCS; principal; 2023-11-17 13:00)
DX: I13.0 Hypertensive heart and chronic kidney disease with heart failure and stage 1 through stage 4 chronic kidney disease, or unspecified chronic kidney disease (principal); I50.23 Acute on chronic systolic (congestive) heart failure; N18.30 Chronic kidney disease, stage 3 unspecified; I25.118 Atherosclerotic heart disease of native coronary artery with other forms of angina pectoris; I73.9 Peripheral vascular disease, unspecified; E78.2 Mixed hyperlipidemia; D50.9 Iron deficiency anemia, unspecified; Z95.5 Presence of coronary angioplasty implant and graft; N40.0 Benign prostatic hyperplasia without lower urinary tract symptoms; Z95.0 Presence of cardiac pacemaker; K22.9 Disease of esophagus, unspecified
CPT/HCPCS: 43239; 36415; 71046; 71275; 74177; 80048; 80053; 80061; 82272; 82728; 83540; 83550; 83690; 83880; 84484; 85014; 85018; 85025; 86850; 87636; 88305; 93005; 93458; 99152; 99285; C1725; C1769; C1894; G0328; J1644; J1756; P9016; Q9967

== ENCOUNTER 2023-11-19 13:38 | Outpatient (CLI) | payer MEDICARE, SELFPAY ==
--- NOTE | 2023-11-19 | CA_ITS ---
FINAL REPORT CLINICAL HISTORY: 2 days s/p cardiac cath tenderness with some swelling of the pubic symphysis COMPARISON: None FINDINGS: LOWER EXTREMITY DUPLEX DOPPLER Color Doppler and duplex Doppler of the right lower extremity was performed. The patient underwent a cardiac catheterization 2 days prior to this examination. There is focal color flow that extends anteriorly from the common femoral artery in the groin region, measuring 6 mm in length, worrisome for a small pseudoaneurysm. Continued follow-up is suggested for further evaluation. IMPRESSION: Focal color-flow extends anteriorly from the common femoral artery, as described, worrisome for a small pseudoaneurysm. Continued follow-up is suggested for further evaluation. Reviewed, Interpreted and Dictated by Shant Andino III, MD Transcribed by Stephanie Link Authenticated and [facility]
== END 2023-11-19 23:59 ==
LOC: RT 13:39
PROVIDERS: PCP Family Medicine; Visit Provider Internal Medicine
DX: T88.8XXA Other specified complications of surgical and medical care, not elsewhere classified, initial encounter (principal)
CPT/HCPCS: 93926

== ENCOUNTER 2024-01-01 11:45 | Day surgery (SDC) | payer MEDICARE, SELFPAY ==
[2023-12-31 09:05] VITALS: BMI 25.0
--- NOTE | 2023-12-31 09:21 | SUR.PREOP ---
PT VERBALIZES THAT HAS STOPPED BLOOD THINNER A WEEK AGO . CLARIFIED WITH BJ IN DR. PAZ'S OFFICE THAT SHE HAS A CARDIAC CLEARANCE AND PERMISSION FOR PT TO STOP BLOOD THINNER FOR 5 DAYS. PT OK TO COLONOSCOPY SCHEDULED.
[2024-01-01 12:14] VITALS: BP 146/41; PULSE 60; RESP 18; TEMP 36.6; O2SAT 95
[2024-01-01] MEDS: LACTATED RINGERS 1000ML 1,000 ML 25 ML IV (12:22)
--- NOTE | 2024-01-01 12:22 | P.HP_ITS ---
HPI HPI HPI: Patient presents for colonoscopy. He had recent inpatient hospitalization. He is a 78-year-old male from [place], [place] with a history of coronary artery disease status post CABG, chronic kidney disease, cardiac pacemaker, carotid artery stenosis, mesenteric stenosis, renal insufficiency, chronic arterial occlusive disease. He had coronary stenting done in August. He presented to the emergency department 11/15/23 with complaints of several day history of shortness of air with lower extremity swelling and symptoms of substernal pressure with subjective shortness of air. Patient denies abdominal pain nausea or vomiting. Denies change in bowel habits. Patient is on Plavix. Thorough evaluation was performed in the emergency department. He was noted to have elevated BNP greater than 3400. He had elevated troponin. It was felt the patient likely had non-STEMI in the setting of CHF exacerbation. Hemoglobin on presentation was 8.5. On 11/16/2023 hemoglobin 7.8. BUN and creatinine is 20 and 1.0. Recent baseline hemoglobin appears to be approximately 10. Patient had never had EGD or colonoscopy. He had seen a sustainable agriculture specialist previously in [place] and there was consideration for screening colonoscopy 2 years ago but he was unable to undergo bowel preparation and was not cleaned out. Patient does state that he has a history of chronic constipation. There was also consideration of possible upper endoscopy and colonoscopy to be performed however this was deferred as he had recent stenting. He apparently does have a history of H. pylori positivity. He has had some dysphagia. Cardiology service has ordered a unit of blood to be transfused. Surgical consultation was obtained for anemia and for consideration of EGD and colonoscopy during hospitalization. Patient was transfused a unit of packed red blood cells for hemoglobin of 7.8 with posttransfusion hemoglobin of 9.8 with hemoglobin on 11/17/2023 of 9.3. Stool for occult blood is negative. Hemoglobin on discharge was stable at 9.4. I performed EGD as an inpatient on 11/17/2023 which revealed findings consistent with mild esophageal dysmotility, gastroesophageal junction at 42 cm, tiny sliding hiatal hernia, mild gastropathy. There was no etiology on upper endoscopy which would explain his anemia. He did undergo left heart catheterization as an inpatient. Left heart catheterization revealed preserved ejection fraction of 60%. He had patent coronary revascularization and stents. He did develop some swelling in the groin area and had findings consistent with small pseudoaneurysm with ultrasound. For completeness of his iron deficiency anemia plan was to proceed with colonoscopy. [facility] Disclaimer: The information contained in this section may have been updated after the patient was seen, as this information can be updated by other users. Medical History Abdominal pain Acute blood loss anemia Anemia Bruising CAD (coronary artery disease) Cardiac pacemaker in situ Carotid artery stenosis Dyspnea Edema HHD (hypertensive heart disease) HLD (hyperlipidemia) Iron deficiency anemia Mesenteric artery stenosis Nontraumatic rectus hematoma PAD (peripheral artery disease) Renal insufficiency Right groin pain Surgical History History of coronary artery bypass graft S/P cardiac catheterization Family History Other Family history of myocardial infarction Social History Smoking Status: Never smoker alcohol intake: never substance use type: denies use current occupational status: retired Travel in the last 8 weeks: Inside the [place] household members: spouse housing: house caffeine: Yes Review of Systems Review of Systems Review of systems:: pertinent systems reviewed and negative unless documented below Meds Home Medications and Allergies Home Medications Medication Instructions Recorded Confirmed Type tamsulosin 0.4 mg capsule 0.4 mg PO DAILY prostate 07/23/23 01/01/24 History aspirin 81 mg tablet,delayed 81 mg PO DAILY Heart Health 08/17/23 01/01/24 History release bisoprolol fumarate 10 mg tablet 10 mg PO BID High Blood Pressure 08/17/23 01/01/24 History clopidogrel 75 mg tablet 75 mg PO DAILY Platelet Inhibitor 08/17/23 01/01/24 History rosuvastatin 40 mg tablet 40 mg PO DAILY Cholesterol 08/17/23 01/01/24 History linaclotide 145 mcg capsule 145 mcg PO DAILY Constipation 09/28/23 01/01/24 History (Linzess) omeprazole 40 mg capsule,delayed 40 mg PO DAILY Acid Reflux 09/28/23 01/01/24 History release amlodipine 5 mg tablet 5 mg PO DAILY 30 days #30 tabs 11/18/23 01/01/24 Rx ferrous sulfate 324 mg (65 mg 324 mg PO DAILY #30 tabs 11/18/23 01/01/24 Rx iron) tablet,delayed release furosemide 40 mg tablet (Lasix) 40 mg PO DAILY Fluid 30 days #30 11/18/23 01/01/24 Rx tabs potassium chloride 20 mEq 20 meq PO DAILY 30 days #30 tabs 11/18/23 01/01/24 Rx tablet,extended release(part/cryst) (Klor-Con M) potassium chloride 10 mEq 20 meq PO DAILY Supplement 11/20/23 01/01/24 History tablet,extended release(part/cryst) (Klor-Con M) nitroglycerin 0.4 mg sublingual 0.4 mg sublingual Q5MINP PRN chest 12/01/23 01/01/24 Rx tablet pain #20 tabs New Prescriptions to Start Prescriptions: Allergies Allergy/AdvReac Type Severity Reaction Status Date / Time ramipril [From Altace] Allergy Mild Unknown Verified 01/01/24 12:10 allergy reaction Exam Data for Last 24 hours Vital signs and Labs for Last 24 Hours: Temp Pulse Resp BP Pulse Ox O2 Del Method 97.9 F 60 18 146/41 H 95 Room Air 01/01/24 12:14 01/01/24 12:14 01/01/24 12:14 01/01/24 12:14 01/01/24 12:14 01/01/24 12:14 I & O for Last 24 hours: Intake & Output 12/30/23 12/31/23 01/01/24 01/02/24 11:59 11:59 11:59 11:59 Weight 160 lb Constitutional Constitutional: no acute distress *Routine HEENT Exam Head: Present normocephalic Eye: Present EOMI and PERRL ENT: Present mucous membranes moist *Routine Neck Exam Neck: Present supple; Absent lymphadenopathy *Routine Respiratory Exam Respiratory: Present CTA bilaterally *Routine Cardiovascular Exam Cardiovascular: Present RRR *Routine Abdominal Exam Abdominal: Present soft and normoactive bowel sounds; Absent tenderness *Routine Rectal Exam Rectal:: deferred *Routine Genitalia Exam Genitalia:: deferred *Routine Extremities Exam Extremities: Absent cyanosis, clubbing or edema *Routine Skin Exam Skin: Present warm; Absent rash *Routine Neurological Exam Neurological: Present alert and oriented X3 Assessment and Plan *Assessment and plan (1) Anemia: Status: Acute Qualifiers: Anemia type: iron deficiency Iron deficiency anemia type: unspecified iron deficiency Qualified Code(s): D50.9 - Iron deficiency anemia, unspecified Category: Medical Code(s): D64.9 - Anemia, unspecified Plan Plan to proceed with colonoscopy for completeness to workup his iron deficiency anemia.
--- NOTE | 2024-01-01 12:48 | EXP.ANES.CKL ---
[facility] Disclaimer: The information contained in this section may have been updated after the patient was seen, as this information can be updated by other users. Medical History Abdominal pain Acute blood loss anemia Anemia Bruising CAD (coronary artery disease) Cardiac pacemaker in situ Carotid artery stenosis Dyspnea Edema HHD (hypertensive heart disease) HLD (hyperlipidemia) Iron deficiency anemia Mesenteric artery stenosis Nontraumatic rectus hematoma PAD (peripheral artery disease) Renal insufficiency Right groin pain Surgical History History of coronary artery bypass graft S/P cardiac catheterization Family History Other Family history of myocardial infarction Social History Smoking Status: Never smoker alcohol intake: never substance use type: denies use current occupational status: retired Travel in the last 8 weeks: Inside the [place] household members: spouse housing: house caffeine: Yes [facility] Anesthesia Checklist Patient Identification Patient Identification: Arm Band and Family Structural Data Admitted From: Home Planned Operative Procedure/s: colonocopy Consent for Planned Operative Procedure(s) Verified: Yes Verified Documents: Surgical Consent and History and Physical NPO Status Verified Time NPO: 00:00 Additional verifications Patient : No Anesthesia Reactions: No Hx Blood Transfusions: No Blood Transfusion Reaction: No Cephalosporin Allergy: No Previous Colonoscopy: No Airway Assessment Mallampati Score:: Class III C-Spine Mobility Assessed: Yes TMJ Mobility Assessed: Yes Dentition: Poor Dentition Neurological Assessment Level of Consciousness: Awake, Alert, Appropriate and Follows Commands Hx Seizures: No Numbness or tingling in extremities: No Anesthesia Plan ASA Class: III Anesthesia Type: MAC Preoperative Comments Pre-Operative Comments: CABG, stents, Pacemaker, bloody stooles.
[2024-01-01 13:14] VITALS: O2SAT 100
--- NOTE | 2024-01-01 13:50 | HMH.SCOPE ---
Procedure: Date: 01/01/24 Patient Date of :: 1945 Procedure Performed:: Total colonoscopy to terminal ileum with polypectomy using hot and cold snare Indications:: . Patient presents for colonoscopy. He had recent inpatient hospitalization. He is a 78-year-old male from [place], [place] with a history of coronary artery disease status post CABG, chronic kidney disease, cardiac pacemaker, carotid artery stenosis, mesenteric stenosis, renal insufficiency, chronic arterial occlusive disease. He had coronary stenting done in August. He presented to the emergency department 11/15/23 with complaints of several day history of shortness of air with lower extremity swelling and symptoms of substernal pressure with subjective shortness of air. Patient denies abdominal pain nausea or vomiting. Denies change in bowel habits. Patient is on Plavix. Thorough evaluation was performed in the emergency department. He was noted to have elevated BNP greater than 3400. He had elevated troponin. It was felt the patient likely had non-STEMI in the setting of CHF exacerbation. Hemoglobin on presentation was 8.5. On 11/16/2023 hemoglobin 7.8. BUN and creatinine is 20 and 1.0. Recent baseline hemoglobin appears to be approximately 10. Patient had never had EGD or colonoscopy. He had seen a computer equipment repairer previously in [place] and there was consideration for screening colonoscopy 2 years ago but he was unable to undergo bowel preparation and was not cleaned out. Patient does state that he has a history of chronic constipation. There was also consideration of possible upper endoscopy and colonoscopy to be performed however this was deferred as he had recent stenting. He apparently does have a history of H. pylori positivity. He has had some dysphagia. Cardiology service has ordered a unit of blood to be transfused. Surgical consultation was obtained for anemia and for consideration of EGD and colonoscopy during hospitalization. Patient was transfused a unit of packed red blood cells for hemoglobin of 7.8 with posttransfusion hemoglobin of 9.8 with hemoglobin on 11/17/2023 of 9.3. Stool for occult blood is negative. Hemoglobin on discharge was stable at 9.4. I performed EGD as an inpatient on 11/17/2023 which revealed findings consistent with mild esophageal dysmotility, gastroesophageal junction at 42 cm, tiny sliding hiatal hernia, mild gastropathy. There was no etiology on upper endoscopy which would explain his anemia. He did undergo left heart catheterization as an inpatient. Left heart catheterization revealed preserved ejection fraction of 60%. He had patent coronary revascularization and stents. He did develop some swelling in the groin area and had findings consistent with small pseudoaneurysm with ultrasound. For completeness of his iron deficiency anemia plan was to proceed with colonoscopy. . Performing Provider:: Shant Mclaughlin MD Referring Provider:: MD Nilay Brink MD Sedation:: MAC sedation Procedure:: Patient history was obtained and appropriate physical examination was performed. Patient's medications and allergies were reviewed. Informed consent was obtained after explaining the benefits, alternatives, and risks of the procedure including, but not limited to, bleeding, perforation, missed lesions, and adverse reaction to anesthesia medications. Patient was transported to endoscopy procedure room. Patient was connected to monitoring devices. Throughout the procedure the patient's blood pressure, pulse, and oxygen saturations were monitored continuously. Patient identification and planned procedure were verified by the staff. Patient was positioned in lateral decubitus position. Digital anorectal exam was performed. Variable stiffness Olympus colonoscope was inserted and advanced under direct visualization to the cecum. Adequacy of the colonic preparation was noted. The colonoscope was advanced a short distance into the terminal ileum. The colonoscope was then slowly withdrawn while carefully examining the color, texture, anatomy, and integrity of the mucosoa circumferentially. Within the rectum retroflexion was performed. Colonoscope was then withdrawn. . Colonoscope was advanced to the cecum. Colonic preparation was poor as there was particulate opaque liquid stool throughout the colon containing a large amount of undigested vegetable matter. High-volume trans colonoscopic irrigation and suctioning was performed but the colon was unable to be absolutely completely cleared. In the cecum there was a small to moderate sessile polyp removed with hot snare. Adjacent to this there was a small adenomatous appearing polyp removed with cold snare. These were sent as cecal polyp x 2. In the ascending colon there was an adenomatous small to moderate polyp removed with hot snare. In the descending colon there was an adenomatous appearing polyp removed with hot snare. He did have some degree of sigmoid diverticulosis. . Findings:: Suboptimal preparation with particulate stool filling the colon and large amount of undigested vegetable matter. Polyps x 4 as noted above Left-sided diverticulosis Recommendations:: No findings on colonoscopy which would explain his anemia. I would recommend repeat colonoscopy within a year with aggressive bowel preparation and actual low residue diet for several days leading into his colonoscopy to ensure no residual small polyps remain. Complications:: None immediately apparent Estimated blood obtained (mL): 3 Colonoscopy Component Colonoscopy Component Was a colonoscopy performed during today's procedure?: Yes Recommended follow up colonoscopy of at least 10 years?: No If no, follow up colonoscopy recommended in ___ years?: 1 Reason for not recommending >/= 10 yr follow-up interval?: See above
[2024-01-01 13:52] VITALS: BP 92/48; PULSE 57; RESP 14; TEMP 36.5; O2SAT 96
[2024-01-01 14:02] VITALS: BP 104/52; PULSE 47; RESP 15; O2SAT 96
[2024-01-01 14:12] VITALS: BP 105/54; PULSE 60; RESP 17; O2SAT 96
[2024-01-01 14:24] VITALS: BP 121/70; PULSE 60; RESP 16; O2SAT 96
== END 2024-01-01 14:35 | disposition home or self-care (01) ==
PROVIDERS: PCP Family Medicine; Visit Provider Surgery
PROC: 0DJD8ZZ Inspection of Lower Intestinal Tract, Via Natural or Artificial Opening Endoscopic (ICD-10-PCS; CPT 45385; principal; 2024-01-01 13:30)
DX: D50.9 Iron deficiency anemia, unspecified (principal); Z91.199 Patient's noncompliance with other medical treatment and regimen due to unspecified reason; D12.0 Benign neoplasm of cecum; D12.2 Benign neoplasm of ascending colon; D12.4 Benign neoplasm of descending colon; K57.92 Diverticulitis of intestine, part unspecified, without perforation or abscess without bleeding
CPT/HCPCS: 45385; 88305; J2704

== ENCOUNTER 2024-01-26 10:07 | Outpatient (CLI) | payer MEDICARE, SELFPAY ==
[2024-01-26 10:23] LABS: Basophils # 0.1 K/mm3 (0-0.2); Eosinophils # 0.1 K/mm3 (0.0-0.4); Eosinophils % 1.1 % (0.1-12.0); Hematocrit 39.1 % (42.0-52.0); Hemoglobin 12.2 g/dL (14.1-18.0); Lymphocytes # 1.5 K/mm3 (0.7-4.5); Lymphocytes % 27.4 % (10-50); Mean Corpuscular HGB Conc 31.2 g/dL (31.8-35.4); Mean Corpuscular Hemoglobin 26.2 pg (27.0-31.2); Mean Corpuscular Volume 84.1 fl (80-94); Mean Platelet Volume 7.7 fl (7.4-10.4); Monocytes # 0.5 K/mm3 (0.1-1.0); Monocytes % 9.8 % (1.7-9.3); Neutrophils # 3.2 K/mm3 (1.8-7.8); Neutrophils % 60.7 % (37.0-80.0); Platelet Count 120 K/mm3 (142-424); Red Blood Count 4.65 M/mm3 (4.60-6.20); White Blood Count 5.3 K/mm3 (4.8-10.8)
[2024-01-26 10:46] LABS: Red Cell Distribution Width 25.9 % (11.5-17.5)
[2024-01-26 10:53] LABS: Iron 171 ug/dL (49-181)
[2024-01-26 11:02] LABS: Total Iron Binding Capacity 315 ug/dL (261-462)
[2024-01-26 11:29] LABS: Ferritin 34.3 ng/ml (17.9-464)
[2024-01-28 22:23] LABS: Vitamin B12 375 pg/mL (239-931)
== END 2024-01-26 23:59 | disposition home or self-care (01) ==
LOC: LAB 10:08
PROVIDERS: PCP Family Medicine; Visit Provider Internal Medicine Medical Oncology
DX: D50.9 Iron deficiency anemia, unspecified (principal)
CPT/HCPCS: 36415; 82607; 82728; 82746; 83540; 83550; 85025

== ENCOUNTER 2024-01-29 08:15 | Outpatient (CLI) | payer MEDICARE, SELFPAY ==
--- NOTE | 2024-01-29 08:18 | FL_ITS ---
FINAL REPORT CLINICAL HISTORY: anemia, iron def 1.04 min 1417.06 DAP FINDINGS: SMALL BOWEL FOLLOW THROUGH HISTORY: Anemia PROCEDURE: The patient ingested barium. Spot and overhead films were obtained. Fluoro time: 1 minute 4 seconds DAP: 1417.06 uGy.m2 15 radiographs were obtained. FINDINGS: The check and transfer beader film is unremarkable. The transit time to the colon is normal. The mucosal fold pattern is normal. Spot images of the terminal ileum are unremarkable. IMPRESSION: Normal small bowel follow-through. Films reviewed , interpreted and dictated by Dr. Jenkins. Transcribed by Iraj Pradhna PA-C. Reviewed, Interpreted and Dictated by Fred Jenkins MD Transcribed by ALISHA Perry Authenticated and [facility]
[2024-01-29] MEDS: DIATRIZOATE MEG 66% & DIATRIZOATE NA 10% 30ML UDC 30 ML PO (09:29)
[2024-01-29] MEDS: BARIUM SULFATE(LIQUID E-Z-PAQUE);355ML BOTTLE 355 ML PO (09:29)
== END 2024-01-29 23:59 | disposition home or self-care (01) ==
LOC: RAD 08:15
PROVIDERS: PCP Family Medicine; Visit Provider Internal Medicine Medical Oncology
DX: D50.9 Iron deficiency anemia, unspecified (principal)
CPT/HCPCS: 74250

== ENCOUNTER 2024-03-30 10:15 | Outpatient (CLI) | payer MEDICARE, SELFPAY ==
[2024-03-30 10:21] VITALS: BMI 24.9
--- NOTE | 2024-03-30 10:28 | PC.NURSE ---
1028-collected labs via venipuncture stick in left ac with butterfly needle; pt to appointment
[2024-03-30 10:50] LABS: Chloride 102 mmol/L (98-107); Potassium 4.1 mmoL/L (3.5-5.1); Sodium 140 mmol/L (136-145)
[2024-03-30 10:53] LABS: Alanine Aminotransferase 37 U/L (12-78); Albumin Level 4.2 g/dl (3.5-5.0); Albumin/Globulin Ratio 1.6 (1.1-1.8); Alkaline Phosphatase 53 U/L (38-126); Anion Gap 11.1 mEq/L (5-15); Aspartate Amino Transferase 44 U/L (17-59); Bilirubin,Total 0.8 mg/dl (0.2-1.3); Blood Urea Nitrogen 16 mg/dl (9-20); Calcium 9.2 mg/dl (8.4-10.2); Carbon Dioxide 31 mmol/L (22.0-30.0); Creatinine Clearance Estimated 46 mL/min (50-200); Estimated Glomerular Filt Rate 53 ml/min (>60); GFR (African American) 64 ML/MIN (>60); Globulin 2.6 g/dL (1.3-3.2); Glucose 121 mg/dl (74-100); Iron 264 ug/dL (49-181); Total Protein,Serum 6.8 g/dl (6.3-8.2)
[2024-03-30 11:04] LABS: Total Iron Binding Capacity 243 ug/dL (261-462)
[2024-03-30 11:19] LABS: Basophils # 0.1 K/mm3 (0-0.2); Basophils % 1.2 % (0.1-2.0); Eosinophils # 0.1 K/mm3 (0.0-0.4); Eosinophils % 0.8 % (0.1-12.0); Hematocrit 42.2 % (42.0-52.0); Hemoglobin 13.4 g/dL (14.1-18.0); Lymphocytes # 1.3 K/mm3 (0.7-4.5); Lymphocytes % 22.3 % (10-50); Mean Corpuscular HGB Conc 31.8 g/dL (31.8-35.4); Mean Corpuscular Hemoglobin 29.4 pg (27.0-31.2); Mean Corpuscular Volume 92.5 fl (80-94); Mean Platelet Volume 9.4 fl (7.4-10.4); Monocytes # 0.5 K/mm3 (0.1-1.0); Monocytes % 8.9 % (1.7-9.3); Neutrophils % 66.8 % (37.0-80.0); Platelet Count 157 K/mm3 (142-424); Red Blood Count 4.56 M/mm3 (4.60-6.20); Red Cell Distribution Width 22.7 % (11.5-17.5); White Blood Count 5.9 K/mm3 (4.8-10.8)
== END 2024-03-30 10:30 | disposition home or self-care (01) ==
LOC: INF 10:16
PROVIDERS: PCP Family Medicine; Visit Provider Internal Medicine Medical Oncology
DX: D50.9 Iron deficiency anemia, unspecified (principal)
CPT/HCPCS: 36415; 80053; 82728; 83540; 83550; 85025

== ENCOUNTER 2024-06-29 09:34 | Outpatient (CLI) | payer MEDICARE, SELFPAY ==
[2024-06-29 09:36] VITALS: BMI 24.9
[2024-06-29 09:58] LABS: Basophils # 0.1 K/mm3 (0-0.2); Basophils % 0.9 % (0.1-2.0); Eosinophils # 0.1 K/mm3 (0.0-0.4); Eosinophils % 1.3 % (0.1-12.0); Hematocrit 43.7 % (42.0-52.0); Hemoglobin 13.8 g/dL (14.1-18.0); Lymphocytes # 1.7 K/mm3 (0.7-4.5); Lymphocytes % 27.7 % (10-50); Mean Corpuscular HGB Conc 31.7 g/dL (31.8-35.4); Mean Corpuscular Hemoglobin 29.8 pg (27.0-31.2); Mean Corpuscular Volume 94.2 fl (80-94); Mean Platelet Volume 9.3 fl (7.4-10.4); Monocytes # 0.6 K/mm3 (0.1-1.0); Monocytes % 10.1 % (1.7-9.3); Neutrophils # 3.7 K/mm3 (1.8-7.8); Platelet Count 159 K/mm3 (142-424); Red Blood Count 4.64 M/mm3 (4.60-6.20); Red Cell Distribution Width 20.1 % (11.5-17.5); White Blood Count 6.2 K/mm3 (4.8-10.8)
[2024-06-29 10:01] LABS: Albumin Level 4.5 g/dl (3.5-5.0); Chloride 104 mmol/L (98-107); Potassium 3.9 mmoL/L (3.5-5.1); Sodium 141 mmol/L (136-145)
[2024-06-29 10:04] LABS: Alanine Aminotransferase 36 U/L (12-78); Albumin/Globulin Ratio 1.6 (1.1-1.8); Alkaline Phosphatase 61 U/L (38-126); Anion Gap 7.9 mEq/L (5-15); Aspartate Amino Transferase 45 U/L (17-59); Bilirubin,Total 0.9 mg/dl (0.2-1.3); Blood Urea Nitrogen 11 mg/dl (9-20); Carbon Dioxide 33 mmol/L (22.0-30.0); Creatinine Clearance Estimated 50 mL/min (50-200); Estimated Glomerular Filt Rate 58 ml/min (>60); GFR (African American) 70 ML/MIN (>60); Globulin 2.9 g/dL (1.3-3.2); Iron 125 ug/dL (49-181); Total Protein,Serum 7.4 g/dl (6.3-8.2)
[2024-06-29 10:05] LABS: Calcium 8.9 mg/dl (8.4-10.2); Glucose 99 mg/dl (74-100)
[2024-06-29 10:14] LABS: Total Iron Binding Capacity 189 ug/dL (261-462)
[2024-06-29 10:42] LABS: Ferritin 42.8 ng/ml (17.9-464)
== END 2024-06-29 09:47 | disposition home or self-care (01) ==
LOC: INF 09:35
PROVIDERS: PCP Family Medicine; Visit Provider Internal Medicine Medical Oncology
DX: D64.9 Anemia, unspecified (principal)
CPT/HCPCS: 36415; 80053; 82728; 83540; 83550; 85025

== ENCOUNTER 2024-11-27 13:18 | Observation (INO) | payer MEDICARE, SELFPAY ==
[2024-11-27] VITALS (13 sets, daily range): BP systolic 115–141; BP diastolic 49–72; PULSE 58–76; RESP 11–18; TEMP 36.6–36.9; O2SAT 95–98; BMI 24.2
--- NOTE | 2024-11-27 13:17 | ECG_ITS ---
APPROVED REPORT Exam: Resting ECG HR:68 bpm ECG Measurements Heart Rate 68 AXES TX 209 P 259 QRSd 97 QRS 76 QT 381 T 89 QTc 399 Conclusion ELECTRONIC ATRIAL PACEMAKER NONSPECIFIC T-WAVE ABNORMALITY ABNORMAL RHYTHM ECG UNCONFIRMED REPORT Electronically signed by : Presley Rojas, 11/27/2024 15:12:35
[2024-11-27] MEDS: NITROGLYCERIN 0.4MG SL TABLET 0.4 MG SL (13:34)
--- NOTE | 2024-11-27 13:38 | XR_ITS ---
PROCEDURE INFORMATION: Exam: XR Chest Exam date and time: 11/27/2024 2:01 PM Age: 79 years old Clinical indication: Dyspnea TECHNIQUE: Imaging protocol: Radiologic exam of the chest. Views: 1 view. COMPARISON: CT ANGIO CHEST PE PROTOCOL 11/15/2023 12:15 PM FINDINGS: Lungs: Unremarkable. No consolidation. Pleural spaces: Unremarkable. No pleural effusion. No pneumothorax. Heart/Mediastinum: Post cardiac surgery changes. Sternotomy wires appear intact. Dual lead pacemaker with generator in the left chest. The heart size is normal. Aortic atherosclerosis Bones/joints: No acute fracture. IMPRESSION: No acute abnormality.
--- NOTE | 2024-11-27 13:45 | ED_ITS ---
Discharge Plan Disposition Patient Disposition: Admitted Prescriptions Prescriptions: No Action tamsulosin 0.4 mg capsule 0.4 mg PO DAILY amlodipine 5 mg tablet 5 mg PO DAILY Qty: 90 3RF clopidogrel 75 mg tablet See Rx Instructions .ROUTE .COMPLEX Qty: 90 3RF Dose Instruction: TAKE 1 TABLET BY MOUTH DAILY Rx Instructions: TAKE 1 TABLET BY MOUTH DAILY bisoprolol fumarate 10 mg tablet See Rx Instructions .ROUTE .COMPLEX Qty: 180 3RF Dose Instruction: TAKE 1 TABLET BY MOUTH 2 TIMES A DAY Rx Instructions: TAKE 1 TABLET BY MOUTH 2 TIMES A DAY rosuvastatin 40 mg tablet See Rx Instructions .ROUTE .COMPLEX Qty: 90 3RF Dose Instruction: TAKE 1 TABLET BY MOUTH DAILY Rx Instructions: TAKE 1 TABLET BY MOUTH DAILY furosemide 40 mg tablet See Rx Instructions .ROUTE .COMPLEX Qty: 30 11RF Dose Instruction: TAKE 1 TABLET BY MOUTH EVERY OTHER DAY NEEDED FOR SWELLING Rx Instructions: TAKE 1 TABLET BY MOUTH EVERY OTHER DAY NEEDED FOR SWELLING nitroglycerin 0.4 mg tablet, sublingual 0.4 mg SUBLINGUAL Q5MINP PRN (Reason: chest pain) Qty: 20 2RF Rx Instructions: do not exceed 3 doses per episode aspirin 81 mg Tablet,Delayed Release (Dr/Ec) 81 mg PO DAILY potassium chloride [Klor-Con M20] 20 mEq Tablet,Er Particles/Crystals 20 meq PO DAILY 30 Days Qty: 30 0RF ferrous sulfate 324 mg (65 mg iron) tablet,delayed release (DR/EC) 324 mg PO DAILY Qty: 30 0RF Referrals Follow up/Referrals: Provider,Referral, MD [Primary Care Provider] - See instructions Clinical Impressions Clinical Impression: Dyspnea, Non-ST elevation [place] (NSTEMI) Print Language Print Language: Greek Discharge ED Provider: Alan Rojas [facility] General Chief Complaint: Chest Pain Stated Complaint: chest pain Time Seen by Provider: 11/27/24 13:23 Mode of Arrival: Ambulatory Source of Information: Patient Limitations: No Limitations Description of Symptoms (Recalled from ER Triage Doc. by RN): pt presents to ED with c/o chest pain. pt reports he has extensive heart history and does see diana. pt reports symptoms awoke him this am at 0600. pt rpeorts burning and heaviness. History of Present Illness HPI narrative: Patient is an 79-year-old male who presents today with complaints of shortness of breath. That his primary complaint to me but he was initially telling triage nursing that he was here for chest pain. When asked about his chest pain he states he has been having some chest burning this been intermittent over the last several weeks. Has extensive history of coronary artery disease had an OH that was a type II OH with clean coronaries in the last several years. Denies any significant exertional chest pain but has been quite dyspneic lately. No weight gain. He is not having significant lower extremity edema orthopnea etc. Was given nitroglycerin prior to my evaluation. Currently denies any chest pain to me. Related Data Home Medications ?Medication ?Instructions ?Recorded ?Confirmed tamsulosin 0.4 mg capsule 0.4 mg PO DAILY prostate 07/23/23 11/27/24 aspirin 81 mg tablet,delayed 81 mg PO DAILY Heart Health 08/17/23 11/27/24 release Previous Rx's ?Medication ?Instructions ?Recorded ferrous sulfate 324 mg (65 mg 324 mg PO DAILY #30 tabs 11/18/23 iron) tablet,delayed release potassium chloride 20 mEq 20 meq PO DAILY 30 days #30 tabs 11/18/23 tablet,extended release(part/cryst) (Klor-Con M) amlodipine 5 mg tablet 5 mg PO DAILY #90 tabs 04/08/24 clopidogrel 75 mg tablet See Rx Instructions .Route 05/11/24 .COMPLEX #90 tabs bisoprolol fumarate 10 mg tablet See Rx Instructions .Route 08/08/24 .COMPLEX #180 tabs rosuvastatin 40 mg tablet See Rx Instructions .Route 08/15/24 .COMPLEX #90 tabs furosemide 40 mg tablet See Rx Instructions .Route 09/27/24 .COMPLEX #30 tabs nitroglycerin 0.4 mg sublingual 0.4 mg sublingual Q5MINP PRN chest 11/16/24 tablet pain #20 tabs Allergies Allergy/AdvReac Type Severity Reaction Status Date / Time ramipril (From Altace) Allergy Mild Unknown Verified 11/27/24 13:38 allergy reaction [facility] Disclaimer: The information contained in this section may have been updated after the patient was seen, as this information can be updated by other users. 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 Carotid artery stenosis HLD (hyperlipidemia) HHD (hypertensive heart disease) PAD (peripheral artery disease) CAD (coronary artery disease) Surgical History S/P cardiac catheterization History of coronary artery bypass graft Family History Other Family history of myocardial infarction Social History Smoking Status: Former smoker tobacco type: smokeless tobacco alcohol intake: never substance use type: denies use current occupational status: retired Travel in the last 8 weeks: None household members: spouse housing: house caffeine: Yes Have you lived/traveled outside US in past 30 days?: No Contact w/someone who lives/traveled outside US past 30 days?: No Exposure to someone with infectious disease in past 14 days?: No Do you have a fever (greater than 100.4 F or 38 C)?: No Have you tested positive for COVID-19: No Exposed to someone with COVID-19 in past 14 days?: No Do you have a sore throat?: No Do you have a cough?: No Do you have any weakness?: No Do you have any diarrhea?: No Are you experiencing any unusual bleeding?: No Do you have any muscle aches/pain?: No Do you have any abdominal pain?: No Are you experiencing loss of taste or smell?: No Other Medical History Have you received the Flu Vaccine for this season: No Have you received the Pneumonia Vaccine: No ROS Obtained: Yes All systems reviewed & no additional complaints except as documented Physical Exam General General appearance: alert and in no apparent distress Respiratory Respiratory exam: Present normal lung sounds bilaterally; Absent respiratory distress Cardiovascular Cardiovascular exam: Present regular rate; Absent normal rhythm Neurological Exam Neurological exam: Present alert and oriented X3 HEART Score HEART Score HEART Score assessment performed?: Yes History (anamnesis): Slightly suspicious ECG: Non-specific disturbance Age: >65 years Risk factors: Atherosclerosis history Troponin: </= normal limit HEART Score: 5 Procedures Miscellaneous Procedure Procedure Performed: Limited cardiac ultrasound Indication: Chest pain Identified structures: The heart was visualized in the parasternal long axis, parastenal short axis, apical four chamber and subxyphiod views. The IVC was visualized in the short axis and long axis at its entry into the right atrium. Findings: Mildly depressed LVEF, no regional wall motion abnormalities noted no pericardial effusion or right heart strain Impression: As above mildly depressed LVEF Images were saved to permanent archive The study was technically adequate CPT: 13766-47 This study was performed by me, and I personally interpreted all images/videos. Based on my clinical judgement, these images were adequate and did not necessitate further imaging. Limited lung ultrasound A focused ultrasound exam of the pleural spaces was performed to evaluate for pneumothorax, pulmonary edema, pleural effusion and/or consolidation. The ultrasound was performed with the following indications, as noted in the H&P: Dyspnea Identified structures: Right and left thoracic cavities were examined. Findings: Bilateral lung sliding is present no B-lines pleural effusions or consolidations noted Impression: Unremarkable bilateral limited lung ultrasound CPT 81903-05 This study was performed by me, and I personally interpreted all images/videos. Based on my clinical judgement, these images were adequate and did not necessitate further imaging. Critical Care Critical Care Time Critical Care Time: Yes Attestation: On 11/27/24, the high probability of a clinically significant, sudden or life threatening deterioration of the following system(s) required my full and direct attention, intervention and personal management. The time I documented below is in addition to time spent performing reported procedures but includes the following listed in this critical care notation. Total Time Total Critical Care Time: 35 Medical Decision Making Elio Inquiry Pt receiving controlled substance: No Vital Signs Vital Signs: 11/27/24 13:22 11/27/24 13:23 11/27/24 13:27 Temperature 98.5 F Temperature Source Oral Pulse Rate 60 60 Pulse Rate [Left Radial] 60 Respiratory Rate 13 13 Blood Pressure 141/64 H Blood Pressure [Right Arm] 141/64 H Blood Pressure Mean [Right Arm] 89 02 Sat by Pulse Oximetry 95 98 Oxygen Delivery Method Room Air Room Air 11/27/24 13:30 11/27/24 14:00 11/27/24 14:30 Temperature Temperature Source Pulse Rate 58 L 60 59 L Pulse Rate [Left Radial] Respiratory Rate 16 16 12 Blood Pressure 129/58 L 115/49 L 130/54 L Blood Pressure [Right Arm] Blood Pressure Mean [Right Arm] 02 Sat by Pulse Oximetry 95 96 97 Oxygen Delivery Method Room Air Room Air Room Air 11/27/24 14:45 Temperature Temperature Source Pulse Rate 58 L Pulse Rate [Left Radial] Respiratory Rate 11 L Blood Pressure 136/55 L Blood Pressure [Right Arm] Blood Pressure Mean [Right Arm] 02 Sat by Pulse Oximetry 97 Oxygen Delivery Method Room Air Lab Data Lab results reviewed: Yes I reviewed the patient's lab results. Labs: Lab Results 11/27/24 13:21: WBC 13.9 H, RBC 4.78, Hgb 13.6 L, Hct 41.5 L, MCV 86.8, MCH 28.5, MCHC 32.8, RDW 19.5 H, Plt Count 135 L, MPV 10.2, Neut % (Auto) 80.0, L ymph % (Auto) 9.3 L, [place] % (Auto) 9.8 H, Eos % (Auto) 0.0 L, Baso % (Auto) 0.2, Neut # (Auto) 11.1 H, Lymph # (Auto) 1.3, [place] # (Auto) 1.4 H, Eos # (Auto) 0.0, Baso # (Auto) 0.0, D-Dimer 0.59 H, Sodium 141, Potassium 3.9, Chloride 101, Carbon Dioxide 26, Anion Gap 17.9 H, BUN 27 H, Creatinine 1.10, Estimated Creat Clear 52, Estimated GFR 64, Est GFR ( Amer) 78, Glucose 158 H, Calcium 9.2, Total Bilirubin 0.7, AST 45, ALT 44, Alkaline Phosphatase 43, Troponin I 0.06 H, NT-Pro-B Natriuret Pep 1350 H, Total Protein 6.6, Albumin 4.4, Globulin 2.2, Albumin/Globulin Ratio 2.0 H, Lipase 75, HCV Ab CRISTOFER w/Rflx PCR Qn Negative, HIV Ag/Ab Combo Qual Negative 11/27/24 13:21 11/27/24 13:21 Response Orders (Tests/Meds): ED MEDICATIONS Generic Name Dose Route Start Last Admin Trade Name Freq PRN Reason Stop Dose Admin Enoxaparin Sodium 70 mg 11/27/24 15:00 Enoxaparin 100mg/Ml Syringe 1 mg/kg (70 mg) 12/27/24 14:59 SUBCUT Q12H CHANTAL Discontinued Medications Generic Name Dose Route Start Last Admin Trade Name Freq PRN Reason Stop Dose Admin Nitroglycerin 0.4 mg 11/27/24 13:22 11/27/24 13:34 Nitroglycerin 0.4mg Sl Tablet SL 11/27/24 13:23 0.4 mg ONCE ONE Administration ORDERS Category Date Time Status CXR --portable [XR chest portable] Stat Exams 11/27/24 13:38 Completed POCUS Point of Care (ER Only) Stat Exams 11/27/24 13:29 Ordered BNP [NT Pro Brain Natriuretic Pep.] Stat Lab 11/27/24 13:21 Completed CBC w/Auto Diff [Complete Blood Count Auto Diff] Stat Lab 11/27/24 13:21 Completed CMP [Comprehensive Metabolic Panel] Stat Lab 11/27/24 13:21 Completed D-Dimer Stat Lab 11/27/24 13:21 Completed HIV Combo Stat Lab 11/27/24 13:21 Completed Hepatitis C Ab Qual. W/ RFX Stat Lab 11/27/24 13:21 Completed Lipase Stat Lab 11/27/24 13:21 Completed Trop I [Troponin I] Stat Lab 11/27/24 13:21 Completed Troponin I Q3H Lab 11/27/24 16:45 Ordered Troponin I Q3H Lab 11/27/24 19:45 Ordered ECG Data Tracing #1: Attestation: I reviewed this ECG and interpreted as documented below: ECG Narrative: Ventricular rate of 68 there appears to be an electronic atrial pacemaker but normal QRS complexes no acute ischemic changes noted no ST segment elevations or depressions or T wave inversions that are pathologic there are some PVCs noted normal axis MDM Narrative Medical Decision Narrative: 79-year-old male with above history and physical. EKG shows no definitive ischemia. He is quite dyspneic. Limited cardiac ultrasound of his heart and lungs did show some mild depression in his EF but seems to be consistent with information that had in the past. No significant pulmonary edema on his bedside ultrasound. No definitive regional wall motion abnormalities noted as well. Will get serial troponins given the fact that he is an intermittent discomfort. Additional workup for dyspnea includes chest x-ray and D-dimer to rule out PTE. 1.0 will be the cutoff for utilizing years criteria to obtain a CT PE. Reassessment 2:57 PM chest x-ray performed which I personally interpreted which shows no evidence of any acute cardiopulmonary emergency specifically no dense consolidation etc. Patient does have a mildly elevated troponin. Patient does have extensive coronary disease but likely has some microvascular disease as well. Last time he was in the hospital he had no significant delta and had no culprit lesion that was intervened upon. However I discussed the case with Dr. Rehman who knows this patient very well and would like to keep the patient for heart catheterization in the morning. Patient was given a shot of Lovenox per Dr. Rehman's request. Patient is on aspirin and Plavix. Of note patient recently was started on azithromycin and prednisone for exposure to viral infections by his primary care doctor. There is no evidence of bacterial infection such as pneumonia etc. I have advised that he stop taking this right now. Patient was admitted to hospital medicine for further evaluation and management.
[2024-11-27 13:48] LABS: Basophils % 0.2 % (0.1-2.0); Hematocrit 41.5 % (42.0-52.0); Hemoglobin 13.6 g/dL (14.1-18.0); Lymphocytes # 1.3 K/mm3 (0.7-4.5); Lymphocytes % 9.3 % (10-50); Mean Corpuscular HGB Conc 32.8 g/dL (31.8-35.4); Mean Corpuscular Hemoglobin 28.5 pg (27.0-31.2); Mean Corpuscular Volume 86.8 fl (80-94); Mean Platelet Volume 10.2 fl (7.4-10.4); Monocytes # 1.4 K/mm3 (0.1-1.0); Monocytes % 9.8 % (1.7-9.3); Neutrophils # 11.1 K/mm3 (1.8-7.8); Platelet Count 135 K/mm3 (142-424); Red Blood Count 4.78 M/mm3 (4.60-6.20); Red Cell Distribution Width 19.5 % (11.5-17.5); White Blood Count 13.9 K/mm3 (4.8-10.8)
[2024-11-27 13:58] LABS: Alanine Aminotransferase 44 U/L (12-78); Albumin Level 4.4 g/dl (3.5-5.0); Alkaline Phosphatase 43 U/L (38-126); Anion Gap 17.9 mEq/L (5-15); Aspartate Amino Transferase 45 U/L (17-59); Bilirubin,Total 0.7 mg/dl (0.2-1.3); Blood Urea Nitrogen 27 mg/dl (9-20); Calcium 9.2 mg/dl (8.4-10.2); Carbon Dioxide 26 mmol/L (22.0-30.0); Chloride 101 mmol/L (98-107); Creatinine Clearance Estimated 52 mL/min (50-200); Estimated Glomerular Filt Rate 64 ml/min (>60); GFR (African American) 78 ML/MIN (>60); Globulin 2.2 g/dL (1.3-3.2); Glucose 158 mg/dl (74-100); Lipase 75 U/L (23-300); Potassium 3.9 mmoL/L (3.5-5.1); Sodium 141 mmol/L (136-145); Total Protein,Serum 6.6 g/dl (6.3-8.2)
[2024-11-27 14:03] LABS: D-Dimer 0.59 ug/mL (0.0-0.5)
[2024-11-27 14:09] LABS: NT Pro Brain Natriuretic Pep. 1350 pg/mL (0-450)
[2024-11-27 14:11] LABS: Troponin I 0.06 ng/ml (0.00-0.034)
[2024-11-27 14:25] LABS: HIV Combo NEGATIVE (Negative)
[2024-11-27 14:33] LABS: Hepatitis C Ab Qual. W/ RFX NEGATIVE (Negative)
--- NOTE | 2024-11-27 14:33 | PC.NURSE ---
I rounded on the pt. no new complaints at this time. no needs voiced. call tilley in reach.
--- NOTE | 2024-11-27 15:12 | PC.NURSE ---
report called to brennen on second floor
[2024-11-27] MEDS: ENOXAPARIN 80MG/0.8ML SYRINGE 70 MG SUBCUT (15:15)
--- NOTE | 2024-11-27 17:19 | P.HP_ITS ---
History of Present Illness *Admission Date: 11/27/24 *Reason for visit:: Chest pain *History of present illness: Presley Loomis is a 79-year-old male with a medical history significant for CAD/CABG with multiple stents, former smoker, hypertension who presents with persistent chest pains. He states chest pains have been going on for many months, however over the past few days this has become more persistent. No radiation. Also endorses baseline shortness of breath, but increased nonpr oductive cough over the past few days. Denies fever/chills, abdominal pain, urinary symptoms. Workup in the ED significant for WBC 13.9, AGAP 17.8 troponin 0.06, BNP 1350, EKG without acute ischemic changes chronic PVCs noted. ED contacted Dr. Rehman who recommended LHC in the morning and therapeutic Lovenox. Case discussed with ED provider and decision was made to admit patient for NSTEMI. [facility] Disclaimer: The information contained in this section may have been updated after the theo brown was seen, as this information can be updated by other users. 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 Carotid artery stenosis HLD (hyperlipidemia) HHD (hypertensive heart disease) PAD (peripheral artery disease) CAD (coronary artery disease) Surgical History S/P cardiac catheterization History of coronary artery bypass graft Family History Other Family history of myocardial infarction Social History Smoking Status: Former smoker tobacco type: smokeless tobacco alcohol intake: never substance use type: denies use current occupational status: retired Travel in the last 8 weeks: None household members: spouse housing: house caffeine: Yes Have you lived/traveled outside US in past 30 days?: No Contact w/someone who lives/traveled outside US past 30 days?: No Exposure to someone with infectious disease in past 14 days?: No Do you have a fever (greater than 100.4 F or 38 C)?: No Have you tested positive for COVID-19: No Exposed to someone with COVID-19 in past 14 days?: No Do you have a sore throat?: No Do you have a cough?: No Do you have any weakness?: No Do you have any diarrhea?: No Are you experiencing any unusual bleeding?: No Do you have any muscle aches/pain?: No Do you have any abdominal pain?: No Are you experiencing loss of taste or smell?: No Other Medical History Have you received the Flu Vaccine for this season: No Have you received the Pneumonia Vaccine: No Meds Home Medications and Allergies Home Medications ?Medication ?Instructions ?Recorded ?Confirmed ?Type tamsulosin 0.4 mg capsule 0.4 mg PO DAILY prostate 07/23/23 11/27/24 History aspirin 81 mg tablet,delayed 81 mg PO DAILY Heart Health 08/17/23 11/27/24 History release ferrous sulfate 324 mg (65 mg 324 mg PO DAILY #30 tabs 11/18/23 11/27/24 Rx iron) tablet,delayed release potassium chloride 20 mEq 20 meq PO DAILY 30 days #30 tabs 11/18/23 11/27/24 Rx tablet,extended release(part/cryst) (Klor-Con M) amlodipine 5 mg tablet 5 mg PO DAILY #90 tabs 04/08/24 11/27/24 Rx clopidogrel 75 mg tablet See Rx Instructions .Route 05/11/24 11/27/24 Rx .COMPLEX #90 tabs bisoprolol fumarate 10 mg tablet See Rx Instructions .Route 08/08/24 11/27/24 Rx .COMPLEX #180 tabs rosuvastatin 40 mg tablet See Rx Instructions .Route 08/15/24 11/27/24 Rx .COMPLEX #90 tabs furosemide 40 mg tablet See Rx Instructions .Route 09/27/24 11/27/24 Rx .COMPLEX #30 tabs nitroglycerin 0.4 mg sublingual 0.4 mg sublingual Q5MINP PRN chest 11/16/24 11/27/24 Rx tablet pain #20 tabs New Prescriptions to Start Prescriptions: Allergies Allergy/AdvReac Type Severity Reaction Status Date / Time ramipril (From Altace) Allergy Mild Unknown Verified 11/27/24 13:38 allergy reaction Exam Data for Last 24 hours Vital signs and Labs for Last 24 Hours: Temp Pulse Resp BP Pulse Ox O2 Del Method 98.2 F 60 18 138/66 96 Room Air 11/27/24 15:40 11/27/24 15:40 11/27/24 15:40 11/27/24 15:40 11/27/24 15:40 11/27/24 16:57 Laboratory Results - last 24 hr 11/27/24 13:21: WBC 13.9 H, RBC 4.78, Hgb 13.6 L, Hct 41.5 L, MCV 86.8, MCH 28.5, MCHC 32.8, RDW 19.5 H, Plt Count 135 L, MPV 10.2, Neut % (Auto) 80.0, Lymph % (Auto) 9.3 L, [place] % (Auto) 9.8 H, Eos % (Auto) 0.0 L, Baso % (Auto) 0.2, Neut # (Auto) 11.1 H, Lymph # (Auto) 1.3, [place] # (Auto) 1.4 H, Eos # (Auto) 0.0, Baso # (Auto) 0.0, D-Dimer 0.59 H, Sodium 141, Potassium 3.9, Chloride 101, Carbon Dioxide 26, Anion Gap 17.9 H, BUN 27 H, Creatinine 1.10, Estimated Creat Clear 52, Estimated GFR 64, Est GFR ( Amer) 78, Glucose 158 H, Calcium 9.2, Total Bilirubin 0.7, AST 45, ALT 44, Alkaline Phosphatase 43, Troponin I 0.06 H, NT-Pro-B Natriuret Pep 1350 H, Total Protein 6.6, Albumin 4.4, Globulin 2.2, Albumin/Globulin Ratio 2.0 H, Lipase 75, HCV Ab CRISTOFER w/Rflx PCR Qn Negative, HIV Ag/Ab Combo Qual Negative I & O for Last 24 hours: Intake & Output 11/24/24 11/25/24 11/26/24 11/27/24 23:59 23:59 23:59 23:59 Output Total 0 / 0 Balance 0 / 0 Weight 68.039 kg Constitutional Constitutional: no acute distress *Routine HEENT Exam Head: Present normocephalic Eye: Present EOMI and PERRL ENT: Present mucous membranes moist *Routine Neck Exam Neck: Present supple; Absent lymphadenopathy *Routine Respiratory Exam Respiratory: Present CTA bilaterally *Routine Cardiovascular Exam Cardiovascular: Present RRR *Routine Abdominal Exam Abdominal: Present soft and normoactive bowel sounds; Absent tenderness *Routine Rectal Exam Rectal:: deferred *Routine Genitalia Exam Genitalia:: deferred *Routine Extremities Exam Extremities: Absent cyanosis, clubbing or edema *Routine Skin Exam Skin: Present warm; Absent rash *Routine Neurological Exam Neurological: Present alert and oriented X3 Assessment and Plan *Assessment and plan (1) Non-ST elevation [place] (NSTEMI): Status: Acute Category: Medical Code(s): I21.4 - Non-ST elevation (NSTEMI) myocardial infarction Plan Presley Loomis is a 79-year-old male with a medical history significant for CAD/CABG with multiple stents, former smoker, hypertension who presents with persistent chest pains. He states chest pains have been going on for many months, however over the past few days this has become more persistent. No radiation. Also endorses baseline shortness of breath, but increased nonproductive cough over the past few days. Denies fever/chills, abdominal pain, urinary symptoms. Workup in the ED significant for WBC 13.9, AGAP 17.8 troponin 0.06, BNP 1350, EKG without acute ischemic changes chronic PVCs noted. ED contacted Dr. Rehman who recommended LHC in the morning and therapeutic Lovenox. Case discussed with ED provider and decision was made to admit patient for NSTEMI. #Chest pain #NSTEMI ? Acute on chronic chest pains, more persistent. Troponin 0.06. EKG without acute ischemic changes. VICKI score 4. ? History of CAD/CABG with multiple stents. Last C November 2023, medical management. Type II NSTEMI at that time. ? Dr. Rehman recommended LHC in the morning and therapeutic Lovenox. N.p.o. at midnight. ? Cardiology consulted, pending further recommendations. ? Aspirin 81 mg, atorvastatin 40 mg, metoprolol succinate 25 mg. ? Continue therapeutic Lovenox pending LHC. Hold morning dose. ? Follow-up lipid panel, A1c, TSH. ? Follow-up ECHO. ? Follow-up respiratory panel. #Hypertension ? BP currently stable. Hold home meds for now. Full code DVT prophylaxis: Therapeutic Lovenox as above
[2024-11-27 18:12] LABS: Troponin I 0.05 ng/ml (0.00-0.034)
[2024-11-27 18:29] LABS: Coronavirus 19, PCR Not Detected (NotDetected); Human Rhinovirus Not Detected (NotDetected); Influenza B, PCR Not Detected (NotDetected); Respiratory Syncytial Virus Not Detected (NotDetected)
[2024-11-27 19:42] LABS: Influenza A, PCR Detected (NotDetected)
[2024-11-27 20:04] LABS: Troponin I 0.05 ng/ml (0.00-0.034)
[2024-11-27] MEDS: BENZONATATE 100MG CAPSULE 100 MG PO (20:19)
[2024-11-27] MEDS: OSELTAMIVIR 75MG CAPSULE 75 MG PO (20:19)
[2024-11-27] MEDS: ATORVASTATIN 40MG TABLET 40 MG PO (20:19)
[2024-11-28] VITALS: BP 131/54; PULSE 59; PULSE 70; RESP 16; TEMP 36.5; O2SAT 96
[2024-11-28] MEDS: ENOXAPARIN 80MG/0.8ML SYRINGE 70 MG SUBCUT (03:43)
[2024-11-28] MEDS: BENZONATATE 100MG CAPSULE 100 MG PO ×2 (03:44→08:24)
[2024-11-28 04:00] VITALS: BP 139/62; PULSE 60; RESP 16; TEMP 36.4; O2SAT 95; BMI 57.5
--- NOTE | 2024-11-28 05:56 | PC.NURSE ---
Patient is pleasantly alert and oriented x4. Patient was observed to have eyes closed, respirations even and unlabored on room air, and no apparent distress for the majority of the night. He has not had any complaints of chest pain, generalized pain, or nausea/vomiting this shift. However, patient has complained of an intermittent, nonproductive cough. An order for Tessalon was obtained this shift and administered per MAR; patient reported some relief after receiving the doses. Scheduled medications + Tamiflu administered as appropriately per MAR. Patient has been ambulating independently in room/to the bathroom without difficulties; patient showered this shift as well. Auscultation of heart, lungs, and bowels were within normal findings. Vital signs relatively stable. Peanut butter and crackers were given as a bedtime snack prior to midnight; he has remained NPO since. At this time, the patient is resting in bed. No acute changes noted thus far. Call light within reach. Droplet precautions in place for Influenza A.
[2024-11-28 07:36] LABS: Albumin Level 3.7 g/dl (3.5-5.0)
[2024-11-28 07:37] LABS: Chloride 104 mmol/L (98-107); Potassium 3.6 mmoL/L (3.5-5.1); Sodium 138 mmol/L (136-145)
[2024-11-28 07:38] LABS: Basophils % 0.4 % (0.1-2.0); Eosinophils % 0.1 % (0.1-12.0); Hematocrit 36.2 % (42.0-52.0); Lymphocytes # 1.4 K/mm3 (0.7-4.5); Lymphocytes % 13.8 % (10-50); Mean Corpuscular HGB Conc 33.1 g/dL (31.8-35.4); Mean Corpuscular Hemoglobin 28.2 pg (27.0-31.2); Mean Corpuscular Volume 85.2 fl (80-94); Mean Platelet Volume 10.2 fl (7.4-10.4); Monocytes # 1.2 K/mm3 (0.1-1.0); Monocytes % 12.1 % (1.7-9.3); Neutrophils # 7.1 K/mm3 (1.8-7.8); Neutrophils % 72.5 % (37.0-80.0); Platelet Count 109 K/mm3 (142-424); Red Blood Count 4.25 M/mm3 (4.60-6.20); Red Cell Distribution Width 19.4 % (11.5-17.5); White Blood Count 9.8 K/mm3 (4.8-10.8)
[2024-11-28 07:39] LABS: Alanine Aminotransferase 42 U/L (12-78); Alkaline Phosphatase 54 U/L (38-126); Anion Gap 7.6 mEq/L (5-15); Aspartate Amino Transferase 39 U/L (17-59); Bilirubin,Total 0.7 mg/dl (0.2-1.3); Blood Urea Nitrogen 24 mg/dl (9-20); Carbon Dioxide 30 mmol/L (22.0-30.0); Creatinine Clearance Estimated 48 mL/min (50-200); Estimated Glomerular Filt Rate 64 ml/min (>60); GFR (African American) 78 ML/MIN (>60)
[2024-11-28 07:40] LABS: Albumin/Globulin Ratio 1.8 (1.1-1.8); Calcium 8.5 mg/dl (8.4-10.2); Chol/HDL Ratio 3.6 (1-3.5); Cholesterol 118 mg/dl (140-200); Globulin 2.1 g/dL (1.3-3.2); Glucose 101 mg/dl (74-100); HDL Cholesterol 33 mg/dl (40-60); Total Protein,Serum 5.8 g/dl (6.3-8.2); Triglycerides 88 mg/dl (30-150); VLDL Cholesterol 18 mg/dL (0-40)
[2024-11-28 07:46] LABS: Hemoglobin 12.1 g/dL (14.1-18.0)
[2024-11-28 08:00] VITALS: BP 145/66; PULSE 60; RESP 16; TEMP 36.6; O2SAT 96
[2024-11-28 08:02] LABS: Hemoglobin A1C 5.8 % (4.0-6.0)
[2024-11-28 08:07] LABS: Free T4 (Free Thyroxine) 0.88 ng/dl (0.78-2.19)
[2024-11-28 08:11] LABS: Thyroid Stimulating Hormone 0.93 uIU/mL (0.465-4.68)
[2024-11-28] MEDS: OSELTAMIVIR PHOSPHATE 6MG/ML ORAL SUSP 60ML 30 MG PO (08:24)
--- NOTE | 2024-11-28 09:32 | HMH.PHAINT1 ---
Pharmacy Intervention Comments: MEDICATION RECONCILIATION COMPLETED ON PATIENT USING EXTERNAL FILL HISTORY FROM PHARMACY. -TRACEE TUBBS, NATHAND
[2024-11-28 10:04] VITALS: BMI 25.7
[2024-11-28] MEDS: ACETAMINOPHEN 325MG TAB 650 MG PO (11:38)
[2024-11-28 12:00] VITALS: BP 138/66; PULSE 60; PULSE 80; RESP 16; TEMP 36.6; O2SAT 96
--- NOTE | 2024-11-28 12:16 | EXP.DC.SUM ---
General Admission date:: 11/27/24 HPI HPI HPI: Presley Loomis is a 79-year-old male with a medical history significant for CAD/CABG with multiple stents, former smoker, hypertension who presents with persistent chest pains. He states chest pains have been going on for many months, however over the past few days this has become more persistent. No radiation. Also endorses baseline shortness of breath, but increased nonproductive cough over the past few days. Denies fever/chills, abdominal pain, urinary symptoms. Workup in the ED significant for WBC 13.9, AGAP 17.8 troponin 0.06, BNP 1350, EKG without acute ischemic changes chronic PVCs noted. ED contacted Dr. Rehman who recommended LHC in the morning and therapeutic Lovenox. Case discussed with ED provider and decision was made to admit patient for NSTEMI. Hospital Course Hospital Course Hospital Course: Presley Loomis is a 79-year-old male with a medical history significant for CAD/CABG with multiple stents, former smoker, hypertension who presents with persistent chest pains. He states chest pains have been going on for many months, however over the past few days this has become more persistent. No radiation. Also endorses baseline shortness of breath, but increased nonproductive cough over the past few days. Denies fever/chills, abdominal pain, urinary symptoms. Workup in the ED significant for WBC 13.9, AGAP 17.8 troponin 0.06, BNP 1350, EKG without acute ischemic changes chronic PVCs noted. ED contacted Dr. Rehman who recommended LHC in the morning and therapeutic Lovenox. Case discussed with ED provider and decision was made to admit patient for NSTEMI. #Chest pain #NSTEMI type II #Influenza A ? Acute on chronic chest pains, more persistent. Troponin 0.06. EKG without acute ischemic changes. VICKI score 4. ? History of CAD/CABG with multiple stents. Last LHC November 2023, medical management. Type II NSTEMI at that time. ? Dr. Rehman with cardiology initially recommended LHC, however patient tested positive for influenza A likely causing type II NSTEMI. Will defer LHC at this time as patient has no chest pain and mild troponinemia is improving. ? LDL 53, TSH 0.93, A1c 5.8. ? ECHO reveals moderate RV dilation with moderate reduced function. ? Discharged with Tamiflu for 4 more days. Continue home aspirin, rosuvastatin, bisoprolol. ? Advised to follow-up with cardiology within 2 weeks. #Hypertension ? Continue home regimen. Exam Data for Last 24 hours Vital signs and Labs for Last 24 Hours: Temp Pulse Resp BP Pulse Ox O2 Del Method 97.8 F 60 16 145/66 H 96 Room Air 11/28/24 08:00 11/28/24 08:00 11/28/24 08:00 11/28/24 08:00 11/28/24 08:00 11/28/24 09:00 Laboratory Results - last 24 hr 11/27/24 13:21: WBC 13.9 H, RBC 4.78, Hgb 13.6 L, Hct 41.5 L, MCV 86.8, MCH 28.5, MCHC 32.8, RDW 19.5 H, Plt Count 135 L, MPV 10.2, Neut % (Auto) 80.0, Lymph % (Auto) 9.3 L, [place] % (Auto) 9.8 H, Eos % (Auto) 0.0 L, Baso % (Auto) 0.2, Neut # (Auto) 11.1 H, Lymph # (Auto) 1.3, [place] # (Auto) 1.4 H, Eos # (Auto) 0.0, Baso # (Auto) 0.0, D-Dimer 0.59 H, Sodium 141, Potassium 3.9, Chloride 101, Carbon Dioxide 26, Anion Gap 17.9 H, BUN 27 H, Creatinine 1.10, Estimated Creat Clear 52, Estimated GFR 64, Est GFR ( Amer) 78, Glucose 158 H, Calcium 9.2, Total Bilirubin 0.7, AST 45, ALT 44, Alkaline Phosphatase 43, Troponin I 0.06 H, NT-Pro-B Natriuret Pep 1350 H, Total Protein 6.6, Albumin 4.4, Globulin 2.2, Albumin/Globulin Ratio 2.0 H, Lipase 75, HCV Ab CRISTOFER w/Rflx PCR Qn Negative, HIV Ag/Ab Combo Qual Negative 11/27/24 16:55: Troponin I 0.05 H 11/27/24 18:00: SARS-CoV-2 (PCR) Not detected, Influenza Type A (PCR) Detected A, Influenza Type B (PCR) Not detected, RSV (PCR) Not detected, Rhinovirus (PCR) Not detected 11/27/24 19:24: Troponin I 0.05 H 11/28/24 06:23: WBC 9.8 D, RBC 4.25 L, Hgb 12.1 L D, Hct 36.2 L, MCV 85.2, MCH 28.2, MCHC 33.1, RDW 19.4 H, Plt Count 109 L, MPV 10.2, Neut % (Auto) 72.5, Lymph % (Auto) 13.8, [place] % (Auto) 12.1 H, Eos % (Auto) 0.1, Baso % (Auto) 0.4, Neut # (Auto) 7.1, Lymph # (Auto) 1.4, [place] # (Auto) 1.2 H, Eos # (Auto) 0.0, Baso # (Auto) 0.0, Sodium 138, Potassium 3.6, Chloride 104, Carbon Dioxide 30, Anion Gap 7.6, BUN 24 H, Creatinine 1.10, Estimated Creat Clear 48, Estimated GFR 64, Est GFR ( Amer) 78, Glucose 101 H D, Hemoglobin A1c 5.8, Calcium 8.5, Magnesium 2.0, Total Bilirubin 0.7, AST 39, ALT 42, Alkaline Phosphatase 54, Total Protein 5.8 L, Albumin 3.7 D, Globulin 2.1, Albumin/Globulin Ratio 1.8, Triglycerides 88, Cholesterol 118 L, LDL Cholesterol Direct 53.80 L, VLDL Cholesterol 18, HDL Cholesterol 33 L, Cholesterol/HDL Ratio 3.6 H, TSH 0.93, Free T4 0.88 I & O for Last 24 hours: Intake & Output 11/25/24 11/26/24 11/27/24 11/28/24 23:59 23:59 23:59 23:59 Intake Total 360 / 660 300 / 300 Output Total 0 / 0 0 / 0 Balance 360 / 660 300 / 300 Weight 68.039 kg 72.631 kg Constitutional Constitutional: no acute distress *Routine HEENT Exam Head: Present normocephalic Eye: Present EOMI and PERRL ENT: Present mucous membranes moist *Routine Neck Exam Neck: Present supple; Absent lymphadenopathy *Routine Respiratory Exam Respiratory: Present CTA bilaterally *Routine Cardiovascular Exam Cardiovascular: Present RRR *Routine Abdominal Exam Abdominal: Present soft and normoactive bowel sounds; Absent tenderness *Routine Extremities Exam Extremities: Absent cyanosis, clubbing or edema *Routine Skin Exam Skin: Present warm; Absent rash *Routine Neurological Exam Neurological: Present alert and oriented X3 Results Data Completed and Pending Labs on day of discharge: Labs from last 24 hours 11/28/24 11/27/24 11/27/24 06:23 19:24 18:00 WBC 9.8 D RBC 4.25 L Hgb 12.1 L D Hct 36.2 L MCV 85.2 MCH 28.2 MCHC 33.1 RDW 19.4 H Plt Count 109 L MPV 10.2 Neut % (Auto) 72.5 Lymph % (Auto) 13.8 [place] % (Auto) 12.1 H Eos % (Auto) 0.1 Baso % (Auto) 0.4 Neut # (Auto) 7.1 Lymph # (Auto) 1.4 [place] # (Auto) 1.2 H Eos # (Auto) 0.0 Baso # (Auto) 0.0 D-Dimer Sodium 138 Potassium 3.6 Chloride 104 Carbon Dioxide 30 Anion Gap 7.6 BUN 24 H Creatinine 1.10 Estimated Creat Clear 48 Estimated GFR 64 Est GFR ( Amer) 78 Glucose 101 H D Hemoglobin A1c 5.8 Calcium 8.5 Magnesium 2.0 Total Bilirubin 0.7 AST 39 ALT 42 Alkaline Phosphatase 54 Troponin I 0.05 H NT-Pro-B Natriuret Pep Total Protein 5.8 L Albumin 3.7 D Globulin 2.1 Albumin/Globulin Ratio 1.8 Triglycerides 88 Cholesterol 118 L LDL Cholesterol Direct 53.80 L VLDL Cholesterol 18 HDL Cholesterol 33 L Cholesterol/HDL Ratio 3.6 H Lipase TSH 0.93 Free T4 0.88 SARS-CoV-2 (PCR) Not detected HCV Ab CRISTOFER w/Rflx PCR Qn HIV Ag/Ab Combo Qual Influenza Type A (PCR) Detected A Influenza Type B (PCR) Not detected RSV (PCR) Not detected Rhinovirus (PCR) Not detected 11/27/24 11/27/24 16:55 13:21 WBC 13.9 H RBC 4.78 Hgb 13.6 L Hct 41.5 L MCV 86.8 MCH 28.5 MCHC 32.8 RDW 19.5 H Plt Count 135 L MPV 10.2 Neut % (Auto) 80.0 Lymph % (Auto) 9.3 L [place] % (Auto) 9.8 H Eos % (Auto) 0.0 L Baso % (Auto) 0.2 Neut # (Auto) 11.1 H Lymph # (Auto) 1.3 [place] # (Auto) 1.4 H Eos # (Auto) 0.0 Baso # (Auto) 0.0 D-Dimer 0.59 H Sodium 141 Potassium 3.9 Chloride 101 Carbon Dioxide 26 Anion Gap 17.9 H BUN 27 H Creatinine 1.10 Estimated Creat Clear 52 Estimated GFR 64 Est GFR ( Amer) 78 Glucose 158 H Hemoglobin A1c Calcium 9.2 Magnesium Total Bilirubin 0.7 AST 45 ALT 44 Alkaline Phosphatase 43 Troponin I 0.05 H 0.06 H NT-Pro-B Natriuret Pep 1350 H Total Protein 6.6 Albumin 4.4 Globulin 2.2 Albumin/Globulin Ratio 2.0 H Triglycerides Cholesterol LDL Cholesterol Direct VLDL Cholesterol HDL Cholesterol Cholesterol/HDL Ratio Lipase 75 TSH Free T4 SARS-CoV-2 (PCR) HCV Ab CRISTOFER w/Rflx PCR Qn Negative HIV Ag/Ab Combo Qual Negative Influenza Type A (PCR) Influenza Type B (PCR) RSV (PCR) Rhinovirus (PCR) DS: Diagnosis Discharge Diagnosis (1) Non-ST elevation MS (NSTEMI): Status: Acute Code(s): I21.4 - Non-ST elevation (NSTEMI) myocardial infarction Meds Home Medications and Allergies Home Medications ?Medication ?Instructions ?Recorded ?Confirmed ?Type tamsulosin 0.4 mg capsule 0.4 mg PO DAILY 07/23/23 11/27/24 History aspirin 81 mg tablet,delayed 81 mg PO DAILY 08/17/23 11/27/24 History release ferrous sulfate 324 mg (65 mg 324 mg PO DAILY #30 tabs 11/18/23 11/27/24 Rx iron) tablet,delayed release potassium chloride 20 mEq 20 meq PO DAILY 30 days #30 tabs 11/18/23 11/27/24 Rx tablet,extended release(part/cryst) (Klor-Con M) amlodipine 5 mg tablet 5 mg PO DAILY #90 tabs 04/08/24 11/27/24 Rx nitroglycerin 0.4 mg sublingual 0.4 mg sublingual Q5MINP PRN chest 11/16/24 11/27/24 Rx tablet pain #20 tabs bisoprolol fumarate 10 mg tablet 10 mg PO BID 11/28/24 11/28/24 History clopidogrel 75 mg tablet 75 mg PO DAILY 11/28/24 11/28/24 History furosemide 40 mg tablet 40 mg PO Q48H 11/28/24 11/28/24 History oseltamivir 6 mg/mL oral 30 mg (5 mL) PO BID 4 days #40 mL 11/28/24 Rx suspension (Tamiflu) rosuvastatin 40 mg tablet 40 mg PO DAILY 11/28/24 11/28/24 History New Prescriptions to Start Prescriptions: oseltamivir [Tamiflu] Ryan Sarabia Allergies Allergy/AdvReac Type Severity Reaction Status Date / Time ramipril (From Altace) Allergy Mild Unknown Verified 11/27/24 13:38 allergy reaction Discharge Plan Disposition Patient Disposition: Home, Self-Care Condition: Fair Follow up Plan Follow up with: Vahe Rehman MD [Staff Physician] - 12/12/24 11:15 am Prescriptions/Medication Reconciliation: New oseltamivir [Tamiflu] 6 mg/mL Suspension For Reconstitution 30 mg PO BID 4 Days Qty: 40 0RF Continued tamsulosin 0.4 mg capsule 0.4 mg PO DAILY amlodipine 5 mg tablet 5 mg PO DAILY Qty: 90 3RF nitroglycerin 0.4 mg tablet, sublingual 0.4 mg SUBLINGUAL Q5MINP PRN (Reason: chest pain) Qty: 20 2RF Rx Instructions: do not exceed 3 doses per episode aspirin 81 mg Tablet,Delayed Release (Dr/Ec) 81 mg PO DAILY potassium chloride [Klor-Con M20] 20 mEq Tablet,Er Particles/Crystals 20 meq PO DAILY 30 Days Qty: 30 0RF ferrous sulfate 324 mg (65 mg iron) tablet,delayed release (DR/EC) 324 mg PO DAILY Qty: 30 0RF furosemide 40 mg tablet 40 mg PO Q48H clopidogrel 75 mg tablet 75 mg PO DAILY bisoprolol fumarate 10 mg tablet 10 mg PO BID rosuvastatin 40 mg tablet 40 mg PO DAILY Problem Reconciliation Problems Reviewed?: Yes Patient Discharge Instructions Patient Instructions: Acute Coronary Syndrome, DI for Chest Pain Print Language: Trin[place] Providers Primary Care Provider: Provider,Referral Admit Provider: Ryan Sarabia Attending Provider: Ryan Sarabia
--- NOTE | 2024-11-28 14:17 | EXP.CARD.CON ---
History of Present Illness History of Present Illness Consult date: 11/28/24 Requesting physician: Ryan Sarabia Consult reason: chest pain Chief complaint: chest pain and SOA History of present illness: 79-year-old white male established patient of our office with history of CAD status post CABG and stenting, last was 2022. Patient is status post pacemaker and PAD with lower extremity stenting and mesenteric stenosis. Patient presented to the emergency room with complaint of several days worsening burning sensation in his chest associated with shortness of breath and cough. He was found to be positive for flu A. He had flat troponins at 0.05, 0.06, 0.05. D-dimer 0.59, proBNP 1350. EKG is a paced with PVCs, echo is pending. We are consulted for his chest pain. Patient states it does not feel like prior ischemic episodes. [facility] Disclaimer: The information contained in this section may have been updated after the patient was seen, as this information can be updated by other users. 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 Carotid artery stenosis HLD (hyperlipidemia) HHD (hypertensive heart disease) PAD (peripheral artery disease) CAD (coronary artery disease) Surgical History S/P cardiac catheterization History of coronary artery bypass graft Family History Other Family history of myocardial infarction Social History Smoking Status: Former smoker tobacco type: smokeless tobacco alcohol intake: never substance use type: denies use current occupational status: retired Travel in the last 8 weeks: None household members: spouse housing: house caffeine: Yes Review of Systems Constitutional Constitutional: Reports fatigue and Reports weakness Eyes Eyes: Denies loss of vision ENT Ears, Nose, Mouth, and Throat: Denies hearing loss and Denies vertigo *Cardiovascular Cardiovascular: Reports chest pain, Reports dyspnea and Denies syncope *Respiratory Respiratory: Reports cough and Reports dyspnea *Gastrointestinal Gastrointestinal: Denies change in stool character, Denies nausea and Denies vomiting *Genitourinary Genitourinary: Denies difficulty urinating *Musculoskeletal Musculoskeletal: Denies muscle weakness Integumentary/Breasts Skin/Breast: Denies changing lesions *Neurologic Neurologic: Denies loss of vision, Denies syncope, Denies vertigo and Reports weakness Endocrine Endocrine: Reports fatigue Exam Data for Last 24 hours Vital signs and Labs for Last 24 Hours: Temp Pulse Resp BP Pulse Ox O2 Del Method 98 F 80 16 138/66 96 Room Air 11/28/24 12:00 11/28/24 12:00 11/28/24 12:00 11/28/24 12:00 11/28/24 12:00 11/28/24 12:53 Laboratory Results - last 24 hr 11/27/24 13:21: HCV Ab CRISTOFER w/Rflx PCR Qn Negative, HIV Ag/Ab Combo Qual Negative 11/27/24 16:55: Troponin I 0.05 H 11/27/24 18:00: SARS-CoV-2 (PCR) Not detected, Influenza Type A (PCR) Detected A, Influenza Type B (PCR) Not detected, RSV (PCR) Not detected, Rhinovirus (PCR) Not detected 11/27/24 19:24: Troponin I 0.05 H 11/28/24 06:23: WBC 9.8 D, RBC 4.25 L, Hgb 12.1 L D, Hct 36.2 L, MCV 85.2, MCH 28.2, MCHC 33.1, RDW 19.4 H, Plt Count 109 L, MPV 10.2, Neut % (Auto) 72.5, Lymph % (Auto) 13.8, [place] % (Auto) 12.1 H, Eos % (Auto) 0.1, Baso % (Auto) 0.4, Neut # (Auto) 7.1, Lymph # (Auto) 1.4, [place] # (Auto) 1.2 H, Eos # (Auto) 0.0, Baso # (Auto) 0.0, Sodium 138, Potassium 3.6, Chloride 104, Carbon Dioxide 30, Anion Gap 7.6, BUN 24 H, Creatinine 1.10, Estimated Creat Clear 48, Estimated GFR 64, Est GFR ( Amer) 78, Glucose 101 H D, Hemoglobin A1c 5.8, Calcium 8.5, Magnesium 2.0, Total Bilirubin 0.7, AST 39, ALT 42, Alkaline Phosphatase 54, Total Protein 5.8 L, Albumin 3.7 D, Globulin 2.1, Albumin/Globulin Ratio 1.8, Triglycerides 88, Cholesterol 118 L, LDL Cholesterol Direct 53.80 L, VLDL Cholesterol 18, HDL Cholesterol 33 L, Cholesterol/HDL Ratio 3.6 H, TSH 0.93, Free T4 0.88 I & O for Last 24 hours: Intake & Output 11/25/24 11/26/24 11/27/24 11/28/24 23:59 23:59 23:59 23:59 Intake Total 360 / 660 660 / 660 Output Total 0 / 0 0 / 0 Balance 360 / 660 660 / 660 Weight 150 lb 160 lb 2 oz Constitutional Constitutional: no acute distress and cooperative *Routine HEENT Exam Eye: Present PERRL *Routine Respiratory Exam Respiratory: Present CTA bilaterally; Absent accessory muscle use, wheezes or crackles *Routine Cardiovascular Exam Cardiovascular: Present RRR, Normal S1 and Normal S2; Absent murmur, gallop or rubs *Routine Abdominal Exam Abdominal: Present soft; Absent tenderness *Routine Extremities Exam Extremities: Present pulses intact; Absent cyanosis or edema *Routine Skin Exam Skin: Present intact; Absent erythema or wounds *Routine Neurological Exam Neurological: Present alert and oriented X3 Routine Psychiatric Exam Psychiatric: Present cooperative Meds Home Medications and Allergies Home Medications ?Medication ?Instructions ?Recorded ?Confirmed ?Type tamsulosin 0.4 mg capsule 0.4 mg PO DAILY 07/23/23 11/27/24 History aspirin 81 mg tablet,delayed 81 mg PO DAILY 08/17/23 11/27/24 History release ferrous sulfate 324 mg (65 mg 324 mg PO DAILY #30 tabs 11/18/23 11/27/24 Rx iron) tablet,delayed release potassium chloride 20 mEq 20 meq PO DAILY 30 days #30 tabs 11/18/23 11/27/24 Rx tablet,extended release(part/cryst) (Klor-Con M) amlodipine 5 mg tablet 5 mg PO DAILY #90 tabs 04/08/24 11/27/24 Rx nitroglycerin 0.4 mg sublingual 0.4 mg sublingual Q5MINP PRN chest 11/16/24 11/27/24 Rx tablet pain #20 tabs bisoprolol fumarate 10 mg tablet 10 mg PO BID 11/28/24 11/28/24 History clopidogrel 75 mg tablet 75 mg PO DAILY 11/28/24 11/28/24 History furosemide 40 mg tablet 40 mg PO Q48H 11/28/24 11/28/24 History oseltamivir 6 mg/mL oral 30 mg (5 mL) PO BID 4 days #40 mL 11/28/24 Rx suspension (Tamiflu) rosuvastatin 40 mg tablet 40 mg PO DAILY 11/28/24 11/28/24 History New Prescriptions to Start Prescriptions: oseltamivir [Tamiflu] Ryan Sarabia Allergies Allergy/AdvReac Type Severity Reaction Status Date / Time ramipril (From Altace) Allergy Mild Unknown Verified 11/27/24 13:38 allergy reaction Assessment and Plan *Assessment and plan (1) Type 2 myocardial infarction: Status: Acute Category: Medical Code(s): I21.A1 - Myocardial infarction type 2 (2) CAD (coronary artery disease): Status: Chronic Qualifiers: Associated angina: with other forms of angina Coronary Disease-Associated Artery/Lesion type: [place] artery [place] vs. transplanted heart: [place] heart Qualified Code(s): I25.118 - Atherosclerotic heart disease of [place] coronary artery with other forms of angina pectoris Category: Medical Code(s): I25.10 - Atherosclerotic heart disease of [place] coronary artery without angina pectoris (3) PAD (peripheral artery disease): Status: Chronic Category: Medical Code(s): I73.9 - Peripheral vascular disease, unspecified (4) Mesenteric artery stenosis: Status: Chronic Category: Medical Code(s): K55.1 - Chronic vascular disorders of intestine (5) Influenza A: Status: Acute Category: Medical Code(s): J10.1 - Influenza due to other identified influenza virus with other respiratory manifestations Plan Noncardiac chest pain - burning sensation associated with [place] and cough in setting of Flu A - Trop flat - no ischemic changes on EKG - cont home dose CAD meds - check 2D ECHO CAD s/p CABG and RYANN - last 2022 - pt symptoms not anginal in description and he states does not feel like prior ischemi episodes - cont home dose DAPT, statin, BB SSS s/p Pacemaker - last office download 08/2024 - A-paced 90% no events PAD - LLE dz and mesenteric dz - asymptomatic - cont DAPT, statin Influenza A - per primary service Addendum: - ECHO shows - Conclusion Low normal LV systolic function (LVEF 50%). Moderate RV dilation with moderate reduction in RV function. Biatrial dilation. Moderate TR. Mild MR, mild AR. RVSP 30-35 mmHg. CV summary 11/28: Patient's symptoms and presentation appear most likely due to his influenza A. No changes in cardiac therapy recommended at this time. He should remain on home meds and follow-up in our office in 2 weeks.
--- NOTE | 2024-11-28 17:58 | CA_ITS ---
APPROVED REPORT EXAM: Comprehensive 2D, Doppler, and color-flow Echocardiogram Seed Core Operator: Madeline Aquino CRT Ht: 5 ft 6 in Wt: 159lbs BSA: 1.81 BP: 138/66 mmHg Indications: Chest Pain, CAD, Hyperlipidemia, Hypertension/HDD, old [place], CABG, + FLU A, Ex smoker 2D Dimensions LA Volume 33.20 mL LA Volume Index 17.80 mL/m2 (M/F) 16-34 M-Mode Dimensions RVDd 3.00 cm (0.9-2.6) LA Diam 3.36 cm (1.9-4.0) LVDd 5.37 cm (3.5-5.7) LVDs 3.97 cm (3.5-5.7) IVSd 1.18 cm (0.6-1.1) PWd 1.11 cm (0.6-1.1) EF (Teich) 50.70% FS 26.10% EDV (Teich) 139.50 mL ESV (Teich) 68.80 mL LV Diastology E Decel Time 260 (160-240 msec) E/A Ratio 0.75 MED A' 8.80 cm/s LAT A' 8.00 cm/s Aortic Valve AO Peak GR. 10.20 mmHg Mitral Valve MV A Velocity 88.0 (40-130 cm/s) E/A Ratio 0.75 Pulmonary Valve PV Peak Velocity 188.0 (50-150 cm/s) Tricuspid Valve TR P. Velocity 314.00 cm/s RAP Estimate 10.00 mmHg RVSP 49.50 mmHg Left Ventricle The left ventricle is normal size. The left ventricular systolic function is low normal. There is increased LV wall thickness. There is normal LV segmental wall motion. Transmitral Doppler flow pattern suggests impaired LV relaxation. LVEF is 50%. Right Ventricle Right ventricle is moderately dilated. Right ventricle is moderately hypokinetic. Atria The left atrium is mildly dilated. Right atrium is mildly dilated. There is no Doppler evidence of interatrial shunt. Aortic Valve The aortic valve is mildly thickened. Trace aortic regurgitation. There is no aortic valvular stenosis. Mitral Valve The mitral valve leaflets are mildly thickened. No evidence of mitral valve stenosis. Mild mitral regurgitation. Tricuspid Valve Tricuspid valve is grossly normal in structure and function. Moderate tricuspid regurgitation. RVSP is 30-35 mmHg. Pulmonic Valve The pulmonary valve is normal in structure. Mild pulmonic regurgitation. Great Vessels The aortic root is normal in size. IVC is normal in size and collapses >50% with inspiration. Pericardium There is no pericardial effusion. Other Information Study Quality: Fair Conclusion Low normal LV systolic function (LVEF 50%). Moderate RV dilation with moderate reduction in RV function. Biatrial dilation. Moderate TR. Mild MR, mild [place]. RVSP 30-35 mmHg. Electronically signed by : Susy Bush MD 11/28/2024 12:47:47
--- NOTE | 2024-11-29 10:16 | SW/DCPLANNER ---
Spoke with patients on the phone. Patients stated that he is fatigued but doing well. Patients stated that they are aware of his upcoming appointment. Patients stated that clinic pharmacy was able to bring his medicine to his room. Patients stated that they have no concerns or questions at this time. Camron Glaser
== END 2024-11-28 13:40 | disposition home or self-care (01) ==
LOC: ER 14:57 → 2ND 15:18
PROVIDERS: Admitting Provider Student in an Organized Health Care Education/Training Program; Emergency Provider Student in an Organized Health Care Education/Training Program; Visit Provider Student in an Organized Health Care Education/Training Program
DX: J10.1 Influenza due to other identified influenza virus with other respiratory manifestations (principal); I21.A1 Myocardial infarction type 2; I25.118 Atherosclerotic heart disease of native coronary artery with other forms of angina pectoris; I10 Essential (primary) hypertension; I73.9 Peripheral vascular disease, unspecified; K55.1 Chronic vascular disorders of intestine; Z95.5 Presence of coronary angioplasty implant and graft; Z95.828 Presence of other vascular implants and grafts; Z79.899 Other long term (current) drug therapy
CPT/HCPCS: 36415; 71045; 80053; 80061; 83036; 83690; 83735; 83880; 84439; 84443; 84484; 85025; 85378; 86803; 87389; 87631; 93005; 93306; 99291; G0378; J1650

== ENCOUNTER 2025-03-02 10:55 | Outpatient (CLI) | payer MEDICARE, SELFPAY ==
[2025-03-02 12:06] LABS: Basophils # 0.1 K/mm3 (0-0.2); Basophils % 0.9 % (0.1-2.0); Eosinophils # 0.1 Kmm3 (0.0-0.4); Eosinophils % 1.4 % (0.1-12.0); Hematocrit 40.5 % (42.0-52.0); Hemoglobin 13.2 g/dL (14.1-18.0); Immature Granulocytes # 0.03 10^3uL; Immature Granulocytes % 0.5 %; Lymphocytes # 1.5 K/mm3 (0.7-4.5); Lymphocytes % 25.2 % (10-50); Mean Corpuscular HGB Conc 32.6 g/dL (31.8-35.4); Mean Corpuscular Hemoglobin 28.8 pg (27.0-31.2); Mean Corpuscular Volume 88.4 fl (80-94); Monocytes # 0.7 K/mm3 (0.1-1.0); Monocytes % 11.8 % (1.7-9.3); Neutrophils # 3.5 K/mm3 (1.8-7.8); Neutrophils % 60.2 % (37.0-80.0); Nucleated Red Blood Cells # 0 10^3/uL; Nucleated Red Blood Cells % 0 %; Platelet Count 116 K/mm3 (142-424); Red Blood Count 4.58 M/mm3 (4.60-6.20); Red Cell Distribution Width 19.7 % (11.5-17.5); Red Cell Distribution Width-SD 62.4 fL; White Blood Count 5.8 K/mm3 (4.8-10.8)
[2025-03-02 12:33] LABS: Alanine Aminotransferase 50 U/L (12-78); Albumin Level 4.4 g/dl (3.5-5.0); Alkaline Phosphatase 53 U/L (38-126); Aspartate Amino Transferase 47 U/L (17-59); Bilirubin,Direct 0.2 mg/dl (0.0-0.4); Bilirubin,Indirect 0.8 mg/dL (0.0-0.9); Bilirubin,Unconjugated 0.8 mg/dL (0.0-1.1); Blood Urea Nitrogen 21 mg/dl (9-20); Calcium 8.8 mg/dl (8.4-10.2); Carbon Dioxide 33 mmol/L (22.0-30.0); Chloride 102 mmol/L (98-107); Chol/HDL Ratio 3.1 (1-3.5); Cholesterol 102 mg/dl (140-200); Estimated Glomerular Filt Rate 64 ml/min (>60); GFR (African American) 78 ML/MIN (>60); Glucose 108 mg/dl (74-100); HDL Cholesterol 33 mg/dl (40-60); Magnesium 1.8 mg/dl (1.6-2.3); Sodium 140 mmol/L (136-145); Total Protein,Serum 6.3 g/dl (6.3-8.2); Triglycerides 148 mg/dl (30-150); VLDL Cholesterol 30 mg/dL (0-40)
[2025-03-02 12:44] LABS: Direct LDL Cholesterol 50.88 mg/dL (100-129)
[2025-03-02 12:49] LABS: Free T4 (Free Thyroxine) 0.99 ng/dl (0.78-2.19)
[2025-03-02 13:03] LABS: Thyroid Stimulating Hormone 1.63 uIU/mL (0.465-4.68)
== END 2025-03-02 23:59 | disposition home or self-care (01) ==
LOC: LAB 10:55
PROVIDERS: PCP Family Medicine; Visit Provider Nurse Practitioner Family
DX: I25.118 Atherosclerotic heart disease of native coronary artery with other forms of angina pectoris (principal); I11.9 Hypertensive heart disease without heart failure; I65.23 Occlusion and stenosis of bilateral carotid arteries
CPT/HCPCS: 36415; 80048; 80061; 80076; 83735; 84439; 84443; 85025

== ENCOUNTER 2025-09-14 09:29 | Outpatient (CLI) | payer MEDICARE, SELFPAY ==
--- OUTSIDE RECORDS SUMMARY | 2025-09-14 09:39 | XMS_ITS | Clinical Summary ---
Author Organization [facility] Address [address] [place] [address] Care Team Providers Care It Network Architect Name Role Phone List, None To Primary Care Provider Unavailabl e Allergies Active Allergy Reactions Criticality Noted Date Comments Ramipril Other (See Comments) 03/27/2010 Not reviewed Medications aspirin 81 mg tablet Take 1 Tab by mouth Daily. Active carvedilol (COREG) 6.25 mg tablet Take 1 Tab by mouth Twice a day. Active rosuvastatin (CRESTOR) 10 mg tablet Take 1 Tab by mouth Daily. Active losartan-hydroch lorothiazide (HYZAAR) 100-25 mg tablet Take 1 Tab by mouth Daily. Active nitroglycerin 6.5 mg CR capsule Take 1 Cap by mouth Three times a day. Active Potassium Chloride (KLOR-CON, KDUR) 10 mEq tab Take 1 Tab by mouth Daily. Active clopidogrel (PLAVIX) 75 mg tablet Take 1 Tab by mouth Daily. 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 03/27/2010 Carotid Artery Stenosis w/o Infarct 03/27/2010 GERD (gastroesophageal reflux disease) 0 HLD (hyperlipidemia) 03/27/2010 Palpitations 03/27/2010 Syncope and collapse 03/27/2010 Resolved Problems Problem Noted Date Diagnosed Date Resolved Date CAD (coronary artery disease ), [place] coronary artery 03/27/2010 03/27/2010 Family History Medical History Relation Name Comments Heart Disease Brother 2 CABG Heart Disease Father [place] Relation Name Status Comments Brother 1 Alive CABG Brother 2 Father (Age 77) [place] Mother pneumonia Social History Tobacco Use Types Packs/Day Years Used Date Smoking Tobacco: Never Assessed Alcohol Use Standard Drinks/Week Comments No 0 (1 standard drink = 0.6 oz pur e alcohol) Sex and Gender Information Value Date Recorded Sex Assigned at Not on file Legal Sex Male 11:09 PM EST Gender Identity Not on file Sexual Orientation Not on file Last Filed Vital Signs Vital Sign Reading Time Taken Comments Blood Pressure 112/57 03/29/2010 10:10 AM EDT Pulse 63 03/29/2010 10:10 AM EDT Temperature - - Respiratory Rate 18 03/29/2010 10:10 AM EDT Oxygen Saturation 98% 03/29/2010 10:10 AM EDT Inhaled Oxygen Concentration - - Weight 72.6 kg (160 lb) 03/29/2010 10:10 AM EDT Height 170.2 cm (5' 7 ) 03/29/2010 10:10 AM EDT Body Mass Index 25.06 03/29/2010 10:10 AM EDT Plan of Treatment Health Maintenance Due Date Last Done Comments ANNUAL WELLNESS EXAM 01/25/1948 DTAP/TDAP/TD VACCINE (1 - Tdap) 01/25/1963 PNEUMOCOCCAL VACCINE 65+ YEA RS (1 of 1 - PCV) 01/25/1994 Shingles Vaccine (Shingrix) (1 of 2) 01/25/1994 INFLUENZA VACCINE (#1) 2025 HEP A VACCINE Aged Out No longer elig ible based on patient's age to complete this topic HIB VACCINE Aged Out No longer eligi ble based on patient's age to complete this topic ROTOVIRUS VACCINE Aged Out No longer eligible based on patient's age to complete this topic Insurance [facility] Care Teams It Network Architect Relationship Specialty Start Date End Date List, None To PCP - General 03/29/10
[2025-09-14 09:58] LABS: Hematocrit 41.7 % (42.0-52.0); Hemoglobin 13.9 g/dL (14.1-18.0); Immature Granulocytes % 0.6 %; Mean Corpuscular HGB Conc 33.3 g/dL (31.8-35.4); Mean Corpuscular Hemoglobin 28.9 pg (27.0-31.2); Mean Corpuscular Volume 86.7 fl (80-94); Nucleated Red Blood Cells % 0.5 %; Platelet Count 124 K/mm3 (142-424); Red Blood Count 4.81 M/mm3 (4.60-6.20); Red Cell Distribution Width-SD 58.4 fL; White Blood Count 6.4 K/mm3 (4.8-10.8)
[2025-09-14 10:23] LABS: Albumin Level 4.3 g/dl (3.5-5.0); Chloride 102 mmol/L (98-107)
[2025-09-14 10:24] LABS: Potassium 4.1 mmoL/L (3.5-5.1); Sodium 143 mmol/L (136-145)
[2025-09-14 10:26] LABS: Anion Gap 17.1 mEq/L (5-15); Bilirubin,Unconjugated 0.9 mg/dL (0.0-1.1); Blood Urea Nitrogen 15 mg/dl (9-20); Carbon Dioxide 28 mmol/L (22.0-30.0); Creatinine,Serum 1.10 mg/dl (0.66-1.25); Estimated Glomerular Filt Rate 64 ml/min (>60); GFR (African American) 78 ML/MIN (>60); Total Protein,Serum 6.7 g/dl (6.3-8.2)
[2025-09-14 10:27] LABS: Alanine Aminotransferase 25 U/L (12-78); Alkaline Phosphatase 51 U/L (38-126); Aspartate Amino Transferase 34 U/L (17-59); Bilirubin,Direct 0.0 mg/dl (0.0-0.4); Bilirubin,Indirect 0.9 mg/dL (0.0-0.9); Bilirubin,Total 0.9 mg/dl (0.2-1.3); Calcium 8.4 mg/dl (8.4-10.2); Cholesterol 119 mg/dl (140-200); Glucose 155 mg/dl (74-100); HDL Cholesterol 39 mg/dl (40-60); Magnesium 2.1 mg/dl (1.6-2.3); Triglycerides 132 mg/dl (30-150)
[2025-09-14 10:44] LABS: Free T4 (Free Thyroxine) 0.99 ng/dl (0.78-2.19)
[2025-09-14 10:57] LABS: Thyroid Stimulating Hormone 1.66 uIU/mL (0.465-4.68)
== END 2025-09-14 23:59 | disposition home or self-care (01) ==
LOC: LAB 09:29
PROVIDERS: PCP Family Medicine; Visit Provider Nurse Practitioner Family
DX: I25.118 Atherosclerotic heart disease of native coronary artery with other forms of angina pectoris (principal); E78.2 Mixed hyperlipidemia
CPT/HCPCS: 36415; 80048; 80061; 80076; 83735; 84439; 84443; 85025

== ENCOUNTER 2025-09-17 10:27 | Inpatient (IN) | payer MEDICARE, SELFPAY ==
[2025-09-17] VITALS (11 sets, daily range): BP systolic 126–183; BP diastolic 52–89; PULSE 58–75; RESP 13–18; TEMP 36.5–36.9; O2SAT 94–99; BMI 25.3; BMI 25.4
--- NOTE | 2025-09-17 10:34 | ECG_ITS ---
APPROVED REPORT Exam: Resting ECG HR:67 bpm ECG Measurements Heart Rate 67 AXES NC 222 P 212 QRSd 109 QRS 64 QT 436 T 11 QTc 452 Conclusion ELECTRONIC ATRIAL PACEMAKER POSSIBLE INFERIOR MYOCARDIAL INFARCTION , OF INDETERMINATE AGE [30 ms Q WAVE IN II/aVF] ABNORMAL ECG No STEMI Electronically signed by : MENDOZA MILLAN, 09/21/2025 03:02:52
--- NOTE | 2025-09-17 10:37 | ED_ITS ---
Discharge Plan Disposition Chief Complaint: Chest Pain Prescriptions Prescriptions: No Action ascorbate calcium (vitamin C) 500 mg tablet 500 mg PO DAILY furosemide 40 mg tablet 40 mg PO DAILY Qty: 90 3RF tamsulosin 0.4 mg capsule 0.4 mg PO DAILY nitroglycerin 0.4 mg tablet, sublingual 0.4 mg SUBLINGUAL Q5MINP PRN (Reason: chest pain) Qty: 20 2RF Rx Instructions: do not exceed 3 doses per episode amlodipine 5 mg tablet 5 mg PO DAILY Qty: 90 1RF clopidogrel 75 mg tablet 75 mg PO DAILY Qty: 30 5RF rosuvastatin 40 mg tablet See Rx Instructions .ROUTE .COMPLEX Qty: 90 1RF Dose Instruction: TAKE 1 TABLET BY MOUTH DAILY Rx Instructions: TAKE 1 TABLET BY MOUTH DAILY bisoprolol fumarate 10 mg tablet 10 mg PO BID 90 Days Qty: 180 3RF aspirin 81 mg Tablet,Delayed Release (Dr/Ec) 81 mg PO DAILY potassium chloride [Klor-Con M20] 20 mEq Tablet,Er Particles/Crystals 20 meq PO DAILY 30 Days Qty: 30 0RF Referrals Follow up/Referrals: Mario Patel MD [Primary Care Provider, Medical] - See instructions Print Language Print Language: Georgian Discharge ED Provider: Noel Mckinnon General Adult HPI General Chief complaint: Chest Pain Stated complaint: buring in chest Time Seen by Provider: 09/17/25 10:34 History of Present Illness HPI narrative: Patient is an 80 male with history of open heart surgery and multiple prior stents performed here by Dr. Rehman who presents with right index chest for past 2 nights. He does state this is a very similar sensation to when he had his prior open heart surgery. He also notes cold sweats when he sat this at night. He has not been associated with activity and he started having it during the day today leading him to presentation. Currently denies need for pain medication. Does not have his daily medications currently he is on blood thinners he is unsure what kind he has not taken his aspirin yet today. 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 #20 tabs amlodipine 5 mg tablet 5 mg PO DAILY #90 tabs 03/31 clopidogrel 75 mg tablet 75 mg PO DAILY #30 tabs 05/12 06/05 rosuvastatin 40 mg tablet See Rx Instructions .Route 1 .COMPLEX #90 tabs bisoprolol fumarate 10 mg tablet 10 mg PO BID 90 days #180 tabs 08/01/25 furosemide 40 mg tablet 40 mg PO DAILY #90 tabs 08/13 Allergies Allergy/AdvReac Type Severity Reaction Status Date / Time ramipril (From Altace) Allergy Mild Unknown Verified 09/14/25 10:18 allergy reaction [facility] Disclaimer: The information contained in this section may have been updated after the patient was seen, as this information can be updated by other users. 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 Carotid artery stenosis HLD (hyperlipidemia) HHD (hypertensive heart disease) PAD (peripheral artery disease) CAD (coronary artery disease) Surgical History S/P cardiac catheterization History of coronary artery bypass graft Family History Other Family history of myocardial infarction Social History Smoking Status: Never smoker alcohol intake: never substance use type: denies use current occupational status: retired Travel in the last 8 weeks?: Inside the [place] household members: spouse housing: house caffeine: Yes Have you lived/traveled outside [place] in past 30 days?: No Contact w/someone who lives/traveled outside [place] past 30 days?: No Exposure to someone with infectious disease in past 14 days?: No Do you have a fever (greater than 100.4 F or 38 C)?: No Have you tested positive for COVID-19?: No Exposed to someone with COVID-19 in past 14 days?: No Do you have a sore throat?: No Do you have a cough?: No Do you have any weakness?: No Do you have any diarrhea?: No Are you experiencing any unusual bleeding?: No Do you have any muscle aches/pain?: No Do you have any abdominal pain?: No Are you experiencing loss of taste or smell?: No Other Medical History Have you received the Flu Vaccine for this season: No Have you received the Pneumonia Vaccine: No ROS Obtained: Yes Systems reviewed as appropriate & no additional complaints except as documented Physical Exam General General appearance: alert and in no apparent distress Head Head exam: atraumatic Eye Eye exam: Present normal appearance ENT ENT exam: Present normal exam Neck Neck exam: Present normal inspection Chest Chest inspection: Present normal inspection Respiratory Respiratory exam: Present other (Saturating appropriately. No distress) Cardiovascular Cardiovascular exam: Present regular rate and normal rhythm Abdominal Exam Abdominal exam: Present soft Extremities Exam Extremities exam: Present normal inspection and other (No lower extremity edema noted) Neurological Exam Neurological exam: Present alert and oriented X3 Psychiatric Psychiatric exam: Present normal affect Skin Skin exam: Present warm Medical Decision Making Medical Records Screening: Per USPSTF and CDC recommendations, given the prevalence of disease in our region, it is our hospital?s policy to screen for HIV and viral Hepatitis for all patients aged 18 and over and those with ongoing risk factors. Elio Inquiry Pt receiving controlled substance: No Vital Signs: 09/17/25 10:31 09/17/25 10:40 09/17/25 11:00 Temperature 98.5 F Temperature Source Oral Pulse Rate 64 58 L Pulse Rate [Right Radial] 74 Respiratory Rate 15 15 Blood Pressure 147/64 H 143/65 H Blood Pressure [Right Arm] 147/64 H Blood Pressure Mean [Right Arm] 91 Blood Pressure Source [Right Arm] Automatic Cuff Blood Pressure Position [Right Arm] Supine 02 Sat by Pulse Oximetry 96 97 95 Oxygen Delivery Method Room Air 09/17/25 11:30 Temperature Temperature Source Pulse Rate 60 Pulse Rate [Right Radial] Respiratory Rate 13 Blood Pressure 143/75 H Blood Pressure [Right Arm] Blood Pressure Mean [Right Arm] Blood Pressure Source [Right Arm] Blood Pressure Position [Right Arm] 02 Sat by Pulse Oximetry 97 Oxygen Delivery Method Room Air Lab Data Lab Results 09/17/25 10:10: VBG pH 7.38, VBG pCO2 51.0, VBG pO2 41.3 H, VBG HCO3 29.6, VBG Total CO2 31.2 H, VBG O2 Saturation 74.6 H, VBG Base Excess 4.5 H, VBG Lactic Acid 2.2 H 09/17/25 10:38: WBC 10.4, RBC 4.63, Hgb 13.5 L, Hct 39.9 L, MCV 86.2, MCH 29.2, MCHC 33.8, RDW 19.3 H, Plt Count 129 L, MPV TNP, Neut % (Auto) 60.4, Lymph % (Auto) 26.8, [place] % (Auto) 10.6 H, Eos % (Auto) 0.2, Baso % (Auto) 0.8, Neut # (Auto) 6.3, Lymph # (Auto) 2.8, [place] # (Auto) 1.1 H, Eos # (Auto) 0.0, Baso # (Auto) 0.1, Sodium 136, Potassium 3.3 L, Chloride 100, Carbon Dioxide 30, Anion Gap 9.3, BUN 22 H, Creatinine 1.10, Estimated Creat Clear 55, Estimated GFR 64, Est GFR ( Amer) 78, Glucose 160 H, Calcium 8.8, Magnesium 1.8, Total Bilirubin 0.9, AST 34, ALT 32, Alkaline Phosphatase 59, Troponin I 0.05 H, Total Protein 7.1, Albumin 4.3, Globulin 2.8, Albumin/Globulin Ratio 1.5 09/17/25 10:38 09/17/25 10:38 Orders (Tests/Meds): ED MEDICATIONS Discontinued Medications Generic Name Dose Route Start Last Admin Trade Name Freq PRN Reason Stop Dose Admin Aspirin 325 mg 09/17/25 10:35 09/17/25 10:40 Aspirin 325mg Tablet PO 09/17/25 10:36 325 mg ONCE ONE Administration ORDERS Category Date Time Status CBC w/Auto Diff [Complete Blood Count Auto Diff] Stat Lab 09/17/25 10:38 Completed CMP [Comprehensive Metabolic Panel] Stat Lab 09/17/25 10:38 Completed Magnesium Stat Lab 12/07/25 10:38 Completed Troponin I Q3H Lab 09/17/25 13:45 Ordered Troponin I Q3H Lab 09/17/25 16:45 Ordered Troponin I Stat Lab 09/17/25 10:38 Completed VBG [Venous Blood Gas] Stat RT 09/17/25 10:10 Completed ECG Request Stat Y 09/17/25 10:34 Ordered ECG Data Tracing #1: I reviewed this ECG and interpreted as documented below: Patient appears to have a pacemaker currently in sinus rhythm with nonspecific ST abnormality based on current EKG, called STEMI and ordered a repeat 30 minutes based on this nonspecific ST abnormality V45.6 Notable T wave inversion and ST depression Normal Sinus Rhythm: Yes Ischemic changes: other (As documented above) Pacemaker function: normal pacer function ECG compared to prior tracings: this ECG reveals significant changes (T wave inversions in V4,5, and 6 appear new compared to most recent EKG documented in November) Tracing #2: I reviewed this ECG and interpreted as documented below: Interval resolution of ST inversions in V4 5 6 Medical Decision Narrative: Patient is a 80-year-old male with history of CABG multiple prior cardiac stents who presents due to chest pain. His workup was notable for mildly elevated troponin and dynamic EKG changes both compared to his prior and with his time in emergency department. He was given 325 aspirin and I had an interactive discussion with Dr. Rehman who recommended admission with Lovenox injection with plan for evaluation in the morning. I had an interactive discussion with hospitalist and agreed to evaluate for admission. Critical Care Critical Care Time Critical Care Time: No
[2025-09-17] MEDS: ASPIRIN 325MG TABLET 325 MG PO (10:40)
--- OUTSIDE RECORDS SUMMARY | 2025-09-17 10:41 | XMS_ITS | Continuity of Care Document ---
Author Organization [facility] Address [address] [place] [address] [place] [address] Assessment No assessment recorded. Plan of Treatment Reminders Order Date Submit Date Provider Last Modified By Organization Details Last Modified Time Details Appointments Spirome try 2024 11:00A M Spirometry Not available Not available Not available Establi shed Patient 20 2025 01:00P M Radha Vega APRN Not available Not available Not available Lab None recorde d. Referral None recorde d. Procedures None recorde d. Surgeries None recorde d. Imaging XR, chest, 2 view 2024 [facility], [address] [place] [address] , [place], [address], 07/06/2025 16:51:35 Medication Orders azithro mycin [address] [facility] [id number], [address] [place] [address] [place], [address], 08/10/2025 14:36:33 amoxici llin 875 mg-pota ssium clavula smith 125 mg tablet [address] [facility] [id number], [address] [place], [address], 08/10/2025 14:36:25 Patient TargetsNo targets recorded. Patient InstructionsNo instructions recorded. Reason for Referral None Reported. Results Created Date Observation Date Name Description Value Unit Range Abnormal Flag Note LastModifiedBy Organization Detail LastModifiedTime 09/25/20 25 XR, chest , 2 view No observ ation record ed. [address] , [place], [address], 07/07/2025 12:40:36 Result Notes None recorded. Problems Name Problem SNOMED Code Status Onset Date Resolution Date Notes Provider Name and Address Organization Details Recorded Time Hypertensiv e disorder 44792792 Active Barbara Natacha null, [place] - [facility] 7 15:14:23 Hyperlipide alpesh 14042432 Active Barbara Buicell [place] - [facility] 7 15:14:41 Stented artery 686105820 Active Laly Nina null, [place] - [facility] 3 14:53:05 Chronic obstructive pulmonary disease 60810810 Active Laly Pastranamitt null, [place] - [facility] 3 14:53:05 Gastroesoph ageal reflux disease 947731471 Active Laly Zeinamitt [place] - [facility] 3 14:53:05 Coronary atheroscler osis 105689482 Active Laly Zeinamitt [place] [facility] 3 14:53:05 History of cardiac catheteriza tion 6596894055240 0 Active Laly Zeinamitt [place] - [facility] 3 14:53:05 Carotid artery stenosis 90416448 Active Laly Pastranamitt [place] [facility] 3 14:53:05 Peripheral arterial disease 663260835 Active Laly Zeinamitt [place] [facility] 3 14:53:05 Coronary arterioscle rosis in [place] artery 0020119559082 Active 2016 Laly Zeinamitt [place] - [facility] 3 14:53:05 Exposure to SARS-CoV-2 Active 2020 Laly Zeinamitt [place] - [facility] 3 14:53:05 COVID-19 992686659 Active 2020 Laly Wood null[place] - [facility] 3 14:53:05 Tobacco dependence syndrome 06581700 Active 2021 Laly Zeinamitt [place] - [facility] 3 14:53:05 Chronic cough 05966306 Active 2024 Radha Vega, [employer] [address], [place], [address], [place] - [facility] 13:33:45 Chronic bronchitis 59918215 Active 2024 Radha Vega, [employer] [address], [place], [address], [place] - [facility] 5 13:33:57 Dyspnea on exertion 25925348 Active 2024 Radha Vega, [employer] [address], [place], [address], [place] - [facility] 13:34:03 Problem Notes None recorded. Procedures Surgical History Date Name Laterality Status Provider Name and Address Organization Details Recorded Time 10/14/19 25 Advance Care Planning completed Renae Donovan [place] - [facility] 10/14/2024 13:39:39 10/14/19 25 Functional Status Assessed completed Renae STROUD [facility] 10/14/2024 13:39:39 01/20/20 24 Cerumen Removal completed Mario Patel MD [address], [place], [address], [place] - [facility] 01/20/2024 10:53:23 01/01/20 [address] [facility] 01/07/2024 16:54:01 11/26/19 24 Medication Reconcilliation completed Renae [facility] 11/26/2023 14:39:18 08/27/20 23 Advance Care Planning completed Renae STROUD [facility] 08/27/2023 09:58:49 08/27/20 23 Functional Status Assessed completed Renae STROUD [facility] 08/27/2023 09:58:49 08/17/20 23 Cardiac Cath completed Renaerupert STROUD [facility] 08/27/2023 10:09:39 02/07/20 23 Cardiac Cath completed Renaerupert STROUD [facility] 07/09/2023 11:28:24 01/22/20 23 Cryosurgery Dermatology completed Mouna Wright APRN [address], [place], [address], [place] - [facility] 01/21/2023 09:03:53 10/31/19 23 Cerumen Removal completed Mario Patel MD [address], [place], [address], [place] [facility] 10/31/2022 09:41:03 09/29/20 22 Cryosurgery Dermatology completed Mouna Wright APRN [address], [place], [address], [place] [facility] 09/29/2022 09:16:18 04/03/20 22 Medication Reconcilliation completed Saira Gomez [place] - [facility] 04/03/2022 14:31:04 11/16/19 21 Cerumen Removal completed Mario Patel MD [address], [place], [address], [place] [facility] 11/16/2020 14:21:28 11/16/19 21 Systolic B/P less than 130 mm Hg completed Renae Donovan [place] - [facility] 11/16/2020 14:00:49 11/16/19 21 Diastolic B/P less than 80 mm Hg completed Renae Hay [place] - [facility] 11/16/2020 14:00:52 11/14/19 21 Systolic B/P less than 130 mm Hg completed eRnae Donovan [place] - [facility] 11/14/2020 16:35:31 11/14/19 21 Diastolic B/P less than 80 mm Hg completed Renae Donovan [place] [facility] 11/14/2020 16:35:34 04/29/20 19 Cerumen Removal completed Mario Patel MD [address], [place], [address], [place] [facility] 05/02/2019 09:31:18 03/23/20 19 Medication Reconcilliation completed Nini Rodríguez [place] - [facility] 03/23/2019 15:05:07 01/01/20 18 Joint Injection completed Mario Patel MD [address], [place], [address], [place] [facility] 12/31/2017 10:58:35 08/18/20 17 Pacemaker Placement completed Renae Hay [place] [facility] 07/29/2018 14:26:00 Cardiac Cath completed Barbara Manzano [place] - [facility] 08/28/2017 15:20:12 Imaging Results None recorded. Procedure Notes None recorded. Medical Equipment None Reported. Allergies Allergen ID Allergen Name Allergen Category Reaction Reaction Severity Criticality Documentation Date Start Date Code Code System Note Provider Name and Address Organization Details Recorded Time 641864 ramipril medicatio n other Not available Not available 09/11/20252009 63238 RxNorm Not revie wed Not Available [facility] - External Data Service - prod 5 05:04:50 82169 Altace medicatio n rash Not available Not available 07/18/20162007 59098 8 RxNorm React ion: Rash - diffu se; Comme nt: ALTAC E; Not Available [facility] 6 09:20:14 Medications Name Sig Start Date Stop Date Status Note LastModified by Organization Details LastModified Time vitamin c 500mg 11/17 completed Not Available Not Available Not Available eye itch relief 0.25 eye drops 07/29 completed Not Available Not Available Not Available psyllium fiber laxative capsul 03/04 completed Not Available Not Available Not Available aspirin low dose 81mg ec 07/29 completed Not Available Not Available Not Available vitamin b12 11/17 completed Not Available Not Available Not Available dental floss 08/28 completed Not Available Not Available Not Available disposabl e gloves - non-latex 07/29 completed Not Available Not Available Not Available acetamino phen 325 mg 11/17 completed Not Available Not Available Not Available amoxicill in 500 mg capsule 07/14 completed Not Available Not Available Not Available furosemid e 40 mg tablet Take 1 tablet every day by oral route for 90 days. active Not Available Not Available No t Available Miralax 17 gram/dose oral powder take 17 gram mixed with 8 oz. water, juice, soda, coffee or tea by oral route once daily for 30 days 12/09 completed Miralax 17 gram/dos e oral powder;R ecorded Status: Recorded on: 01/21/20 13 2:03PM;D iscontin ued Status: Disconti nued on: 12/09/19 14 8:54AM;U ser: grossert ;Est. Completi on: 01/16/20 14;Indic ation: Constipa tion - (5640 );Prin jie: 01/21/20 13 Not Available Not Available Not Available cyanocoba genny (vit B-12) ER 1,000 mcg tablet,ex tended release 07/09 completed Not Available Not Available Not Available promethaz ine-DM 6.25 mg-15 mg/5 mL oral syrup Take 5 mL every 4 hours by oral route as needed. 11/14 completed Not Available Not Available Not Available carvedilo l 6.25 mg tablet take 1 tablet (6.25 mg) by oral route 2 times per day with food 03/04 completed Not Available Not Available Not Available prednison e 10 mg tablet Take four (4) tablets daily for three (3) days, then take three (3) tablets daily for three (3) days, then take two (2) tablets daily for three (3) days, then take one (1) tablet daily for three (3) days, then stop. 2024 active Not Available Not Available Not Avai lable carvedilo l 12.5 mg tablet 08/28 completed Not Available Not Available Not Available ipratropi um 0.5 mg-albute rol 3 mg (2.5 mg base)/3 mL nebulizat ion soln Inhale 3 mL 4 times a day by nebuliza tion route as needed for 30 days, for shortnes s of breath. 2024 active Not Available Not Available Not Avai lable Norvasc 10 mg tablet 1 QD 04/27 completed Norvasc 10 mg oral tablet;R ecorded Status: Recorded on: 07/15/20 08 10:04PM; Disconti nued Status: Disconti nued on: 04/27/20 09 1:35PM;U ser: grossert Not Available Not Available Not Available polyethyl kade glycol 3350 17 gram oral powder packet 07/09 completed Not Available Not Available Not Available azithromy kenrick 250 mg tablet take 2 tablets (500 mg) by oral route once daily for 1 day then 1 tablet (250 mg) by oral route once daily for 4 days 08/10 completed Not Available Not Available Not Available benzonata te 200 mg capsule Take 1 capsule 3 times a day by oral route for 10 days. 01/293 completed Not Available Not Available Not Available clarithro mycin 500 mg tablet Take 1 tablet every 12 hours by oral route for 14 days. 07/14 completed Not Available Not Available Not Available ondansetr on HCl 8 mg tablet 11/14 completed Not Available Not Available Not Available Medrol (Garrick) 4 mg tablets in a dose pack take as directed for 7 days 12/09 completed Medrol (Garrick) 4 mg oral tablets, dose pack;Pre scribe Status: Prescrib ed on: 06/01/20 13 3:25PM;D iscontin ued Status: Disconti nued on: 12/09/19 14 8:54AM;U ser: grossert ;Est. Completi on: 06/08/20 13;Indic ation: Complete rupture of rotator cuff - (727.61) ;Pharmac yVerifie d: 06/01/20 13 3:25PM Not Available Not Available Not Available prednison e 20 mg tablet 1 tid 01/26 completed Not Available Not Available Not Available isosorbid e mononitra te ER 30 mg tablet,ex tended release 24 hr take 1 tablet (30 mg) by oral route once daily in the morning for 90 days 07/16 completed Not Available Not Available Not Available Nexium 40 mg capsule,d elayed release take 1 capsule by oral route daily for 30 days 11/08 completed Nexium 40 mg oral capsule, delayed release( /EC);R ecorded Status: Recorded on: 05/24/20 14 2:24PM;D iscontin ued Status: Disconti nued on: 11/08/19 15 2:54PM;U ser: grossert ;Est. Completi on: 11/20/19 15;Indic ation: Gastroes ophageal Reflux - (5308 10) Not Available Not Available Not Available potassium chloride ER 10 mEq tablet,ex tended release 03/07 completed Not Available Not Available Not Available clopidogr el 75 mg tablet take 1 tablet (75 mg) by oral route once daily for 90 days active Not Available Not Available No t Available amlodipin e 5 mg tablet TAKE ONE TABLET BY MOUTH EVERY DAY active Not Available Not Available No t Available simvastat in 80 mg tablet take 1 tablets by oral route daily for 90 days 11/17 completed Not Available Not Available Not Available ciproflox acin 500 mg tablet Take 1 tablet every 12 hours by oral route. 08/27 completed Not Available Not Available Not Available omeprazol e 40 mg capsule,d elayed release Take 1 capsule every day by oral route. 06/02 completed Not Available Not Available Not Available aspirin 81 mg tablet,de layed release 1 QD 2007 active aspirin 81 mg oral tablet,d elayed release (/EC); Recorded Status: Recorded on: 07/15/20 08 10:02PM; User: haym Not Available Not Available Not Available tramadol 50 mg tablet 07/29 completed Not Available Not Available Not Available amoxicill in 500 mg tablet Take 2 tablets twice a day by oral route for 14 days. 07/14 completed Not Available Not Available Not Available acyclovir 800 mg tablet take 1 tablet (800 mg) by oral route 4 times per day for 10 days 06/01 completed acyclovi r 800 mg oral tablet;R ecorded Status: Recorded on: 02/04/20 13 4:01PM;D iscontin ued Status: Disconti nued on: 06/01/20 13 3:06PM;U ser: grossert ;Est. Completi on: 04/04/20 13;Indic ation: Herpes Simplex Of Lip - (054.9); Printed: 02/04/20 13 Not Available Not Available Not Available carvedilo l 3.125 mg tablet Take 1 tablet twice a day by oral route. 07/29 completed Not Available Not Available Not Available ondansetr on 8 mg disintegr ating tablet Place 1 tablet every 8 hours by translin gual route as needed for 10 days. 01/06 completed Not Available Not Available Not Available bisoprolo l fumarate 10 mg tablet Take 1 tablet twice a day by oral route for 90 days. active Not Available Not Available No t Available bisoprolo l fumarate 5 mg tablet Take 1 tablet twice a day by oral route for 90 days. 07/09 completed Not Available Not Available Not Available Kenalog 40 mg/mL suspensio n for injection Take 1 mL by injectio n route. 10/31 completed Not Available Not Available Not Available Celebrex 200 mg capsule Take 1 capsule every day by oral route. 07/16 completed Not Available Not Available Not Available losartan 100 mg-hydroc hlorothia zide 25 mg tablet take 0.5 tablet by oral route daily for 90 days 04/13 completed losartan -hydroch lorothia zide 100-25 mg oral tablet;c omment: D/C'ed per Jayesh BRITO;Recor ded Status: Recorded on: 12/09/19 14 9:21AM;D iscontin ued Status: Disconti nued on: 04/13/20 14 9:47AM;U ser: grossert ;Est. Completi on: 06/07/20 14;Print ed: 12/09/19 14 Not Available Not Available Not Available Tessalon Perles 100 mg capsule take 1 capsule (100 mg) by oral route 3 times per day for 5 days 01/03 completed Tessalon Perles 100 mg oral capsule; Prescrib e Status: Prescrib ed on: 10/30/19 16 10:52AM; Disconti nued Status: Disconti nued on: 01/04/20 16 3:35PM;U ser: groomsb; Est. Completi on: 11/04/19 16;Indic ation: Acute maxillar y sinusiti s, recurren ce not specifie d - (461.0); Pharmacy Verified : 10/30/19 16 10:52AM Not Available Not Available Not Available isosorbid e mononitra te ER 60 mg tablet,ex tended release 24 hr take 1 tablet (60 mg) by oral route once daily in the morning for 30 days 12/07 completed isosorbi de mononitr ate 60 mg oral tablet extended release 24 hr;Recor ded Status: Recorded on: 12/07/19 09 6:22PM;D iscontin ued Status: Disconti nued on: 12/07/19 09 6:23PM;U ser: haym;Est . Completi on: 01/07/20 09 Not Available Not Available Not Available amoxicill in 875 mg tablet take 1 tablet (875 mg) by oral route every 12 hours for 10 days 01/03 completed amoxicil romie 875 mg oral tablet;P rescribe Status: Prescrib ed on: 10/30/19 10:52AM; Disconti nued Status: Disconti nued on: 01/04/20 3:35PM;U ser: groomsb; Est. Completi on: 11/09/19 16;Indic ation: Acute maxillar y sinusiti s, recurren ce not specifie d - (461.0); Pharmacy Verified : 10/30/19 10:52AM Not Available Not Available Not Available potassium chloride ER 20 mEq tablet,ex tended release(p art/cryst ) TAKE 1 TABLET BY MOUTH DAILY 2024 active Not Available Not Available Not Avai lable prednisol one acetate 1 % eye drops,glenda pension 07/29 completed Not Available Not Available Not Available oxycodone -acetamin ophen 10 mg-325 mg tablet TAKE ONE TABLET BY MOUTH EVERY 6 HOURS NEEDED FOR PAIN MAY CAUSE DROWSINE SS 01/06 completed Not Available Not Available Not Available tamsulosi n 0.4 mg capsule Take 1 capsule every day by oral route. 2024 active Not Available Not Available Not Avai lable doxycycli ne monohydra te 100 mg capsule Take 1 capsule twice a day by oral route. 09/11 completed Not Available Not Available Not Available hydrocodo ne 7.5 mg-acetam inophen 325 mg tablet Take 1 tablet every 6-8 hours by oral route as needed for 5 days. 07/29 completed Not Available Not Available Not Available cephalexi n 500 mg capsule TAKE ONE CAPSULE BY MOUTH EVERY 8 HOURS FOR 10 DAYS -- FINISH ALL MEDICINE -- 01/06 completed Not Available Not Available Not Available pantopraz ole 40 mg tablet,de layed release TAKE 1 TABLET BY MOUTH ONCE DAILY 08/27 completed Not Available Not Available Not Available cyanocoba genny (vit B-12) 1,000 mcg/mL injection solution inject 2 millilit er (100 mcg) by intramus cular route once a month for 30 days 05/31 completed Not Available Not Available Not Available lansopraz ole 30 mg capsule,d elayed release 07/14 completed Not Available Not Available Not Available promethaz ine 25 mg tablet 03/07 completed Not Available Not Available Not Available nitroglyc zen 0.4 mg sublingua l tablet Place 1 tablet as needed by sublingu al route. active Not Available Not Available No t Available docusate sodium 100 mg capsule Take 100 mg by oral route. 08/27 completed Not Available Not Available Not Available omeprazol e 20 mg capsule,d elayed release take 1 capsule (20 mg) by oral route once daily before a meal for 90 days 08/31 completed omeprazo le 20 mg oral capsule, delayed release( /EC);R ecorded Status: Recorded on: 06/14/20 09 6:41PM;D iscontin ued Status: Disconti nued on: 08/31/20 09 2:22PM;U ser: haym;Est . Completi on: 12/12/19 10 Not Available Not Available Not Available hydrochlo rothiazid e 25 mg tablet take 1 tablet (25 mg) by oral route once daily 07/16 completed Not Available Not Available Not Available levofloxa kenrick 500 mg tablet take 1 tablet (500 mg) by oral route once daily for 10 days 11/26 completed Not Available Not Available Not Available levofloxa kenrick 750 mg tablet Take 1 tablet every day by oral route. 07/06 completed Not Available Not Available Not Available albuterol sulfate HFA 90 mcg/actua tion aerosol inhaler Inhale 2 puffs every 4-6 hours by inhalati on route for 30 days, for shortnes s of breath/w heezing. 2024 active Not Available Not Available Not Avai lable isosorbid e mononitra te ER 30 mg tablet,ex tended release 1 QD 12/07 completed Replaced /Retired Drug 30 mg oral tablet extended release; Recorded Status: Recorded on: 07/15/20 08 10:02PM; Disconti nued Status: Disconti nued on: 12/07/19 09 6:22PM;U ser: grossert Not Available Not Available Not Available ondansetr on 4 mg disintegr ating tablet 03/07 completed Not Available Not Available Not Available losartan 100 mg tablet take 1 tablet (100 mg) by oral route once daily 03/23 completed Not Available Not Available Not Available Zovirax 5 % topical ointment apply to the affected area(s) by topical route every 3 hours 6 times per day for 10 days 06/01 completed Zovirax 5 % topical ointment ;Recorde d Status: Recorded on: 02/03/20 13 10:40AM; Disconti nued Status: Disconti nued on: 06/01/20 13 3:06PM;U ser: haym Not Available Not Available Not Available fluticaso ne propionat e 50 mcg/actua tion nasal spray,glenda pension [place] 1 spray twice a day by intranas al route. 08/10 completed Not Available Not Available Not Available finasteri de 5 mg tablet Take 1 tablet every day by oral route for 90 days. 08/27 completed Not Available Not Available Not Available loratadin e 10 mg tablet Take 1 tablet every day by oral route. 2024 active Not Available Not Available Not Avai lable doxazosin 2 mg tablet Take 1 tablet twice a day by oral route. 07/29 completed Not Available Not Available Not Available amoxicill in 875 mg-[place] ium clavulana te 125 mg tablet Take 1 tablet every 12 hours by oral route for 10 days. 08/10 completed Not Available Not Available Not Available Benicar HCT 40 mg-25 mg tablet take 1 tablet by oral route once daily for 30 days 11/07 completed Benicar HCT 40-25 mg oral tablet;R ecorded Status: Recorded on: 09/02/20 10 3:44PM;D iscontin ued Status: Disconti nued on: 11/07/19 11 10:53AM; User: haym;Est . Completi on: 03/01/20 11 Not Available Not Available Not Available rosuvasta tin 40 mg tablet Take 1 tablet every day by oral route at bedtime for 90 days. active Not Available Not Available No t Available Crestor 10 mg tablet 1 QD 06/14 completed Crestor 10 mg oral tablet;R ecorded Status: Recorded on: 07/15/20 08 10:04PM; Disconti nued Status: Disconti nued on: 06/14/20 09 6:41PM;U ser: grossert Not Available Not Available Not Available Klor-Con M10 mEq tablet,ex tended release Take 1 tablet every day by oral route for 90 days. 11/26 completed Not Available Not Available Not Available ranolazin e ER 500 mg tablet,ex tended release,1 2 hr take 1 tablet (500 mg) by oral route 2 times per day 11/26 completed Not Available Not Available Not Available ferrous gluconate 324 mg (38 mg iron) tablet Take 1 tablet every day by oral route for 30 days. 06/02 completed Not Available Not Available Not Available Coreg CR 20 mg capsule, extended release 1 QD 04/27 completed Coreg CR 20 mg oral capsule, ER multipha se 24 hr;Recor ded Status: Recorded on: 07/15/20 08 10:04PM; Disconti nued Status: Disconti nued on: 04/27/20 09 1:35PM;U ser: grossert Not Available Not Available Not Available Coreg CR 10 mg capsule, extended release take 1 capsule (10 mg) by oral route once daily 01/25 completed Coreg CR 10 mg oral capsule, ER multipha se 24 hr;Recor ded Status: Recorded on: 08/31/20 09 2:22PM;D iscontin ued Status: Disconti nued on: 01/26/20 10 8:57AM;U ser: haym Not Available Not Available Not Available hydrochlo rothiazid e 12.5 mg tablet Take 1 tablet every day by oral route. 08/27 completed Not Available Not Available Not Available bismuth subcit K 140 mg-metron idazole 125 mg-tetrac ycline 125 mg cap 01/06 completed Not Available Not Available Not Available Symbicort 160 mcg-4.5 mcg/actua tion HFA aerosol inhaler Inhale 2 puffs twice a day by inhalati on route. 2024 active Not Available Not Available Not Avai lable ferrous sulfate 324 mg (65 mg iron) tablet,de layed release TAKE ONE TABLET BY MOUTH EVERY DAY 01/06 completed Not Available Not Available Not Available Ranexa 1,000 mg tablet,ex tended release take 1 tablet (1,000 mg) by oral route 2 times per day for 90 days 11/23 completed Ranexa 1,000 mg oral tablet extended release 12 hr;Recor ded Status: Recorded on: 12/09/19 14 9:21AM;D iscontin ued Status: Disconti nued on: 11/23/19 15 2:47PM;U ser: grossert ;Est. Completi on: 06/07/20 14;Print ed: 12/09/19 14 Not Available Not Available Not Available guaifenes in ER 1,200 mg tablet, extended release 12 hr Take 1 tablet every 12 hours by oral route as needed, for cough/co ngestion . 10/14 completed Not Available Not Available Not Available GaviLyte- G 236 gram-22.7 4 gram-6.74 gram-5.86 gram oral solution 11/14 completed Not Available Not Available Not Available Effient 10 mg tablet Take 1 tablet every day by oral route. 07/29 completed Not Available Not Available Not Available Leticia Allergy 180 mg tablet take 1 tablet (180 mg) by oral route once daily for 30 days 11/08 completed Leticia Allergy 180 mg oral tablet;P rescribe Status: Prescrib ed on: 01/20/20 14 1:47PM;D iscontin ued Status: Disconti nued on: 11/08/19 15 2:54PM;U ser: grossert ;Est. Completi on: 03/20/20 14;Indic ation: Bronchit is, Acute - (466.0); Pharmacy Verified : 01/20/20 14 1:47PM Not Available Not Available Not Available oseltamiv ir 6 mg/mL oral suspensio n TAKE 5ML (30MG) BY MOUTH TWICE DAILY FOR FOUR DAYS DISCARD THE REMAINDE R OF MEDICATI ON AFTER ____ DAYS [employer]KE [employer] REFRIGER ATE 01/26 completed Not Available Not Available Not Available Linzess 145 mcg capsule Take 1 capsule every day by oral route for 30 days. 10/14 completed Not Available Not Available Not Available potassium chloride ER 20 mEq tablet,ex tended release 07/09 completed Not Available Not Available Not Available Paxlovid 300 mg (150 mg x 2)-100 mg tablets in a dose pack Take 1 dose pk by oral route. 11/26 completed Not Available Not Available Not Available Vitals Date Recorded Body height Body mass index (BMI) Body weight Body temperature Heart rate Oxygen saturation Respiratory rate Pain severity - 0-10 verbal numeric rating [Score] - Reported Systolic And Diastolic Provider Name and Address Organization Details Last Updated DateTime 5 167.64 cm 26.5 kg/m2 14812.2 5 g 98.2 [degF] 65 /min 96 % 18 /min 0 123/74 mm[Hg] Mai Bell [place] - [facility] 5 14:46:48 Social History Question Answer Notes LastModified by Organizat ion Details LastModified Time Tobacco Smoking Status Former Smoker quit in 1990 Barbara tyson, [place] - [facility] 08/28/2017 15:17:03 Able To Swim? Yes Information not available 03/04/2018 Do You Have An Advance Directive? Yes Information not available 08/28/2017 Are You Blind Or Do You Have Difficulty Seeing? No Information not available 03/04/2018 What Is Your Level Of Caffeine Consumption? Moderate Information not available 08/28/2017 In The 14 Days Before Symptom Onset, Have You Had Close Contact With A Laboratory-confir med COVID-19 While That Case Was Ill? No Information not available 07/09/2023 In The 14 Days Before Symptom Onset, Have You Had Close Contact With A Person Who Is Under Investigation For COVID-19 While That Person Was Ill? No Information not available 07/09/2023 Have You Been To An Area Known To Be High Risk For COVID-19? No Information not available 07/09/2023 Are You Deaf Or Do You Have Serious Difficulty Hearing? No Information not available 03/04/2018 What Type Of Diet Are You Following? REGULAR Information not available 03/04/2018 Which Illicit Or Recreational Drugs Have You Used? None Information not available 03/04/2018 Have You Processed Blood Or Body Fluids From An Ebola Virus Disease Patient Without Appropriate PPE? No Information not available 07/09/2023 Do You Reside In Or Have You Traveled To An Area Where Ebola Virus Transmission Is Active? No Information not available 07/09/2023 What Is The Highest Grade Or Level Of School You Have Completed Or The Highest Degree You Have Received? [id number] Information not available 01/29/2023 Swimming/diving No Informati on not available 03/04/2018 Have There Been Any Changes To Your Family Or Social Situation? No Information no t available 07/09/2023 What Is The Fluoride Status Of Your Home? Fluoridated Information not available 07/09/2023 When Did You Quit Smoking? 16+yearssinkoreya greg Information not available 03/04/2018 Hard Of Hearing Or Deaf In One Or Both Ears? No Information not available 08/28/2017 Have You Recently Or Are You Planning To Travel To An Area With Zika Virus? No Information not available 07/09/2023 Legally Blind In One Or Both Eyes? No Information no t available 08/28/2017 Live Alone Or With Others? With Others Information not available 08/28/2017 What Was The Date Of Your Most Recent Tobacco Screening? 08/10/2025 Information not available 08/10/2025 How Many Children Do You Have? 3 Information not available 08/28/2017 What Is Your Current Pack Years? 30ormorepackyea rs Information not available 10/31/2022 Do You Use Protection During Sex? No Information not available 03/04/2018 Do You Use Protection Against STDs? No Information not available 01/29/2023 What Is Your Relationship Status? Information not available 08/28/2017 Seat Belts Used Routinely Yes Information not available 08/28/2017 Are You Sexually Active? Yes Information not available 03/04/2018 Smoke Alarm In Home Yes Information not available 03/04/2018 Do You Have Smoke And Carbon Monoxide Detectors In Your Home? Yes Information not available 07/09/2023 At What Age Did You Start Smoking Tobacco? 17 Information not available 10/31/2022 Are You Passively Exposed To Smoke? No Information no t available 07/09/2023 How Much Tobacco Do You Smoke? 1 PPD Information not available 10/31/2022 Do You Use Sunscreen Routinely? No Information not available 03/04/2018 Has Tobacco Cessation Counseling Been Provided? Yes Information not available 03/07/2022 On What Date Was Tobacco Cessation Counseling Provided? 08/10/2025 Information not available 08/10/2025 How Many Years Have You Smoked Tobacco? 29 Information not available 10/31/2022 Do You Have Difficulty Walking Or Climbing Stairs? No Information not available 08/28/2017 What Contraceptive Method Was Reported At Start Of This Visit? None Information not available 01/29/2023 What Contraceptive Method Was Reported At End Of This Visit? None Information not available 01/29/2023 Do You Want To Talk About Contraception Or Prevention During Your Visit Today? No - This Question Does Not Apply To Me/I Prefer Not To Answer Information not available 01/29/2023 How Many Years Have You Used Smokeless Tobacco? 5 Information not available 07/09/2023 Sex: Male Functional Status Question Answer Note LastModified by Organizat ion Details LastModified Time Do you or have you ever used smokeless tobacco? Currently chews tobacco Information not available 11/14/2020 Are you currently employed? No Information not available 08/28/2017 Do you have transportation difficulties? No Information not available 01/29/2023 Are you able to care for yourself independently? Yes Information not available 08/28/2017 Do you have difficulty dressing, bathing, grooming, or toileting? No Information not available 08/28/2017 Do you or have you ever used e-cigarettes or vape? Never used electronic cigarettes Information not available 05/13/2019 What is your exercise level? Occasional Information not available 08/28/2017 Do you use any illicit or recreational drugs? No Information not available 11/21/2022 Do you or have you ever used any other forms of tobacco or nicotine? No Information not available 03/07/2022 What is your level of alcohol consumption? None Information not available 08/28/2017 Are you able to walk independently without assistance or assistive devices? YESWOREST Information not available 08/28/2017 Do you have difficulty doing errands alone? No Information not available 08/28/2017 What is your occupation? retired Information not available 08/28/2017 Mental Status Question Answer Note LastModified by Organizat ion Details LastModified Time Do you feel stressed (tense, restless, nervous, or anxious, or unable to sleep at night)? [id number] [facility] Information not available 07/09/2023 Do you have difficulty concentrating, remembering or making decisions? No Information no t available 08/28/2017 Family History Relationship Description Onset Age of this Age Resolved Age Notes LastModified by Organization Details LastModified Time Father Cardiac arrest Not available 2016 15:16:27 Paternal Grandfather Cardiac arrest Not available 2016 15:16:27 Medical History No medical history recorded. Immunizations Vaccine Type Date Status Note Provider Nam e and Address Organization Details Recorded Time Influenza, high-dose, quadrivalent, PF 1 completed Renae Donovan null, [place] - [facility] 11/16/2020 17:21:02 Influenza, high-dose, quadrivalent, PF 1 completed Renae Donovan null, [place] - [facility] 09/12/2021 14:39:26 Influenza, high-dose, quadrivalent, PF 2 completed Mai Bell null, [place] - [facility] 08/14/2022 10:50:11 influenza, unspecified formulation 2 completed Not Available [facility] 02/21/2023 06:50:10 influenza, unspecified formulation 4 completed Not Available [facility] 11/26/2023 14:30:08 pneumococcal polysaccharide PPV23 2 completed Not Available [facility] 02/21/2023 06:50:10 Influenza, high-dose, quadrivalent, PF 3 completed [facility] [place] - [facility] 08/27/2023 13:27:44 Pneumococcal conjugate PCV20, polysaccharide [id number] conjugate, adjuvant, PF 3 completed Renae tyson, [place] - [facility] 08/27/2023 13:28:34 Influenza, high-dose, trivalent, PF 8 completed Not Available [facility] 10/29/2019 03:55:20 Influenza, high-dose, trivalent, PF 9 completed Not Available [facility] 10/29/2019 03:56:04 tetanus toxoid, unspecified formulation 2 completed Not Available [facility] 11/26/2023 14:30:08 Past Encounters Encounter ID Performer Location Encounter Start Date Encounter Closed Date Diagnosis/Indication Diagnosis SNOMED-CT Code Diagnosis ICD10 Code Diagnosis IMO Codes Diagnosis Note [id number] Mario Patel MD [address] [place] [id number] 06/15/2025 11:16:03 06/15/2025 11:46:26 Tobacco dependence syndrome 13119659 F17.200 Purulent bronchitis 2959 1002 J41.1 2688 Overweight in adulthood with body mass index of 25 or more but less than 30 965917221 Z68.27 [id number] Mario Patel MD [address] [place] [address] 07/06/2025 14:36:48 07/06/2025 15:17:26 Purulent bronchitis 33322100 J41.1 2688 Overweight in adulthood with body mass index of 25 or more but less than 30 214464646 Z68.26 [id number] Health Concerns Section Related Observation LastModified by Organization Detai ls LastModified Time None Recorded Concern Status LastModified by Organization Details LastModified Time None Recorded Payers Encounter Date Sequence Insurance Name Policy Number Policy Grimm Covered Member ID Grimm Member ID Guarantor Name 07/06/2025 1 [place]PLAC[place]/A DVANTAGE - HMO) [id number] Presley Loomis [id number] Presley Loomis Notes Date Note Type Note Provider Name and Address Organization Details Recorded Time 07/06/2025 text/html Still C/O cough with thick sputum, spasmodic type cough.No SOB. Quit smoking 1989. Mario Patel MD [address], [place], [address], [facility] - [facility] 07/06/2025 15:21:44
--- OUTSIDE RECORDS SUMMARY | 2025-09-17 10:41 | XMS_ITS | Continuity of Care Document ---
Author Organization [facility] Address [address] [place] [address] Assessment No assessment recorded. Plan of Treatment Reminders Order Date Submit Date Provider Last Modified By Organization Details Last Modified Time Details Appointments Spirome try 2024 11:00A M Spirometry Not available Not available Not available Establi shed Patient 20 2025 01:00P M Radha Vega APRN Not available Not available Not available Lab CBC w/ auto diff 2024 025 [facility], [address] [place] [address], [id number], 09/16/2025 10:13:05 CMP, serum or plasma 2024 025 [facility], [address] [place] [address], [id number], 09/16/2025 10:13:06 bordete amanda condon is igg+igm Ab, serum 2024 025 [facility], [address] [place] [address], [id number], 09/16/2025 10:13:06 Mycobac terium tubercu losis stimula jie gamma interfe devyn, qual, blood 2024 025 [facility], [address] [place] [address], [id number], 09/16/2025 10:13:07 fungal antibod y panel, serum 2024 025 [facility], [address] [place] [address], [id number], 09/16/2025 10:13:06 Histopl asma capsula josiah Ab, immune diffusi on titer, serum 2024 025 [facility], [address] [place] [address], [id number], 09/16/2025 10:13:08 erythro cyte sedimen tation rate by westerg denny method 2024 025 [facility], [address] [place] [address], [id number], 09/16/2025 10:13:08 ige, total, serum 2024 025 [facility], [address] [place] [address], [id number], 09/16/2025 10:13:08 C reactiv e protein , QN, serum or plasma 2024 025 [facility], [address] [place] [address], [id number], 09/16/2025 10:13:09 BNP (B-type natriur etic peptide ), serum or plasma 2024 025 [facility], [address] [place] [address], [id number], 09/16/2025 10:13:07 D-dimer , quant, plasma [address], [id number], 09/16/2025 10:13:07 Referral None recorde d. Procedures None recorde d. Surgeries None recorde d. Imaging CT, chest, w/o contras t [address] ([address] Scan), [facility] [address], [place], [address], 09/13/2025 09:24:07 spirome try, pre and post broncho dilatio n 2024 025 [facility], [address] [place] [address] , [place], [address], 09/12/2025 10:47:45 Medication Orders prednis one 10 mg tablet 2024 [facility] [id number], [address] [facility] , [place], [address], 09/11/2025 14:11:22 ipratro pium 0.5 mg-albu terol 3 mg (2.5 mg base)/3 mL nebuliz ation soln 2024 [facility] [id number], [address] [facility] , [place], [address], 09/11/2025 14:11:19 albuter ol sulfate HFA 90 mcg/act uation aerosol inhaler 2024 025 [facility] [id number], [address] [facility] , [place], [address], 09/11/2025 19:59:51 Patient TargetsNo targets recorded. Patient Instructions Encounter Date Encounter Id Patient Instructions Last Modified By Organization Details Last Modified Time 09/11/2025 [id number] Take medications as prescribed. You should go to the emergency room if: - You have severe trouble breathing. - You have chest pain. - You have worsening shortness of breath. - You develop new symptoms. - You are coughing more deeply or more often, especially if you notice more mucus or a change in the color of your mucus. - You cough up blood. - You have new or increased swelling in your legs or belly. - You have a fever. Rinse mouth after inhaler use multiple times with at least 6 ounces of water, then drink 2-4 ounces of water. [email or web address] Not available 09/11/2025 19:59:33 Chronic and/or acute conditions discussed/evaluate d. Routine health maintenance reviewed with patient. Medication reviewed with patient today, common S/E discussed. Continue medication as outlined in the plan/orders. Call or return to office for concerns/changes. Discussed expected course of disease/symptoms. Education provided and patient verbalized understanding regarding indications for emergency care. Follow-up as discussed at next scheduled visit or sooner if needed. Not available 09/11/2025 19:59:17 Reason for Referral None Reported. Problems Name Problem SNOMED Code Status Onset Date Resolution Date Notes Provider Name and Address Organization Details Recorded Time Hypertensiv e disorder 59663428 Active Barbara Natacha null, [place] - [facility] 7 15:14:23 Hyperlipide alpesh 63136369 Active Barbara Buicell null[place] - [facility] 7 15:14:41 Stented artery 261936871 Active Laly Nina null[place] - [facility] 3 14:53:05 Chronic obstructive pulmonary disease 93301243 Active Laly Wood null[place] [facility] 3 14:53:05 Gastroesoph ageal reflux disease 729582499 Active Laly Nina [place] [facility] 3 14:53:05 Coronary atheroscler osis 963939127 Active Laly Nina [place] [facility] 3 14:53:05 History of cardiac catheteriza tion 0442929028749 0 Active Laly Pastranashannon null[place] - [facility] 3 14:53:05 Carotid artery stenosis 02392703 Active Laly Wood null[place] [facility] 3 14:53:05 Peripheral arterial disease 562175839 Active Laly Wood [place] [facility] 3 14:53:05 Coronary arterioscle rosis in [place] artery 1640794284286 Active 2016 Laly Wood null[place] [facility] 3 14:53:05 Exposure to SARS-CoV-2 Active 2020 Laly Wood [place] [facility] 3 14:53:05 COVID-19 833177923 Active 2020 Laly Wood [place] [facility] 3 14:53:05 Tobacco dependence syndrome 02763127 Active 2021 Laly Wood [place] [facility] 3 14:53:05 Chronic cough 46554895 Active 2024 Radha oRthatt, RESIDENTIAL CARPENTER [address], [place], [address], [place] - [facility] 5 13:33:45 Chronic bronchitis 96563581 Active 2024 Radha Rothatt, RESIDENTIAL CARPENTER [address], [place], [address], [place] - [facility] 5 13:33:57 Dyspnea on exertion 28054395 Active 2024 Radha Rothatt, RESIDENTIAL CARPENTER [address], [place], [address], [place] - [facility] 5 13:34:03 Problem Notes None recorded. Procedures Surgical History Date Name Laterality Status Provider Name and Address Organization Details Recorded Time 10/14/19 25 Advance Care Planning completed Renae STROUD - [facility] 10/14/2024 13:39:39 10/14/19 25 Functional Status Assessed completed Renae STROUD [facility] 10/14/2024 13:39:39 01/20/20 24 Cerumen Removal completed Mario Patel MD [address], [place], [address], [place] [facility] 01/20/2024 10:53:23 01/01/20 24 colonoscopy completed Renae STROUD - [facility] 01/07/2024 16:54:01 11/26/19 24 Medication Reconcilliation completed Renaerupert STROUD [facility] 11/26/2023 14:39:18 08/27/20 23 Advance Care Planning completed Renae STROUD - [facility] 08/27/2023 09:58:49 08/27/20 23 Functional Status Assessed completed Renae STROUD - [facility] 08/27/2023 09:58:49 08/17/20 23 Cardiac Cath completed Renae STROUD [facility] 08/27/2023 10:09:39 02/07/20 23 Cardiac Cath completed Renae STROUD - [facility] 07/09/2023 11:28:24 01/22/20 23 Cryosurgery Dermatology completed Mouna Wright APRN [address], [place], [address], [place] [facility] 01/21/2023 09:03:53 10/31/19 23 Cerumen Removal completed Mario Patel MD [address], [place], [address], [place] [facility] 10/31/2022 09:41:03 09/29/20 22 Cryosurgery Dermatology completed Mouna Wright APRN [address], [place], [address], [place] [facility] 09/29/2022 09:16:18 04/03/20 22 Medication Reconcilliation completed Saira Gomez [place] - [facility] 04/03/2022 14:31:04 11/16/19 21 Cerumen Removal completed Mario Patel MD [address], [place], [address], [place] [facility] 11/16/2020 14:21:28 11/16/19 21 Systolic B/P less than 130 mm Hg completed Renae [place] - [facility] 11/16/2020 14:00:49 11/16/19 21 Diastolic B/P less than 80 mm Hg completed [facility] [place] - [facility] 11/16/2020 14:00:52 11/14/19 21 Systolic B/P less than 130 mm Hg completed Renae [facility] - [facility] 11/14/2020 16:35:31 11/14/19 21 Diastolic B/P less than 80 mm Hg completed Renae [place] - [facility] 11/14/2020 16:35:34 04/29/20 19 Cerumen Removal completed Mario Patel MD [address], [place], [address], [place] [facility] 05/02/2019 09:31:18 03/23/20 19 Medication Reconcilliation completed Nini Rodríguez [place] - [facility] 03/23/2019 15:05:07 01/01/20 18 Joint Injection completed Mario Patel MD [address], [place], [address], [place] [facility] 12/31/2017 10:58:35 08/18/20 17 Pacemaker Placement completed Renae [place] [facility] 07/29/2018 14:26:00 Cardiac Cath completed Barbara Manzano [place] - [facility] 08/28/2017 15:20:12 Imaging Results None recorded. Procedure Notes None recorded. Medical Equipment None Reported. Allergies Allergen ID Allergen Name Allergen Category Reaction Reaction Severity Criticality Documentation Date Start Date Code Code System Note Provider Name and Address Organization Details Recorded Time 335637 ramipril medicatio n other Not available Not available 09/11/20252009 17539 RxNorm Not revie wed Not Available [place] - External Data Service - prod 5 05:04:50 11376 Altace medicatio n rash Not available Not available 07/18/20162007 83071 8 RxNorm React ion: Rash - diffu se; Comme nt: ALTAC E; Not Available [facility] 6 09:20:14 Medications Name Sig Start [...] 01/16/20 14;Indic ation: Constipa tion - (5640 00);Prin jie: 01/21/20 13 Not Available Not Available [...] day by oral route for 10 days. 01/29 completed Not Available Not Available Not Available [...] 11/20/19 15;Indic ation: Gastroes ophageal Reflux - (09.5308 10) Not Available Not Available Not Available [...] aspirin 81 mg oral tablet,d elayed release (/KARLO); Recorded Status: Recorded on: 07/15/20 08 10:02PM; User: lynn Not Available Not Available Not Available tramadol [...] Disconti nued on: 01/04/20 16 3:35PM;U ser: austinb; Est. Completi on: 11/04/19 16;Indic ation: Acute [...] tablet;P rescribe Status: Prescrib ed on: 10/30/19 16 10:52AM; [...] e 50 mcg/actua tion nasal spray,glenda pension [place] 1 spray twice a day by intranas [...] height Body mass index (BMI) Body weight Heart rate Oxygen saturation Respiratory rate Body temperature Systolic And Diastolic Provider Name and Address Organization Details Last Updated DateTime 5 167.64 cm 26.1 kg/m2 04378.9 6 g 62 /min 99 % 18 /min 98 [degF] 120/68 mm[Hg] Melany meng [place] - [facility] 5 13:07:28 Social History Question Answer Notes LastModified by [...] Or The Highest Degree You Have Received? [id number] Information not available 01/29/2023 Swimming/diving No Informati on not available 03/04/2018 Have There Been Any Changes To Your Family Or Social Situation? No Information no t available 07/09/2023 What Is The Fluoride Status Of Your Home? Fluoridated Information not available 07/09/2023 When Did You Quit Smoking? 15+yearssinmonica garza Information not available 03/04/2018 Hard Of Hearing [...] anxious, or unable to sleep at night)? [id number] [facility] Information not available 07/09/2023 Do you have difficulty concentrating, remembering or making decisions? No [email or web address] Information no t available 08/28/2017 Family History [...] quadrivalent, PF 1 completed Renae Donovan null, [place] - [facility] 11/16/2020 17:21:02 Influenza, high-dose, quadrivalent, PF 1 completed Renae [place] null, [place] - [facility] 09/12/2021 14:39:26 Influenza, high-dose, quadrivalent, PF 2 completed Mai Bell null[place] - [facility] 08/14/2022 10:50:11 influenza, unspecified formulation 2 completed Not Available [facility] 02/21/2023 06:50:10 influenza, unspecified formulation 4 completed Not Available [facility] 11/26/2023 14:30:08 pneumococcal polysaccharide PPV23 2 completed Not Available [facility] 02/21/2023 06:50:10 Influenza, high-dose, quadrivalent, PF 3 completed [facility] [place] - [facility] 08/27/2023 13:27:44 Pneumococcal conjugate PCV20, polysaccharide VQW100 conjugate, adjuvant, PF 3 completed [facility] [place] - [facility] 08/27/2023 13:28:34 Influenza, high-dose, trivalent, PF 8 completed Not Available [facility] 10/29/2019 03:55:20 Influenza, high-dose, trivalent, PF 9 completed Not Available [facility] 10/29/2019 03:56:04 tetanus toxoid, unspecified formulation 2 completed Not Available [facility] 11/26/2023 14:30:08 Past Encounters Encounter ID Performer Location Encounter Start Date Encounter Closed Date Diagnosis/Indication Diagnosis SNOMED-CT Code Diagnosis ICD10 Code Diagnosis IMO Codes Diagnosis Note [id number] Radha Vega APRN [facility] [address] [place] [address] 09/11/2025 12:54:21 09/11/2025 14:16:27 Chronic obstructive pulmonary disease 35900362 J44.9 Advised patient to use Symbicort as prescribed .Albuterol PRN for SOB/wheezi ng.Duo-Neb s twice daily before inhalers.F /U at next scheduled appointmen t or sooner PRN. Chronic bronchitis 84371 004 J42 [id number] Will obtain CT chest for further evaluation .Advised patient to start Prednisone taper and finish course of previously prescribed Doxycyclin e.Duo-nebs PRN as prescribed Labs as ordered below.F/U at next scheduled appointmen t or sooner PRN. Dyspnea on exertion 6084 5006 R06.09 [id number] Will order Spirometry as below.Will order labs as below.Symp toms of SOB/orthop aisha unchanged since since ECHO in Nov. however may consider repeat ECHO pending other diagnostic s.F/U at next scheduled appointmen t or sooner PRN. Hypertensive disorder 38 566081 I10 Stable.Lab s as below. Health Concerns Section Related Observation LastModified by Organization Detai ls LastModified Time None Recorded Concern Status LastModified by Organization Details LastModified Time None Recorded Payers Encounter Date Sequence Insurance Name Policy Number Policy Grimm Covered Member ID Grimm Member ID Guarantor Name 09/11/2025 1 [place]MEDICARE [place]PLACEMENT/A DVANTAGE - HMO) [id number] Presley Loomis [id number] Presley Loomis Notes Date Note Type Note Provider Name and Address Organization Details Recorded Time 09/11/2025 text/html Mr. Loomis is a 80 year old patient who presents today for a pulmonary evaluation.He has a history of HTN, coronary artery disease, GERD, COVID, pacemaker placement, COPD, tobacco use. Hx of chronic coughHe reports a chronic cough that started suddenly in June. 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 He states cough started shortly after that. He states he has been treated with Levaquin, a z-garrick and Augmentin in the past. He was recently prescribed doxycyline but only took 1 tablet.He states none of the above antibiotics helped his cough, he has not been prescribed steroids.He states he does cough up about 1 tablespoon of sputum per day, and it is yellow in color, the antibiotics have not changed this amount/consistency either. Sometimes cough is dry.He did have a chest x-ray 07/06 which showed no pulmonary abnormalities. Hx of COPDHe reports occasional SOB as well. He also reports intermittent wheezing. He states hills and stairs cause increased SOB, but sometimes he will be SOB on flat ground as well. Cannot determine how far he can walk before becoming SOB due to chronic joint pain of the knees, which stops him before SOB does.Currently prescribed Symbicort BID. He reports he has not used this due to not liking the taste in his mouth after.He states his SOB has been consistent for several years, has not worsened since June. Reports mild orthopnea, states this has been stable for several years and unchanged, denies edema of the extremities.Denies childhood asthma, denies allergy symptoms. States he had COVID twice, last being in 2021. He reports he had spirometry in the past, but unsure how long ago.Is a previous smoker - quit in 1994, total of 50 years, 1/2 PPD. Hx of CABG/CADfollows with Dr. Rehman in [place]. States he had a CABG several years ago, and since then has had several stents placed. Has a follow up scheduled with them on .ECHO - 11/2024 - EF 50%, right ventricular systolic pressure 30-35 Radha Vega, RESIDENTIAL CARPENTER [address], [place], [address], [place] [facility] 09/11/2025 20:00:02
--- OUTSIDE RECORDS SUMMARY | 2025-09-17 10:42 | XMS_ITS | Clinical Summary ---
Author Organization [facility] Address [address] [place] [address] Care Team Providers Care Parent Partner Name Role Phone Mario Patel MD Primary Care Provider [phone] Source Comments This information has been disclosed to you from confidential records protectedfrom disclosure by state law. You shall make no further disclosure of thisinformation without the specific, written, and informed release of theindividual to whom it pertains, or as otherwise permitted by law. A generalauthorization for the release of medical or other information is not sufficientfor the purposes of therelease of HIV test results or diagnoses. [id number] Active Problems Problem Noted Date Diagnosed Date Other peripheral vascular disease(443.89) 2010 Social History Tobacco Use Types Packs/Day Years Used Date Smoking Tobacco: Never Assessed Sex and Gender Information Value Date Recorded Sex Assigned at Not on file Legal Sex Male 9:40 PM EST Gender Identity Not on file Sexual Orientation Not on file Plan of Treatment Not on file Care Teams Parent Partner Relationship Specialty Start Date End Date Mario Patel MD [address] [place] [address] PCP - General 11/25/10
--- OUTSIDE RECORDS SUMMARY | 2025-09-17 10:42 | XMS_ITS | Clinical Summary ---
Author Organization [facility] Address [address] [place] [id number] Care Team Providers Care Train Operations Manager Name Role Phone Unavailable Primary Care Provider Unavailabl e Social History Tobacco Use Types Packs/Day Years Used Date Smoking Tobacco: Never Assessed Sex and Gender Information Value Date Recorded Sex Assigned at Not on file Legal Sex Male 7:51 PM EDT Gender Identity Not on file Sexual Orientation Not on file Plan of Treatment Health Maintenance Due Date Last Done Comments DTap,Tdap,and Td (1 - Tdap) 01/25/1956 Pneumococcal 50+ (1 of 1 - PCV) 01/25/1994 Shingrix (#1) 01/25/1994 RSV Vaccine (60+ or ) (1 - 1-dose 75+ series) 01/25/2019 Influenza Vaccine (#1) 2025 HPV Aged Out No longer eligi ble based on patient's age to complete this topic Meningococcal conjugate palomo nt 4 (MCV4) Aged Out No longer eligible b ased on patient's age to complete this topic RSV Immunization (<20 months) Aged Out No longer eligible based on patient's age to complete this topic
--- OUTSIDE RECORDS SUMMARY | 2025-09-17 10:42 | XMS_ITS | Clinical Summary ---
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 03/27/2010 Carotid Artery Stenosis w/o Infarct 03/27/2010 GERD (gastroesophageal reflux disease) 0 HLD (hyperlipidemia) 03/27/2010 Palpitations 03/27/2010 Syncope and collapse 03/27/2010 Resolved Problems Problem Noted Date Diagnosed Date Resolved Date CAD (coronary artery disease ), rosebud coronary artery 03/27/2010 03/27/2010 Family History Medical History Relation Name Comments Heart Disease Brother 2 CABG Heart Disease Father [place] Relation Name Status Comments Brother 1 Alive CABG Brother 2 Father (Age 77) [place] Mother pneumonia Social History Tobacco Use Types [...] patient's age to complete this topic Insurance [facility] Care Teams Hvac Project Manager Relationship Specialty Start Date End Date List, None To PCP - General 03/29/10
--- OUTSIDE RECORDS SUMMARY | 2025-09-17 10:42 | XMS_ITS | Continuity of Care Document ---
Author Organization Formerly [facility], later [facility] Address [address] [place] [address] Assessment No assessment recorded. Plan of Treatment Reminders Order Date Submit Date Provider Last Modified By Organization Details Last Modified Time Details Appointments Spirome try 2024 11:00A M Spirometry Not available Not available Not available Establi shed Patient 20 2025 01:00P M Radha Vega APRN Not available Not available Not available Lab None recorde d. Referral pulmono logist referra l 2024 025 [email or web address] Kalyani Infante MD, [address] [facility], [place], [address], 08/31/2025 08:15:38 Procedures None recorde d. Surgeries None recorde d. Imaging None recorde d. Medication Orders doxycyc line monohyd rate 100 mg capsule 2024 025 [facility] [id number], [address] [facility] , [place], [address], 09/11/2025 13:19:55 Symbico rt 160 mcg-4.5 mcg/act uation HFA aerosol inhaler 2024 025 [facility] [id number], [address] [facility] , [place], [address], 08/10/2025 15:24:59 Patient TargetsNo targets recorded. Patient Instructions Encounter Date Encounter Id Patient Instructions Last Modified By Organization Details Last Modified Time 08/10/2025 [id number] deciding about using medicines to quit smoking [email or web address] Not available 08/10/2025 16:10:59 Quitting Tobacco : Care Instructions [email or web address] Not available 08/10/2025 16:10:59 Reason for Referral [employer] Referral for P urulent bronchitis Referring Physician: Mario Patel, Family Medicine, Encounter Date: 08/10/2025 Problems Name Problem SNOMED Code Status Onset Date Resolution Date Notes Provider Name and Address Organization Details Recorded Time Hypertensiv e disorder 65874887 Active Barbara Natacha null, [place] - [facility] 7 15:14:23 Hyperlipide alpesh 23214767 Active Barbara Natacha null, [place] - [facility] 7 15:14:41 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 Active Laly Wood null, [place] - [facility] 3 14:53:05 Chronic obstructive pulmonary disease 37759595 Active Laly Wood null, [place] - [facility] 3 14:53:05 Gastroesoph ageal reflux disease 046711177 Active Laly Wood [place], [place] [facility] 3 14:53:05 Coronary atheroscler osis 480178532 Active Laly Zeinamitt null, [place] - [facility] 3 14:53:05 History of cardiac catheteriza tion 8777337348963 0 Active Laly Zeinamitt null, [place] - [facility] 3 14:53:05 Carotid artery stenosis 11195720 Active Laly Pastranamitt [place], [place] - [facility] 3 14:53:05 Peripheral arterial disease 896947451 Active Laly Zeinamitt [place], [place] - [facility] 3 14:53:05 Coronary arterioscle rosis in [place] artery 9949768151241 Active 2016 Laly Zeinamitt null, [place] - [facility] 3 14:53:05 Exposure to SARS-CoV-2 Active 2020 Laly Pastranamitt null, [place] - [facility] 3 14:53:05 COVID-19 812054304 Active 2020 Laly Wood null, [place] - [facility] 3 14:53:05 Tobacco dependence syndrome 26075399 Active 2021 Laly Pastranamitt null, [place] - [facility] 3 14:53:05 Chronic cough 79720666 Active 2024 Radha Vega, RESEARCH CONSULTANT [address], [place], [address], [place] - [facility] 5 13:33:45 Chronic bronchitis 95490369 Active 2024 Radha Vega, RESEARCH CONSULTANT [address], [place], [address], [place] - [facility] 5 13:33:57 Dyspnea on exertion 92902983 Active 2024 Radha Vega, RESEARCH CONSULTANT [address], [place], [address], [place] - [facility] 5 13:34:03 Problem Notes None recorded. Procedures Surgical History Date Name Laterality Status Provider Name and Address Organization Details Recorded Time 10/14/19 25 Advance Care Planning completed Renae Donovan [place] - [facility] 10/14/2024 13:39:39 10/14/19 25 Functional Status Assessed completed Renae STROUD [facility] 10/14/2024 13:39:39 01/20/20 24 Cerumen Removal completed Mario Patel MD [address], [place], [address], [place] [facility] 01/20/2024 10:53:23 01/01/20 24 colonoscopy completed Renae [place] - [facility] 01/07/2024 16:54:01 11/26/19 24 Medication Reconcilliation completed Renae STROUD [facility] 11/26/2023 14:39:18 08/27/20 23 Advance Care Planning completed Renae STROUD - [facility] 08/27/2023 09:58:49 08/27/20 23 Functional Status Assessed completed Renae STROUD [facility] 08/27/2023 09:58:49 08/17/20 23 Cardiac Cath completed Renaerupert STROUD [facility] 08/27/2023 10:09:39 02/07/20 23 Cardiac Cath completed Renaerupert STROUD [facility] 07/09/2023 11:28:24 01/22/20 23 Cryosurgery Dermatology completed Mouna Wright APRN [address], [place], [address], [place] - [facility] 01/21/2023 09:03:53 10/31/19 23 Cerumen Removal completed Mario Patel MD [address], [place], [address], [place] [facility] 10/31/2022 09:41:03 09/29/20 22 Cryosurgery Dermatology completed Mouna Wright APRN [address], [place], [address], [place] - [facility] 09/29/2022 09:16:18 04/03/20 22 Medication Reconcilliation completed Saira Gomez [place] - [facility] 04/03/2022 14:31:04 11/16/19 21 Cerumen Removal completed Mario Patel MD [address], [place], [address], [place] [facility] 11/16/2020 14:21:28 11/16/19 21 Systolic B/P less than 130 mm Hg completed Renae Donovan [place] - [facility] 11/16/2020 14:00:49 11/16/19 21 Diastolic B/P less than 80 mm Hg completed Renae Donovan [place] - [facility] 11/16/2020 14:00:52 11/14/19 21 Systolic B/P less than 130 mm Hg completed Renae Donovan [place] - [facility] 11/14/2020 16:35:31 11/14/19 21 Diastolic B/P less than 80 mm Hg completed Renae Donovan [place] - [facility] 11/14/2020 16:35:34 04/29/20 19 Cerumen Removal completed Mario Patel MD [address], [place], [address], [place] [facility] 05/02/2019 09:31:18 03/23/20 19 Medication Reconcilliation completed Nini Rodríguez [place] - [facility] 03/23/2019 15:05:07 01/01/20 18 Joint Injection completed Mario Patel MD [address], [place], [address], [place] [facility] 12/31/2017 10:58:35 08/18/20 17 [...] Name and Address Organization Details Recorded Time 098536 ramipril medicatio n other Not available Not available 09/11/20252009 94121 RxNorm Not revie wed Not Available [employer] - External Data Service - prod 5 05:04:50 80819 Altace medicatio n rash Not available Not available 07/18/20162007 58182 8 RxNorm React ion: Rash - diffu se; Comme nt: ALTAC E; Not Available [facility] 6 09:20:14 Medications Name Sig Start Date [...] Nexium 40 mg oral capsule, delayed release( /KARLO);R ecorded Status: Recorded on: 05/24/20 14 2:24PM;D [...] e 50 mcg/actua tion nasal spray,glenda pension [place] 1 spray twice a day by intranas [...] twice a day by inhalati on route. 10/30/ 2025 active Not Available Not Available Not Avai [...] Updated DateTime 5 167.64 cm 26.1 kg/m2 36681.9 6 g 97.9 [degF] 68 /min 96 % 18 /min 0 114/58 mm[Hg] Renae Donovan [place] - [facility] 5 14:36:01 Social History Question Answer Notes LastModified by [...] Or The Highest Degree You Have Received? [id number] Information not available 01/29/2023 Swimming/diving No Informati [...] anxious, or unable to sleep at night)? [id number] [email or web address] Information not available 07/09/2023 Do [...] quadrivalent, PF 1 completed Renae Donovan null, [place] - [facility] 11/16/2020 17:21:02 Influenza, high-dose, quadrivalent, PF 1 completed Renae [place] null, [place] - [facility] 09/12/2021 14:39:26 Influenza, high-dose, quadrivalent, PF 2 completed Mai Bell null, [place] - [facility] 08/14/2022 10:50:11 influenza, unspecified formulation 2 completed Not Available [facility] 02/21/2023 06:50:10 influenza, unspecified formulation 4 completed Not Available [facility] 11/26/2023 14:30:08 pneumococcal polysaccharide PPV23 2 completed Not Available [facility] 02/21/2023 06:50:10 Influenza, high-dose, quadrivalent, PF 3 completed [place] - [facility] 08/27/2023 13:27:44 Pneumococcal conjugate PCV20, polysaccharide GYR797 conjugate, adjuvant, PF 3 completed [place] - [facility] 08/27/2023 13:28:34 Influenza, high-dose, trivalent, PF 8 completed Not Available [facility] 10/29/2019 03:55:20 Influenza, high-dose, trivalent, PF 9 completed Not Available [facility] 10/29/2019 03:56:04 tetanus toxoid, unspecified formulation 2 completed Not Available [facility] 11/26/2023 14:30:08 Past Encounters Encounter ID Performer Location Encounter Start Date Encounter Closed Date Diagnosis/Indication Diagnosis SNOMED-CT Code Diagnosis ICD10 Code Diagnosis IMO Codes Diagnosis Note [id number] Mario Patel MD [address] [place] [address] 08/10/2025 14:19:51 08/10/2025 15:21:27 Tobacco dependence syndrome 33461296 F17.200 Purulent bronchitis 2959 1002 J41.1 2688 Overweight in adulthood with body mass index of 25 or more but less than 30 501594331 Z68.26 [id number] Health Concerns Section Related Observation LastModified by Organization Detai ls LastModified Time None Recorded Concern Status LastModified by Organization Details LastModified Time None Recorded Payers Encounter Date Sequence Insurance Name Policy Number Policy Grimm Covered Member ID Grimm Member ID Guarantor Name 08/10/2025 1 [place]IC[place]PLAC[place]/A DVANTAGE - HMO) [id number] Presley Loomis [id number] Presley Loomis Notes Date Note Type Note Provider Name and Address Organization Details Recorded Time 08/10/2025 text/html Still with cough since early June. Has taken augmentin, levaquin and zithromax no change. CXR normal. Occasional wheezing. Mario Patel MD [address], [place], [address], [place] - [facility] 08/10/2025 15:25:19
--- OUTSIDE RECORDS SUMMARY | 2025-09-17 10:42 | XMS_ITS | Data Portability ---
Author Organization Count includes the [facility] Address [address] [place] [address] Assessment No assessment recorded. Plan of Treatment Reminders Order Date Submit Date Provider Last Modified By Organization Details Last Modified Time Details Appointments Spirome try 2024 11:00A M Spirometry Not available Not available Not available Establi shed Patient 20 2025 01:00P M Radha Vega APRN Not available Not available Not available Lab CBC w/ auto diff 2024 025 [facility], [address] [place] [address], [id number], 09/16/2025 10:13:05 CMP, serum or plasma 2024 025 [facility], [address] [place] [address], [id number], 09/16/2025 10:13:06 bordedaisy condon is igg+igm Ab, serum 2024 025 [facility], [address] [place] [address], [address], 09/16/2025 10:13:06 Mycobac terium tubercu losis stimula jie gamma interfe devyn, qual, blood 2024 025 [facility], [address] [place] [address], [address], 09/16/2025 10:13:07 fungal antibod y panel, serum [address] [place], [address], 09/16/2025 10:13:06 Histopl asma capsula josiah Ab, immune diffusi on titer, serum 2024 025 [facility], [address] [place] [address], [address], 09/16/2025 10:13:08 erythro cyte sedimen tation rate by westerg denny method 2024 025 [facility], [address] [place] [address], [address], 09/16/2025 10:13:08 ige, total, serum 2024 025 [facility], [address] [place] [address], [address], 09/16/2025 10:13:08 C reactiv e protein , QN, serum or plasma 2024 025 [facility], [address] [place] [address], [address], 09/16/2025 10:13:09 BNP (B-type natriur etic peptide ), serum or plasma [address], [address], 09/16/2025 10:13:07 D-dimer , quant, plasma 2024 025 [facility], [address] [place] [address], [address], 09/16/2025 10:13:07 Referral pulmono logist referra l 2024 025 [email or web address] Kalyani Infante MD, [address] [facility], [place], [address], 08/31/2025 08:15:38 Procedures None recorde d. Surgeries None recorde d. Imaging CT, chest, w/o contras t 2024 025 [email or web address] Formerly [facility]), [address] , [place], [address], 09/13/2025 09:24:07 spirome try, pre and post broncho dilatio n 2024 025 [email or web address] 10 [facility], [address] [place] [address] , [place], [address], 09/12/2025 10:47:45 XR, chest, 2 view 2024 [facility], [address] [place] [address] , [place], [address], 07/06/2025 16:51:35 Medication Orders prednis one 10 mg tablet 2024 025 [facility] [id number], [address] [facility] , [place], [address], 09/11/2025 14:11:22 ipratro pium 0.5 mg-albu terol 3 mg (2.5 mg base)/3 mL nebuliz ation soln 2024 025 [facility] [id number], [address] , [place], [address], 09/11/2025 14:11:19 albuter ol sulfate HFA 90 mcg/act uation aerosol inhaler 2024 025 [facility] [id number], [address] , [place], [address], 09/11/2025 19:59:51 doxycyc line monohyd rate 100 mg capsule 2024 025 [facility] [id number], [address] , [place], [address], 09/11/2025 13:19:55 Symbico rt 160 mcg-4.5 mcg/act uation HFA aerosol inhaler 2024 [facility] [id number], [address] [facility], [place], [address], 08/10/2025 15:24:59 azithro mycin 250 mg tablet 2024 [facility] [id number], [address] [place] [address] , [place], [address], 08/10/2025 14:36:33 amoxici llin 875 mg-pota ssium clavula smith 125 mg tablet 2024 [facility] [id number], [address] [place] [address], [place], [address], 08/10/2025 14:36:25 levoflo xacin 750 mg tablet 2024 [facility] [id number], [address] [place] [address], [place], [address], 07/06/2025 14:47:35 flutica sone propion ate 50 mcg/act uation nasal spray,s uspensi on 2024 [facility] [id number], [address] [facility], [place], [address], 08/10/2025 14:36:44 loratad ine 10 mg tablet 2024 025 [facility] [id number], [address] [facility], [place], [address], 2025 16:11:54 Patient TargetsNo targets recorded. Patient Instructions Encounter Date Encounter Id Patient Instructions Last Modified By Organization Details Last Modified Time 2025 [id number] seasonal allergies: care instructions [email or web address] Not available 2025 16:11:46 deciding about using medicines to quit smoking tgrosser Not available 2025 16:12:35 Quitting Tobacco : Care Instructions [email or web address] Not available 2025 16:12:35 06/15/2025 [id number] deciding about using medicines to quit smoking tgrosser Not available 06/15/2025 13:20:51 Quitting Tobacco : Care Instructions [email or web address] Not available 06/15/2025 13:20:51 08/10/2025 [id number] deciding about using medicines to quit smoking tgrosser Not available 08/10/2025 16:10:59 Quitting Tobacco : Care Instructions [email or web address] Not available 08/10/2025 16:10:59 09/11/2025 [id number] Take medications as prescribed. You should go [...] water, then drink 2-4 ounces of water. Not available 09/11/2025 19:59:33 Chronic and/or acute [...] next scheduled visit or sooner if needed. 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 [email or web address] [address] , [place], [address], 07/07/2025 12:40:36 Result Notes None recorded. Problems Name Problem SNOMED Code Status Onset Date Resolution Date Notes Provider Name and Address Organization Details Recorded Time Hypertensiv e disorder 54582135 Active Barbara Manzano null, [place] - [facility] 7 15:14:23 Hyperlipide alpesh 00887269 Active Barbara Manzano null, [place] - [facility] 7 15:14:41 Stented artery 658004141 Active Laly Wood null, [place] - [facility] 3 14:53:05 Chronic obstructive pulmonary disease 06575552 Active Laly Pastranamitt null, [place] - [facility] 3 14:53:05 Gastroesoph ageal reflux disease 310508645 Active Laly Pastranamitt [place] - [facility] 3 14:53:05 Coronary atheroscler osis 909452547 Active Laly Pastranamitt [place] [facility] 3 14:53:05 History of cardiac catheteriza tion 8231304639569 0 Active Laly Pastranamitt [place] - [facility] 3 14:53:05 Carotid artery stenosis 45022634 Active Laly Pastranamitt [place] [facility] 3 14:53:05 Peripheral arterial disease 219429307 Active Laly Pastranamitt [place] [facility] 3 14:53:05 Coronary arterioscle rosis in [place] artery 7688023401589 Active 2016 Laly Pastranamitt [place] [facility] 3 14:53:05 Exposure to SARS-CoV-2 Active 2020 Laly Zeinamitt null[place] - [facility] 3 14:53:05 COVID-19 788080907 Active 2020 Laly Pastranamitt [place] [facility] 3 14:53:05 Tobacco dependence syndrome 35998912 Active 2021 Laly Zeinamitt null[place] - [facility] 3 14:53:05 Chronic cough 22261586 Active 2024 Radha Vega, [employer] [address], [place], [address] , [place] - [facility] 5 13:33:45 Chronic bronchitis 99712934 Active 2024 Radha Vega, [employer] [address], [place], [address], [place] - [facility] 13:33:57 Dyspnea on exertion 08304861 Active 2024 Radha Vega, [employer] [address], [place], [address], [place] - [facility] 13:34:03 Problem Notes None recorded. Procedures Surgical History Date Name Laterality Status Provider Name and Address Organization Details Recorded Time 10/14/19 25 Advance Care Planning completed Renae Hay [facility] 10/14/2024 13:39:39 10/14/19 25 Functional Status Assessed completed Renae [facility] 10/14/2024 13:39:39 01/20/20 24 Cerumen Removal completed Mario Patel MD [address], [place], [address], [place] - [facility] 01/20/2024 10:53:23 01/01/20 24 colonoscopy completed Renae Hay [facility] 01/07/2024 16:54:01 11/26/19 24 Medication Reconcilliation completed Renae Hay [facility] 11/26/2023 14:39:18 08/27/20 23 Advance Care Planning completed Renae Hay [facility] 08/27/2023 09:58:49 08/27/20 23 Functional Status Assessed completed Renae Zion [facility] 08/27/2023 09:58:49 08/17/20 23 Cardiac Cath completed Renae Zion [facility] 08/27/2023 10:09:39 02/07/20 23 Cardiac Cath completed Renae Hay [facility] 07/09/2023 11:28:24 01/22/20 23 Cryosurgery Dermatology completed Mouna Wright APRN [address], [place], [address], [place] [facility] 01/21/2023 09:03:53 10/31/19 23 Cerumen Removal completed Mario Patel MD [address], [place], [address], [place] [facility] 10/31/2022 09:41:03 09/29/20 22 Cryosurgery Dermatology completed Mouna Wright APRN [address], [place], [address], [place] [facility] 09/29/2022 09:16:18 04/03/20 22 Medication Reconcilliation completed Saira Patricia [place] - [facility] 04/03/2022 14:31:04 11/16/19 21 Cerumen Removal completed Mario Patel MD [address], [place], [address], [place] [facility] 11/16/2020 14:21:28 11/16/19 21 Systolic B/P less than 130 mm Hg completed Renae [place] - [facility] 11/16/2020 14:00:49 11/16/19 21 Diastolic B/P less than 80 mm Hg completed Renae [facility] - [facility] 11/16/2020 14:00:52 11/14/19 21 Systolic B/P less than 130 mm Hg completed [facility] - [facility] 11/14/2020 16:35:31 11/14/19 21 Diastolic B/P less than 80 mm Hg completed Renae [facility] - [facility] 11/14/2020 16:35:34 04/29/20 19 Cerumen Removal completed Mario Patel MD [address], [place], [address], [facility] - [facility] 05/02/2019 09:31:18 03/23/20 19 Medication Reconcilliation completed Nini Marcos [place] - [facility] 03/23/2019 15:05:07 01/01/20 18 Joint Injection completed Mario Patel MD [address], [place], [address], [place] [facility] 12/31/2017 10:58:35 08/18/20 17 Pacemaker Placement completed Renae [place] - [facility] 07/29/2018 14:26:00 Cardiac Cath completed Barbara Manzano [place] - [facility] 08/28/2017 15:20:12 Imaging Results None recorded. Procedure Notes None recorded. Medical Equipment None Reported. Allergies Allergen ID Allergen Name Allergen Category Reaction Reaction Severity Criticality Documentation Date Start Date Code Code System Note Provider Name and Address Organization Details Recorded Time 092995 ramipril medicatio n other Not available Not available 09/11/20252009 80854 RxNorm Not revie wed Not Available [facility] - External Data Service - prod 5 05:04:50 04750 Altace medicatio n rash Not available Not available 07/18/20162007 81345 8 RxNorm React ion: Rash - diffu se; Comme nt: ALTAC E; Not Available [facility] 6 09:20:14 Medications Name Sig [...] on: 01/16/20 14;Indic ation: Constipa tion - (56);Prin jie: 01/21/20 13 Not Available Not Available [...] 11/20/19 15;Indic ation: Gastroes ophageal Reflux - (.5308 10) Not Available Not Available Not Available [...] Status: Recorded on: 07/15/20 08 10:02PM; User: [email or web address] Not Available Not Available Not Available tramadol [...] 1 capsule every day by oral route. 04/20/ 2023 10/05 /2023 completed Not Available Not Available Not Available [...] Disconti nued on: 12/07/19 09 6:23PM;U ser: [email or web address];Est . Completi on: 01/07/20 09 Not Available Not Available Not Available amoxicill in 875 mg tablet take 1 tablet (875 mg) by oral route every 12 hours for 10 days 01/03 completed amoxicil romie 875 mg oral tablet;P rescribe Status: Prescrib ed on: 10/30/19 16 10:52AM; Disconti nued Status: Disconti nued on: 01/04/20 16 3:35PM;U ser: [email or web address]; Est. Completi on: 11/09/19 [...] e 50 mcg/actua tion nasal spray,glenda pension Funk 1 spray twice a day by intranas [...] Details Last Updated DateTime 5 167.64 cm 27.1 kg/m2 81202.5 2 g 98.1 [degF] 60 /min 95 % 18 /min 0 120/46 mm[Hg] Renae Donovan [place] - [facility] 5 15:55:25 Date Recorded Body height Body mass index (BMI) Body weight Body temperature Heart rate Oxygen saturation Respiratory rate Pain severity - 0-10 verbal numeric rating [Score] - Reported Systolic And Diastolic Provider Name and Address Organization Details Last Updated DateTime 5 167.64 cm 27 kg/m2 47464.9 3 g 97.9 [degF] 72 /min 97 % 18 /min 0 130/60 mm[Hg] Renae Donovan [place] - [facility] 5 11:22:49 Date Recorded Body height Body mass index (BMI) Body weight Body temperature Heart rate Oxygen saturation Respiratory rate Pain severity - 0-10 verbal numeric rating [Score] - Reported Systolic And Diastolic Provider Name and Address Organization Details Last Updated DateTime 5 167.64 cm 26.5 kg/m2 38919.2 5 g 98.2 [degF] 65 /min 96 % 18 /min 0 123/74 mm[Hg] Mai Bell [place] - [facility] 5 14:46:48 Date Recorded Body height Body mass index (BMI) Body weight Body temperature Heart rate Oxygen saturation Respiratory rate Pain severity - 0-10 verbal numeric rating [Score] - Reported Systolic And Diastolic Provider Name and Address Organization Details Last Updated DateTime 5 167.64 cm 26.1 kg/m2 46427.9 6 g 97.9 [degF] 68 /min 96 % 18 /min 0 114/58 mm[Hg] Renae Donovan [place] - [facility] 5 14:36:01 Date Recorded Body height Body mass index (BMI) Body weight Heart rate Oxygen saturation Respiratory rate Body temperature Systolic And Diastolic Provider Name and Address Organization Details Last Updated DateTime 5 167.64 cm 26.1 kg/m2 39269.9 6 g 62 /min 99 % 18 /min 98 [degF] 120/68 mm[Hg] Melany meng [place] - [facility] 5 13:07:28 Social History Question Answer Notes LastModified by Organizat ion Details LastModified Time Tobacco Smoking Status Former Smoker quit in 1990 Barbara Buinarcisa [place], [place] - [facility] 08/28/2017 15:17:03 Able [...] Or The Highest Degree You Have Received? [id number] Information not available 01/29/2023 Swimming/diving No Informati on not available 03/04/2018 Have There Been Any Changes To Your Family Or Social Situation? No Information no t available 07/09/2023 What Is The Fluoride Status Of Your Home? Fluoridated Information not available 07/09/2023 When Did You Quit Smoking? 16+yearselkin garza Information not available 03/04/2018 Hard Of [...] anxious, or unable to sleep at night)? [id number] Information not available 07/09/2023 Do you have [...] influenza, unspecified formulation 2 completed Not Available [facility] 02/21/2023 06:50:10 influenza, unspecified formulation 4 completed Not Available [facility] 11/26/2023 14:30:08 pneumococcal polysaccharide PPV23 2 completed Not Available [facility] 02/21/2023 06:50:10 Influenza, high-dose, quadrivalent, PF 3 completed Renae tyson, [place] - [facility] 08/27/2023 13:27:44 Pneumococcal conjugate PCV20, polysaccharide XDV169 conjugate, adjuvant, PF 3 completed Renae Donovan null, [place] - [facility] 08/27/2023 13:28:34 Influenza, high-dose, trivalent, PF 8 completed Not Available [facility] 10/29/2019 03:55:20 Influenza, high-dose, trivalent, PF 9 completed Not Available [facility] 10/29/2019 03:56:04 tetanus toxoid, unspecified formulation 2 completed Not Available [facility] 11/26/2023 14:30:08 Past Encounters Encounter ID Performer Location Encounter Start Date Encounter Closed Date Diagnosis/Indication Diagnosis SNOMED-CT Code Diagnosis ICD10 Code Diagnosis IMO Codes Diagnosis Note [id number] Mario Patel MD [address] [place] [address] 08/28/2017 14:49:23 08/28/2017 15:37:00 Influenza-like symptoms 542938016 R68.89 Acute bronchitis 6221343 2 J20.9 Coronary arteriosclerosis in [place] artery 9819657371 107 I25.10 Body mass index 25-29 - overweight 329316859 Z68.25 [id number] Mario Patel MD [address] [place] [address] 12/31/2017 09:42:17 12/31/2017 10:59:35 Olecranon bursitis 803142107 M70.21 Body mass index 25-29 - overweight 515115441 Z68.25 [id number] Mario Patel MD [address] [place] [address] 01/07/2018 13:44:37 01/07/2018 14:40:04 Body mass index 20-24 - normal 944537592 Z68.24 Olecranon bursitis 43733 0002 M70.21 Fatigue 38948322 R53.83 [id number] Mario Patel MD [address] [place] [address] 03/04/2018 08:08:38 03/04/2018 09:08:01 Bursitis of olecranon of right elbow 6282905046 40836 M70.21 Body mass index 25-29 - overweight 331605709 Z68.25 [id number] Mario Patel MD [address] [place] [address] 04/08/2018 09:11:37 04/08/2018 10:08:43 Hyperlipidemia 08448653 E78.5 Coronary arteriosclerosis in [place] artery 9748254022 107 I25.10 Hypertensive disorder 38 298298 I10 Body mass index 25-29 - overweight 577471186 Z68.25 Screening for malignant neoplasm of prostate 791726944 Z12.5 [id number] Minesh Walsh MD [address] [place] [address] 05/31/2018 15:02:51 05/31/2018 15:56:40 Headache 79830423 R51 Coronary arteriosclerosis in [place] artery 8765322027 107 I25.10 Hypertensive disorder 38 270093 I10 Hyperlipidemia 71323755 E78.5 [id number] Mario Patel MD [address] [place] [address] 07/29/2018 14:03:14 07/29/2018 15:23:29 Administration of influenza vaccine 55504529 Z23 Superficia l thrombophlebitis 4994729 I80.9 Body mass index 25-29 - overweight 988359348 Z68.25 [id number] Mario Patel MD [address] [place] [address] 11/17/2018 14:09:05 11/17/2018 14:54:59 Acute bronchitis 89283592 J20.9 Body mass index 25-29 - overweight 459510517 Z68.25 [id number] Mario Patel MD [address] [place] [address] 12/24/2018 10:14:09 12/24/2018 10:42:57 Acute bronchitis 76454779 J20.9 Body mass index 25-29 - overweight 169759882 Z68.26 [id number] Mario Patel MD [address] [place] [address] 03/23/2019 14:54:51 03/23/2019 15:34:48 Coronary arteriosclerosis in [place] artery 3476800034 107 I25.10 Atypical chest pain 1025 [address]64 R07.89 Hypokalemia 96953906 E87 .6 Body mass index 25-29 - overweight 052326434 Z68.25 Fatigue 33575968 R53.83 [id number] Mario Patel MD [address] [place] [address] 04/29/2019 10:38:00 04/29/2019 12:44:33 Impacted cerumen in left ear 9668747352 890487 H61.22 Body mass index 25-29 - overweight 439391718 Z68.25 Benign pro static hyperplasia without outflow obstruction 799250610 N40.0 [id number] Mario Patel MD [address] [place] [address] 05/13/2019 09:45:24 05/13/2019 13:40:20 Coronary arteriosclerosis in [place] artery 4176765879 107 I25.10 Hypertensive disorder 38 000435 I10 Stented artery 859557140 R09.89 Hyperlipidemia 17480968 E78.5 Right uppe r quadrant pain 274390456 R10.11 Screening for malignant neoplasm of colon 087946000 Z12.11 Body mass index 25-29 - overweight 304377617 Z68.25 [id number] Mario Patel MD [address] [place] [address] 07/14/2019 15:16:12 07/14/2019 15:52:44 Administration of influenza vaccine 82610112 Z23 Colorectal cancer detected by DNA-based stool screening 890956121 R85.89 Helicobact er pylori gastrointestinal tract infection 517255992 B96.81 Body mass index 25-29 - overweight 431859713 Z68.25 [id number] Mario Patel MD [address] [place] [address] 08/11/2019 10:29:27 08/11/2019 11:05:07 Acute bronchitis 44046682 J20.9 Body mass index 25-29 - overweight 296042174 Z68.25 [id number] Amrita Ramirez MD [address] [place] [address] 10/03/2019 13:44:56 10/03/2019 14:41:08 Acute bronchitis 97123956 J20.9 [id number] Mario Patle MD [address] [place] [address] 11/14/2020 16:13:44 11/14/2020 16:50:06 Raised seborrheic keratosis 8482452082 45169 L82.1 Impacted c erumen of bilateral ears 8556672560 793559 H61.23 Body mass index 25-29 - overweight 162625010 Z68.25 [id number] Mario Patel MD [address] [place] [address] 11/16/2020 13:37:36 11/16/2020 14:29:54 Impacted cerumen of bilateral ears 9458689273 288969 H61.23 Administra tion of influenza vaccine 74773988 Z23 Body mass index 25-29 - overweight 290918204 Z68.25 [id number] Susan Mendiola APRN [address] [place] [address] 12/25/2020 13:41:24 12/25/2020 14:36:12 Exposure to SARS-CoV-2 030928614 Z20.822 Tested positive yesterday at [facility] - no need for retesting today or antibody testing. Had discussion with . Advised quarantine for the next 10 days for patient and . Advised to go to ER if any shortness of breath or chest pain returns - patient and verbalized understand ing. COVID-19 592001150 U07.1 Positive test at [facility] in ER yesterday [id number] Leanne Keith APRN [address] [place] [address] 05/23/2021 14:56:29 05/23/2021 16:03:22 Viral screening 698690241 Z11.52 Respirator y tract congestion and cough 028354302 R05 Nasal congestion 7092927 0 R09.81 Cough 79337933 R05 Rhinitis 59995026 J00 [id number] Mario Patel MD [address] [place] [address] 09/12/2021 14:16:50 09/12/2021 14:50:52 Administration of influenza vaccine 65969438 Z23 [id number] Jocelin Stanley MD [address] [place] [address] 11/21/2021 09:02:50 11/21/2021 10:34:20 Viral screening 802235486 Z11.52 COVID-19 622529680 U07.1 Her rapid COVID test is positive. Avoid NSAIDs (Advil, Aleve, Motrin, Naproxen, Ibuprofen etc). Can take Tylenol 325 mg every 6 hours as needed. Maintain an adequate hydration. I also advised to wash hands diligently and also practice respirator y hygiene eg covering cough. Quarantine for one week. See us back or go to the (ER) right away should he gets worse or develops any other symptoms or complaints . Follow up with us in three days. I also recommende d to call 911 and go to the hospital emergency department (ER) right away should develop any difficulty breathing, shortness of air, chest pain, confusion, change in behavior, difficulty in rousing, low blood pressure, any bluish discolorat ion of skin, failure of kidneys to produce urine, falls or other symptoms or complaints . [id number] Mario Patel MD [address] [place] [address] 03/07/2022 10:52:24 03/07/2022 11:45:35 Tobacco dependence syndrome 49587342 F17.200 Right lowe r quadrant pain 005200454 R10.31 Body mass index 25-29 - overweight 471768154 Z68.25 [id number] Mario Patel MD [address] [place] [address] 04/03/2022 14:22:22 04/03/2022 14:58:11 Abdominal pain 06266522 R10.9 resolved Body mass index 25-29 - overweight 042244970 Z68.25 [id number] Mario Patel MD [address] [place] [address] 06/05/2022 09:28:43 06/05/2022 10:06:34 Tobacco dependence syndrome 58624835 F17.200 Left upper quadrant pain 450505756 R10.12 resolved Pigmented skin lesion of uncertain nature 946685523 L81.9 Body mass index 25-29 - overweight 707952066 Z68.25 [id number] Mario Patel MD [address] [place] [address] 08/14/2022 10:36:57 08/14/2022 11:23:41 Influenza vaccine needed 5999367770 106 Z23 [id number] Mouna Wright APRN [facility] [address] [place] [address] 09/29/2022 08:45:52 09/29/2022 09:30:30 Actinic keratosis 034127720 L57.0 impression : hypertroph ic AK : patient would like to avoid the use of needles and elects to first treat with cryo and then re-eval [id number] Mario Patel MD [address] [place] [address] 10/24/2022 09:39:25 10/24/2022 10:20:49 Tobacco dependence syndrome 52514044 F17.200 Pain of ri ght shoulder joint 9299459892 3542951 M25.511 Body mass index 25-29 - overweight 416341317 Z68.25 [id number] Mario Patel MD [address] [place] [address] 10/31/2022 09:13:04 10/31/2022 09:39:26 Tobacco dependence syndrome 22925358 F17.200 Impacted c erumen of bilateral ears 2653858143 736428 H61.23 Body mass index 25-29 - overweight 251122948 Z68.25 [id number] Mario Patel MD [address] [place] [address] 11/21/2022 11:12:08 11/21/2022 11:43:35 Tobacco dependence syndrome 59000943 F17.200 Acute bronchitis 4045949 2 J20.9 Body mass index 25-29 - overweight 072148173 Z68.25 [id number] Mouna Wright APRN [facility] [address] [place] [address] 01/21/2023 08:16:53 01/21/2023 08:53:55 Actinic keratosis 933918140 L57.0 Considerat ion for SCC on left scalp and right forearm. However, patient defers having any shaves completed, he would rather first proceed with cryo. He will follow up in the new year for potential shave removal [id number] Mario Patel MD [address] [place] [address] 01/29/2023 14:12:00 01/29/2023 14:59:08 Tobacco dependence syndrome 55582159 F17.200 Pain of ri ght shoulder joint 6571180960 1776507 M25.511 Body mass index 25-29 - overweight 979995344 Z68.26 [id number] Mario Patel MD [address] [place] [address] 07/09/2023 11:04:47 07/09/2023 12:00:45 Tobacco dependence syndrome 86471161 F17.200 Increased frequency of urination 707364694 R35.0 Benign pro static hyperplasia without outflow obstruction 000079515 N40.0 Body mass index 25-29 - overweight 696382786 Z68.25 [id number] Mario Patel MD [address] [place] [address] 07/16/2023 14:49:39 07/16/2023 15:33:14 Abdominal pain 99311951 R10.9 resolved Tobacco de pendence syndrome 66316090 F17.200 Esophageal dysphagia 408 30398 R13.19 Gastroesop hageal reflux disease 502937999 K21.9 Pain in ep igastric region on palpation 789900841 R10.13 Body mass index 25-29 - overweight 227261159 Z68.25 [id number] Mario Patel MD [address] [place] [address] 08/27/2023 09:33:02 08/27/2023 10:47:21 Adult health examination 251442404 Z00.00 Depression screening 171 548648 Z13.31 Examinatio n of blood pressure 165185904 Z01.30 Diet education 38613425 Z71.3 Counseling 431962415 Z71 .82 Exercise counseling . Patient encouraged to exercise 30 minutes 5 days a week. At [facility] ed risk for falls 469555115 Z91.81 STEADI FAST screening score of __3___. Advance care planning 71 1323840 Z71.89 Tobacco de pendence syndrome 16484914 F17.200 Stented artery 281436907 R09.89 Hypertensive disorder 38 421720 I10 controlled Hyperlipidemia 59758731 E78.5 stable Gastroesop hageal reflux disease 733865371 K21.9 controlled Carotid ar mercedes stenosis 56454268 I65.29 stable Chronic ob structive pulmonary disease 60646648 J44.9 stable Coronary atherosclerosis 879980005 I25.10 stable Influenza vaccine needed 7205402475 106 Z23 Active or passive immunization 897723857 Z23 Varicella immune 9454745 08 Z78.9 Body mass index 25-29 - overweight 301077385 Z68.26 [id number] Mario Patel MD [address] [place] [address] 09/10/2023 15:50:46 09/10/2023 16:39:10 Viral screening 763454339 Z11.59 COVID-19 361435337 U07.1 Acute bronchitis 2654646 2 J20.9 Body mass index 25-29 - overweight 153903897 Z68.26 [id number] Mario Patel MD [address] [place] [address] 11/26/2023 14:28:40 11/26/2023 15:17:12 Carotid artery stenosis 79960509 I65.29 stable Chronic ob structive pulmonary disease 61675623 J44.9 stable Coronary atherosclerosis 035595036 I25.10 stable Gastroesop hageal reflux disease 690005324 K21.9 controlled Hyperlipidemia 64484878 E78.5 stable Hypertensive disorder 38 470637 I10 controlled Tobacco de pendence syndrome 12034146 F17.200 Congestive heart failure 28900654 I50.9 resolved Iron defic iency anemia 06759090 D50.9 [id number] Mario Patel MD [address] [place] [address] 01/07/2024 16:42:08 01/07/2024 17:29:14 Tobacco dependence syndrome 68605089 F17.200 Impacted c erumen of bilateral ears 9985941413 791876 H61.23 Body mass index 25-29 - overweight 112012254 Z68.25 [id number] Mario Patel MD [address] [place] [address] 01/20/2024 09:55:21 01/20/2024 10:54:51 Tobacco dependence syndrome 48159064 F17.200 Impacted c erumen of bilateral ears 0729660154 674394 H61.23 Body mass index 25-29 - overweight 605001287 Z68.25 [id number] Leanna Trevino APRN [address] [place] [address] 06/02/2024 10:03:19 06/02/2024 10:50:42 Cough 05394769 R05.9 Body mass index 25-29 - overweight 402922298 Z68.26 Overweight 002535058 E66 .3 Acute bact erial bronchitis 693522750 J20.9 Chronic ob structive pulmonary disease 77925330 J44.9 Coronary atherosclerosis 312120851 I25.10 [id number] Mario Patel MD [address] [place] [address] 10/14/2024 13:33:14 10/14/2024 14:10:21 Adult health examination 831367941 Z00.00 Depression screening 171 907898 Z13.31 A depression screening was completed via a standardiz ed screening tool. 5 minutes were spent discussing depression screening results and risk factors. Examinatio n of blood pressure 372427877 Z01.30 Diet education 15172646 Z71.3 Counseling 321844092 Z71 .82 Exercise counseling . Patient encouraged to exercise 30 minutes 5 days a week. At [facility] ed risk for falls 259495038 Z91.81 STEADI FAST screening score of _3____. Advance care planning 71 0941393 Z71.89 Chronic ob structive pulmonary disease 07460364 J44.9 stable Coronary atherosclerosis 745877188 I25.10 stable Carotid ar mercedes stenosis 15290416 I65.29 stable Tobacco de pendence syndrome 95297498 F17.200 Coronary arteriosclerosis in [place] artery 2312859208 107 I25.10 Gastroesop hageal reflux disease 348681308 K21.9 controlled Hypertensive disorder 38 105586 I10 controlled Stented artery 074221270 R09.89 Hyperlipidemia 30782377 E78.5 stable Body mass index 25-29 - overweight 722434121 Z68.27 [id number] Mario Patel MD [address] [place] [address] 11/24/2024 13:51:09 11/24/2024 14:36:30 Tobacco dependence syndrome 90783875 F17.200 Acute bronchitis 7233990 2 J20.9 Body mass index 25-29 - overweight 012547095 Z68.27 [id number] Mario Patel MD [address] [place] [address] 2025 15:41:24 2025 16:09:55 Tobacco dependence syndrome 65009329 F17.200 Seasonal allergy 8169524 04 J30.2 64952 Overweight in adulthood with body mass index of 25 or more but less than 30 954963515 Z68.27 25525922 [id number] Mario Patel MD [address] [place] [address] 06/15/2025 11:16:03 06/15/2025 11:46:26 Tobacco dependence syndrome 59567858 F17.200 Purulent bronchitis 2959 1002 J41.1 2688 Overweight in adulthood with body mass index of 25 or more but less than 30 947287753 Z68.27 28956370 [id number] Mario Patel MD [address] [place] [address] 07/06/2025 14:36:48 07/06/2025 15:17:26 Purulent bronchitis 43844990 J41.1 2688 Overweight in adulthood with body mass index of 25 or more but less than 30 840535467 Z68.26 6830851054 [id number] Mario Patel MD [address] [place] [address] 08/10/2025 14:19:51 08/10/2025 15:21:27 Tobacco dependence syndrome 93812518 F17.200 Purulent bronchitis 2959 1002 J41.1 2688 Overweight in adulthood with body mass index of 25 or more but less than 30 627936562 Z68.26 7390114268 [id number] Radha Vega APRN [facility] [address] [place] [address] 09/11/2025 12:54:21 09/11/2025 14:16:27 Chronic obstructive pulmonary disease 84520627 J44.9 Advised patient to use Symbicort as prescribed .Albuterol PRN for SOB/wheezi ng.Duo-Neb s twice daily before inhalers.F /U at next scheduled appointmen t or sooner PRN. Chronic bronchitis 70539 004 J42 [id number] Will obtain CT chest for further evaluation .Advised patient to start Prednisone taper and finish course of previously prescribed Doxycyclin e.Duo-nebs PRN as prescribed Labs as ordered below.F/U at next scheduled appointmen t or sooner PRN. Dyspnea on exertion 6084 5006 R06.09 [id number] Will order Spirometry as below.Will order labs as below.Symp toms of SOB/orthop aisha unchanged since since ECHO in Nov. however may consider repeat ECHO pending other diagnostic s.F/U at next scheduled appointmen t or sooner PRN. Hypertensive disorder 38 451496 I10 Stable.Lab s as below. Health Concerns Section Related Observation LastModified by Organization Detai ls LastModified Time None Recorded Concern Status LastModified by Organization Details LastModified Time None Recorded Advance Directives Directive Y: Payers Insurance Date Sequence Insurance Name Policy Number Policy Grimm Covered Member ID Grimm Member ID Guarantor Name 08/21/2025 1 [place] [id number]oom[facility] [id number] Presley Loomis 09/17/2025 1 [place]MED[place]/AD VANTAGE - HMO) [id number] Presley Loomis [id number] Presley Loomis 08/21/2025 [employer] (MEDICARE REPLACEMENT/AD VANTAGE - PPO) [id number] Presley Loomis [id number] Presley Loomis 08/21/2025 1 [employer] - CHOICECARE (PPO) [id number] Presley Loomis [id number] Presley Loomis Notes Date Note Type Note Provider Name and Address Organization Details Recorded Time 2025 text/html C/O allergy symptoms with clear nasal drainage, scratchy throat, dry cough. No eye problems or sneezing. Mario Patel MD [address], [address], [facility] 2025 16:12:19 06/15/2025 text/html C/O cough, chest congestion, yellow sputum, SOB 1 week. No fever. No sinus symptoms. Mario Patel MD [address], [place], [address], [facility] 06/15/2025 11:47:40 07/06/2025 text/html Still C/O cough with thick sputum, spasmodic type cough.No SOB. Quit smoking 1989. Mario Patel MD [address], [place], [address], [facility] 07/06/2025 15:21:44 08/10/2025 text/html Still with cough since early June. Has taken augmentin, levaquin and zithromax no change. CXR normal. Occasional wheezing. Mario Patel MD [address], [place], [address], [facility] 08/10/2025 15:25:19 09/11/2025 text/html Mr. Loomis is a 80 [...] Hx of CABG/CADfollows with Dr. Rehman in [place]. States he had a CABG several years ago, and since then has had several stents placed. Has a follow up scheduled with them on .ECHO - 11/2024 - EF 50%, right ventricular systolic pressure 30-35 Radha Vega, [employer] [address], [place], [address], [place] - [facility] 09/11/2025 20:00:02
[2025-09-17 10:46] LABS: VBG HCO3 29.6 mmol/L (23-30); VBG PCO2 51.0 mmol/L (35-51); VBG PH 7.38 mmol/L (7.31-7.41); VBG PO2 41.3 mmol/L (28-40)
[2025-09-17 10:47] LABS: Hematocrit 39.9 % (42.0-52.0); Hemoglobin 13.5 g/dL (14.1-18.0); Immature Granulocytes % 1.2 %; Mean Corpuscular HGB Conc 33.8 g/dL (31.8-35.4); Mean Corpuscular Hemoglobin 29.2 pg (27.0-31.2); Mean Corpuscular Volume 86.2 fl (80-94); Nucleated Red Blood Cells % 0.8 %; Platelet Count 129 K/mm3 (142-424); Red Blood Count 4.63 M/mm3 (4.60-6.20); Red Cell Distribution Width-SD 59.2 fL; White Blood Count 10.4 K/mm3 (4.8-10.8)
[2025-09-17 10:48] LABS: Lactate Venous 2.2 mmol/L (0.4-2.0)
[2025-09-17 10:56] LABS: Alanine Aminotransferase 32 U/L (12-78); Albumin Level 4.3 g/dl (3.5-5.0); Albumin/Globulin Ratio 1.5 (1.1-1.8); Alkaline Phosphatase 59 U/L (38-126); Anion Gap 9.3 mEq/L (5-15); Aspartate Amino Transferase 34 U/L (17-59); Bilirubin,Total 0.9 mg/dl (0.2-1.3); Blood Urea Nitrogen 22 mg/dl (9-20); Calcium 8.8 mg/dl (8.4-10.2); Carbon Dioxide 30 mmol/L (22.0-30.0); Chloride 100 mmol/L (98-107); Creatinine Clearance Estimated 55 mL/min (50-200); Creatinine,Serum 1.10 mg/dl (0.66-1.25); Estimated Glomerular Filt Rate 64 ml/min (>60); GFR (African American) 78 ML/MIN (>60); Globulin 2.8 g/dL (1.3-3.2); Glucose 160 mg/dl (74-100); Magnesium 1.8 mg/dl (1.6-2.3); Potassium 3.3 mmoL/L (3.5-5.1); Sodium 136 mmol/L (136-145); Total Protein,Serum 7.1 g/dl (6.3-8.2)
[2025-09-17 11:08] LABS: Troponin I 0.05 ng/ml (0.00-0.034)
--- NOTE | 2025-09-17 11:08 | ECG_ITS ---
APPROVED REPORT Exam: Resting ECG HR:64 bpm ECG Measurements Heart Rate 64 AXES ME 237 P 193 QRSd 110 QRS 50 QT 426 T -5 QTc 436 Conclusion ELECTRONIC ATRIAL PACEMAKER MINIMAL VOLTAGE CRITERIA FOR LVH, CONSIDER NORMAL VARIANT [MEETS CRITERIA IN ONE OF: R(aVL), S(V1), R(V5), R(V5/V6)+S(V1)] INFERIOR MYOCARDIAL INFARCTION , PROBABLY OLD [40+ ms Q WAVE AND/OR ST/T ABNORMALITY IN II/aVF] No STEMI Electronically signed by : MENDOZA MILLAN, 09/21/2025 03:04:36
--- NOTE | 2025-09-17 11:53 | PC.NURSE ---
report given 4712
--- NOTE | 2025-09-17 11:59 | EXP.HP ---
History of Present Illness *Admission Date: 09/17/25 *Reason for visit:: Chest pain *History of present illness: Presley Loomis is an 80-year-old male with a medical history significant for CABG in 1994, CAD with multiple stents, hypertension, HFpEF, BPH, COPD on room air, medication nonadherence who presents with 2-day onset of chest pain. He states he awoke from chest pain 2 nights ago, it was lower sternal without radiation. This morning, he again had lower sternal chest pain without radiation but had diaphoresis. He states this was similar to the time that he needed a CABG. Denies fever/chills, shortness of breath, abdominal pain. He was given aspirin 324 mg. Workup in the ED significant for Troponin 0.05, EKG without acute ischemic changes. Dr. Rehman was consulted who recommended admission for further evaluation management, advise one-time dose of therapeutic Lovenox. ED provider discussed case with me and I said to admit patient for further evaluation management. [facility] Disclaimer: The information contained in this section may have been updated after the patient was seen, as this information can be updated by other users. 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 Carotid artery stenosis HLD (hyperlipidemia) HHD (hypertensive heart disease) PAD (peripheral artery disease) CAD (coronary artery disease) Surgical History S/P cardiac catheterization History of coronary artery bypass graft Family History Other Family history of myocardial infarction Social History Smoking Status: Never smoker alcohol intake: never substance use type: denies use current occupational status: retired Travel in the last 8 weeks?: Inside the [place] household members: spouse housing: house caffeine: Yes Have you lived/traveled outside US in past 30 days?: No Contact w/someone who lives/traveled outside US past 30 days?: No Exposure to someone with infectious disease in past 14 days?: No Do you have a fever (greater than 100.4 F or 38 C)?: No Have you tested positive for COVID-19?: No Exposed to someone with COVID-19 in past 14 days?: No Do you have a sore throat?: No Do you have a cough?: No Do you have any weakness?: No Do you have any diarrhea?: No Are you experiencing any unusual bleeding?: No Do you have any muscle aches/pain?: No Do you have any abdominal pain?: No Are you experiencing loss of taste or smell?: No Other Medical History Have you received the Flu Vaccine for this season: No Have you received the Pneumonia Vaccine: No Meds Home Medications and Allergies Home Medications ?Medication ?Instructions ?Recorded ?Confirmed ?Type tamsulosin 0.4 mg capsule 0.4 mg PO DAILY 07/23/23 09/17/25 History aspirin 81 mg tablet,delayed 81 mg PO DAILY 08/17/23 09/17/25 History release potassium chloride 20 mEq 20 meq PO DAILY 30 days #30 tabs 11/18/23 09/17/25 Rx tablet,extended release(part/cryst) (Klor-Con M) nitroglycerin 0.4 mg sublingual 0.4 mg sublingual Q5MINP PRN chest 11/16/24 09/17/25 Rx tablet pain #20 tabs ascorbate calcium (vitamin C) 500 500 mg PO DAILY 12/12/24 09/17/25 History mg tablet amlodipine 5 mg tablet 5 mg PO DAILY #90 tabs 03/31/25 09/17/25 Rx clopidogrel 75 mg tablet 75 mg PO DAILY #30 tabs 05/29/25 09/17/25 Rx bisoprolol fumarate 10 mg tablet 10 mg PO BID 90 days #180 tabs 08/01/25 09/17/25 Rx furosemide 40 mg tablet 40 mg PO DAILY #90 tabs 08/31/25 09/17/25 Rx albuterol sulfate 90 mcg/actuation 1 puff inhalation Q4HP PRN 09/17/25 09/17/25 History aerosol inhaler Shortness Of Breath ipratropium 0.5 mg-albuterol 3 mg 3 ml inhalation Q4HP PRN Shortness 09/17/25 09/17/25 History (2.5 mg base)/3 mL nebulization Of Breath soln prednisone 10 mg tablet 10 mg PO DIRECTED 09/17/25 09/17/25 History rosuvastatin 40 mg tablet 40 mg PO DAILY 09/17/25 09/17/25 History New Prescriptions to Start Prescriptions: Allergies Allergy/AdvReac Type Severity Reaction Status Date / Time ramipril (From AltTopic) Allergy Mild Unknown Verified 09/14/25 10:18 allergy reaction Exam Data for Last 24 hours Vital signs and Labs for Last 24 Hours: Temp Pulse Resp BP Pulse Ox O2 Del Method 98.5 F 60 13 143/75 H 97 Room Air 09/17/25 10:40 09/17/25 11:30 09/17/25 11:30 09/17/25 11:30 09/17/25 11:30 09/17/25 11:30 Laboratory Results - last 24 hr 09/17/25 10:10: VBG pH 7.38, VBG pCO2 51.0, VBG pO2 41.3 H, VBG HCO3 29.6, VBG Total CO2 31.2 H, VBG O2 Saturation 74.6 H, VBG Base Excess 4.5 H, VBG Lactic Acid 2.2 H 09/17/25 10:38: WBC 10.4, RBC 4.63, Hgb 13.5 L, Hct 39.9 L, MCV 86.2, MCH 29.2, MCHC 33.8, RDW 19.3 H, Plt Count 129 L, MPV TNP, Neut % (Auto) 60.4, Lymph % (Auto) 26.8, [place] % (Auto) 10.6 H, Eos % (Auto) 0.2, Baso % (Auto) 0.8, Neut # (Auto) 6.3, Lymph # (Auto) 2.8, [place] # (Auto) 1.1 H, Eos # (Auto) 0.0, Baso # (Auto) 0.1, Sodium 136, Potassium 3.3 L, Chloride 100, Carbon Dioxide 30, Anion Gap 9.3, BUN 22 H, Creatinine 1.10, Estimated Creat Clear 55, Estimated GFR 64, Est GFR ( Amer) 78, Glucose 160 H, Calcium 8.8, Magnesium 1.8, Total Bilirubin 0.9, AST 34, ALT 32, Alkaline Phosphatase 59, Troponin I 0.05 H, Total Protein 7.1, Albumin 4.3, Globulin 2.8, Albumin/Globulin Ratio 1.5 I & O for Last 24 hours: Intake & Output 09/14/25 09/15/25 09/16/25 09/17/25 23:59 23:59 23:59 23:59 Weight 73.482 kg Constitutional Constitutional: no acute distress and chronically ill appearing *Routine HEENT Exam Head: Present normocephalic Eye: Present EOMI and PERRL ENT: Present mucous membranes moist *Routine Neck Exam Neck: Present supple; Absent lymphadenopathy *Routine Respiratory Exam Respiratory: Present CTA bilaterally *Routine Cardiovascular Exam Cardiovascular: Present RRR *Routine Abdominal Exam Abdominal: Present soft and normoactive bowel sounds; Absent tenderness *Routine Rectal Exam Rectal:: deferred *Routine Genitalia Exam Genitalia:: deferred *Routine Extremities Exam Extremities: Absent cyanosis, clubbing or edema *Routine Skin Exam Skin: Present warm; Absent rash *Routine Neurological Exam Neurological: Present alert and oriented X3 Assessment and Plan *Assessment and plan (1) NSTEMI (non-ST elevated myocardial infarction): Status: Acute Category: Medical Code(s): I21.4 - Non-ST elevation (NSTEMI) myocardial infarction Plan Presley Loomis is an 80-year-old male with a medical history significant for CABG in 1994, CAD with multiple stents, hypertension, HFpEF, BPH, COPD on room air, medication nonadherence who presents with 2-day onset of chest pain. He states he awoke from chest pain 2 nights ago, it was lower sternal without radiation. This morning, he again had lower sternal chest pain without radiation but had diaphoresis. He states this was similar to the time that he needed a CABG. Denies fever/chills, shortness of breath, abdominal pain. He was given aspirin 324 mg. Workup in the ED significant for Troponin 0.05, EKG without acute ischemic changes. Dr. Rehman was consulted who recommended admission for further evaluation management, advise one-time dose of therapeutic Lovenox. ED provider discussed case with me and I said to admit patient for further evaluation management. #NSTEMI, likely type I #History of CABG, CAD with stents ? Presented with chest pains, positive troponins plateauing at 0.05, EKG without STEMI. ? Patient states symptoms feel similar to the time that he had a CABG. He also states he often forgets to take his medications. Former smoker. ? Given one-time dose of therapeutic Lovenox, started aspirin 81 mg daily. ? Follow-up A1c, TSH, lipid panel. ? Cardiology consulted, pending further recommendations. ? Follow-up ECHO in the morning. ? Continuous cardiac telemetry. #Hypertension ? Hold home medications as BP stable at this time. #HFpEF ? Resume home medications once reconciled. #BPH ? Continue home tamsulosin. #COPD ? Stable at this time. DuoNebs as needed. Full code DVT prophylaxis: Lovenox 40 mg
--- NOTE | 2025-09-17 12:08 | HMH.PHAINT1 ---
Pharmacy Intervention Comments: MEDICATION RECONCILIATION COMPLETED ON PATIENT USING EXTERNAL FILL HISTORY FROM PHARMACY AND LIST FROM CARDIOLOGY OFFICE. -TRACEE TUBBS, NATHAND
[2025-09-17] MEDS: POTASSIUM CHLORIDE 20MEQ TAB 40 MEQ PO ×2 (14:21→16:44)
[2025-09-17 14:22] LABS: Troponin I 0.05 ng/ml (0.00-0.034)
[2025-09-17 14:48] LABS: Reflex Lactic Add Lactic Reflex
[2025-09-17 15:23] LABS: Lactic Acid Follow Up (RFLX 1) 1.0 mmol/L (0.7-2.1)
[2025-09-17 17:23] LABS: Troponin I 0.05 ng/ml (0.00-0.034)
--- NOTE | 2025-09-17 17:59 | PC.NURSE ---
Pt is A&Ox4. Vital signs stable tolerating room air. Pt has had no complaints of chest pain since arriving to the floor. Pt on telemetry. Pt resting comfortably in bed with no further needs voiced at this time. Call light within reach.
[2025-09-18] VITALS (42 sets, daily range): BP systolic 139–177; BP diastolic 62–81; PULSE 52–78; RESP 16–20; TEMP 36.5–36.7; O2SAT 94–100; BMI 25.7
[2025-09-18 07:15] LABS: Hematocrit 35.4 % (42.0-52.0); Immature Granulocytes % 2.1 %; Mean Corpuscular HGB Conc 33.9 g/dL (31.8-35.4); Mean Corpuscular Hemoglobin 29.3 pg (27.0-31.2); Mean Corpuscular Volume 86.3 fl (80-94); Nucleated Red Blood Cells % 0.7 %; Platelet Count 115 K/mm3 (142-424); Red Blood Count 4.10 M/mm3 (4.60-6.20); Red Cell Distribution Width-SD 59.7 fL; White Blood Count 7.2 K/mm3 (4.8-10.8)
[2025-09-18 07:21] LABS: Albumin Level 3.2 g/dl (3.5-5.0); Chloride 106 mmol/L (98-107); Potassium 4.0 mmoL/L (3.5-5.1); Sodium 141 mmol/L (136-145)
[2025-09-18 07:23] LABS: Blood Urea Nitrogen 19 mg/dl (9-20); Creatinine Clearance Estimated 55 mL/min (50-200); Creatinine,Serum 1.10 mg/dl (0.66-1.25); Estimated Glomerular Filt Rate 64 ml/min (>60); GFR (African American) 78 ML/MIN (>60)
[2025-09-18 07:24] LABS: Alanine Aminotransferase 24 U/L (12-78); Albumin/Globulin Ratio 1.4 (1.1-1.8); Alkaline Phosphatase 48 U/L (38-126); Anion Gap 9.0 mEq/L (5-15); Aspartate Amino Transferase 27 U/L (17-59); Bilirubin,Total 0.6 mg/dl (0.2-1.3); Calcium 7.8 mg/dl (8.4-10.2); Carbon Dioxide 30 mmol/L (22.0-30.0); Globulin 2.3 g/dL (1.3-3.2); Glucose 86 mg/dl (74-100); Magnesium 1.9 mg/dl (1.6-2.3); Total Protein,Serum 5.5 g/dl (6.3-8.2)
[2025-09-18 07:40] LABS: Hemoglobin 12.0 g/dL (14.1-18.0)
[2025-09-18] MEDS: ASPIRIN EC 81MG TABLET 81 MG PO (08:19)
[2025-09-18 09:54] LABS: Hemoglobin A1C 5.7 % (4.0-6.0)
--- NOTE | 2025-09-18 12:46 | EXP.CARD.CON ---
History of Present Illness History of Present Illness Consult date: 09/18/25 Requesting physician: Ryan Sarabia Consult reason: chest pain Chief complaint: chest pain History of present illness: This is an 80-year-old white gentleman who presented to the emergency department complaints of chest pain. He has a past medical history of coronary artery disease status post CABG, hypertension, hyperlipidemia, HFpEF and COPD. The patient started having chest pain 2 nights before his admission. He states that this was a lower sternal pain that he describes as a sharp pressure sensation. It did not radiate. Is associated with shortness of breath and diaphoresis. He states that this felt similar to the pain he had when he needed CABG in the past. He denies any lower extremity edema. He denies any fever, chills, nausea, vomiting, diarrhea, PND or orthopnea. The patient does have an elevated troponin consistent with a non-STEMI. The patient was admitted for further evaluation. Patient's EKG changes are nondiagnostic due the patient pacing on his EKGs for comparison. [facility] Disclaimer: The information contained in this section may have been updated after the patient was seen, as this information can be updated by other users. 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 Carotid artery stenosis HLD (hyperlipidemia) HHD (hypertensive heart disease) PAD (peripheral artery disease) CAD (coronary artery disease) Surgical History S/P cardiac catheterization History of coronary artery bypass graft Family History Other Family history of myocardial infarction Social History Smoking Status: Never smoker alcohol intake: never substance use type: denies use current occupational status: retired Travel in the last 8 weeks?: Inside the [place] household members: spouse housing: house caffeine: Yes Have you lived/traveled outside [place] in past 30 days?: No Contact w/someone who lives/traveled outside US past 30 days?: No Exposure to someone with infectious disease in past 14 days?: No Do you have a fever (greater than 100.4 F or 38 C)?: No Have you tested positive for COVID-19?: No Exposed to someone with COVID-19 in past 14 days?: No Do you have a sore throat?: No Do you have a cough?: No Do you have any weakness?: No Do you have any diarrhea?: No Are you experiencing any unusual bleeding?: No Do you have any muscle aches/pain?: No Do you have any abdominal pain?: No Are you experiencing loss of taste or smell?: No Review of Systems Review of Systems Review of systems:: pertinent systems reviewed and negative unless documented below Constitutional Constitutional: Reports system reviewed and no additional complaints, except as documented Eyes Eyes: Reports system reviewed and no additional complaints, except as documented ENT Ears, Nose, Mouth, and Throat: Reports system reviewed and no additional complaints, except as documented *Cardiovascular Cardiovascular: Reports system reviewed and no additional complaints, except as documented, Reports chest pain, Reports diaphoresis, Reports dyspnea and Reports dyspnea on exertion *Respiratory Respiratory: Reports system reviewed and no additional complaints, except as documented, Reports dyspnea and Reports dyspnea on exertion *Gastrointestinal Gastrointestinal: Reports system reviewed and no additional complaints, except as documented *Genitourinary Genitourinary: Reports system reviewed and no additional complaints, except as documented *Musculoskeletal Musculoskeletal: Reports system reviewed and no additional complaints, except as documented Integumentary/Breasts Skin/Breast: Reports system reviewed and no additional complaints, except as documented *Neurologic Neurologic: Reports system reviewed and no additional complaints, except as documented Psychiatric Psychiatric: Reports system reviewed and no additional complaints, except as documented Endocrine Endocrine: Reports system reviewed and no additional complaints, except as documented Hematologic/Lymphatic Hematologic/Lymphatic: Reports system reviewed and no additional complaints, except as documented Allergic/Immunologic Allergic/Immunologic: Reports system reviewed and no additional complaints, except as documented Exam Data for Last 24 hours Vital signs and Labs for Last 24 Hours: Temp Pulse Resp BP Pulse Ox O2 Del Method 97.9 F 56 L 17 146/63 H 97 Room Air 09/18/25 12:00 09/18/25 12:00 09/18/25 12:00 09/18/25 12:00 09/18/25 12:00 09/18/25 11:05 Laboratory Results - last 24 hr 09/17/25 13:45: Troponin I 0.05 H 09/17/25 14:45: Lactate 1.0 09/17/25 16:40: Troponin I 0.05 H 09/18/25 05:56: WBC 7.2 D, RBC 4.10 L, Hgb 12.0 L D, Hct 35.4 L, MCV 86.3, MCH 29.3, MCHC 33.9, RDW 19.1 H, Plt Count 115 L, MPV TNP, Neut % (Auto) 51.6, Lymph % (Auto) 32.1, Barren % (Auto) 11.3 H, Eos % (Auto) 1.9, Baso % (Auto) 1.0, Neut # (Auto) 3.7, Lymph # (Auto) 2.3, Barren # (Auto) 0.8, Eos # (Auto) 0.1, Baso # (Auto) 0.1, Sodium 141, Potassium 4.0 D, Chloride 106, Carbon Dioxide 30, Anion Gap 9.0, BUN 19, Creatinine 1.10, Estimated Creat Clear 55, Estimated GFR 64, Est GFR ( Amer) 78, Glucose 86 D, Hemoglobin A1c 5.7, Calcium 7.8 L, Magnesium 1.9, Total Bilirubin 0.6, AST 27, ALT 24, Alkaline Phosphatase 48, Total Protein 5.5 L, Albumin 3.2 L D, Globulin 2.3, Albumin/Globulin Ratio 1.4 I & O for Last 24 hours: Intake & Output 09/15/25 09/16/25 09/17/25 09/18/25 23:59 23:59 23:59 23:59 Intake Total 1080 / 1080 600 / 600 Output Total 0 / 0 0 / 0 Balance 1080 / 1080 600 / 600 Weight 162 lb 8 oz 164 lb 3.2 oz Constitutional Constitutional: no acute distress and average body habitus *Routine HEENT Exam Head: Present normocephalic and atraumatic ENT: Present mucous membranes moist *Routine Neck Exam Neck: Present supple, full ROM and normal carotid upstroke; Absent JVD, carotid bruit or lymphadenopathy *Routine Respiratory Exam Respiratory: Present CTA bilaterally, normal respiratory effort, able to speak in complete sentences and symmetric chest movement *Routine Cardiovascular Exam Cardiovascular: Present RRR, Normal S1 and Normal S2; Absent murmur or gallop *Routine Abdominal Exam Abdominal: Present soft and normoactive bowel sounds; Absent tenderness, distended or organomegaly *Routine Extremities Exam Extremities: Present full ROM, pulses intact and normal capillary refill; Absent cyanosis, clubbing or edema *Routine Skin Exam Skin: Present intact and warm; Absent erythema *Routine Neurological Exam Neurological: Present alert, oriented X3 and CN II-XII intact; Absent sensory deficit or motor deficit Routine Psychiatric Exam Psychiatric: Present normal affect Meds Home Medications and Allergies Home Medications ?Medication ?Instructions ?Recorded ?Confirmed ?Type tamsulosin 0.4 mg capsule 0.4 mg PO DAILY 07/23/23 09/17/25 History aspirin 81 mg tablet,delayed 81 mg PO DAILY 08/17/23 09/17/25 History release potassium chloride 20 mEq 20 meq PO DAILY 30 days #30 tabs 11/18/23 09/17/25 Rx tablet,extended release(part/cryst) (Klor-Con M) nitroglycerin 0.4 mg sublingual 0.4 mg sublingual Q5MINP PRN chest 11/16/24 09/17/25 Rx tablet pain #20 tabs ascorbate calcium (vitamin C) 500 500 mg PO DAILY 12/12/24 09/17/25 History mg tablet amlodipine 5 mg tablet 5 mg PO DAILY #90 tabs 03/31/25 09/17/25 Rx clopidogrel 75 mg tablet 75 mg PO DAILY #30 tabs 05/29/25 09/17/25 Rx bisoprolol fumarate 10 mg tablet 10 mg PO BID 90 days #180 tabs 08/01/25 09/17/25 Rx furosemide 40 mg tablet 40 mg PO DAILY #90 tabs 08/31/25 09/17/25 Rx albuterol sulfate 90 mcg/actuation 1 puff inhalation Q4HP PRN 09/17/25 09/17/25 History aerosol inhaler Shortness Of Breath ipratropium 0.5 mg-albuterol 3 mg 3 ml inhalation Q4HP PRN Shortness 09/17/25 09/17/25 History (2.5 mg base)/3 mL nebulization Of Breath soln prednisone 10 mg tablet 10 mg PO DIRECTED 09/17/25 09/17/25 History rosuvastatin 40 mg tablet 40 mg PO DAILY 09/17/25 09/17/25 History New Prescriptions to Start Prescriptions: Allergies Allergy/AdvReac Type Severity Reaction Status Date / Time ramipril (From Altace) Allergy Mild Unknown Verified 09/14/25 10:18 allergy reaction Assessment and Plan *Assessment and plan (1) NSTEMI (non-ST elevated myocardial infarction): Status: Acute Category: Medical Code(s): I21.4 - Non-ST elevation (NSTEMI) myocardial infarction (2) SOB (shortness of breath): Status: Acute Category: Medical Code(s): R06.02 - Shortness of breath (3) Cough: Status: Acute Qualifiers: Cough type: acute Qualified Code(s): R05.1 - Acute cough Category: Medical Code(s): R05.9 - Cough, unspecified (4) Iron deficiency anemia: Status: Acute Qualifiers: Iron deficiency anemia type: unspecified iron deficiency Qualified Code(s): D50.9 - Iron deficiency anemia, unspecified Category: Medical Code(s): D50.9 - Iron deficiency anemia, unspecified (5) Hypertension: Status: Acute Qualifiers: Hypertension type: primary hypertension Qualified Code(s): I10 - Essential (primary) hypertension Category: Medical Code(s): I10 - Essential (primary) hypertension (6) Anemia: Status: Acute Qualifiers: Anemia type: iron deficiency Iron deficiency anemia type: unspecified iron deficiency Qualified Code(s): D50.9 - Iron deficiency anemia, unspecified Category: Medical Code(s): D64.9 - Anemia, unspecified (7) Stented coronary artery: Status: Acute Category: Surgical Code(s): Z95.5 - Presence of coronary angioplasty implant and graft (8) CKD (chronic kidney disease) stage 3, GFR 30-59 ml/min: Status: Acute Qualifiers: Chronic kidney disease stage 3 subtype: unspecified whether 3a or 3b Qualified Code(s): N18.30 - Chronic kidney disease, stage 3 unspecified Category: Medical Code(s): N18.30 - Chronic kidney disease, stage 3 unspecified (9) CAD (coronary artery disease): Status: Chronic Qualifiers: Coronary Disease-Associated Artery/Lesion type: [place] artery [place] vs. transplanted heart: [place] heart Associated angina: without angina Qualified Code(s): I25.10 - Atherosclerotic heart disease of [place] coronary artery without angina pectoris Category: Medical Code(s): I25.10 - Atherosclerotic heart disease of [place] coronary artery without angina pectoris (10) History of coronary artery bypass graft: Status: Chronic Category: Surgical Code(s): Z95.1 - Presence of aortocoronary bypass graft (11) PAD (peripheral artery disease): Status: Chronic Category: Medical Code(s): I73.9 - Peripheral vascular disease, unspecified (12) HHD (hypertensive heart disease): Status: Chronic Qualifiers: Heart failure presence: without heart failure Qualified Code(s): I11.9 - Hypertensive heart disease without heart failure Category: Medical Code(s): I11.9 - Hypertensive heart disease without heart failure (13) HLD (hyperlipidemia): Status: Chronic Qualifiers: Hyperlipidemia type: mixed hyperlipidemia Qualified Code(s): E78.2 - Mixed hyperlipidemia Category: Medical Code(s): E78.5 - Hyperlipidemia, unspecified (14) Carotid artery stenosis: Status: Chronic Qualifiers: Laterality: bilateral Qualified Code(s): I65.23 - Occlusion and stenosis of bilateral carotid arteries Category: Medical Code(s): I65.29 - Occlusion and stenosis of unspecified carotid artery (15) Cardiac pacemaker in situ: Status: Chronic Category: Medical Code(s): Z95.0 - Presence of cardiac pacemaker Plan Plan: 1. The patient was admitted to the hospital and found to have a non-STEMI. He has known coronary artery disease and status post CABG. Due to his angina and non-STEMI will plan to proceed with left cardiac catheterization today with right groin access to evaluate his coronary artery disease. 2. The patient has been educated the risk and benefits of proceeding with left cardiac catheterization. The patient verbalized understanding and is agreeable in proceeding with the procedure. 3. The patient will be n.p.o. in preparation for left cardiac catheterization. 4. The patient will need an echocardiogram to evaluate his LV function due to his angina. 5. His blood pressure is acceptable. Continue amlodipine and bisoprolol. 6. Coronary artery disease is present. Continue aspirin and Plavix. 7. His LDL goal is less than 55. His LDL is 70. He is on a statin. 8. The patient does have known chronic HFpEF. He is currently on Lasix. 9. Further recommendations will be made pending the patient's response to treatment and the results of his left cardiac catheterization and echocardiogram today. Thank you for the opportunity to help participate in the care of this patient. Our recommendations and orders are per Dr. Bush.
--- NOTE | 2025-09-18 13:57 | IR_ITS ---
APPROVED REPORT Patient Location: Inpatient PROCEDURES Left heart catheterization Left ventriculogram Selective coronary angiogram Left internal mammary angiography Selective engagement of the saphenous vein graft to the diagonal artery and the skip graft into the obtuse marginal artery Drug-eluting stent deployment to the ostial proximal right coronary INDICATION Acute non-ST elevation myocardial infarction, Coronary artery disease, History of coronary bypass surgery Informed consent was obtained prior to the procedure. COMPLICATIONS NONE Estimated Blood Loss: LESS THAN 10 ML TECHNIQUE One percent lidocaine used to anesthetize the right groin. The right femoral artery was accessed via the Seldinger technique and a 5 [place] sheath was placed in the right femoral artery. A JL 4, JR4 catheter were used to perform left heart catheterization, left ventriculogram selective coronary angiography as well as selective engagement of the 2 vein grafts and the left internal mammary artery. At the end of the diagnostic angiogram therapeutic heparin was administered given a therapeutic ACT and the 5 [place] sheath was exchanged for a 6 [place] sheath. A 3 DRC guide catheter was placed in the right coronary artery followed by Choice PT extra-support wire. A 4 mm x 12 mm Les frontier stent was deployed at 22 yuliana reducing the stent fracture and critical stenosis to 0%. VICKI-3 flow was present before and after the procedure. At the end the procedure the apparatus was removed the sheath was taped into place patient was transferred to the postop boarding in stable condition ANGIOGRAPHIC RESULTS The left main artery Widely patent The left anterior descending artery Is proximally patent with stents in the proximal and mid segment. There is a 30% eccentric in-stent restenotic in the proximal segment. The stent has an excellent distal transitioning. The mid LAD is occluded after several septal perforators and 1 small diagonal artery The circumflex artery Ostially occluded The right coronary artery Is dominant with stents in the ostial proximal and mid segment. There is stent fracture in the ostial proximal segment with an accompanying 90% stenosis The BE ventriculogram reveals Preserved The left ventricular end-diastolic pressure 10 mmHg WATTS to LAD widely patent Saphenous to first diagonal artery is patent as is the skip graft which supplies the obtuse marginal artery IMPRESSION Critical coronary artery disease in the right coronary artery as described above Successful stenting of the telida right coronary to critical disease reduced to 0% with 1 drug-eluting stent Preserved ejection fraction Normal LVEDP PLAN 1. Dual antiplatelet therapy 2. Manual sheath pull due to extensive calcified right femoral artery and peripheral artery disease 3. LDL less than 55 to be achieved with high intensity statin 4. Avoidance of tobacco products 5. Risk factor modification 6. Cardiac rehabilitation Electronically signed by : Vahe Rehman MD 09/18/2025 17:06:00
[2025-09-18] MEDS: HEPARIN 1,000 UNITS/500ML NS (CATH LAB) 3000 UNIT IV (16:39)
[2025-09-18] MEDS: LIDOCAINE 1% 10ML MDV 10 ML IJ (16:40)
[2025-09-18] MEDS: 0.9 % SODIUM CHLORIDE 500 ML 25 ML IV (16:40)
[2025-09-18] MEDS: MIDAZOLAM HCL 1MG/ML 5ML VIAL 1 MG IV (16:48)
[2025-09-18] MEDS: FENTANYL 100MCG/2ML VIAL 50 MCG IV (16:48)
[2025-09-18] MEDS: CLOPIDOGREL 75MG TAB 75 MG PO (17:01)
[2025-09-18] MEDS: HEPARIN 1,000 UNITS/ML 10ML VIAL (CATH LAB) 5000 UNIT IV (17:14)
[2025-09-18] MEDS: PROTAMINE SULFATE 50MG/5ML VIAL (CATH LAB) 50 MG IV (17:15)
[2025-09-18 17:22] LABS: CATHL Activated Clotting Time > 400 SEC (74-125)
--- NOTE | 2025-09-18 18:28 | CA_ITS ---
APPROVED REPORT EXAM: Comprehensive 2D, Doppler, and color-flow Echocardiogram Tuber Operator: Maida Mccray RVT Ht: 5 ft 6 in Wt: 162lbs BSA: 1.83 BP: 143/75 mmHg Indications: NSTEMI,CORONARY ARTERY DISEASE 2D Dimensions IVSd 1.48 cm M: 0.6-1.2 LA Volume 36.30 mL PWd 1.12 cm M: 0.6 - 1.2 LA Volume Index 19.84 mL/m2 (M/F) 16-34 LVDd 5.01 cm M: 4.2 - 5.9 EF AP4 53.20 % Aortic Root 2.54 cm M: 3.1 - 3.7 GL Strain -15.5 % Left Atrium 2.97 cm M: 3.0 - 4.0 RVID Base (AP4) 2.67 cm (M/F) 2.5-4.1 M-Mode Dimensions RVDd 3.09 cm (0.9-2.6) LVDd 5.01 cm (3.5-5.7) Ao Diam 3.25 cm (2.0-3.7) LVDs 3.78 cm (3.5-5.7) IVSd 1.02 cm (0.6-1.1) PWd 0.54 cm (0.6-1.1) EF (Teich) 47.70% FS 24.10% EDV (Teich) 117.10 mL TAPSE 2.37 (<1.7) ESV (Teich) 61.20 mL LV Diastology E Decel Time 211 (160-240 msec) E/A Ratio 0.8 MED E' 5.0 (>= 7 cm/sec) E'/MED E' Ratio 16.32 (<= 14) LAT E' 8.2 (>= 10 cm/sec) E/LAT E' Ratio 9.95 (<= 14) Aortic Valve LVOT Max 80.0 (70-110 cm/s) LVOT VTI 20.31 cm AoV Peak Anthony. 184.0 (50-130 cm/s) AO Peak GR. 13.00 mmHg AO Mean GR. 7.00 (<5 mmHg) AO VTI 39.1 (18-25 cm) Mitral Valve MV E Max Anthony. 82.0 (40-130 cm/s) MV A Velocity 98.0 (40-130 cm/s) E/A Ratio 0.83 MV Decel. Time 211 (160-240 ms) Tricuspid Valve TR P. Velocity 240.00 cm/s RAP Estimate 8.00 mmHg RVSP 31.10 mmHg Left Ventricle The left ventricle is normal size. Left ventricular systolic function is mildly reduced. There is increased left ventricular wall thickness. There is mild global hypokinesis. The septum is asynchronous. Transmitral Doppler flow pattern suggests impaired LV relaxation. LVEF is 45%. Right Ventricle Right ventricle is mildly dilated. The right ventricular systolic function is normal. Atria Left atrium is mildly dilated. Right atrium is mildly dilated. There is no color Doppler evidence of interatrial shunt. Aortic Valve The aortic valve is mildly thickened. There is no hemodynamically significant aortic valvular stenosis. Trace aortic regurgitation is present. Mitral Valve The mitral valve is normal in structure. No evidence of mitral valve stenosis. Mild mitral regurgitation is present. Tricuspid Valve The tricuspid valve leaflets are thin and pliable. Mild tricuspid regurgitation. RVSP is 30-35 mmHg. Pulmonic Valve The pulmonary valve is grossly normal in structure. Mild pulmonic valve regurgitation is present. Great Vessels The aortic root is normal in size. IVC is normal in size and collapses >50% with inspiration. Pericardium There is no pericardial effusion. Other Information Study Quality: Technically Difficult Conclusion Mild reduction in LV systolic function (LVEF 45%). Asynchronous septum. Mild RV dilation. Mild biatrial dilation. Mild MR, mild TR, mild PI. Electronically signed by : Susy Bush MD 09/18/2025 12:58:47
--- NOTE | 2025-09-18 18:54 | P.PN_ITS ---
Subjective *Date: 09/18/25 *Time: 18:54 Interval history: Patient without acute concerns after [facility] today. Drowsy, at bedside. Will monitor overnight for bleeding after manual sheath pull. Exam Data for Last 24 hours Vital signs and Labs for Last 24 Hours: Temp Pulse Resp BP Pulse Ox O2 Del Method 97.8 F 78 16 166/75 H 96 Room Air 09/18/25 18:35 09/18/25 18:35 09/18/25 18:35 09/18/25 18:35 09/18/25 18:35 09/18/25 18:40 Laboratory Results - last 24 hr 09/18/25 05:56: WBC 7.2 D, RBC 4.10 L, Hgb 12.0 L D, Hct 35.4 L, MCV 86.3, MCH 29.3, MCHC 33.9, RDW 19.1 H, Plt Count 115 L, MPV TNP, Neut % (Auto) 51.6, Lymph % (Auto) 32.1, Elliott % (Auto) 11.3 H, Eos % (Auto) 1.9, Baso % (Auto) 1.0, Neut # (Auto) 3.7, Lymph # (Auto) 2.3, Elliott # (Auto) 0.8, Eos # (Auto) 0.1, Baso # (Auto) 0.1, Sodium 141, Potassium 4.0 D, Chloride 106, Carbon Dioxide 30, Anion Gap 9.0, BUN 19, Creatinine 1.10, Estimated Creat Clear 55, Estimated GFR 64, Est GFR ( Amer) 78, Glucose 86 D, Hemoglobin A1c 5.7, Calcium 7.8 L, Magnesium 1.9, Total Bilirubin 0.6, AST 27, ALT 24, Alkaline Phosphatase 48, Total Protein 5.5 L, Albumin 3.2 L D, Globulin 2.3, Albumin/Globulin Ratio 1.4 09/18/25 18:00: Activated Clotting Time > 400 H* I & O for Last 24 hours: Intake & Output 09/15/25 09/16/25 09/17/25 09/18/25 23:59 23:59 23:59 23:59 Intake Total 1080 / 1080 1100 / 1100 Output Total 0 / 0 0 / 0 Balance 1080 / 1080 1100 / 1100 Weight 73.709 kg 74.48 kg Constitutional Constitutional: no acute distress *Routine HEENT Exam Head: Present normocephalic Eye: Present EOMI and PERRL ENT: Present mucous membranes moist *Routine Neck Exam Neck: Present supple; Absent lymphadenopathy *Routine Respiratory Exam Respiratory: Present CTA bilaterally *Routine Cardiovascular Exam Cardiovascular: Present RRR *Routine Abdominal Exam Abdominal: Present soft and normoactive bowel sounds; Absent tenderness *Routine Extremities Exam Extremities: Absent cyanosis, clubbing or edema *Routine Skin Exam Skin: Present warm; Absent rash *Routine Neurological Exam Neurological: Present alert and oriented X3 Assessment and Plan *Assessment and plan (1) NSTEMI (non-ST elevated myocardial infarction): Status: Acute Category: Medical Code(s): I21.4 - Non-ST elevation (NSTEMI) myocardial infarction Plan Presley Loomis is an 80-year-old male with a medical history significant for CABG in 1994, CAD with multiple stents, hypertension, HFpEF, BPH, COPD on room air, medication nonadherence who presents with 2-day onset of chest pain. He states he awoke from chest pain 2 nights ago, it was lower sternal without radiation. This morning, he again had lower sternal chest pain without radiation but had diaphoresis. He states this was similar to the time that he needed a CABG. Denies fever/chills, shortness of breath, abdominal pain. He was given aspirin 324 mg. Workup in the ED significant for Troponin 0.05, EKG without acute ischemic changes. Dr. Rehman was consulted who recommended admission for f urther evaluation management, advise one-time dose of therapeutic Lovenox. ED provider discussed case with me and I said to admit patient for further evaluation management. #NSTEMI, likely type I #History of CABG, CAD with stents #LV dysfunction #Medication nonadherence ? Presented with chest pains, positive troponins plateauing at 0.05, EKG without STEMI. ? Patient stated symptoms feel similar to the time that he had a CABG. He also states he often forgets to take his medications. Former smoker. ? Cardiology consulted, s/p PCI on 09/18/2025 with RYANN x 1 to the RCA. Required manual sheath pull due to calcification, will monitor for bleeding overnight. ? Follow-up 5.7%, LDL 70, TSH normal. ? ECHO revealed LVEF 45%. No signs of volume overload at this time. ? Patient will need to be more adherent to his medications, including antiplatelets. His bed discharge in the morning if no significant signs of bleeding. #Hypertension ? Continue home amlodipine, bisoprolol. #HFpEF ? Euvolemic at this time. Continue home Lasix 40 mg. #BPH ? Continue home tamsulosin. #COPD ? Stable at this time. DuoNebs as needed. Full code DVT prophylaxis: Lovenox 40 mg
[2025-09-18] MEDS: AMLODIPINE 5MG TABLET 5 MG PO (20:33)
[2025-09-18] MEDS: TAMSULOSIN 0.4MG CAPSULE 0.4 MG PO (20:33)
[2025-09-19] VITALS: PULSE 60
[2025-09-19 04:00] VITALS: BP 146/77; PULSE 59; PULSE 60; PULSE 70; RESP 16; TEMP 36.9; O2SAT 94; BMI 25.7
[2025-09-19 06:33] LABS: Hematocrit 36.5 % (42.0-52.0); Hemoglobin 12.2 g/dL (14.1-18.0); Immature Granulocytes % 1.5 %; Mean Corpuscular HGB Conc 33.4 g/dL (31.8-35.4); Mean Corpuscular Hemoglobin 28.7 pg (27.0-31.2); Mean Corpuscular Volume 85.9 fl (80-94); Nucleated Red Blood Cells % 0.5 %; Platelet Count 112 K/mm3 (142-424); Red Blood Count 4.25 M/mm3 (4.60-6.20); Red Cell Distribution Width-SD 60.2 fL; White Blood Count 7.9 K/mm3 (4.8-10.8)
[2025-09-19 06:49] LABS: Albumin Level 3.4 g/dl (3.5-5.0); Chloride 101 mmol/L (98-107)
[2025-09-19 06:50] LABS: Potassium 4.0 mmoL/L (3.5-5.1); Sodium 138 mmol/L (136-145)
[2025-09-19 06:52] LABS: Alanine Aminotransferase 24 U/L (12-78); Alkaline Phosphatase 48 U/L (38-126); Anion Gap 10.0 mEq/L (5-15); Aspartate Amino Transferase 31 U/L (17-59); Bilirubin,Total 0.7 mg/dl (0.2-1.3); Blood Urea Nitrogen 21 mg/dl (9-20); Carbon Dioxide 31 mmol/L (22.0-30.0); Creatinine Clearance Estimated 51 mL/min (50-200); Creatinine,Serum 1.20 mg/dl (0.66-1.25); Estimated Glomerular Filt Rate 58 ml/min (>60); GFR (African American) 70 ML/MIN (>60)
[2025-09-19 06:53] LABS: Albumin/Globulin Ratio 1.5 (1.1-1.8); Calcium 8.2 mg/dl (8.4-10.2); Globulin 2.3 g/dL (1.3-3.2); Glucose 86 mg/dl (74-100); Magnesium 2.1 mg/dl (1.6-2.3); Total Protein,Serum 5.7 g/dl (6.3-8.2)
--- NOTE | 2025-09-19 07:45 | CT_ITS ---
FINAL REPORT TECHNIQUE: Postcontrast axial images of the chest were performed in a CTA protocol. This study was performed with techniques to keep radiation doses as low as reasonably achievable, (ALARA). Individualized dose reduction technique using automated exposure control or adjustment of mA and/or kV according to the patient's size were employed. CLINICAL HISTORY: nstemi FINDINGS: There is streak artifact from left chest wall pacemaker. Moderate vascular calcification is seen at the aortic arch. There are dense coronary artery calcifications. The heart is normal in size. No adenopathy is identified. No pleural or pericardial effusion is identified. The thoracic aorta is normal in caliber with no focal aneurysm or dissection identified. There is no filling defect to suggest pulmonary embolism. There are several, noncalcified nodules. 1 is seen in the periphery of the left upper lobe measuring 6 mm on image 35 of series 3. There is a nodule in the periphery of the left upper lobe measuring 6 mm on image 39 of series 3. There is also a 5 mm nodule on image 51 of series 3 in the left lower lobe. Scarring is seen in the lower lobes bilaterally. The lungs are otherwise clear. The images of the upper abdomen are unremarkable. IMPRESSION: No evidence for PE on this exam. Several noncalcified pulmonary nodules as above. Recommend follow-up CT in 3-6 months per Fleischner criteria. Reviewed, Interpreted and Dictated by Fred Jenkins MD Transcribed by Georgiana Andrade Authenticated and . [facility]
[2025-09-19 08:00] VITALS: BP 138/60; PULSE 60; RESP 18; TEMP 36.8; O2SAT 96
[2025-09-19 08:12] VITALS: PULSE 70
[2025-09-19] MEDS: SODIUM CHLORIDE 0.9% 10ML SYR (RAD ONLY) 10 ML IV (08:49)
[2025-09-19] MEDS: 0.9 % SODIUM CHLORIDE 50 ML VIAL IV (08:49)
[2025-09-19] MEDS: IOPAMIDOL-370 (76%);100ML BOTTLE 85 ML IV (08:49)
[2025-09-19] MEDS: AMLODIPINE 5MG TABLET 5 MG PO (08:55)
[2025-09-19] MEDS: FUROSEMIDE 40 MG TABLET PO (08:55)
[2025-09-19] MEDS: ASPIRIN EC 81MG TABLET 81 MG PO (08:55)
[2025-09-19] MEDS: CLOPIDOGREL 75MG TAB 75 MG PO (08:55)
[2025-09-19] MEDS: BISOPROLOL 5MG TABLET 10 MG PO (10:56)
--- NOTE | 2025-09-19 10:57 | PC.NURSE ---
confirmed with Dr. Boykin if he wants bisprolol given due to pt being bradycardic in the 50's. Per Dr. Boykin okay to give
[2025-09-19 12:00] VITALS: BP 139/81
--- NOTE | 2025-09-19 12:05 | P.DS_ITS ---
General Admission date:: 09/17/25 Discharge date: 09/19/25 HPI HPI HPI: Presley Loomis is an 80-year-old male with a medical history significant for CABG in 1994, CAD with multiple stents, hypertension, HFpEF, BPH, COPD on room air, medication nonadherence who presents with 2-day onset of chest pain. He states he awoke from chest pain 2 nights ago, it was lower sternal without radiation. This morning, he again had lower sternal chest pain without radiation but had diaphoresis. He states this was similar to the time that he needed a CABG. Denies fever/chills, shortness of breath, abdominal pain. He was given aspirin 324 mg. Workup in the ED significant for Troponin 0.05, EKG without acute ischemic changes. Dr. Rehman was consulted who recommended admission for further evaluation management, advise one-time dose of therapeutic Lovenox. ED provider discussed case with me and I said to admit patient for further evaluation management. Hospital Course Hospital Course Hospital Course: Presley Loomis is an 80-year-old male with a medical history significant for CABG in 1994, CAD with multiple stents, hypertension, HFpEF, BPH, COPD on room air, medication nonadherence who presents with 2-day onset of chest pain. He states he awoke from chest pain 2 nights ago, it was lower sternal without radiation. This morning, he again had lower sternal chest pain without radiation but had diaphoresis. He states this was similar to the time that he needed a CABG. Denies fever/chills, shortness of breath, abdominal pain. He was given aspirin 324 mg. Workup in the ED significant for Troponin 0.05, EKG without acute ischemic changes. Dr. Rehman was consulted who recommended admission for further evaluation management, advise one-time dose of therapeutic Lovenox. ED provider discussed case with me and I said to admit patient for further evaluation management. Admitted for cardiology evaluation. Taken for left heart cath. Received 1 stent to the RCA. Necessitated monitoring overnight due to manual sheath pull. Did well with no complications. Discharged in the morning. Follow-up with cardiology. Problems addressed as follows: #NSTEMI, likely type I #History of CABG, CAD with stents #HFmrEF #Medication nonadherence ? Presented with chest pains, positive troponins plateauing at 0.05, EKG without STEMI. Patient stated symptoms feel similar to the time that he had a CABG. He also states he often forgets to take his medications. Former smoker. Cardi ology consulted, s/p PCI on 09/18/2025 with RYNAN x 1 to the RCA. Required manual sheath pull due to calcification, will monitor for bleeding overnight. Follow- up 5.7%, LDL 70, TSH normal. ECHO revealed LVEF 45%. No signs of volume overload at this time. Patient will need to be more adherent to his medications, including antiplatelets. His bed discharge in the morning if no significant signs of bleeding. #Hypertension: Continue home amlodipine, bisoprolol. Initiated on low-dose irbesartan. Kidney function normal with BUN 21, creatinine 1.2. #HFpEF Euvolemic at this time. Continue home Lasix 40 mg. #BPH: Continue home tamsulosin. #COPD: Stable at this time. DuoNebs as needed. Total time spent on discharge 32 minutes in counseling, documentation, chart review, and direct care with patient. Exam Data for Last 24 hours Vital signs and Labs for Last 24 Hours: Temp Pulse Resp BP Pulse Ox O2 Del Method 98.2 F 60 18 138/60 96 Room Air 09/19/25 08:00 09/19/25 08:00 09/19/25 08:00 09/19/25 08:00 09/19/25 08:00 09/19/25 11:00 Laboratory Results - last 24 hr 09/18/25 18:00: Activated Clotting Time > 400 H* 09/19/25 05:32: WBC 7.9, RBC 4.25 L, Hgb 12.2 L, Hct 36.5 L, MCV 85.9, MCH 28.7, MCHC 33.4, RDW 19.1 H, Plt Count 112 L, MPV TNP, Neut % (Auto) 62.8, Lymph % (Auto) 22.2, [place] % (Auto) 12.0 H, Eos % (Auto) 0.4, Baso % (Auto) 1.1, Neut # (Auto) 5.0, Lymph # (Auto) 1.8, [place] # (Auto) 1.0, Eos # (Auto) 0.0, Baso # (Auto) 0.1, Sodium 138, Potassium 4.0, Chloride 101, Carbon Dioxide 31 H, Anion Gap 10.0, BUN 21 H, Creatinine 1.20, Estimated Creat Clear 51, Estimated GFR 58 L, Est GFR ( Amer) 70, Glucose 86, Calcium 8.2 L, Magnesium 2.1 D, Total Bilirubin 0.7, AST 31, ALT 24, Alkaline Phosphatase 48, Total Protein 5.7 L, Albumin 3.4 L, Globulin 2.3, Albumin/Globulin Ratio 1.5 I & O for Last 24 hours: Intake & Output 09/16/25 09/17/25 09/18/25 09/19/25 23:59 23:59 23:59 23:59 Intake Total 1080 / 1080 1220 / 1220 480 / 480 Output Total 0 / 0 200 / 200 Balance 1080 / 1080 1020 / 1020 480 / 480 Weight 73.709 kg 74.48 kg 74.48 kg Constitutional Constitutional: no acute distress *Routine HEENT Exam Head: Present normocephalic Eye: Present EOMI and PERRL ENT: Present mucous membranes moist *Routine Neck Exam Neck: Present supple; Absent lymphadenopathy *Routine Respiratory Exam Respiratory: Present CTA bilaterally *Routine Cardiovascular Exam Cardiovascular: Present RRR *Routine Abdominal Exam Abdominal: Present soft and normoactive bowel sounds; Absent tenderness *Routine Rectal Exam Patient deferred: visual exam *Routine Exam Patient deferred: penile exam *Routine Extremities Exam Extremities: Absent cyanosis, clubbing or edema *Routine Skin Exam Skin: Present intact and warm; Absent rash *Routine Neurological Exam Neurological: Present alert, oriented X3 and moving all extremities Results Data Completed and Pending Labs on day of discharge: Labs from last 24 hours 09/19/25 09/18/25 05:32 18:00 WBC 7.9 RBC 4.25 L Hgb 12.2 L Hct 36.5 L MCV 85.9 MCH 28.7 MCHC 33.4 RDW 19.1 H Plt Count 112 L MPV TNP Neut % (Auto) 62.8 Lymph % (Auto) 22.2 [place] % (Auto) 12.0 H Eos % (Auto) 0.4 Baso % (Auto) 1.1 Neut # (Auto) 5.0 Lymph # (Auto) 1.8 [place] # (Auto) 1.0 Eos # (Auto) 0.0 Baso # (Auto) 0.1 Activated Clotting Time > 400 H* Sodium 138 Potassium 4.0 Chloride 101 Carbon Dioxide 31 H Anion Gap 10.0 BUN 21 H Creatinine 1.20 Estimated Creat Clear 51 Estimated GFR 58 L Est GFR ( Amer) 70 Glucose 86 Calcium 8.2 L Magnesium 2.1 D Total Bilirubin 0.7 AST 31 ALT 24 Alkaline Phosphatase 48 Total Protein 5.7 L Albumin 3.4 L Globulin 2.3 Albumin/Globulin Ratio 1.5 DS: Diagnosis Discharge Diagnosis (1) NSTEMI (non-ST elevated myocardial infarction): Status: Acute Code(s): I21.4 - Non-ST elevation (NSTEMI) myocardial infarction (2) HFrEF (heart failure with reduced ejection fraction): Status: Acute Code(s): I50.20 - Unspecified systolic (congestive) heart failure (3) Iron deficiency anemia: Status: Acute Code(s): D50.9 - Iron deficiency anemia, unspecified Qualifiers: Iron deficiency anemia type: unspecified iron deficiency Qualified Code(s): D50.9 - Iron deficiency anemia, unspecified (4) Hypertension: Status: Acute Code(s): I10 - Essential (primary) hypertension Qualifiers: Hypertension type: primary hypertension Qualified Code(s): I10 - Essential (primary) hypertension (5) Stented coronary artery: Status: Acute Code(s): Z95.5 - Presence of coronary angioplasty implant and graft (6) CKD (chronic kidney disease) stage 3, GFR 30-59 ml/min: Status: Acute Code(s): N18.30 - Chronic kidney disease, stage 3 unspecified Qualifiers: Chronic kidney disease stage 3 subtype: unspecified whether 3a or 3b Qualified Code(s): N18.30 - Chronic kidney disease, stage 3 unspecified (7) CAD (coronary artery disease): Status: Chronic Code(s): I25.10 - Atherosclerotic heart disease of [place] coronary artery without angina pectoris Qualifiers: Coronary Disease-Associated Artery/Lesion type: [place] artery [place] vs. transplanted heart: [place] heart Associated angina: without angina Qualified Code(s): I25.10 - Atherosclerotic heart disease of [place] coronary artery without angina pectoris (8) HHD (hypertensive heart disease): Status: Chronic Code(s): I11.9 - Hypertensive heart disease without heart failure Qualifiers: Heart failure presence: without heart failure Qualified Code(s): I11.9 - Hypertensive heart disease without heart failure (9) HLD (hyperlipidemia): Status: Chronic Code(s): E78.5 - Hyperlipidemia, unspecified Qualifiers: Hyperlipidemia type: mixed hyperlipidemia Qualified Code(s): E78.2 - Mixed hyperlipidemia Meds Home Medications and Allergies Home Medications ?Medication ?Instructions ?Recorded ?Confirmed ?Type tamsulosin 0.4 mg capsule 0.4 mg PO DAILY 07/23/2305/05 History aspirin 81 mg tablet,delayed 81 mg PO DAILY 08/17/23 1 11/18/24 History release potassium chloride 20 mEq 20 meq PO DAILY 30 days #30 tabs 11/18/23 09/17/25 Rx tablet,extended release(part/cryst) (Klor-Con M) nitroglycerin 0.4 mg sublingual 0.4 mg sublingual Q5MI [employer] PRN chest 11/16/24 09/17/25 Rx tablet pain #20 tabs ascorbate calcium (vitamin C) 500 500 mg PO DAILY 01/0309/17/25 History mg tablet clopidogrel 75 mg tablet 75 mg PO DAILY #30 tabs 05/1209/17/25 Rx bisoprolol fumarate 10 mg tablet 10 mg PO BID 90 days #180 tabs 08/01/25 09/17/25 Rx furosemide 40 mg tablet 40 mg PO DAILY #90 tabs 08/1309/17/25 Rx albuterol sulfate 90 mcg/actuation 1 puff inhalation Q 4HP PRN 09/17/25 09/17/25 History aerosol inhaler Shortness Of Breath ipratropium 0.5 mg-albuterol 3 mg 3 ml inhalation Q4HP PRN Shortness 09/17/25 09/17/25 History (2.5 mg base)/3 mL nebulization Of Breath soln prednisone 10 mg tablet 10 mg PO DIRECTED 5 09/17/25 History rosuvastatin 40 mg tablet 40 mg PO DAILY 09/17/2505/05 History irbesartan 150 mg tablet 150 mg PO DAILY 30 days #30 tabs 09/19/25 Rx New Prescriptions to Start Prescriptions: Presley Wade Allergies Allergy/AdvReac Type Severity Reaction Status Date / Time ramipril (From Altace) Allergy Mild Unknown Verified 09/14/25 10:18 allergy reaction Discharge Plan Disposition Patient Disposition: Home, Self-Care Condition: Fair Discharge Order Discharge Orders: Discharge Order (Routine); Ordered 09/19/25 Ordered By: Presley Boykin Follow up Plan Follow up with: Radha Casas APRN [Nurse Practitioner, Cardiology] - 09/26/25 2:15 pm Mario Patel MD [Primary Care Provider, Medical] - 09/27/25 9:00 am Prescriptions/Medication Reconciliation: New irbesartan 150 mg Tablet 150 mg PO DAILY 30 Days Qty: 30 0RF Continued ascorbate calcium (vitamin C) 500 mg tablet 500 mg PO DAILY furosemide 40 mg tablet 40 mg PO DAILY Qty: 90 3RF tamsulosin 0.4 mg capsule 0.4 mg PO DAILY nitroglycerin 0.4 mg tablet, sublingual 0.4 mg SUBLINGUAL Q5MINP PRN (Reason: chest pain) Qty: 20 2RF Rx Instructions: do not exceed 3 doses per episode clopidogrel 75 mg tablet 75 mg PO DAILY Qty: 30 5RF bisoprolol fumarate 10 mg tablet 10 mg PO BID 90 Days Qty: 180 3RF aspirin 81 mg Tablet,Delayed Release (Dr/Ec) 81 mg PO DAILY potassium chloride [Klor-Con M20] 20 mEq Tablet,Er Particles/Crystals 20 meq PO DAILY 30 Days Qty: 30 0RF prednisone 10 mg tablet 10 mg PO DIRECTED ipratropium-albuterol 0.5 mg-3 mg(2.5 mg base)/3 mL solution for nebulization 3 ml INHALATION Q4HP PRN (Reason: Shortness Of Breath) Patient Comments: [NO ORIGINAL SIG] albuterol sulfate 90 mcg/actuation HFA aerosol inhaler 1 puff inhalation Q4HP PRN (Reason: Shortness Of Breath) rosuvastatin 40 mg tablet 40 mg PO DAILY Discontinued amlodipine 5 mg tablet 5 mg PO DAILY Qty: 90 1RF Other Ambulatory Orders: Consult to Cardiac Rehabilitation (Routine) Facility: [facility] - Location: Cardiac Rehabilitation Ordered By: Vahe Rehman Basic Metabolic Panel (Routine) Timeframe: 20250926 Facility: [facility] - Location: Laboratory Ordered By: Vahe Rehman Complete Blood Count Auto Diff (Routine) Timeframe: 20250926 Facility: [facility] - Location: Laboratory Ordered By: Vahe Rehman Problem Reconciliation Problems Reviewed?: Yes Patient Discharge Instructions ACTIVITY: Continue current activity DIET: continue same diet Patient Instructions: Acute Coronary Syndrome, DI for Shortness of Breath, Stop Light Heart Failure Print Language: Bulgarian Providers Primary Care Provider: Mario Patel Admit Provider: Ryan Sarabia Attending Provider: Ryan Sarabia
[2025-09-19] MEDS: IRBESARTAN 150MG TAB 150 MG PO (12:12)
--- NOTE | 2025-09-19 14:29 | P.PN_ITS ---
Subjective Subjective Date: 09/19/25 Time: 09:30 Principal diagnosis: Non-STEMI Interval history: 80-year-old gentleman who presented to the emergency department complaints of chest pain. The patient was found to have a non-STEMI. He underwent left cardiac catheterization yesterday and was found to have a fractured coronary stent. He had 1 stent placed to the right coronary artery and tolerated the procedure well. This morning he denies any chest pain or pressure. He states that he is not sure if his shortness of breath is improved yet but he will know when he gets out and starts doing stuff again. He denies any lower extremity edema. He denies any fever, chills, nausea, vomiting, diarrhea, PND orthopnea. Exam Data for Last 24 hours Vital signs and Labs for Last 24 Hours: Temp Pulse Resp BP Pulse Ox O2 Del Method 98.2 F 60 18 139/81 96 Room Air 09/19/25 08:00 09/19/25 08:00 09/19/25 08:00 09/19/25 12:00 09/19/25 08:00 09/19/25 13:00 Laboratory Results - last 24 hr 09/18/25 18:00: Activated Clotting Time > 400 H* 09/19/25 05:32: WBC 7.9, RBC 4.25 L, Hgb 12.2 L, Hct 36.5 L, MCV 85.9, MCH 28.7, MCHC 33.4, RDW 19.1 H, Plt Count 112 L, MPV TNP, Neut % (Auto) 62.8, Lymph % (Auto) 22.2, [place] % (Auto) 12.0 H, Eos % (Auto) 0.4, Baso % (Auto) 1.1, Neut # (Auto) 5.0, Lymph # (Auto) 1.8, [place] # (Auto) 1.0, Eos # (Auto) 0.0, Baso # (Auto) 0.1, Sodium 138, Potassium 4.0, Chloride 101, Carbon Dioxide 31 H, Anion Gap 10.0, BUN 21 H, Creatinine 1.20, Estimated Creat Clear 51, Estimated GFR 58 L, Est GFR ( Amer) 70, Glucose 86, Calcium 8.2 L, Magnesium 2.1 D, Total Bilirubin 0.7, AST 31, ALT 24, Alkaline Phosphatase 48, Total Protein 5.7 L, Albumin 3.4 L, Globulin 2.3, Albumin/Globulin Ratio 1.5 I & O for Last 24 hours: Intake & Output 09/16/25 09/17/25 09/18/25 09/19/25 23:59 23:59 23:59 23:59 Intake Total 1080 / 1080 1220 / 1220 480 / 480 Output Total 0 / 0 200 / 200 Balance 1080 / 1080 1020 / 1020 480 / 480 Weight 162 lb 8 oz 164 lb 3.2 oz 164 lb 3.205 oz Constitutional Constitutional: no acute distress *Routine HEENT Exam Head: Present normocephalic Eye: Present EOMI and PERRL ENT: Present mucous membranes moist *Routine Neck Exam Neck: Present supple; Absent lymphadenopathy *Routine Respiratory Exam Respiratory: Present CTA bilaterally *Routine Cardiovascular Exam Cardiovascular: Present RRR *Routine Abdominal Exam Abdominal: Present soft and normoactive bowel sounds; Absent tenderness *Routine Extremities Exam Extremities: Absent cyanosis, clubbing or edema *Routine Skin Exam Skin: Present warm; Absent rash *Routine Neurological Exam Neurological: Present alert and oriented X3 Progress Note: A&P Assessment and plan (1) NSTEMI (non-ST elevated myocardial infarction): Status: Acute (2) SOB (shortness of breath): Status: Acute (3) Hypertension: Status: Acute (4) CKD (chronic kidney disease) stage 3, GFR 30-59 ml/min: Status: Acute (5) CAD (coronary artery disease): Status: Chronic (6) History of coronary artery bypass graft: Status: Chronic (7) PAD (peripheral artery disease): Status: Chronic (8) HHD (hypertensive heart disease): Status: Chronic (9) HLD (hyperlipidemia): Status: Chronic (10) Carotid artery stenosis: Status: Chronic (11) Cardiac pacemaker in situ: Status: Chronic (12) HFrEF (heart failure with reduced ejection fraction): Status: Acute Assessment and Plan Assessment and Plan for All Diagnoses:: Plan: 1. The patient was admitted to the hospital and found to have a non-STEMI. He underwent left cardiac catheterization yesterday and had 1 stent placed to his right coronary artery. He tolerated the procedure well and will be on aspirin and Plavix for dual antiplatelet therapy. 2. Echocardiogram shows a mildly reduced ejection fraction at 45% which was previously 50%. Continue Lasix. 3. Stop Norvasc due to his cardiomyopathy. 4. Start irbesartan 150 mg daily for HFrEF and for control of his blood pressure. 5. His blood pressure is stable today. Continue bisoprolol at current dose. 6. His LDL goal is less than 55. His LDL is 70. He is on a statin. 7. No further recommendations at this time from a cardiac standpoint. The patient can be discharged home today from a cardiac standpoint with follow-up in cardiology clinic in 1 to 2 weeks on an outpatient basis. Thank you for the opportunity to help participate in the care of this patient. Our recommendations and orders are per Dr. Bush.
--- NOTE | 2025-09-20 11:07 | SW/DCPLANNER ---
Spoke with patient's on the phone. Patient's stated that her is doing well. Patient's stated that he is aware of his upcoming appointments. Patient's stated that his medicine was brought to his room before he was discharged. Patient's stated that [facility] has the best staff and are always smiling. Patient's stated that she has no concerns or questions at this time. Camron Glaser
== END 2025-09-19 13:19 | disposition home or self-care (01) | DRG 321 ==
LOC: ER 10:48 → 2ND 11:59
PROVIDERS: Internal Medicine; Admitting Provider Student in an Organized Health Care Education/Training Program; Emergency Provider Student in an Organized Health Care Education/Training Program; PCP Family Medicine; Visit Provider Student in an Organized Health Care Education/Training Program
PROC: 4A023N7 Measurement of Cardiac Sampling and Pressure, Left Heart, Percutaneous Approach (ICD-10-PCS; CPT 93452; principal; 2025-09-18 12:30)
DX: T82.855A Stenosis of coronary artery stent, initial encounter (principal); I21.4 Non-ST elevation (NSTEMI) myocardial infarction; I50.32 Chronic diastolic (congestive) heart failure; N18.30 Chronic kidney disease, stage 3 unspecified; I25.10 Atherosclerotic heart disease of native coronary artery without angina pectoris; I73.9 Peripheral vascular disease, unspecified; I12.9 Hypertensive chronic kidney disease with stage 1 through stage 4 chronic kidney disease, or unspecified chronic kidney disease; N40.0 Benign prostatic hyperplasia without lower urinary tract symptoms; J44.9 Chronic obstructive pulmonary disease, unspecified; D50.9 Iron deficiency anemia, unspecified; I65.23 Occlusion and stenosis of bilateral carotid arteries; Y71.2 Prosthetic and other implants, materials and accessory cardiovascular devices associated with adverse incidents; Z91.148 Patient's other noncompliance with medication regimen for other reason; Z95.0 Presence of cardiac pacemaker; Z95.1 Presence of aortocoronary bypass graft; Z95.5 Presence of coronary angioplasty implant and graft; Z79.82 Long term (current) use of aspirin; Z79.02 Long term (current) use of antithrombotics/antiplatelets; Z79.899 Other long term (current) drug therapy; Z88.8 Allergy status to other drugs, medicaments and biological substances
CPT/HCPCS: 36415; 71275; 80053; 82803; 83036; 83605; 83735; 84484; 85025; 85347; 93005; 93306; 99152; 99285; C1725; C1769; C1874; C1887; C1894; G0378; J1200; J1644; J1650; J2003; J2250; J2720; J3010; J7040; Q9967

== ENCOUNTER 2025-09-26 13:16 | Outpatient (CLI) | payer MEDICARE, SELFPAY ==
--- OUTSIDE RECORDS SUMMARY | 2025-09-26 13:19 | XMS_ITS | Clinical Summary ---
Author Organization [facility] Address [address] [place] [id number] Care Team Providers Care State Game Warden Name Role Phone Unavailable Primary Care Provider [...]
--- OUTSIDE RECORDS SUMMARY | 2025-09-26 13:19 | XMS_ITS | Clinical Summary ---
Author Organization [facility] Address [address] [place] [id number] Care Team Providers Care Teacher Selection Specialist Name Role Phone Mario Patel MD Primary Care Provider [phone] Source Comments This information has been disclosed [...] therelease of HIV test results or diagnoses. [id number] Active Problems Problem Noted Date Diagnosed Date Other peripheral vascular disease(443.89) 2010 Social History Tobacco Use Types Packs/Day Years Used Date Smoking Tobacco: Never Assessed Sex and Gender Information Value Date Recorded Sex Assigned at Not on file Legal Sex Male 9:40 PM EST Gender Identity Not on file Sexual Orientation Not on file Plan of Treatment Not on file Care Teams Teacher Selection Specialist Relationship Specialty Start Date End Date Mario Patel MD [address] [place] [address] PCP - General 11/25/10
--- OUTSIDE RECORDS SUMMARY | 2025-09-26 13:19 | XMS_ITS | Clinical Summary ---
Author Organization [facility] Address [address] [place] [address] Care Team Providers Care Validation Technician Name Role Phone List, None To Primary [...] (hypertension), benign 03/27/2010 CAD (coronary artery disease), [place] coronary a rtery 03/27/2010 Coronary atherosclerosis of autologous vein bypa ss graft 03/27/2010 Carotid Artery Stenosis w/o Infarct 03/27/2010 GERD (gastroesophageal reflux disease) 0 HLD (hyperlipidemia) 03/27/2010 Palpitations 03/27/2010 Syncope and collapse 03/27/2010 Resolved Problems Problem Noted Date Diagnosed Date Resolved Date CAD (coronary artery disease ), [place] coronary artery 03/27/2010 03/27/2010 Family History Medical History Relation Name Comments Heart Disease Brother 2 CABG Heart Disease Father [place] Relation Name Status Comments Brother 1 Alive CABG Brother 2 Father (Age 77) [place] Mother pneumonia Social History Tobacco Use Types [...] patient's age to complete this topic Insurance [facility] Care Teams Validation Technician Relationship Specialty Start Date End Date List, None To PCP - General 03/29/10
[2025-09-26 13:31] LABS: Hematocrit 39.9 % (42.0-52.0); Hemoglobin 13.0 g/dL (14.1-18.0); Immature Granulocytes % 0.9 %; Mean Corpuscular HGB Conc 32.6 g/dL (31.8-35.4); Mean Corpuscular Hemoglobin 28.7 pg (27.0-31.2); Mean Corpuscular Volume 88.1 fl (80-94); Nucleated Red Blood Cells % 0.4 %; Platelet Count 114 K/mm3 (142-424); Red Blood Count 4.53 M/mm3 (4.60-6.20); Red Cell Distribution Width-SD 63.3 fL; White Blood Count 8.9 K/mm3 (4.8-10.8)
[2025-09-26 14:02] LABS: Anion Gap 13.5 mEq/L (5-15); Blood Urea Nitrogen 20 mg/dl (9-20); Carbon Dioxide 27 mmol/L (22.0-30.0); Chloride 105 mmol/L (98-107); Creatinine,Serum 1.30 mg/dl (0.66-1.25); Estimated Glomerular Filt Rate 53 ml/min (>60); GFR (African American) 64 ML/MIN (>60); Potassium 4.5 mmoL/L (3.5-5.1); Sodium 141 mmol/L (136-145)
[2025-09-26 15:43] LABS: Calcium 9.2 mg/dl (8.4-10.2); Glucose 110 mg/dl (74-100)
== END 2025-09-26 23:59 | disposition home or self-care (01) ==
PROVIDERS: PCP Family Medicine; Visit Provider Internal Medicine
DX: I21.4 Non-ST elevation (NSTEMI) myocardial infarction (principal); R00.2 Palpitations
CPT/HCPCS: 36415; 80048; 85025; 93270